=== PATIENT | female | born 1970 | race Caucasian/White ===

== ENCOUNTER → 2017-12-09 08:26 | Outpatient (CLI) | payer OTHER, SELFPAY ==
[2017-12-09 10:24] LABS: Absolute Lymphocyte Count 3.53 X10^3/ul (0.83-4.51); Absolute Neutrophil Count 3.2 X10^3/uL (2.0-7.7); Basophil# 0.04 X10^3/uL; Basophil% 0.5 % (0-1); Eosinophil# 0.11 X10^3/uL; Eosinophils% 1.4 % (0-5); Hematocrit 42.4 % (37-47); Hemoglobin 13.8 g/dl (12.0-15.0); Lymphocyte # 3.53 X10^3/ul (4.0); Lymphocyte % 46.5 % (19-41); Mean Corp Hgb Conc 32.5 g/gl (32-36); Mean Corpuscular Hgb 29.1 pg (27.0-32.0); Mean Corpuscular Volume 89.3 fL (81-99); Mean Platelet Vol. 10.5 fl (6.2-12.0); Monocyte# 0.69 X10^3/uL; Monocyte% 9.1 % (0-10); Neutrophil % 42.2 % (47-70); Platelet Count 330 K/mm3 (150-450); RBC Distribution Width CV 13.2 % (11.6-14.6); RBC Distribution Width SD 42.6 fl (35.1-43.9); Red Blood Count 4.75 M/mm3 (4.2-5.4); White Blood Count 7.6 K/mm3 (4.4-11.0)
[2017-12-09 10:33] LABS: POSITIVE COUNT NO; POSITIVE DIFFERENTIAL NO; POSITIVE MORPHOLOGY NO
[2017-12-09 10:56] LABS: ALB/GLOB Ratio 1.1 RATIO (0.9-2.4); AST(SGOT) 20 U/L (15-37); Alanine Aminotransfer ALT/SGPT 33 U/L (13-56); Alkaline Phosphatase 115 U/L (45-117); Anion Gap 8 (5-15); BUN 10 mg/dL (7-18); BUN/Creat Ratio 13.6 RATIO (10-20); Calcium,Total 8.9 mg/dL (8.5-10.1); Chloride 98 mmol/L (98-107); Creatinine, Serum 0.74 mg/dL (0.55-1.02); EST Glomerular Filtration Rate 91 mL/min (>60); Est Glom Filt Rate - Afr Amer 110 mL/min (>60); Globulin 3.6 g/dL (2.2-4.2); Glucose 96 mg/dL (74-106); Potassium 3.9 mmol/L (3.5-5.1); Protein, Total 7.6 g/dL (6.4-8.2); Sodium Level 137 mmol/L (136-145)
[2017-12-12 05:09] LABS: QNTFERON TB Ag Minus Nil Value 0.02 IU/mL (.); QNTFERON TB Ag Value 0.05 IU/mL (.); QNTFERON TB Mitogen Value > 10.00 IU/mL (.); QNTFERON TB Nil Value 0.03 IU/mL (.)
[2017-12-12 09:00] LABS: QNTIFERON TB Gold Negative (Negative)
== END ==
PROVIDERS: Family Provider Family Medicine; PCP Family Medicine; Visit Provider Internal Medicine Rheumatology
DX: M06.4 Inflammatory polyarthropathy (principal); Z79.899 Other long term (current) drug therapy; K51.80 Other ulcerative colitis without complications; L40.8 Other psoriasis; I10 Essential (primary) hypertension
CPT/HCPCS: 36415; 80053; 85025; 86480

== ENCOUNTER → 2017-12-29 14:39 | Outpatient (CLI) | payer OTHER, SELFPAY ==
--- NOTE | 2017-12-29 14:42 | RAD_ITS ---
STUDY: X-RAY - RIGHT KNEE REASON FOR EXAM: Female, 47 years old. Pain, swelling TECHNIQUE: 4 view(s) of the knee. COMPARISON: None. FINDINGS: Normal visualized distal femur. Normal visualized proximal tibia and fibula. Normal proximal tibiofibular articulation. Normal medial femorotibial compartment. Normal lateral femorotibial compartment. Normal patellofemoral articulation. There is a small joint effusion. RAD/Knee 4 or More Views IMPRESSION: Small joint effusion Electronically Signed: Payam Vo MD at 22:18 EDT Tel , Service support ,
== END ==
PROVIDERS: Family Provider Family Medicine; PCP Family Medicine; Visit Provider Orthopaedic Surgery
DX: M25.561 Pain in right knee (principal)
CPT/HCPCS: 73564

== ENCOUNTER → 2018-02-15 11:09 | Outpatient (CLI) | payer OTHER, SELFPAY ==
[2018-02-19 03:08] LABS: Alternaria tenuis <0.10 kU/L (Class 0); Cladosporium herbarum <0.10 kU/L (Class 0); Dog Epithelia <0.10 kU/L (Class 0); Penicillium Notatum <0.10 kU/L (Class 0)
[2018-02-19 11:52] LABS: Cat Hair / Dander,Stand <0.10 kU/L (Class 0); Mucor racemosus <0.10 kU/L (Class 0)
== END ==
PROVIDERS: Family Provider Family Medicine; PCP Family Medicine; Visit Provider Otolaryngology
DX: J30.81 Allergic rhinitis due to animal (cat) (dog) hair and dander (principal)
CPT/HCPCS: 36415; 86003

== ENCOUNTER → 2018-05-03 08:21 | Outpatient (CLI) | payer OTHER, SELFPAY ==
[2018-05-03 10:15] LABS: Absolute Lymphocyte Count 4.24 X10^3/ul (0.83-4.51); Absolute Neutrophil Count 3.1 X10^3/uL (2.0-7.7); Basophil# 0.06 X10^3/uL; Basophil% 0.7 % (0-1); Eosinophils% 1.2 % (0-5); Hematocrit 42.1 % (37-47); Hemoglobin 13.6 g/dl (12.0-15.0); Lymphocyte # 4.24 X10^3/ul (4.0); Lymphocyte % 50.8 % (19-41); Mean Corp Hgb Conc 32.3 g/gl (32-36); Mean Corpuscular Hgb 28.9 pg (27.0-32.0); Mean Corpuscular Volume 89.4 fL (81-99); Mean Platelet Vol. 10.6 fl (6.2-12.0); Monocyte# 0.83 X10^3/uL; Monocyte% 9.9 % (0-10); Neutrophil # 3.09 X10^3/uL (2.7-7.7); Platelet Count 315 K/mm3 (150-450); RBC Distribution Width CV 13.3 % (11.6-14.6); RBC Distribution Width SD 43.1 fl (35.1-43.9); Red Blood Count 4.71 M/mm3 (4.2-5.4); White Blood Count 8.4 K/mm3 (4.4-11.0)
[2018-05-03 10:16] LABS: POSITIVE COUNT NO; POSITIVE DIFFERENTIAL NO; POSITIVE MORPHOLOGY NO
[2018-05-03 10:44] LABS: ALB/GLOB Ratio 1.1 RATIO (0.9-2.4); AST(SGOT) 23 U/L (15-37); Alanine Aminotransfer ALT/SGPT 30 U/L (13-56); Albumin, Serum 3.9 g/dL (3.2-5.0); Alkaline Phosphatase 131 U/L (45-117); Anion Gap 9 (5-15); BUN 7 mg/dL (7-18); BUN/Creat Ratio 6.5 RATIO (10-20); Calcium,Total 9.4 mg/dL (8.5-10.1); Chloride 99 mmol/L (98-107); Creatinine, Serum 1.07 mg/dL (0.55-1.02); EST Glomerular Filtration Rate 59 mL/min (>60); Est Glom Filt Rate - Afr Amer 71 mL/min (>60); Globulin 3.7 g/dL (2.2-4.2); Glucose 88 mg/dL (74-106); Potassium 4.5 mmol/L (3.5-5.1); Protein, Total 7.6 g/dL (6.4-8.2); Sodium Level 138 mmol/L (136-145)
== END ==
PROVIDERS: Family Provider Family Medicine; PCP Family Medicine; Visit Provider Internal Medicine Rheumatology
DX: M06.4 Inflammatory polyarthropathy (principal); Z79.899 Other long term (current) drug therapy; K51.80 Other ulcerative colitis without complications; L40.8 Other psoriasis; I10 Essential (primary) hypertension
CPT/HCPCS: 36415; 80053; 85025

== ENCOUNTER → 2018-05-19 14:53 | Outpatient (CLI) | payer OTHER, SELFPAY | PROVIDERS: Family Provider Family Medicine; PCP Family Medicine; Visit Provider Internal Medicine Rheumatology | DX: M06.4 Inflammatory polyarthropathy (principal); Z79.899 Other long term (current) drug therapy; K51.80 Other ulcerative colitis without complications; L40.8 Other psoriasis; I10 Essential (primary) hypertension | CPT/HCPCS: 36415 ==

== ENCOUNTER 2018-08-04 13:59 | Emergency (ER) | payer OTHER, SELFPAY ==
[2018-08-04] VITALS (8 sets, daily range): BP systolic 118–137; BP diastolic 74–97; PULSE 62–106; RESP 13–18; TEMP 36.3; O2SAT 94–100; BMI 27.0
--- NOTE | 2018-08-04 14:11 | EKG12_ITS ---
Test Reason : REPEAT-CP Blood Pressure : / mmHG Vent. Rate : 080 BPM Atrial Rate : 080 BPM P-R Int : 108 ms QRS Dur : 086 ms QT Int : 380 ms P-R-T Axes : 034 061 045 degrees QTc Int : 438 ms Sinus rhythm with short WI Otherwise normal ECG Confirmed by HAMIDA MARTINEZ, NATALIE ([id number]), editor in chief LORENZO LAZO ([id number]) on 08/06/2018 1:28:12 PM Referred By: KENTRELL Confirmed By:NATALIE MEI MD
--- NOTE | 2018-08-04 14:11 | RAD_ITS ---
STUDY: X-RAY CHEST REASON FOR EXAM: Female, 47 years old. Chest pain TECHNIQUE: Frontal view of the chest COMPARISON: 11/18/2016 FINDINGS: The lungs are clear. There are no pleural effusions. There is no pneumothorax. The heart is normal in size. The visualized osseous structures are within normal limits. RAD/Chest 1 View (Portable) IMPRESSION: No acute thoracic pathology. Electronically Signed: Payam Fisher, at 14:27 EDT Tel , Service support ,
[2018-08-04 14:26] LABS: Absolute Neutrophil Count 4.2 X10^3/uL (2.0-7.7); Basophil# 0.06 X10^3/uL; Basophil% 0.7 % (0-1); Eosinophil# 0.09 X10^3/uL; Hematocrit 43.4 % (37-47); Hemoglobin 14.1 g/dl (12.0-15.0); Lymphocyte % 44.4 % (19-41); Mean Corp Hgb Conc 32.5 g/gl (32-36); Mean Corpuscular Hgb 29.4 pg (27.0-32.0); Mean Corpuscular Volume 90.4 fL (81-99); Mean Platelet Vol. 10.5 fl (6.2-12.0); Monocyte# 0.54 X10^3/uL; Monocyte% 6.2 % (0-10); Neutrophil # 4.17 X10^3/uL (2.7-7.7); Neutrophil % 47.5 % (47-70); Platelet Count 306 K/mm3 (150-450); RBC Distribution Width CV 13.8 % (11.6-14.6); RBC Distribution Width SD 45.5 fl (35.1-43.9); White Blood Count 8.8 K/mm3 (4.4-11.0)
[2018-08-04 14:28] LABS: POSITIVE COUNT NO; POSITIVE DIFFERENTIAL NO; POSITIVE MORPHOLOGY NO
--- NOTE | 2018-08-04 14:35 | CT_ITS ---
STUDY: CTA CHEST REASON FOR EXAM: Female, 47 years old. Shortness of breath. RADIATION DOSAGE (If Supplied By Facility): CTDIvol = ( 9.82 ) mGy, DLP = ( 295.99 ) mGycm TECHNIQUE: The examination was performed with the intravenous administration of 75 ml of Isovue 370 contrast material. Post-processing of the angiographic images was performed, with multiplanar reformation and 3D reconstruction. Individualized dose optimization techniques were used for this CT. COMPARISON: Comparison is made with prior CT scan of thorax dated November 18, 2016 and prior chest radiograph done earlier today. FINDINGS: Small bilateral axillary Normal enhancement of the main pulmonary artery and right and left pulmonary arteries. Normal enhancement of the bilateral peripheral pulmonary arteries. There is no demonstrated pulmonary embolism. Normal thoracic aorta and visualized great vessels. There is no demonstrated aortic dissection. Normal heart and pericardium. Normal mediastinum. Normal hilar regions. Normal visualized trachea and bronchi. The lungs are well expanded. Normal pulmonary parenchyma. Normal pleura. Normal chest wall structures. Normal osseous structures. The patient is status post cholecystectomy. Small hiatal hernia. CT/CTA Chest W/WO Contrast IMPRESSION: Normal CTA chest examination, without a demonstrated pulmonary embolism or arterial dissection. Electronically Signed: Hernandez Hamilton MD at 15:42 EDT Tel [phone], Service support ,
--- NOTE | 2018-08-04 14:38 | ED.VISSUMM ---
- ER Visit Summary Date of Service: 08/04/18 Chief Complaint: Chest pain History of Present Illness: The patient is a 47 F who presents for 2 days of chest pain. Patient was working, nonexertional, 2 days ago when she began having bilateral chest pain. It is relieved by nothing and has been worse with movement. Today the pain is now mainly left-sided. Patient denies any fever, cough, or associated symptoms other than mild shortness of breath. No cardiac history but patient does have hypertension, hypercholesterolemia, smokes, and is on estradiol hormone replacement after hysterectomy. She does have a history of coronary artery disease in her family, with father having a heart attack at age 50. Physical Examination: Vital signs: afebrile, hemodynamically stable, no hypoxia on room air General: well nourished, well developed, in no distress Skin: warm, dry, no rash, no pallor HEENT: normocephalic and atraumatic; PERRL, EOMI, moist mucous membranes Cardiovascular: Tachycardic rate and rhythm without murmurs, no peripheral edema, 2+ pulses all distal extremities Respiratory: No increased work of breathing, lungs are clear to auscultation bilaterally, no rales, rhonchi or wheezing Abdominal: Abdomen is soft, nontender with normoactive bowel sounds, no guarding or rebound, no masses MSK: Moves all extremities, no deformities, normal strength Neuro: Awake and alert, oriented ?4. No facial droop, sensation and motor function intact and symmetric Test Results: Clinical Impression(s) from Imaging Studies Chest X-Ray 08/04/18 14:11 IMPRESSION: No acute thoracic pathology. Electronically Signed: Payam Fisher at 14:27 EDT Tel , Service support , Chest CTA 08/04/18 14:35 IMPRESSION: Normal CTA chest examination, without a demonstrated pulmonary embolism or arterial dissection. Electronically Signed: Hernandez Hamilton MD at 15:42 EDT Tel [phone], Service support , Abnormal Lab Results 08/04/18 08/04/18 14:09 14:09 WBC 8.8 RBC 4.80 Hgb 14.1 Hct 43.4 MCV 90.4 MCH 29.4 MCHC 32.5 RDW 13.8 RDW Differential 45.5 H Plt Count 306 MPV 10.5 Immature Gran % (Auto) 0.200 Neut % (Auto) 47.5 Lymph % (Auto) 44.4 H Knox % (Auto) 6.2 Eos % (Auto) 1.0 Baso % (Auto) 0.7 Absolute Neuts (auto) 4.2 Absolute Lymphs (auto) 3.90 Total Counted Not Reportable Sodium 140 Potassium 3.6 Chloride 104 Carbon Dioxide 30.0 Anion Gap 6 BUN 6 L Creatinine 0.84 Estim Creat Clear Calc 66.89 Est GFR (MDRD) Af Amer 94 Est GFR (MDRD) Non-Af 78 BUN/Creatinine Ratio 7.2 L Glucose 110 H Calcium 8.8 Troponin I < 0.015 Medications Given Discontinued Medications Sodium Chloride () 1,000 mls @ 999 mls/hr IV .Q1H1M ONE Stop: 08/04/18 15:37 Last Admin: 08/04/18 15:14 Dose: 999 mls/hr Ketorolac Tromethamine (Toradol) 15 mg IV X1 ONE Stop: 08/04/18 16:57 Last Admin: 08/04/18 17:23 Dose: 15 mg Emergency Department Course and Treatment: Patient is tachycardic, with chest pain and is a smoker on estrogen replacement. Thus PE is on the differential. EKG showed sinus rhythm of 98 with no ischemic changes. She was mildly tachycardic when I evaluated her. Labs were unremarkable, including a negative initial troponin. CTA showed no pulmonary embolism, pneumonia or dissection. Patient's heart rate was variable while in the emergency department, and she stated that that is not abnormal for her to have her heart rate go up and down like that. She did mention having occasional sensation of palpitations, and she was noted to have unifocal PVCs occasionally on the manager sign. Patient has had the chest pain for 2 days, with worsening with movement, and thus it is unlikely to be cardiac in nature. Patient's heart score is 3 for risk factors and her age of 47. She was amenable to a 3-hour troponin and EKG. Repeat EKG showed no ischemic changes. Repeat troponin performed and was negative. Patient received IV Toradol for pain with some improvement. We discussed treatment of patient's nonspecific chest pain with anti-inflammatories with close follow-up with her primary care doctor. Patient has ibuprofen at home and she will take it scheduled for 3 days whether she is having significant discomfort or not. Return precautions given. Patient discharged home. Treatment Plan: [] Disposition: [] Impression: acute chest pain This note was generated with [employer] dictation software. It may contain incorrect words, spelling, and punctuation that were not noted in review of the chart prior to signing ED Disposition - Plan for ED Patient: Chief Complaint: Chest Pain Referrals: Ricci Poe MD [Primary Care Provider] -
[2018-08-04 14:40] LABS: Anion Gap 6 (5-15); BUN 6 mg/dL (7-18); BUN/Creat Ratio 7.2 RATIO (10-20); Calcium,Total 8.8 mg/dL (8.5-10.1); Chloride 104 mmol/L (98-107); Creatinine, Serum 0.84 mg/dL (0.55-1.02); EST Glomerular Filtration Rate 78 mL/min (>60); Est Glom Filt Rate - Afr Amer 94 mL/min (>60); Estimated Creatinine Clearance 66.89 ml/min; Glucose 110 mg/dL (74-106); Potassium 3.6 mmol/L (3.5-5.1); Sodium Level 140 mmol/L (136-145)
[2018-08-04] MEDS: 0.9% Normal Saline 1,000 ML 999 ML IV (15:14)
--- NOTE | 2018-08-04 16:56 | EKG12_ITS ---
Test Reason : CP Blood Pressure : / mmHG Vent. Rate : 098 BPM Atrial Rate : 098 BPM P-R Int : 120 ms QRS Dur : 086 ms QT Int : 340 ms P-R-T Axes : 041 051 036 degrees QTc Int : 434 ms Normal sinus rhythm Normal ECG Confirmed by HAMIDA MARTINEZ, NATALIE ([id number]), school photograph editor LORENZO LAZO ([id number]) on 08/06/2018 1:28:30 PM Referred By: KENTRELL/CAMILO Confirmed By:NATALIE MEI MD
[2018-08-04] MEDS: Ketorolac 15 MG/ML Vial IV (17:23)
--- NOTE | 2018-08-04 18:22 | ED.DEP ---
ED Disposition - Plan for ED Patient: Disposition: Home or Assisted Living Chief Complaint: Chest Pain Instructions: ED Chest Pain Atypical Unkn Cause Referrals: Ricci Poe MD [Primary Care Provider] - 3-5 Days Additional Instructions: Use ibuprofen every 6 hours for the next 3 days even if you are not having significant pain, as this will help with any chest wall inflammation that may be contributing to your symptoms. Follow up with your doctor within 3-5 days for another evaluation. If you have any worsening of your condition or any new concerning symptoms, please return immediately to the emergency department for another evaluation.
== END 2018-08-04 18:37 | disposition home or self-care (01) ==
PROVIDERS: Emergency Provider Emergency Medicine; Family Provider Family Medicine; PCP Family Medicine
DX: R07.9 Chest pain, unspecified (principal); I49.3 Ventricular premature depolarization; I10 Essential (primary) hypertension; Z79.899 Other long term (current) drug therapy; F17.200 Nicotine dependence, unspecified, uncomplicated
CPT/HCPCS: 71045; 71275; 80048; 84484; 85025; 93005; 96361; 96374; 99284; J7030; Q9967; A4216

== ENCOUNTER → 2018-09-18 07:34 | Outpatient (CLI) | payer OTHER, SELFPAY ==
--- NOTE | 2018-09-18 07:35 | MRI_ITS ---
STUDY: MRI RIGHT KNEE REASON FOR EXAM: Female, 48 years old. Pain and swelling. Prior surgery. TECHNIQUE: Standardized fat and water weighted pulse sequences were obtained in all 3 orthogonal planes. COMPARISON: None. FINDINGS: Normal medial meniscus. Normal hyaline cartilage of the medial femorotibial compartment. Normal medial femoral condyle and tibial plateau. Normal medial collateral ligamentous complex (MCL). Normal distal semimembranosus, gracilis and semitendinosus tendons. Normal lateral meniscus. Normal hyaline cartilage of the lateral femorotibial compartment. Normal lateral femoral condyle and tibial plateau. Normal proximal tibiofibular articulation. Normal lateral collateral (fibular) ligament. Normal popliteus tendon. Normal biceps femoris tendon. Normal anterior cruciate ligament (ACL). Normal posterior cruciate ligament (PCL). Normal congruent patellofemoral articulation. Normal hyaline cartilage of the patellofemoral compartment. Normal medial and lateral patellar retinaculum. Normal quadriceps tendon. Normal patellar tendon. Normal Hoffa's fat pad. There is a small volume joint effusion. There is artifact and signal dropout in the soft tissues consistent with previous surgery. The otherwise visualized osseous structures are unremarkable. MRI/Lower Ext Joint Only (Routine) IMPRESSION: Normal MRI of the knee. No ligamentous or meniscal tear. Small joint effusion. Electronically Signed: Nba Solis MD at 10:18 EST , Service support ,
== END ==
PROVIDERS: Family Provider Family Medicine; PCP Family Medicine; Referring Provider Physician Assistant; Visit Provider Physician Assistant
DX: S83.249A Other tear of medial meniscus, current injury, unspecified knee, initial encounter (principal); M25.561 Pain in right knee
CPT/HCPCS: 73721

== ENCOUNTER 2018-11-18 12:51 | Inpatient (IN) | payer OTHER, SELFPAY ==
[2018-11-18 12:08] VITALS: BMI 26.5
[2018-11-18 12:51] VITALS: BP 125/82; PULSE 87; RESP 16; TEMP 36.1; O2SAT 100; BMI 27.4
--- NOTE | 2018-11-18 15:00 | RAD_ITS ---
STUDY: X-RAY - LEFT HAND REASON FOR EXAM: Female, 48 years old. Catheter placed over the second metacarpal phalangeal joint. TECHNIQUE: view(s) of the hand. COMPARISON: None. FINDINGS: Normal radiocarpal articulation. Normal distal radioulnar joint. Normal visualized carpal bones. Normal carpal articulations Normal carpometacarpal articulation of the thumb. Normal second through fifth carpometacarpal joints. Normal metacarpi. Normal metacarpophalangeal joint of the thumb. Normal interphalangeal joint of the thumb. Normal proximal and distal phalanges of the thumb. Normal metacarpophalangeal joints of the second through fifth fingers. Normal proximal and distal interphalangeal joints of the second through fifth fingers. Normal phalanges of the second through fifth fingers. Soft tissue swelling. No radiopaque foreign body is seen. RAD/Hand Min 3 Views IMPRESSION: Soft tissue swelling. No radiopaque foreign body is seen. Electronically Signed: Hernandez Hamilton MD at 15:31 EST , Service support ,
[2018-11-18 15:02] LABS: Absolute Lymphocyte Count 4.24 X10^3/ul (0.83-4.51); Absolute Neutrophil Count 4.3 X10^3/uL (2.0-7.7); Basophil# 0.04 X10^3/uL; Basophil% 0.4 % (0-1); Eosinophil# 0.09 X10^3/uL; Hemoglobin 13.2 g/dl (12.0-15.0); Lymphocyte # 4.24 X10^3/ul (4.0); Mean Corp Hgb Conc 32.2 g/gl (32-36); Mean Corpuscular Hgb 29.9 pg (27.0-32.0); Mean Corpuscular Volume 92.8 fL (81-99); Mean Platelet Vol. 10.2 fl (6.2-12.0); Monocyte# 0.58 X10^3/uL; Monocyte% 6.3 % (0-10); Neutrophil # 4.25 X10^3/uL (2.7-7.7); Neutrophil % 46.1 % (47-70); POSITIVE COUNT NO; POSITIVE DIFFERENTIAL NO; POSITIVE MORPHOLOGY NO; Platelet Count 312 K/mm3 (150-450); RBC Distribution Width CV 13.4 % (11.6-14.6); RBC Distribution Width SD 44.9 fl (35.1-43.9); Red Blood Count 4.42 M/mm3 (4.2-5.4); White Blood Count 9.2 K/mm3 (4.4-11.0)
[2018-11-18 15:12] LABS: Anion Gap 9 (5-15); BUN 5 mg/dL (7-18); BUN/Creat Ratio 5.9 RATIO (10-20); Calcium,Total 8.7 mg/dL (8.5-10.1); Chloride 103 mmol/L (98-107); Creatinine, Serum 0.84 mg/dL (0.55-1.02); EST Glomerular Filtration Rate 77 mL/min (>60); Est Glom Filt Rate - Afr Amer 94 mL/min (>60); Estimated Creatinine Clearance 66.19 ml/min; Glucose 105 mg/dL (74-106); Potassium 3.3 mmol/L (3.5-5.1); Sodium Level 139 mmol/L (136-145)
[2018-11-18 15:20] LABS: Lactic Acid 1.2 mmol/L (0.4-2.0)
[2018-11-18] MEDS: Ciprofloxacin 400 MG/200 ML BAG 200 MG IV (15:40)
[2018-11-18 15:44] VITALS: PULSE 85; RESP 16; O2SAT 96
--- NOTE | 2018-11-18 16:11 | ED.VISSUMM ---
- ER Visit Summary Date of Service: 11/18/18 Chief Complaint: Cat bite left hand History of Present Illness: The patient is a 48 F [id number] woman who presents with cat bite left hand. She was bit 3 days ago. Is taking 5 doses of doxycycline. She reported numerous anabolic allergies. She denies fever, chills night sweats. Denies paresthesia, anesthesia motor weakness. She is on Humira for treatment of ulcerative colitis and rheumatoid arthritis. She has not noted any drainage. She states the swelling has gotten worse and the redness is a little more intensified. The practitioner from the urgent care center called prior to arrival since he initiated treatment 3 days ago. X-rays were not obtained to evaluate for foreign body. Please read written note for complete detail Physical Examination: Vital signs are normal. She is afebrile. HEENT exam is unremarkable. Heart is regular without murmur, gallop or rub. S1 and S2 are normal. Lungs are clear to auscultation with good movement of air bilaterally. Patient has multiple bite diana to the left hand and forearm. There is erythema soft tissue swelling over the dorsum of the left hand pacifically in the proximity of the first and second MCP joint. There is pain palpation of the extensor indices tendon. She has pain with passive flexion extension of the index finger. There is no epitrochlear excellent lymphadenopathy. There is redness noted that may extend to the wrist. There is no discrete lymphangitis. Read written note for complete detail Test Results: CBC and BMP unremarkable. Three-view x-ray of the hand was interpreted by me as negative for foreign body. There is evidence of soft tissue swelling. There is no subcutaneous air noted. Emergency Department Course and Treatment: IV was established. Pharmacy was consulted. When it was placed Bactrim she reports allergy. Looking at every specific allergy was determined that she does not have an allergic reaction ciprofloxacin. And after consultation with Mally and pharmacy she was treated with IV ciprofloxacin and vancomycin. Dr. [place] Fernandez was contacted. He will see patient determine whether she needs to go to the OR or not Treatment Plan: IV antibiotics, consultation with hand/plastics for possible operative intervention because of concern for a pyogenic tenosynovitis. Disposition: Admit Impression: Left hand cellulitis secondary to cat bite failed outpatient therapy This note was generated with [employer] software. It may contain incorrect words, spelling, and punctuation that were not noted in review of the chart prior to signing ED Disposition - Plan for ED Patient: Referrals: Ricci Poe MD [Primary Care Provider] -
[2018-11-18 16:20] VITALS: BMI 27.4
[2018-11-18 16:46] VITALS: PULSE 90; RESP 20; O2SAT 99
--- NOTE | 2018-11-18 16:53 | PCM.HP.STD ---
<Jack Neville - Last Filed: 11/18/18 16:53> Problem List (1) Cellulitis Status: Acute (2) Cat bite of hand Status: Acute (3) Ulcerative colitis Status: Chronic (4) Rheumatoid arthritis Status: Chronic (5) HTN (hypertension) Status: Chronic History of Present Illness Date of Admission: 11/18/18 Chief Complaint: left hand cat bite The patient is a 48 year old F with pmhx of RA, UC, htn, who presents to the ER with increased swelling and redness of a cat bite. This was sustained 3 days ago. She was attempting to catch a stray cat, which got away. She presented to the urgent care and was placed on doxy given her multiple allergies. She had worsening of the swelling and redness despite 5 doses of doxy, and presented to the ER. There has been no drainage. There is no lymphangitis. She denies fever and chills. She states she just feels unwell. [] Past Medical History Past Medical History (Chronic Problems): Chronic Problems (Last Updated 11/18/18 @ 12:13 by Jane Hackett) Immunocompromised state due to drug therapy (Chronic) Patient takes Humira for rheumatoid arthritis Ulcerative colitis (Chronic) Rheumatoid arthritis (Chronic) HTN (hypertension) (Chronic) Medical History: Medical History (Last Updated 11/18/18 @ 12:13 by Jane Hackett) Bloody stools K92.1 Chest pain R07.9 Diarrhea R19.7 History of hysterectomy Z90.710 Knee pain M25.569 Hypertension I10 Rheumatoid arthritis M06.9 Ulcerative colitis K51.90 H/O: hysterectomy Z98.890, Z90.710 Allergies Penicillins Allergy (Severe, Verified 11/18/18 12:53) Laryngospasms CUTS OFF AIRWAY clindamycin Allergy (Intermediate, Verified 11/18/18 12:53) Rash RASH AND HIGH HR mesalamine [From Asacol] Allergy (Intermediate, Verified 11/18/18 12:53) Rash RASH, HIGH HR, EXCESSIVE DIARRHEA meloxicam [From Mobic] Allergy (Mild, Verified 11/18/18 12:53) Rash nabumetone [From Relafen] Allergy (Mild, Verified 11/18/18 12:53) Rash sulfamethoxazole [From Bactrim] Allergy (Mild, Verified 11/18/18 12:53) Rash trimethoprim [From Bactrim] Allergy (Mild, Verified 11/18/18 12:53) Rash ciprofloxacin [From Cipro] Adverse Reaction (Verified 11/18/18 12:53) CHEST PAIN CHEST PAIN, RASH, HIGH HR ciprofloxacin HCl [From Cipro] Adverse Reaction (Verified 11/18/18 12:53) CHEST PAIN CHEST PAIN, RASH, HIGH HR Home Medications: Ambulatory Orders Medication Instructions Recorded Adalimumab [Humira] 40 mg SQ UD 11/18/16 Montelukast [Singulair] 10 mg PO DAILY 11/18/16 Duloxetine Hcl [Cymbalta] 60 mg PO DAILY 08/04/17 Lisinopril [Zestril] 20 mg PO DAILY 08/04/17 tramadol 50 mg tablet 50 mg PO Q6H PRN MDD ra 09/22/17 Atenolol [Tenormin (beta henrry)] 50 mg PO DAILY 11/18/18 Doxycycline Hyclate 100 mg PO BID 11/18/18 Estradiol 2 mg PO DAILY 11/18/18 azelastine 137 mcg-fluticasone 50 1 spray INTRANASAL BID 11/18/18 mcg spray,susp-NaCl 0.9% spray nasal loratadine 10 mg tablet 10 mg PO DAILY 11/18/18 Surgical History: Surgical History (Last Updated 11/18/18 @ 12:13 by Jane Hakcett) History of Z98.891 History of arthroscopy of left shoulder Z98.890 08/12/17 History of cholecystectomy Z90.49 Hx of tonsillectomy Z98.890, Z90.89 S/P cholecystectomy Z90.49 Surgical History: arthroscopy, knee, cholecystectomy, hysterectomy, tonsillectomy, - - c section, shoulder arthroscapy Psychiatric History: No pertinent psych hx 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 Denies: Chills, Fever, Weight Change HEENT: Denies: Head Aches, Sinus Congestion, Sinus Drainage Cardiovascular: Denies: Chest Pain, Palpitations Respiratory: Denies: Cough, Shortness of breath at rest, Sputum production Gastrointestinal: Denies: Abdominal Pain, Nausea, Vomiting Genitourinary: Denies: Dysuria Musculoskeletal: Denies: Joint Pain, Joint Tenderness Skin: Reports: Skin Changes, Wounds, - - erythema, no drainage. warmth. Denies: Rash Neurological: Denies: Numbness, Tingling, Focal weakness Psychiatric: Denies: Anxiety, Depression, Homicidal Ideations, Suicidal Ideations Hematologic/ Lymphatic: Denies: Easy Bruising, Easy Bleeding VTE Information - Inpt Only VTE Present on Admission: No VTE Mechan Device Prophylaxis: None VTE Pharm Prophylaxis ordered?: Yes Patient Problems: Active and Suspected Problems (Last Updated 11/18/18 @ 12:13 by Jane Hackett) Cellulitis of left hand (Acute) cat bite infection dorsum left hand at MP joint index finger and long finger Cat bite (Acute) cat bite infection dorsum left hand at MP joint index finger and long finger Cellulitis (Acute) Cat bite of hand (Acute) - Physical Exam General: Alert, Oriented x3, Cooperative HEENT: Atraumatic, PERRLA, EOMI, Normocephalic Neck: Supple, No JVD, Negative Carotid Bruits Lungs: Clear to auscultation, Normal air movement Cardiovascular: Regular rate, No murmurs Abdomen: Bowel Sounds Present, Soft, Non Tender Extremities: No edema, Capillary Refill Less than 3 Seconds Skin: Rash Present, - - warmth, erythema, hand and wrist, bite wound present, demarcations placed. Musculoskeletal: No Tenderness to Palpation of Joints or Extremities Lymphatic: No Cervical, Supraclavicular, or Inguinal Adenopathy Neurological: Cranial nerves II-XII grossly intact Psych/Mental Status: Normal Affect, Appropriate, Alert and oriented to time, place, person, mood and affect Vital Signs Temp Pulse Resp BP Pulse Ox 97 F L 90 20 H 125/82 H 99 11/18/18 12:51 11/18/18 16:46 11/18/18 16:46 11/18/18 12:51 11/18/18 16:46 Oxygen Delivery Method Room Air Weight: 150 lb Body Mass Index (BMI) 27.4 Laboratory Tests Past 24 Hrs 11/18/18 11/18/18 11/18/18 14:50 14:50 14:50 WBC 9.2 RBC 4.42 Hgb 13.2 Hct 41.0 MCV 92.8 MCH 29.9 MCHC 32.2 RDW 13.4 RDW Differential 44.9 H Plt Count 312 MPV 10.2 Immature Gran % (Auto) 0.200 Neut % (Auto) 46.1 L Lymph % (Auto) 46.0 H [place] % (Auto) 6.3 Eos % (Auto) 1.0 Baso % (Auto) 0.4 Absolute Neuts (auto) 4.3 Absolute Lymphs (auto) 4.24 Total Counted Not Reportable Sodium 139 Potassium 3.3 L Chloride 103 Carbon Dioxide 27.0 Anion Gap 9 BUN 5 L Creatinine 0.84 Estim Creat Clear Calc 66.19 Est GFR (MDRD) Af Amer 94 Est GFR (MDRD) Non-Af 77 BUN/Creatinine Ratio 5.9 L Glucose 105 Lactic Acid 1.2 Calcium 8.7 Assessment/Plan All Active Problems (Last Updated 11/18/18 @ 12:13 by Jane Hackett) Cellulitis of left hand (Acute) Cat bite (Acute) Cellulitis (Acute) Cat bite of hand (Acute) Segmental and somatic dysfunction of thoracic region (Acute) Segmental and somatic dysfunction of lumbar region (Acute) 1. Acute cellulitis of the hand 2/2 cat bite - failed outpatient therapy with doxy. Pt immunocompromised 2/2 humira, RA, UC. Received vanc/cipro in ER. Continue these + flagyl. Consult Dr. Ramirez. XR negative, soft tissue swelling only. Consult ID. Multiple antibiotic allergies. No increased WBC or temp. 2. RA, UC - hold humira. Chronic diarrhea. Continue prn tramadol 3. HTN - continue home meds. 4. Nicotine abuse - 3-4 cigarettes per day\ DVT ppx: lovenox This patient was seen by Jack Neville PA-C under the supervision of Dr. Bonilla. <Bhumika Bonilla - Last Filed: 11/18/18 21:51> History of Present Illness The patient is a 48 year old F [] Past Medical History Medical History: Medical History (Last Updated 11/18/18 @ 12:13 by Jane Hackett) Bloody stools K92.1 Chest pain R07.9 Diarrhea R19.7 History of hysterectomy Z90.710 Knee pain M25.569 Hypertension I10 Rheumatoid arthritis M06.9 Ulcerative colitis K51.90 H/O: hysterectomy Z98.890, Z90.710 Allergies Penicillins Allergy (Severe, Verified 11/18/18 12:53) Laryngospasms CUTS OFF AIRWAY clindamycin Allergy (Intermediate, Verified 11/18/18 12:53) Rash RASH AND HIGH HR mesalamine [From Asacol] Allergy (Intermediate, Verified 11/18/18 12:53) Rash RASH, HIGH HR, EXCESSIVE DIARRHEA meloxicam [From Mobic] Allergy (Mild, Verified 11/18/18 12:53) Rash nabumetone [From Relafen] Allergy (Mild, Verified 11/18/18 12:53) Rash sulfamethoxazole [From Bactrim] Allergy (Mild, Verified 11/18/18 12:53) Rash trimethoprim [From Bactrim] Allergy (Mild, Verified 11/18/18 12:53) Rash ciprofloxacin [From Cipro] Adverse Reaction (Verified 11/18/18 12:53) CHEST PAIN CHEST PAIN, RASH, HIGH HR ciprofloxacin HCl [From Cipro] Adverse Reaction (Verified 11/18/18 12:53) CHEST PAIN CHEST PAIN, RASH, HIGH HR Surgical History: Surgical History (Last Updated 11/18/18 @ 12:13 by Jane Hackett) History of Z98.891 History of arthroscopy of left shoulder Z98.890 08/12/17 History of cholecystectomy Z90.49 Hx of tonsillectomy Z98.890, Z90.89 S/P cholecystectomy Z90.49 - *Family History Maternal Family History: Family History (Last Reviewed 11/18/18 @ 12:11 by Jane Hackett) Mother Diabetes CVA (cerebral vascular accident) Father Diabetes Heart disease Hypertension - Physical Exam Vital Signs Temp Pulse Resp BP Pulse Ox 97.8 F 80 16 126/85 H 99 11/18/18 18:04 11/18/18 18:04 11/18/18 18:04 11/18/18 18:04 11/18/18 18:04 Oxygen Delivery Method Room Air Weight: 68.039 kg Body Mass Index (BMI) 27.4 Laboratory Tests Past 24 Hrs 11/18/18 11/18/18 11/18/18 14:50 14:50 14:50 WBC 9.2 RBC 4.42 Hgb 13.2 Hct 41.0 MCV 92.8 MCH 29.9 MCHC 32.2 RDW 13.4 RDW Differential 44.9 H Plt Count 312 MPV 10.2 Immature Gran % (Auto) 0.200 Neut % (Auto) 46.1 L Lymph % (Auto) 46.0 H [place] % (Auto) 6.3 Eos % (Auto) 1.0 Baso % (Auto) 0.4 Absolute Neuts (auto) 4.3 Absolute Lymphs (auto) 4.24 Total Counted Not Reportable Sodium 139 Potassium 3.3 L Chloride 103 Carbon Dioxide 27.0 Anion Gap 9 BUN 5 L Creatinine 0.84 Estim Creat Clear Calc 66.19 Est GFR (MDRD) Af Amer 94 Est GFR (MDRD) Non-Af 77 BUN/Creatinine Ratio 5.9 L Glucose 105 Lactic Acid 1.2 Calcium 8.7 Assessment/Plan This patient was seen in conjunction with DAYAMI Rashid. I have independently interviewed and examined the patient and reviewed pertinent historical, laboratory, and other data. Please refer to DAYAMI Rashid note for his patient's presentation, findings, and recommendations. I have reviewed and his note and concur with his documentation 48-year-old female with past medical history of rheumatoid arthritis and ulcerative colitis, on Humira comes in with complaints of left hand swelling and redness after a cat bit him, of 3 days duration. She admits that she was trying to get a straight cath which eventually got away. She was seen in urgent care and started on doxycycline clinic. She however has had worsening redness of a hand as well as swelling despite having completed 5 doses of doxycycline. She denied any fever or chills. She has not taking any of the Humira in a while. Patient was started on IV vancomycin, Cipro in the ED. On the floor, patient after almost completing vancomycin, patient started complaining of redness of her neck. No other areas of redness; admits to itchiness of her scalp. Patient has multiple allergies. PMHx: In addition to the above, patient has history of hypertension PSHX: , history of left shoulder arthroscopy, status post cholecystectomy, tonsillectomy FHX: Diabetes and CVA in mother, diabetes and heart disease in father SHX:, smokes cigarettes, denies any use of alcohol or illicit drugs ROS: Point review of system was negative except for above in HPI Physical Exam: Gen: Appears comfortable, not ill looking, not pale, not jaundiced CVS:HS I +II, regular, no murmurs RESP: Clinically clear to auscultation GI: Soft, nontender, bowel sounds present, palpable organs EXT: Some of left hand is swollen, cat scratches scabs seen, erythema extends to the proximal forearm and wrist No bipedal edema ASSESSMENT: 1. Acute cellulitis of the hand secondary to cat bite, failed outpatient therapy, in an immunocompromised patient, severe 2. Immunocompromised state, off Humira for now 3. Moderate arthritis 4. Ulcerative colitis 5. Hypertension 6. Nicotine dependence 7. Possible red man syndrome versus allergy 8. Multiple drug allergies Plan: Has multiple allergies Continue on IV Cipro and Flagyl for now; received 1 dose of vancomycin Hold vancomycin for now on account of questionable allergy versus red man syndrome Plastic surgery consulted Elevate hand Continue on home lisinopril ID consult Nicotine replacement Code Visit Inpatient E&M: 45928 Init Hosp L3
[2018-11-18 17:04] VITALS: PULSE 78; RESP 12; O2SAT 100
[2018-11-18 18:04] VITALS: BP 126/85; PULSE 80; RESP 16; TEMP 36.6; O2SAT 99
[2018-11-18 18:09] VITALS: BMI 27.4
--- NOTE | 2018-11-18 20:01 | CON.PCM_ITS ---
Reason for Consult Date of Consultation: 11/18/18 Reason for Consultation: Cat bite infection dorsum left hand at MP joints index and long fingers. REFERRING PHYSICIAN: Dr. Bonilla. NUCLEAR MEDICINE SPECIALIST: Dr. Ramirez. History of Present Illness: The patient is a 48 year old F with a history of rheumatoid arthritis and ulcerative colitis and is on Humira, presented to the ED today with increasing redness, pain, and swelling on the dorsum left hand at the MP joints index finger and long finger from a cat bite three days ago. It was a stray feral cat as she was attempting to pick it up when she was bitten. She went to urgent care who placed her on Doxycycline. After a couple of days of oral antibiotics, her symptomatology worsened which prompted her visit to the ED. She was started on Vancomycin, Cipro, and Flagyl. Xray showed no foreign body. WBC was 9.2. With her worsening symptomatology and failing outpatient treatment, she was admitted with continuation of the IV antibiotics. She denies fever. I was asked to evaluate this patient for surgical options for treatment. Past Medical History Past Medical History (Chronic Problems): Chronic Problems (Last Updated 11/18/18 @ 12:13 by Jane Hackett) Smoker (Chronic) Immunocompromised state due to drug therapy (Chronic) Patient takes Humira for rheumatoid arthritis Ulcerative colitis (Chronic) Rheumatoid arthritis (Chronic) HTN (hypertension) (Chronic) Medical History: Medical History (Last Updated 11/18/18 @ 12:13 by Jane Hackett) Bloody stools K92.1 Chest pain R07.9 Diarrhea R19.7 History of hysterectomy Z90.710 Knee pain M25.569 Hypertension I10 Rheumatoid arthritis M06.9 Ulcerative colitis K51.90 H/O: hysterectomy Z98.890, Z90.710 Allergies Penicillins Allergy (Severe, Verified 11/18/18 12:53) Laryngospasms CUTS OFF AIRWAY clindamycin Allergy (Intermediate, Verified 11/18/18 12:53) Rash RASH AND HIGH HR mesalamine [From Asacol] Allergy (Intermediate, Verified 11/18/18 12:53) Rash RASH, HIGH HR, EXCESSIVE DIARRHEA meloxicam [From Mobic] Allergy (Mild, Verified 11/18/18 12:53) Rash nabumetone [From Relafen] Allergy (Mild, Verified 11/18/18 12:53) Rash sulfamethoxazole [From Bactrim] Allergy (Mild, Verified 11/18/18 12:53) Rash trimethoprim [From Bactrim] Allergy (Mild, Verified 11/18/18 12:53) Rash ciprofloxacin [From Cipro] Adverse Reaction (Verified 11/18/18 12:53) CHEST PAIN CHEST PAIN, RASH, HIGH HR ciprofloxacin HCl [From Cipro] Adverse Reaction (Verified 11/18/18 12:53) CHEST PAIN CHEST PAIN, RASH, HIGH HR Current Medications Atenolol (Tenormin (Beta Lynne)) 50 mg PO DAILY FORREST Bisacodyl (Dulcolax) 5 mg PO DAILY PRN Duloxetine HCl (Cymbalta) 60 mg PO DAILY FORREST Heparin Sodium (Porcine) (Heparin Na) 5,000 unit SC Q8 FORREST Metronidazole (Flagyl) 500 mg in 100 mls @ 100 mls/hr IV Q8 FORREST Lisinopril (Zestril) 20 mg PO DAILY FORREST Loratadine (Claritin) 10 mg PO DAILY FORREST Magnesium Hydroxide (Milk Of Magnesia) 30 ml PO DAILY PRN Montelukast Sodium (Singulair) 10 mg PO DAILY FORREST Ondansetron HCl (Zofran) 4 mg IV Q8H PRN Psyllium Hydrophilic Mucilloid (Metamucil) 1 packet PO DAILY PRN Tramadol HCl (Ultram) 50 mg PO Q6H PRN Cipro Vancomycin Home Medications: Ambulatory Orders Medication Instructions Recorded Adalimumab [Humira] 40 mg SQ UD 11/18/16 Montelukast [Singulair] 10 mg PO DAILY 11/18/16 Duloxetine Hcl [Cymbalta] 60 mg PO DAILY 08/04/17 Lisinopril [Zestril] 20 mg PO DAILY 08/04/17 tramadol 50 mg tablet 50 mg PO Q6H PRN MDD ra 09/22/17 Atenolol [Tenormin (beta lynne)] 50 mg PO DAILY 11/18/18 Doxycycline Hyclate 100 mg PO BID 11/18/18 Estradiol 2 mg PO DAILY 11/18/18 azelastine 137 mcg-fluticasone 50 1 spray INTRANASAL BID 11/18/18 mcg spray,susp-NaCl 0.9% spray nasal loratadine 10 mg tablet 10 mg PO DAILY 11/18/18 Gauze Bandage [Gauze Pad] 4 ea TP .QDAILY 30 Days #120 11/20/18 bandage Gauze Bandage [Kerlix] 1 ea TP .QDAILY 30 Days #30 bandage 11/20/18 HYDROmorphone tablet [Dilaudid] 2 - 4 mg PO 4X/DAY PRN PRN 7 Days 11/20/18 #50 tab Surgical History: Surgical History (Last Updated 11/18/18 @ 12:13 by Jane Hackett) History of Z98.891 History of arthroscopy of left shoulder Z98.890 08/12/17 History of cholecystectomy Z90.49 Hx of tonsillectomy Z98.890, Z90.89 S/P cholecystectomy Z90.49 Surgical History: arthroscopy, knee, cholecystectomy, hysterectomy, tonsillectomy, - - c section, shoulder arthroscapy Psychiatric History: No pertinent psych hx 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 Denies: Chills, Fever, Weight Change. HEENT: Denies: Head Aches, Sinus Congestion, Sinus Drainage. Cardiovascular: Denies: Chest Pain, Palpitations. Respiratory: Denies: Cough, Shortness of breath at rest, Sputum production. Gastrointestinal: Denies: Abdominal Pain, Nausea, Vomiting. Has ulcerative colitis. Genitourinary: Denies: Dysuria. Musculoskeletal: Denies: Joint Pain, Joint Tenderness. Has rheumatoid arthritis. Skin: Has increased redness, pain, and swelling dorsum left hand at MP joint index finger and long finger from a recent cat bite. Neurological: Denies: Numbness, Tingling, Focal weakness. Psychiatric: Denies: Anxiety, Depression, Homicidal Ideations, Suicidal Ideations. Hematologic/ Lymphatic: Denies: Easy Bruising, Easy Bleeding Patient Problems: Active and Suspected Problems (Last Updated 11/18/18 @ 12:13 by Jane Hackett) Cellulitis of left hand (Acute) cat bite infection dorsum left hand at MP joint index finger and long finger Cat bite (Acute) cat bite infection dorsum left hand at MP joint index finger and long finger Cellulitis (Acute) Cat bite of hand (Acute) - Physical Exam General: Alert, Oriented x3, Cooperative HEENT: PERRLA, EOMI. Throat is clear. Neck: Supple, nontender. No cervical adenopathy. Lungs: Clear to auscultation. Cardiovascular: Regular rate, regular rhythm. Abdomen: Soft, Nondistended. Extremities: No clubbing. No cyanosis. Tenderness to palpation left hand mostly on dorsum at MP joint index finger and long finger. Couple bite diana present at MP joint. Redness on dorsum of left hand. Swelling present on dorsum left hand. Can make a fist. Staffing Associate strength is weak. Fingers are warm with good capillary refill. No axillary adenopathy. Radial pulses are palpable. Patient is right hand dominant. Lymphatic: No cervical adenopathy. No axillary adenopathy. Neurological: Cranial nerves II-XII grossly intact. Psych/Mental Status: Normal Affect, Appropriate, Alert and oriented to time, place, person, mood and affect. Vital Signs Temp Pulse Resp BP Pulse Ox 97.8 F 80 16 126/85 H 99 11/18/18 18:04 11/18/18 18:04 11/18/18 18:04 11/18/18 18:04 11/18/18 18:04 Oxygen Delivery Method Room Air Weight: 150 lb Body Mass Index (BMI) 27.4 Laboratory Tests Past 24 Hrs 11/18/18 11/18/18 11/18/18 14:50 14:50 14:50 WBC 9.2 RBC 4.42 Hgb 13.2 Hct 41.0 MCV 92.8 MCH 29.9 MCHC 32.2 RDW 13.4 RDW Differential 44.9 H Plt Count 312 MPV 10.2 Immature Gran % (Auto) 0.200 Neut % (Auto) 46.1 L Lymph % (Auto) 46.0 H [place] % (Auto) 6.3 Eos % (Auto) 1.0 Baso % (Auto) 0.4 Absolute Neuts (auto) 4.3 Absolute Lymphs (auto) 4.24 Total Counted Not Reportable Sodium 139 Potassium 3.3 L Chloride 103 Carbon Dioxide 27.0 Anion Gap 9 BUN 5 L Creatinine 0.84 Estim Creat Clear Calc 66.19 Est GFR (MDRD) Af Amer 94 Est GFR (MDRD) Non-Af 77 BUN/Creatinine Ratio 5.9 L Glucose 105 Lactic Acid 1.2 Calcium 8.7 Diagnostic Data Hand X-Ray 11/18/18 15:00 IMPRESSION: Soft tissue swelling. No radiopaque foreign body is seen. Electronically Signed: Hernandez Hamilton MD at 15:31 EST , Service support , Assessment/Plan All Active Problems (Last Updated 11/18/18 @ 12:13 by Jane Hackett) Cellulitis of left hand (Acute) Cat bite (Acute) Cellulitis (Acute) Cat bite of hand (Acute) Segmental and somatic dysfunction of thoracic region (Acute) Segmental and somatic dysfunction of lumbar region (Acute) 1. Cat bite infection dorsum left hand at MP joint index finger and long finger with cellulitis. 2. Immunocompromised state due to being on Humira for rheumatoid arthritis. 3. Smoker. Xray reviewed. Continue IV antibiotics with Vancomycin, Ciprofloxacin, and Flagyl. Will check a CT scan to look for deeper source of infection or bony involvement. With cat bites, there is increased risk for bone and or/joint involvement with osteomyelitis. Keep left hand elevated. Recommend to the patient close observation. With her immunocompromised state, I will have decreased threshold for operative intervention. Will check her hand first thing in the morning. Unless there is dramatic improvement, I will recommend going to the OR for incision and drainage and excisional debridement. If bone or joint is involved, then a partial ostectomy for osteomyelitis will also be done. Tissue will be sent to Microbiology for culture. A positive culture will necessitate antibiotic therapy. If there is not a good oral choice for antibiotics with her multiple allergies, she would then need IV antibiotics and a PICC line would be placed. Will leave the wound open initially and begin Silver dressing changes daily. After surgery, will encourage range of motion exercises to minimize stiffness. She may need OT assistance for range of motion exercises, strengthening, and edema management. If there is a plateau in the healing process, can proceed with delayed closure with skin grafting. Because of her being on Humira, anticipate delayed healing in which case we may proceed with skin grafting earlier than usual. Anticipate increased metabolic demands from the infection. Will check a Prealbumin. Encourage nutritional supplementation with protein to help the healing process. Encouraged patient to stop smoking as it may have deleterious effects on wound healing. Code Visit Inpatient E&M: 61971 Init Hosp L2 - ICD-10 - W55.01xA, S61.459A, L03.114, Z79.899, F17.200
--- NOTE | 2018-11-18 20:33 | CT_ITS ---
HISTORY: PT STATED CAT BITE X 2 DAYS AGO. SWELLING AND REDNESS EVIDENT. TECHNIQUE: Routine bone CT protocol was performed of the . 2-D reformats were performed by the technologist. A radiation dose optimization technique was used for this scan. IV Contrast dosage and agent: None. COMPARISON: Left hand radiographs earlier same date. FINDINGS: # of images incl. paperwork: 252 SOFT TISSUES: Again demonstrated is soft tissue swelling dorsally most prominent at the level of the metacarpals. No apparent abscess or soft tissue air or radiopaque foreign body. BONES: No acute fracture or subluxation. No sclerotic or destructive changes observed. JOINTS: Preservation of the joint space. Articular surfaces are unremarkable. CT/Extremity Upper without Contra IMPRESSION: Dorsal soft tissue swelling. No apparent abscess or soft tissue air. No acute osseous abnormality. Individualized dose optimization techniques were used for this CT. at 2147 Reported and signed by: Chemo Landin MD Electronically Signed: Chemo Landin, at 21:46 EST Tel , Service support ,
[2018-11-18 22:20] VITALS: BP 124/65; PULSE 60; RESP 18; TEMP 36.6; O2SAT 97
[2018-11-19] VITALS (11 sets, daily range): BP systolic 106–133; BP diastolic 57–81; PULSE 70–96; RESP 14–18; TEMP 36.4–36.8; O2SAT 16–98; BMI 27.4
[2018-11-19] MEDS: traMADol 50 MG Tablet PO ×3 (05:01→18:13)
[2018-11-19] MEDS: 0.9% NaCl Peripheral Flush Adult/Peds IV ×4 (06:12→20:28)
[2018-11-19 06:19] LABS: Absolute Lymphocyte Count 3.89 X10^3/ul (0.83-4.51); Absolute Neutrophil Count 3.4 X10^3/uL (2.0-7.7); Basophil# 0.05 X10^3/uL; Basophil% 0.6 % (0-1); Eosinophil# 0.11 X10^3/uL; Eosinophils% 1.4 % (0-5); Hematocrit 38.7 % (37-47); Hemoglobin 12.5 g/dl (12.0-15.0); Lymphocyte # 3.89 X10^3/ul (4.0); Lymphocyte % 48.2 % (19-41); Mean Corp Hgb Conc 32.3 g/gl (32-36); Mean Corpuscular Hgb 30.6 pg (27.0-32.0); Mean Corpuscular Volume 94.9 fL (81-99); Mean Platelet Vol. 10.4 fl (6.2-12.0); Monocyte# 0.61 X10^3/uL; Monocyte% 7.6 % (0-10); Neutrophil # 3.39 X10^3/uL (2.7-7.7); Platelet Count 286 K/mm3 (150-450); RBC Distribution Width CV 13.2 % (11.6-14.6); RBC Distribution Width SD 44.3 fl (35.1-43.9); Red Blood Count 4.08 M/mm3 (4.2-5.4); White Blood Count 8.1 K/mm3 (4.4-11.0)
[2018-11-19 06:22] LABS: POSITIVE COUNT NO; POSITIVE DIFFERENTIAL NO; POSITIVE MORPHOLOGY NO
[2018-11-19 06:27] LABS: Erythrocyte Sedimentation Rate 7 mm/hr (0-20)
[2018-11-19 06:28] LABS: Anion Gap 8 (5-15); BUN 9 mg/dL (7-18); CRP 8.16 mg/L (0.0-3.0); Calcium,Total 8.4 mg/dL (8.5-10.1); Chloride 107 mmol/L (98-107); Creatinine, Serum 0.75 mg/dL (0.55-1.02); EST Glomerular Filtration Rate 88 mL/min (>60); Est Glom Filt Rate - Afr Amer 106 mL/min (>60); Estimated Creatinine Clearance 74.13 ml/min; Glucose 96 mg/dL (74-106); Potassium 4.4 mmol/L (3.5-5.1); Prealbumin 20.3 mg/dL (20.0-40.0); Sodium Level 141 mmol/L (136-145)
--- NOTE | 2018-11-19 08:11 | EKG12_ITS ---
Test Reason : PRE OP Blood Pressure : / mmHG Vent. Rate : 080 BPM Atrial Rate : 080 BPM P-R Int : 122 ms QRS Dur : 082 ms QT Int : 374 ms P-R-T Axes : 053 057 046 degrees QTc Int : 431 ms Normal sinus rhythm with sinus arrhythmia Normal ECG When compared with ECG of 04-AUG-2018 17:25, No significant change was found Confirmed by EITAN MARTINEZ, JUAN ([id number]), market editor LORENZO LAZO ([id number]) on 11/25/2018 12:04:47 PM Referred By: RANDOLPH Confirmed By:JUAN LAIRD MD
[2018-11-19] MEDS: Atenolol 50 MG Tablet PO (08:29)
--- NOTE | 2018-11-19 08:35 | LES_PTH ---
PATIENT: HINA JENKINS LOC: [facility] U#:[id number] AGE/SX: 48/F ROOM: CA317 RE11/18/[address]: Dr. Matt Rios MD : 1970 BED: 1 DIS: 11/20/2018 SPEC #: [id number] RECD: 11/19/18 12:44 STATUS: DEMARCUS HELEN #: [id number] AKASH: 11/19/18 08:[address]: Mo Ramirez DEPT: SURGICAL PATHOLOGY RECD BY: Lm Yao ENTERED: 11/19/18 13:16 SP TYPE: Lesion OTHR DR: MD Dr. Ricci Olson MD Dr. Nicholas F Kotsonis, MD Dr. Robert Leininger, MD Tissues: Skin of hand and finger, NOS Procedures: Surgery Specimen Level III HEADER OPERATION: Surgical preparation left hand with incision and drainage PRE-OP DIAGNOSIS: Cellulitis of left hand, cat bite of left hand TISSUE SUBMITTED: Left hand cat bite MICROSCOPIC DIAGNOSIS Left hand cat bite: A piece of hyperkeratotic skin with underlying tissue with acute and chronic inflammation. RENNY:colt 11/22/18 MICROSCOPIC DESCRIPTION Slides are reviewed. GROSS DESCRIPTION Received in fixative is one container labeled with the patient's name and designated left hand cat bite. The specimen consists of an ovoid piece of reeves-white skin measuring 1 x 0.7 cm and up to 0.3 cm in thickness. The specimen is inked, serially sectioned and submitted entirely in one cassette. / RENNY:colt 11/19/17 TC:3 CPT: 48506
[2018-11-19 08:39] LABS: Hematocrit 43.6 % (37-47); Hemoglobin 13.7 g/dl (12.0-15.0); Mean Corp Hgb Conc 31.4 g/gl (32-36); Mean Corpuscular Hgb 29.6 pg (27.0-32.0); Mean Corpuscular Volume 94.2 fL (81-99); Mean Platelet Vol. 10.1 fl (6.2-12.0); Platelet Count 324 K/mm3 (150-450); RBC Distribution Width CV 13.5 % (11.6-14.6); RBC Distribution Width SD 46.4 fl (35.1-43.9); Red Blood Count 4.63 M/mm3 (4.2-5.4); Scan Indicated on CBC? Y/N NO; White Blood Count 8.6 K/mm3 (4.4-11.0)
[2018-11-19 08:47] LABS: International Normalized Ratio 0.9; Partial Thromboplast Time 29.6 Seconds (24.1-36.2)
[2018-11-19] MEDS: Ciprofloxacin 400 MG/200 ML BAG 200 MG IV (09:20)
--- NOTE | 2018-11-19 10:05 | PCM.IMDPSTOP ---
Immediate Post-Op Note Date of Procedure: 11/19/18 Primary Surgeon/Physician: Mo Ramirez MD speech and language tutor: None Pre-Operative Diagnosis: 1. Cat bite infection dorsum left hand at MP joint index finger and long finger with cellulitis. 2. Immunocompromised state due to being on Humira for rheumatoid arthritis. 3. Smoker. Post-Operative Diagnosis: 1. Cat bite infection dorsum left hand at MP joint index finger and long finger with cellulitis and involvement ulnar aspect extensor berrios proximal phalanx index finger. 2. Immunocompromised state due to being on Humira for rheumatoid arthritis. 3. Smoker. Surgery/Procedure Performed:: Surgical preparation dorsum left hand at MP joint index finger with involvement ulnar aspect extensor berrios proximal phalanx and MP joint long finger with incision and drainage and excisional debridement cat bite infection. Description of Surgical Findings:: The patient is a 48 year old F with a history of rheumatoid arthritis and ulcerative colitis and is on Humira, presented to the ED today with increasing redness, pain, and swelling on the dorsum left hand at the MP joints index finger and long finger from a cat bite three days ago. It was a stray feral cat as she was attempting to pick it up when she was bitten. She went to urgent care who placed her on Doxycycline. After a couple of days of oral antibiotics, her symptomatology worsened which prompted her visit to the ED. She was started on Vancomycin, Cipro, and Flagyl. Xray showed no foreign body. WBC was 9.2. With her worsening symptomatology and failing outpatient treatment, she was admitted with continuation of the IV antibiotics. She denies fever. I was asked to evaluate this patient for surgical options for treatment. CT scan showed dorsal soft tissue swelling. No apparent abscess or soft tissue air. No acute osseous abnormality. Today the patient underwent surgical preparation dorsum left hand at MP joint index finger with involvement ulnar aspect extensor berrios proximal phalanx and MP joint long finger with incision and drainage and excisional debridement cat bite infection. Total tourniquet time - 33 minutes. The size of the defect MP joint left index finger - 1 x 0.7 x 0.3 cm. The length of the wound left index finger - 3 cm. The length of the wound left long finger - 2.5 cm. Estimated Blood Loss: 2 ml. Specimen's removed: 1. Cat bite infection dorsum left hand at MP joint index finger and long finger to Pathology and Microbiology. 2. MRSA Wound DNA by PCR. Drains: None. Type of Anesthesia:: General - Admit VTE Documentation VTE Present on Admission: No VTE Mechan Device Prophylaxis: SCD's VTE Pharm Prophylaxis ordered?: Yes
[2018-11-19 11:43] LABS: M R Staph aureus DNA By PCR Negative (Negative); Probe Check PASS; Specimen Processing Control PASS; Staph aureus DNA By PCR NEGATIVE (Negative)
[2018-11-19] MEDS: Lisinopril 20 MG Tablet PO (12:00)
[2018-11-19] MEDS: Montelukast 10 MG Tablet PO (12:00)
[2018-11-19] MEDS: DULoxetine Hcl 60 MG Capsule PO (12:00)
[2018-11-19] MEDS: Loratadine 10 MG Tablet PO (12:00)
--- NOTE | 2018-11-19 13:00 | CASEMGMT ---
RN ARIAS DESPATCHING AND RECEIVING CLERK CM to room to meet with patient for initial transition planning/care coordination assessment. RN ARIAS introduced self and role at [facility]. Pt voices understanding and consents to assessment at this time. Pt resting in bed in no distress at this time. Pt is A/O at this time and answers all questions appropriately. Care providers, pharmacy, and demographics verified/updated at this time. PCP: Deepika Specialists: [facility] in [facility] Preferred [facility]acy: [facility] Insurance: MMO Prescription Benefit: Yes Living Will/HPOA: States does not have LW or HCPOA . Interested in more information but states does not want to talk with SW at this time to complete paperwork. Provided information on advanced directives and given Social Service rac card with number to call if chooses in the future to utilize [facility] social work for advanced directive completion. Educated patient that, if patient so chooses, can come back to [facility] and meet with a SW as an outpatient to complete health care advanced directives. Patient voices understanding. LNOK: and 2 daughters. Living Arrangements: Lives with her . 20-yr-old daughter lives with them. Independent prior to admission. Transportation: Pt states drives self and states no transportation concerns at this time. and daughter can both assist with transportation. Denies concerns DME: Denies using any DME and denies needs. HHC/SNF: Has never been to a SNF or used HHC. CM to follow for discharge planning/needs. Pt voices no further concerns/needs at this time. Advised pt to ask for CM if any further questions/concerns/needs arise. Voices understanding. PLAN: Pt wishes to return home. Undetermined at this time if pt will discharge with PO or IV antibiotics. States her and daughter who lives with them are both able to learn how to do dressing changes. Call placed to Dr Ramirez to inquire about when he will be in tomorrow/Thursday to do dressing change so can attempt to arrange to have pt's and/or daughter come in to observe and for dressing change teaching. No answer. Message left asking for him to return call. If pt would need IV antibiotics: Pt states depending on how often she would need IV antibiotics, she may be interested in going to [facility] Out-pt clinic for IV antibiotics or she may be interested in administering/having or daughter administer them to her @ home. She states both her and daughter would also be able to learn/administer IV antibiotics. [facility] may be able to complete IV administration teaching/training instead of HHC. If HHC would be needed and approved by insurance, pt states would prefer [facility] HHC. Chris HERNÁNDEZN RN CM
[2018-11-19] MEDS: HYDROmorphone 1 MG/ML Syringe IV ×3 (14:11→20:28)
[2018-11-19] MEDS: Heparin Injection (Vial) 5,000 UNIT/ML VIAL 5000 UNIT SC ×2 (14:12→22:35)
--- NOTE | 2018-11-19 15:32 | CON.PCM_ITS ---
Problem List (1) Cat bite of hand Status: Acute Reason for Consult: cat bite Consulted by: Dr. Rios History of Present Illness: The patient is a 48 year old F with UC on Humira who presented 11/18 after cat bite 11/15 to her L thumb. Cat is a stray that lives around her work. It has been acting normally. 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 She washed with soap and water, saw PCP due to progressive pain/swelling/redness. Given doxycycline, sx worsened, no drainage, no fever. Came to ED, given vanc/cipro/flagyl. Had redness/itching with vanc. Seen by Dr. Ramirez, taken to OR today for I&D. Reports tolerating PCN and amox many times in past, but did have some throat swelling while being treated for neck space infection. She does not know when last tetanus shot was. Full ROS performed and neg except as noted above. - Medical History Past Medical History (Chronic Problems): Chronic Problems (Last Updated 11/18/18 @ 12:13 by Jane Hackett) Immunocompromised state due to drug therapy (Chronic) Patient takes Humira for rheumatoid arthritis Ulcerative colitis (Chronic) Rheumatoid arthritis (Chronic) HTN (hypertension) (Chronic) Allergies/Adverse Reactions: Allergies Penicillins Allergy (Severe, Verified 11/18/18 12:53) Laryngospasms CUTS OFF AIRWAY clindamycin Allergy (Intermediate, Verified 11/18/18 12:53) Rash RASH AND HIGH HR mesalamine [From Asacol] Allergy (Intermediate, Verified 11/18/18 12:53) Rash RASH, HIGH HR, EXCESSIVE DIARRHEA meloxicam [From Mobic] Allergy (Mild, Verified 11/18/18 12:53) Rash nabumetone [From Relafen] Allergy (Mild, Verified 11/18/18 12:53) Rash sulfamethoxazole [From Bactrim] Allergy (Mild, Verified 11/18/18 12:53) Rash trimethoprim [From Bactrim] Allergy (Mild, Verified 11/18/18 12:53) Rash ciprofloxacin [From Cipro] Adverse Reaction (Verified 11/18/18 12:53) CHEST PAIN CHEST PAIN, RASH, HIGH HR ciprofloxacin HCl [From Cipro] Adverse Reaction (Verified 11/18/18 12:53) CHEST PAIN CHEST PAIN, RASH, HIGH HR Home Medications: Ambulatory Orders Medication Instructions Recorded Adalimumab [Humira] 40 mg SQ UD 11/18/16 Montelukast [Singulair] 10 mg PO DAILY 11/18/16 Duloxetine Hcl [Cymbalta] 60 mg PO DAILY 08/04/17 Lisinopril [Zestril] 20 mg PO DAILY 08/04/17 tramadol 50 mg tablet 50 mg PO Q6H PRN MDD ra 09/22/17 Atenolol [Tenormin (beta henrry)] 50 mg PO DAILY 11/18/18 Doxycycline Hyclate 100 mg PO BID 11/18/18 Estradiol 2 mg PO DAILY 11/18/18 azelastine 137 mcg-fluticasone 50 1 spray INTRANASAL BID 11/18/18 mcg spray,susp-NaCl 0.9% spray nasal loratadine 10 mg tablet 10 mg PO DAILY 11/18/18 - Social History Tobacco Use: cigarettes Vital Signs Temp Pulse Resp BP Pulse Ox 98.1 F 96 16 119/57 L 95 11/19/18 13:56 11/19/18 13:56 11/19/18 13:56 11/19/18 13:56 11/19/18 13:56 Oxygen Delivery Method Room Air Weight: 68.039 kg Body Mass Index (BMI) 27.4 Microbiology Past 72 Hours 11/19/18 10:14 Gram Stain - Final Tissue - Arm Left Laboratory Tests Past 24 Hrs 11/19/18 11/19/18 11/19/18 05:46 05:46 08:30 WBC 8.1 RBC 4.08 L Hgb 12.5 Hct 38.7 MCV 94.9 MCH 30.6 MCHC 32.3 RDW 13.2 RDW Differential 44.3 H Plt Count 286 MPV 10.4 Immature Gran % (Auto) 0.200 Neut % (Auto) 42.0 L Lymph % (Auto) 48.2 H [place] % (Auto) 7.6 Eos % (Auto) 1.4 Baso % (Auto) 0.6 Absolute Neuts (auto) 3.4 Absolute Lymphs (auto) 3.89 Total Counted Not Reportable ESR 7 PT 12.0 INR 0.9 APTT 29.6 Sodium 141 Potassium 4.4 Chloride 107 Carbon Dioxide 26.0 Anion Gap 8 BUN 9 Creatinine 0.75 Estim Creat Clear Calc 74.13 Est GFR (MDRD) Af Amer 106 Est GFR (MDRD) Non-Af 88 BUN/Creatinine Ratio 12.0 Glucose 96 Calcium 8.4 L C-React Prot Ext Range 8.16 H Prealbumin 20.3 S.aureus Protein A PCR MRSA (PCR) 11/19/18 11/19/18 08:30 10:14 WBC 8.6 RBC 4.63 Hgb 13.7 Hct 43.6 MCV 94.2 MCH 29.6 MCHC 31.4 L RDW 13.5 RDW Differential 46.4 H Plt Count 324 MPV 10.1 Immature Gran % (Auto) Neut % (Auto) Lymph % (Auto) [place] % (Auto) Eos % (Auto) Baso % (Auto) Absolute Neuts (auto) Absolute Lymphs (auto) Total Counted ESR PT INR APTT Sodium Potassium Chloride Carbon Dioxide Anion Gap BUN Creatinine Estim Creat Clear Calc Est GFR (MDRD) Af Amer Est GFR (MDRD) Non-Af BUN/Creatinine Ratio Glucose Calcium C-React Prot Ext Range Prealbumin S.aureus Protein A PCR NEGATIVE MRSA (PCR) Negative - Other Studies Radiology: [] reviewed Other Studies: [] Route of nutrition/ use of supplements: [] Nutritional Intake: [] IV Site: [] [place] Catheter: [] - Physical Exam General: Alert, Oriented x3, Cooperative, No apparent distress HEENT: Atraumatic, PERRLA, EOMI Neck: Supple, No Nodes Lungs: Clear to auscultation, Normal air movement Cardiovascular: Regular rate, Regular Rhythm, No murmurs Abdomen: Soft, Non Tender, Non-Distended Extremities: No edema Skin: Ulcer/ Wound - L thumb wrapped post-op IV Site: Peripheral, without redness Neurological: Cranial nerves II-XII grossly intact - Assessment/Plan Antibiotics: [] Assessment/Plan: [] Active and Suspected Problems (Last Updated 11/18/18 @ 12:13 by Jane Hackett) Cellulitis of left hand (Acute) cat bite infection dorsum left hand at MP joint index finger and long finger Cat bite (Acute) cat bite infection dorsum left hand at MP joint index finger and long finger Cellulitis (Acute) Cat bite of hand (Acute) L thumb infection s/p cat bite 2/4 - allergies to PCN and clinda. Will treat with ceftriaxone and flagyl. Monitor for reaction. Had red man with vanc. Surg cx pending. Will order tetanus shot. Stray cat, provoked bite, discussed rabies risk with her and health dept. Will fill out bite report. If cat is observed 10 days after bite still healthy, no need for rabies prophylaxis. If cat is found , needs to be tested by the health dept. If cat is not found/seen, will need to do prophylaxis. Pt expresses understanding. If she does well post-op, plan will be for home with cefuroxime 500mg po bid and flagyl 500mg po tid for 14 day course. Needs to avoid etoh while on flagyl. Will follow, thank you, d/w primary team.
[2018-11-19] MEDS: Ondansetron 4 MG/2 ML Vial IV (15:51)
--- NOTE | 2018-11-19 17:39 | PCM.OPRPT ---
Report of Operation Date of Procedure: 11/19/18 Pre-Operative Diagnosis: 1. Cat bite infection dorsum left hand at MP joint index finger and long finger with cellulitis. 2. Immunocompromised state due to being on Humira for rheumatoid arthritis. Post-Operative Diagnosis: 1. Cat bite infection dorsum left hand at MP joint index finger and long finger with cellulitis and involvement ulnar aspect extensor berrios proximal phalanx index finger. 2. Immunocompromised state due to being on Humira for rheumatoid arthritis. Surgery/Procedure Performed:: Surgical preparation dorsum left hand at MP joint index finger with involvement ulnar aspect extensor berrios proximal phalanx and MP joint long finger with incision and drainage and excisional debridement cat bite infection. Description of Surgical Findings:: The patient is a 48 year old F with a history of rheumatoid arthritis and ulcerative colitis and is on Humira, presented to the ED today with increasing redness, pain, and swelling on the dorsum left hand at the MP joints index finger and long finger from a cat bite three days ago. It was a stray feral cat as she was attempting to pick it up when she was bitten. She went to urgent care who placed her on Doxycycline. After a couple of days of oral antibiotics, her symptomatology worsened which prompted her visit to the ED. She was started on Vancomycin, Cipro, and Flagyl. Xray showed no foreign body. WBC was 9.2. With her worsening symptomatology and failing outpatient treatment, she was admitted with continuation of the IV antibiotics. She denies fever. I was asked to evaluate this patient for surgical options for treatment. CT scan showed dorsal soft tissue swelling. No apparent abscess or soft tissue air. No acute osseous abnormality. Patient was informed of the risks and complications of the procedure including alternatives to surgery. These were discussed with the patient personally. Patient voices understanding and wishes to proceed. Encouraged patient to stop smoking as it may have deleterious effects on wound healing. Total tourniquet time - 33 minutes. The size of the defect MP joint left index finger - 1 x 0.7 x 0.3 cm. The length of the wound left index finger - 3 cm. The length of the wound left long finger - 2.5 cm. credit risk associate: None Type of Anesthesia:: General Specimen's removed: 1. Cat bite infection dorsum left hand at MP joint index finger and long finger to Pathology and Microbiology. 2. MRSA Wound DNA by PCR. Drains: None. Estimated Blood Loss (mL): 2 ml. Description of Procedure: Patient was taken to OR in supine position and was placed under general anesthesia. The left hand was prepped and draped in the usual fashion. SCD's were placed for DVT prophylaxis. Perioperative antibiotics were given intravenously. Using xylocaine with epinephrine, the dorsum left hand at the MP joints were infiltrated for postop pain relief. I elevated the left hand and gently compressed the left hand with a gauze as the tourniquet was elevated to 250 mmHg. A circular incision was made around the cat bite site at the MP joint index finger down into the subcutaneous tissue. No gross pus was seen. There was fat necrosis present. The bite tracked down to the proximal portion of the proximal phalanx on the ulnar side. There was puncture in the extensor berrios on the ulnar side. No pus was seen beneath the extensor tendon. Some exudate was present which was sharply debrided. The underlying bone appeared intact and smooth without injury to the bony cortex. I irrigated this area out including beneath the tendon with saline through an IV catheter. Some of the surrounding fat necrosis was sharply debrided. I extended the incision in a zig zag fashion both proximally over the MP joint and distally onto the proximal phalanx. There was fat necrosis present which was sharply debrided. I then made a similar zig zag incision over the MP joint long finger down through the subcutaneous tissue until the tendon was seen. Fat necrosis was present. No gross pus was seen. Some exudate was present. There was a small hematoma on the extensor tendon. The hematoma was debrided. No injury was seen on the extensor tendon as the tendon appeared intact. Excisional debridement was done to the fat necrosis and some surrounding exudate. Both wounds were copiously irrigated out with saline. Some of the tissue was sent to Pathology for analysis and to Microbiology for culture. A positive culture will necessitate antibiotic therapy. MRSA Wound DNA by PCR was also done. The tourniquet was released after 33 minutes. Hemostasis was obtained with electrocautery. The points of the zigs and zags were approximated with 5-0- Prolene vertical mattress interrupted sutures. The lengths of the wound were left open and packed with Mepitel nonadherent dressing and gauze with Betadine followed by dry gauze and dry Kerlix gauze followed by a compression MAHESH wrap. The size of the wound MP joint index finger was 1 x 0.7 x 0.3 cm. The lengths of the wounds were 3 cm for the index finger and 2.5 cm for the long finger. Patient tolerated the procedure well and was sent to PACU in satisfactory condition. Patient will be sent upstairs for continued postop care. Will change the dressing tomorrow with Silver dressing. Continue IV antibiotics. Anticipate discharge on po antibiotics. Will instruct the family on the Silver dressing changes tomorrow. Will encourage range of motion exercises to minimize stiffness. Grafts/Implants Used: None. - Complications None. - Admit VTE Documentation VTE Present on Admission: No VTE Mechan Device Prophylaxis: SCD's VTE Pharm Prophylaxis ordered?: Yes Code Visit Surgery Charges CPT - 91858 ICD-10 - W55.01xA, S61.251A, L03.114, Z79.899, F17.200 31171 W55.01xA, S61.251A, L03.114, Z79.899, F17.200 39845 W55.01xA, S61.253A, L03.114, Z79.899, F17.200
[2018-11-19] MEDS: Diphth,Pertuss(Acell),Tet Vac 0.5 ML Vial IM (18:14)
--- NOTE | 2018-11-19 18:21 | PCM.PN.HOSP ---
Patient Problems: Active and Suspected Problems (Last Updated 11/18/18 @ 12:13 by Jane Hackett) Cellulitis of left hand (Acute) cat bite infection dorsum left hand at MP joint index finger and long finger Cat bite (Acute) cat bite infection dorsum left hand at MP joint index finger and long finger Cellulitis (Acute) Cat bite of hand (Acute) Subjective: Doing very well feels great denies any significant pain in her hand. Vitals/I&O's: Vital Signs Temp Pulse Resp BP Pulse Ox 98.1 F 84 16 120/71 95 11/19/18 15:56 11/19/18 15:56 11/19/18 15:56 11/19/18 15:56 11/19/18 15:56 Oxygen Delivery Method Room Air Weight: 150 lb Body Mass Index (BMI) 27.4 Intake and Output for Last 24 Hours 11/17/18 11/18/18 11/19/18 23:59 23:59 23:59 Intake Total 3420 / 3420 Balance 3420 / 3420 General: Alert, Oriented x3, Cooperative, No apparent distress HEENT: Atraumatic, EOMI, Normocephalic Oral: Moist Mucosa Neck: Supple, No JVD, Trachea Midline Lungs: Clear to auscultation, Normal air movement, No rhonchi, No wheeze, No rales Cardiovascular: Regular rate, Regular Rhythm, Normal S1, Normal S2, No murmurs Abdomen: Soft, Non Tender, Non-Distended, No Hepato-splenomegaly Extremities: No edema, Capillary Refill Less than 3 Seconds Skin: Incision - Incisional dressing is intact Neurological: Neuro grossly intact, Sensory exam intact to light touch and pain Psych/Mental Status: Normal Affect, Appropriate Microbiology Past 72 Hours 11/19/18 10:14 Tissue - Arm Left Gram Stain - Final Laboratory Results 11/19/18 05:46: WBC 8.1, RBC 4.08 L, Hgb 12.5, Hct 38.7, MCV 94.9, MCH 30.6, MCHC 32.3, RDW 13.2, RDW Differential 44.3 H, Plt Count 286, MPV 10.4, Immature Gran % (Auto) 0.200, Neut % (Auto) 42.0 L, Lymph % (Auto) 48.2 H, [place] % (Auto) 7.6, Eos % (Auto) 1.4, Baso % (Auto) 0.6, Absolute Neuts (auto) 3.4, Absolute Lymphs (auto) 3.89, Total Counted Not Reportable, ESR 7 11/19/18 05:46: Sodium 141, Potassium 4.4, Chloride 107, Carbon Dioxide 26.0, Anion Gap 8, BUN 9, Creatinine 0.75, Estim Creat Clear Calc 74.13, Est GFR (MDRD) Af Amer 106, Est GFR (MDRD) Non-Af 88, BUN/Creatinine Ratio 12.0, Glucose 96, Calcium 8.4 L, C-React Prot Ext Range 8.16 H, Prealbumin 20.3 11/19/18 08:30: PT 12.0, INR 0.9, APTT 29.6 11/19/18 08:30: WBC 8.6, RBC 4.63, Hgb 13.7, Hct 43.6, MCV 94.2, MCH 29.6, MCHC 31.4 L, RDW 13.5, RDW Differential 46.4 H, Plt Count 324, MPV 10.1 11/19/18 10:14: S.aureus Protein A PCR NEGATIVE, MRSA (PCR) Negative Current Medications Atenolol (Tenormin (Beta Lynne)) 50 mg PO DAILY [facility] Last Admin: 11/19/18 08:29 Dose: 50 mg Bisacodyl (Dulcolax) 5 mg PO DAILY PRN PRN PRN Reason: Constipation Duloxetine HCl (Cymbalta) 60 mg PO DAILY [facility] Last Admin: 11/19/18 12:00 Dose: 60 mg Heparin Sodium (Porcine) (Heparin Na) 5,000 unit SC Q8 [facility] Last Admin: 11/19/18 14:12 Dose: 5,000 unit Hydromorphone HCl (Dilaudid Inj) 1 mg IV Q3H PRN PRN PRN Reason: SEVERE PAIN (6-10/10) Last Admin: 11/19/18 17:01 Dose: 1 mg Ceftriaxone Sodium 2 gm/ (Sodium Chloride) 50 mls @ 100 mls/hr IV Q24 [facility] Last Admin: 11/19/18 15:52 Dose: 100 mls/hr Lisinopril (Zestril) 20 mg PO DAILY [facility] Last Admin: 11/19/18 12:00 Dose: 20 mg Loratadine (Claritin) 10 mg PO DAILY [facility] Last Admin: 11/19/18 12:00 Dose: 10 mg Magnesium Hydroxide (Milk Of Magnesia) 30 ml PO DAILY PRN PRN PRN Reason: Constipation Metronidazole (Flagyl) 500 mg PO TID [facility] Montelukast Sodium (Singulair) 10 mg PO DAILY [facility] Last Admin: 11/19/18 12:00 Dose: 10 mg Nicotine (Nicoderm Cq (Pbkc)) 14 mg TRANSDERM. DAILY [facility] Last Admin: 11/19/18 12:00 Dose: Not Given Nicotine Polacrilex (Rugby Nicotine (Bkc)) 2 mg PO Q2H PRN PRN PRN Reason: Nicotine Craving Ondansetron HCl (Zofran) 4 mg IV Q8H PRN PRN PRN Reason: NAUSEA Last Admin: 11/19/18 15:51 Dose: 4 mg Psyllium Hydrophilic Mucilloid (Metamucil) 1 packet PO DAILY PRN PRN PRN Reason: CONSTIPATION Sodium Chloride () 5 - 15 ml IV UD PRN PRN Reason: SALINE FLUSH Last Admin: 11/19/18 17:01 Dose: 10 ml Tramadol HCl (Ultram) 50 mg PO Q6H PRN PRN Reason: PAIN Last Admin: 11/19/18 18:13 Dose: 50 mg Medical Necessity - Tobacco Use Smoking Status: Current some day smoker Tobacco Use: Cigarettes Assessment/Plan All Active Problems (Last Updated 11/18/18 @ 12:13 by Jane Hackett) Cellulitis of left hand (Acute) Cat bite (Acute) Cellulitis (Acute) Cat bite of hand (Acute) Segmental and somatic dysfunction of thoracic region (Acute) Segmental and somatic dysfunction of lumbar region (Acute) 1. Acute cellulitis of the left hand secondary to a cat bite -Questionable allergies to penicillin, and was treated with doxycycline as an outpatient which she failed after multiple doses -Status post debridement in the OR by surgery -Consult to infectious disease -Continue with Rocephin and Flagyl 2. Rheumatoid arthritis/ulcerative colitis -Currently on Humira which will be held during her admission -Can continue with tramadol for pain 3. Hypertension -Blood pressure stable in the 120s -Tinea with home medications DVT: Lovenox Code Visit Inpatient E&M: 89565 Subs Hosp L2
--- NOTE | 2018-11-19 18:24 | PN_ITS ---
Patient Problems: Active and Suspected Problems (Last Updated 11/18/18 @ 12:13 by Jane Hackett) Cellulitis of left hand (Acute) cat bite infection dorsum left hand at MP joint index finger and long finger Cat bite (Acute) cat bite infection dorsum left hand at MP joint index finger and long finger Cellulitis (Acute) Cat bite of hand (Acute) Subjective: Doing very well feels great denies any significant pain in her hand. Vitals/I&O's: Vital Signs Temp Pulse Resp BP Pulse Ox 98.1 F 84 16 120/71 95 11/19/18 15:56 11/19/18 15:56 11/19/18 15:56 11/19/18 15:56 11/19/18 15:56 Oxygen Delivery Method Room Air Weight: 150 lb Body Mass Index (BMI) 27.4 Intake and Output for Last 24 Hours 11/17/18 11/18/18 11/19/18 23:59 23:59 23:59 Intake Total 3420 / 3420 Balance 3420 / 3420 General: Alert, Oriented x3, Cooperative, No apparent distress HEENT: Atraumatic, EOMI, Normocephalic Oral: Moist Mucosa Neck: Supple, No JVD, Trachea Midline Lungs: Clear to auscultation, Normal air movement, No rhonchi, No wheeze, No rales Cardiovascular: Regular rate, Regular Rhythm, Normal S1, Normal S2, No murmurs Abdomen: Soft, Non Tender, Non-Distended, No Hepato-splenomegaly Extremities: No edema, Capillary Refill Less than 3 Seconds Skin: Incision - Incisional dressing is intact Neurological: Neuro grossly intact, Sensory exam intact to light touch and pain Psych/Mental Status: Normal Affect, Appropriate Microbiology Past 72 Hours 11/19/18 10:14 Tissue - Arm Left Gram Stain - Final Laboratory Results 11/19/18 05:46: WBC 8.1, RBC 4.08 L, Hgb 12.5, Hct 38.7, MCV 94.9, MCH 30.6, MCHC 32.3, RDW 13.2, RDW Differential 44.3 H, Plt Count 286, MPV 10.4, Immature Gran % (Auto) 0.200, Neut % (Auto) 42.0 L, Lymph % (Auto) 48.2 H, [place] % (Auto) 7.6, Eos % (Auto) 1.4, Baso % (Auto) 0.6, Absolute Neuts (auto) 3.4, Absolute Lymphs (auto) 3.89, Total Counted Not Reportable, ESR 7 11/19/18 05:46: Sodium 141, Potassium 4.4, Chloride 107, Carbon Dioxide 26.0, Anion Gap 8, BUN 9, Creatinine 0.75, Estim Creat Clear Calc 74.13, Est GFR (M DRD) Af Amer 106, Est GFR (MDRD) Non-Af 88, BUN/Creatinine Ratio 12.0, Glucose 96, Calcium 8.4 L, C-React Prot Ext Range 8.16 H, Prealbumin 20.3 11/19/18 08:30: PT 12.0, INR 0.9, APTT 29.6 11/19/18 08:30: WBC 8.6, RBC 4.63, Hgb 13.7, Hct 43.6, MCV 94.2, MCH 29.6, MCHC 31.4 L, RDW 13.5, RDW Differential 46.4 H, Plt Count 324, MPV 10.1 11/19/18 10:14: S.aureus Protein A PCR NEGATIVE, MRSA (PCR) Negative Current Medications Atenolol (Tenormin (Beta Lynne)) 50 mg PO DAILY [facility] Last Admin: 11/19/18 08:29 Dose: 50 mg Bisacodyl (Dulcolax) 5 mg PO DAILY PRN PRN PRN Reason: Constipation Duloxetine HCl (Cymbalta) 60 mg PO DAILY [facility] Last Admin: 11/19/18 12:00 Dose: 60 mg Heparin Sodium (Porcine) (Heparin Na) 5,000 unit SC Q8 [facility] Last Admin: 11/19/18 14:12 Dose: 5,000 unit Hydromorphone HCl (Dilaudid Inj) 1 mg IV Q3H PRN PRN PRN Reason: SEVERE PAIN (6-10/10) Last Admin: 11/19/18 17:01 Dose: 1 mg Ceftriaxone Sodium 2 gm/ (Sodium Chloride) 50 mls @ 100 mls/hr IV Q24 [facility] Last Admin: 11/19/18 15:52 Dose: 100 mls/hr Lisinopril (Zestril) 20 mg PO DAILY [facility] Last Admin: 11/19/18 12:00 Dose: 20 mg Loratadine (Claritin) 10 mg PO DAILY [facility] Last Admin: 11/19/18 12:00 Dose: 10 mg Magnesium Hydroxide (Milk Of Magnesia) 30 ml PO DAILY PRN PRN PRN Reason: Constipation Metronidazole (Flagyl) 500 mg PO TID [facility] Montelukast Sodium (Singulair) 10 mg PO DAILY [facility] Last Admin: 11/19/18 12:00 Dose: 10 mg Nicotine (Nicoderm Cq (Pbkc)) 14 mg TRANSDERM. DAILY [facility] Last Admin: 11/19/18 12:00 Dose: Not Given Nicotine Polacrilex (Rugby Nicotine (Bkc)) 2 mg PO Q2H PRN PRN PRN Reason: Nicotine Craving Ondansetron HCl (Zofran) 4 mg IV Q8H PRN PRN PRN Reason: NAUSEA Last Admin: 11/19/18 15:51 Dose: 4 mg Psyllium Hydrophilic Mucilloid (Metamucil) 1 packet PO DAILY PRN PRN PRN Reason: CONSTIPATION Sodium Chloride () 5 - 15 ml IV UD PRN PRN Reason: SALINE FLUSH Last Admin: 11/19/18 17:01 Dose: 10 ml Tramadol HCl (Ultram) 50 mg PO Q6H PRN PRN Reason: PAIN Last Admin: 11/19/18 18:13 Dose: 50 mg Medical Necessity - Tobacco Use Smoking Status: Current some day smoker Tobacco Use: Cigarettes Assessment/Plan All Active Problems (Last Updated 11/18/18 @ 12:13 by Jane Hackett) Cellulitis of left hand (Acute) Cat bite (Acute) Cellulitis (Acute) Cat bite of hand (Acute) Segmental and somatic dysfunction of thoracic region (Acute) Segmental and somatic dysfunction of lumbar region (Acute) 1. Acute cellulitis of the left hand secondary to a cat bite -Questionable allergies to penicillin, and was treated with doxycycline as an outpatient which she failed after multiple doses -Status post debridement in the OR by surgery -Consult to infectious disease -Continue with Rocephin and Flagyl 2. Rheumatoid arthritis/ulcerative colitis -Currently on Humira which will be held during her admission -Can continue with tramadol for pain 3. Hypertension -Blood pressure stable in the 120s -Tinea with home medications DVT: Lovenox Code Visit Inpatient E&M: 64320 Subs Hosp L2
[2018-11-19] MEDS: metroNIDAZOLE 500 MG Tablet PO (22:35)
[2018-11-20 02:13] VITALS: BP 123/75; PULSE 77; RESP 16; TEMP 35.8; O2SAT 96
[2018-11-20] MEDS: traMADol 50 MG Tablet PO ×2 (02:56→08:08)
[2018-11-20] MEDS: Bisacodyl 5 MG Tablet PO (02:59)
[2018-11-20] MEDS: Heparin Injection (Vial) 5,000 UNIT/ML VIAL 5000 UNIT SC (06:29)
[2018-11-20] MEDS: metroNIDAZOLE 500 MG Tablet PO (06:29)
[2018-11-20 08:30] VITALS: BP 115/69; PULSE 89; RESP 18; TEMP 36.8; O2SAT 99
[2018-11-20] MEDS: Loratadine 10 MG Tablet PO (10:17)
[2018-11-20] MEDS: DULoxetine Hcl 60 MG Capsule PO (10:17)
[2018-11-20] MEDS: Atenolol 50 MG Tablet PO (10:18)
[2018-11-20] MEDS: Lisinopril 20 MG Tablet PO (10:18)
[2018-11-20] MEDS: Montelukast 10 MG Tablet PO (10:18)
[2018-11-20] MEDS: Acetaminophen 325 MG Tablet 650 MG PO (10:27)
[2018-11-20] MEDS: HYDROmorphone 1 MG/ML Syringe IV (10:52)
--- NOTE | 2018-11-20 11:38 | PCM.PN.SRG ---
Patient Problems: Active and Suspected Problems (Last Updated 11/18/18 @ 12:13 by Jane Hackett) Cellulitis of left hand (Acute) cat bite infection dorsum left hand at MP joint index finger and long finger Cat bite (Acute) cat bite infection dorsum left hand at MP joint index finger and long finger Cellulitis (Acute) Cat bite of hand (Acute) Subjective: Postop #1 Patient has some wound pain. Tolerated the Silver dressing change reasonably well. - Physical Exam General: Alert, Oriented x3 HEENT: PERRLA Oral: Moist Mucosa Neck: Supple Abdomen: Soft, Non-Distended Skin: Ulcer/ Wound - left hand wounds at MP joint index finger and long finger are stable. No active bleeding seen. Swelling improved. Redness improved. No further evidence of infection. Redressed the wounds with Silver dressing. Neurological: Cranial nerves II-XII grossly intact Psych/Mental Status: Normal Affect, Appropriate Vital Signs Temp Pulse Resp BP Pulse Ox 98.2 F 89 18 115/69 99 11/20/18 08:30 11/20/18 08:30 11/20/18 08:30 11/20/18 08:30 11/20/18 08:30 Oxygen Delivery Method Room Air Weight: 150 lb Body Mass Index (BMI) 27.4 Intake and Output for Last 24 Hours 11/18/18 11/19/18 11/20/18 23:59 23:59 23:59 Intake Total 3420 / 3420 850 / 850 Balance 3420 / 3420 850 / 850 Microbiology Past 72 Hours 11/19/18 10:14 Gram Stain - Final Tissue - Arm Left Laboratory Tests Past 24 Hrs 11/19/18 10:14 S.aureus Protein A PCR NEGATIVE MRSA (PCR) Negative Diagnostic Data Hand X-Ray 11/18/18 15:00 IMPRESSION: Soft tissue swelling. No radiopaque foreign body is seen. Electronically Signed: Hernandez Hamilton MD at 15:31 EST , Service support , Upper Extremity CT 11/18/18 20:33 IMPRESSION: Dorsal soft tissue swelling. No apparent abscess or soft tissue air. No acute osseous abnormality. Individualized dose optimization techniques were used for this CT. at 2147 Reported and signed by: Chemo Landin MD Electronically Signed: Chemo Landin, at 21:46 EST Tel , Service support , Medical Necessity - Tobacco Use Smoking Status: Current some day smoker Tobacco Use: Cigarettes Assessment/Plan All Active Problems (Last Updated 11/18/18 @ 12:13 by Jane Hackett) Cellulitis of left hand (Acute) Cat bite (Acute) Cellulitis (Acute) Cat bite of hand (Acute) Segmental and somatic dysfunction of thoracic region (Acute) Segmental and somatic dysfunction of lumbar region (Acute) 1. Cat bite infection dorsum left hand at MP joint index finger and long finger with cellulitis. 2. Immunocompromised state due to being on Humira for rheumatoid arthritis. 3. Open surgical wounds dorsum left hand at MP joint index finger and long finger. 4. Smoker. Wounds are clean. No active bleeding seen. Redressed with Silver dressing. Swelling improved. Redness improved. Tolerated the dressing change reasonably well. May go home today from my standpoint. Instructed the family of Silver dressing changes daily or every other day. Operative cultures are negative thus far. On Ceftriaxone and Flagyl. Will send home on Cefuroxime and Flagyl. Encourage range of motion exercises to minimize stiffness. If there are any issues with stiffness, will have her go to OT for range of motion exercises, strengthening, and edema management. Prealbumin was 20.3. Encourage nutritional supplementation with protein to help the healing process. Keep left hand elevated. If there is a plateau in the healing process, can proceed with delayed closure with skin grafting. Because of her being on Humira, anticipate delayed healing in which case we may proceed with skin grafting earlier than usual. Wrote script for Dilaudid for pain (50 tabs). Encouraged patient to stop smoking as it may have deleterious effects on wound healing. Followup office one week.
--- NOTE | 2018-11-20 11:45 | PN.SURG_ITS ---
Patient Problems: Active and Suspected Problems (Last Updated 11/18/18 @ 12:13 by Jane Hackett) Cellulitis of left hand (Acute) cat bite infection dorsum left hand at MP joint index finger and long finger Cat bite (Acute) cat bite infection dorsum left hand at MP joint index finger and long finger Cellulitis (Acute) Cat bite of hand (Acute) Subjective: Postop #1 Patient has some wound pain. Tolerated the Silver dressing change reasonably well. - Physical Exam General: Alert, Oriented x3 HEENT: PERRLA Oral: Moist Mucosa Neck: Supple Abdomen: Soft, Non-Distended Skin: Ulcer/ Wound - left hand wounds at MP joint index finger and long finger are stable. No active bleeding seen. Swelling improved. Redness improved. No further evidence of infection. Redressed the wounds with Silver dressing. Neurological: Cranial nerves II-XII grossly intact Psych/Mental Status: Normal Affect, Appropriate Vital Signs Temp Pulse Resp BP Pulse Ox 98.2 F 89 18 115/69 99 11/20/18 08:30 11/20/18 08:30 11/20/18 08:30 11/20/18 08:30 11/20/18 08:30 Oxygen Delivery Method Room Air Weight: 150 lb Body Mass Index (BMI) 27.4 Intake and Output for Last 24 Hours 11/18/18 11/19/18 11/20/18 23:59 23:59 23:59 Intake Total 3420 / 3420 850 / 850 Balance 3420 / 3420 850 / 850 Microbiology Past 72 Hours 11/19/18 10:14 Gram Stain - Final Tissue - Arm Left Laboratory Tests Past 24 Hrs 11/19/18 10:14 S.aureus Protein A PCR NEGATIVE MRSA (PCR) Negative Diagnostic Data Hand X-Ray 11/18/18 15:00 IMPRESSION: Soft tissue swelling. No radiopaque foreign body is seen. Electronically Signed: Hernandez Hamilton MD at 15:31 EST , Service support , Upper Extremity CT 11/18/18 20:33 IMPRESSION: Dorsal soft tissue swelling. No apparent abscess or soft tissue air. No acute osseous abnormality. Individualized dose optimization techniques were used for this CT. at 2147 Reported and signed by: Chemo Landin MD Electronically Signed: Chemo Landin, at 21:46 EST Tel , Service support , Medical Necessity - Tobacco Use Smoking Status: Current some day smoker Tobacco Use: Cigarettes Assessment/Plan All Active Problems (Last Updated 11/18/18 @ 12:13 by Jane Hackett) Cellulitis of left hand (Acute) Cat bite (Acute) Cellulitis (Acute) Cat bite of hand (Acute) Segmental and somatic dysfunction of thoracic region (Acute) Segmental and somatic dysfunction of lumbar region (Acute) 1. Cat bite infection dorsum left hand at MP joint index finger and long finger with cellulitis. 2. Immunocompromised state due to being on Humira for rheumatoid arthritis. 3. Open surgical wounds dorsum left hand at MP joint index finger and long finger. 4. Smoker. Wounds are clean. No active bleeding seen. Redressed with Silver dressing. Swelling improved. Redness improved. Tolerated the dressing change reasonably well. May go home today from my standpoint. Instructed the family of Silver dressing changes daily or every other day. Operative cultures are negative thus far. On Ceftriaxone and Flagyl. Will send home on Cefuroxime and Flagyl. Encourage range of motion exercises to minimize stiffness. If there are any issues with stiffness, will have her go to OT for range of motion exercises, strengthening, and edema management. Prealbumin was 20.3. Encourage nutritional supplementation with protein to help the healing process. Keep left hand elevated. If there is a plateau in the healing process, can proceed with delayed closure with skin grafting. Because of her being on Humira, anticipate delayed healing in which case we may proceed with skin grafting earlier than usual. Wrote script for Dilaudid for pain (50 tabs). Encouraged patient to stop smoking as it may have deleterious effects on wound healing. Followup office one week.
--- NOTE | 2018-11-20 12:22 | DCINST_ITS ---
- Discharge Diagnoses Current Active Problems: Current Active and Chronic Problems (Last Updated 11/18/18 @ 12:13 by Jane Hackett) Immunocompromised state due to drug therapy (Chronic) Patient takes Humira for rheumatoid arthritis Cellulitis of left hand (Acute) cat bite infection dorsum left hand at MP joint index finger and long finger Cat bite (Acute) cat bite infection dorsum left hand at MP joint index finger and long finger Cellulitis (Acute) Cat bite of hand (Acute) Ulcerative colitis (Chronic) Rheumatoid arthritis (Chronic) HTN (hypertension) (Chronic) You will use the following diet at home:: Regular Your food should be the consistency of: Regular Your liquids should be the consistency of: Regular/Thin Discharge Activity: Return to Normal Activity Call your doctor if your incision/area has: Sudden Increased Bleeding, Increased Pain/ Swelling, Increased Redness, Foul Smelling Discharge Call your doctor if you observe: Fever of 101 or Higher, Shortness of breath, Dizziness, Fainting spells, Chest pain, Increased palpitations (irregular heartbeat) Allergies/Adverse Reactions: Allergies Penicillins Allergy (Severe, Verified 11/18/18 12:53) Laryngospasms CUTS OFF AIRWAY clindamycin Allergy (Intermediate, Verified 11/18/18 12:53) Rash RASH AND HIGH HR mesalamine [From Asacol] Allergy (Intermediate, Verified 11/18/18 12:53) Rash RASH, HIGH HR, EXCESSIVE DIARRHEA meloxicam [From Mobic] Allergy (Mild, Verified 11/18/18 12:53) Rash nabumetone [From Relafen] Allergy (Mild, Verified 11/18/18 12:53) Rash sulfamethoxazole [From Bactrim] Allergy (Mild, Verified 11/18/18 12:53) Rash trimethoprim [From Bactrim] Allergy (Mild, Verified 11/18/18 12:53) Rash ciprofloxacin [From Cipro] Adverse Reaction (Verified 11/18/18 12:53) CHEST PAIN CHEST PAIN, RASH, HIGH HR ciprofloxacin HCl [From Cipro] Adverse Reaction (Verified 11/18/18 12:53) CHEST PAIN CHEST PAIN, RASH, HIGH HR Medications to take at Discharge Montelukast [Singulair] 10 mg PO DAILY 11/18/16 Duloxetine Hcl [Cymbalta] 60 mg PO DAILY 08/04/17 Lisinopril [Zestril] 20 mg PO DAILY 08/04/17 tramadol 50 mg tablet 50 mg PO Q6H PRN MDD ra 09/22/17 Atenolol [Tenormin (beta henrry)] 50 mg PO DAILY 11/18/18 Estradiol 2 mg PO DAILY 11/18/18 azelastine 137 mcg-fluticasone 50 mcg spray,susp-NaCl 0.9% spray nasal 1 spray INTRANASAL BID 11/18/18 loratadine 10 mg tablet 10 mg PO DAILY 11/18/18 Adalimumab [Humira] 40 mg SQ UD #0 11/20/18 Cefuroxime Axetil [Cefuroxime] 500 mg PO BID #28 tab 11/20/18 Gauze Bandage [Gauze Pad] 4 ea TP .QDAILY 30 Days #120 bandage 11/20/18 Gauze Bandage [Kerlix] 1 ea TP .QDAILY 30 Days #30 bandage 11/20/18 HYDROmorphone tablet [Dilaudid] 2 - 4 mg PO 4X/DAY PRN PRN 7 Days #50 tab 11/20/18 Metronidazole [Flagyl] 500 mg PO TID #42 tab 11/20/18 The following prescriptions were given: Gauze Bandage [Gauze Pad] 4 ea TP .QDAILY 30 Days #120 bandage Gauze Bandage [Kerlix] 1 ea TP .QDAILY 30 Days #30 bandage HYDROmorphone tablet [Dilaudid] 2 - 4 mg PO 4X/DAY PRN PRN 7 Days #50 tab PRN Reason: Pain Cefuroxime Axetil [Cefuroxime] 500 mg PO BID #28 tab Metronidazole [Flagyl] 500 mg PO TID #42 tab Primary Care Physician: Ricci Poe MD [Primary Care Provider] - Please follow up with your Primary Care Physician in: 3-5 days Test Results: Test results from this visit will be discussed in further detail at your follow- up appointment, if applicable.
--- NOTE | 2018-11-20 12:22 | PCM.DC.SUM ---
Discharge Date and Diagnosis - Problem List Patient Problems: Active and Suspected Problems (Last Updated 11/18/18 @ 12:13 by Jane Hackett) Cellulitis of left hand (Acute) cat bite infection dorsum left hand at MP joint index finger and long finger Cat bite (Acute) cat bite infection dorsum left hand at MP joint index finger and long finger Cellulitis (Acute) Cat bite of hand (Acute) Date of Admission: 11/18/18 Date of Discharge: 11/20/18 - Primary Discharge Diagnosis Active and Suspected Problems (Last Updated 11/18/18 @ 12:13 by Jane Hackett) Cellulitis of left hand (Acute) cat bite infection dorsum left hand at MP joint index finger and long finger Cat bite (Acute) cat bite infection dorsum left hand at MP joint index finger and long finger Cellulitis (Acute) Cat bite of hand (Acute) - Secondary Discharge Diagnosis Chronic Problems (Last Updated 11/18/18 @ 12:13 by Jane Hackett) Smoker (Chronic) Immunocompromised state due to drug therapy (Chronic) Patient takes Humira for rheumatoid arthritis Ulcerative colitis (Chronic) Rheumatoid arthritis (Chronic) HTN (hypertension) (Chronic) Hospital Course and Treatment Imaging Results: CT Upper Extremity: IMPRESSION: Dorsal soft tissue swelling. No apparent abscess or soft tissue air. No acute osseous abnormality. Individualized dose optimization techniques were used for this CT. Consults: Plastic Surgery Infectious Disease Operations: - - Date of Procedure: 11/19/18 Pre-Operative Diagnosis: 1. Cat bite infection dorsum left hand at MP joint index finger and long finger with cellulitis. 2. Immunocompromised state due to being on Humira for rheumatoid arthritis. Post-Operative Diagnosis: 1. Cat bite infection dorsum left hand at MP joint index finger and long finger with cellulitis and involvement ulnar aspect extensor berrios proximal phalanx index finger. 2. Immunocompromised state due to being on Humira for rheumatoid arthritis. Surgery/Procedure Performed:: Surgical preparation dorsum left hand at MP joint index finger with involvement ulnar aspect extensor berrios proximal phalanx and MP joint long finger with incision and drainage and excisional debridement cat bite infection. Procedures: None Summary of Care Provided: Per HPI: The patient is a 48 year old F with pmhx of RA, UC, htn, who presents to the ER with increased swelling and redness of a cat bite. This was sustained 3 days ago. She was attempting to catch a stray cat, which got away. She presented to the urgent care and was placed on doxy given her multiple allergies. She had worsening of the swelling and redness despite 5 doses of doxy, and presented to the ER. There has been no drainage. There is no lymphangitis. She denies fever and chills. She states she just feels unwell. Hospital Course: 1. acute cellulitis of the left hand secondary to a cat [id number]-old female with a history of ulcerative colitis and rheumatoid arthritis she takes Humira for, presented after she tried to picking tech a stray cat that bit her in the left hand. It has become worse and she failed 5 days of doxycycline as an outpatient because she has an allergy, remote, to penicillins. She presented to the ER and proceeded with debridement in the OR by plastic surgery. Currently the dressing was changed by surgery and felt that the wound looked great and she tolerated the procedure fairly well and could go home with antibiotics. Per ID because she cannot tolerate Augmentin, she is to go home on cefuroxime and Flagyl for 14 days, the prescriptions have already been written. She is to follow-up with her primary care doctor as an outpatient in 3-5 days as well as surgery in 1 week. She will also have to hold her Humira until her wound has healed. 2. Her other medical diagnoses were evaluated and her home medications were continued were appropriate Patient Problems: Active and Suspected Problems (Last Updated 11/18/18 @ 12:13 by Jane Hackett) Cellulitis of left hand (Acute) cat bite infection dorsum left hand at MP joint index finger and long finger Cat bite (Acute) cat bite infection dorsum left hand at MP joint index finger and long finger Cellulitis (Acute) Cat bite of hand (Acute) Objective: General: Alert, Oriented x3, Cooperative, No apparent distress HEENT: Atraumatic, EOMI, Normocephalic Oral: Moist Mucosa Neck: Supple, No JVD, Trachea Midline Lungs: Clear to auscultation, Normal air movement, No rhonchi, No wheeze, No rales Cardiovascular: Regular rate, Regular Rhythm, Normal S1, Normal S2, No murmurs Abdomen: Soft, Non Tender, Non-Distended, No Hepato-splenomegaly Extremities: No edema, Capillary Refill Less than 3 Seconds Skin: Incision - Incisional dressing is intact Neurological: Neuro grossly intact, Sensory exam intact to light touch and pain Psych/Mental Status: Normal Affect, Appropriate - Physical Exam Vital Signs Temp Pulse Resp BP Pulse Ox 98.2 F 89 18 115/69 99 11/20/18 08:30 11/20/18 08:30 11/20/18 08:30 11/20/18 08:30 11/20/18 08:30 Oxygen Delivery Method Room Air Weight: 150 lb Body Mass Index (BMI) 27.4 Intake and Output for Last 24 Hours 11/18/18 11/19/18 11/20/18 23:59 23:59 23:59 Intake Total 3420 / 3420 850 / 850 Balance 3420 / 3420 850 / 850 Microbiology Past 72 Hours 11/19/18 10:14 Gram Stain - Final Tissue - Arm Left Wound Culture - Preliminary No growth-Final to follow Discharge Activity: Return to Normal Activity Call your doctor if your incision/area has: Sudden Increased Bleeding, Increased Pain/ Swelling, Increased Redness, Foul Smelling Discharge Call your doctor if you observe: Fever of 101 or Higher, Shortness of breath, Dizziness, Fainting spells, Chest pain, Increased palpitations (irregular heartbeat) Home Medications: Medications to take at Discharge Montelukast [Singulair] 10 mg PO DAILY 11/18/16 Duloxetine Hcl [Cymbalta] 60 mg PO DAILY 08/04/17 Lisinopril [Zestril] 20 mg PO DAILY 08/04/17 tramadol 50 mg tablet 50 mg PO Q6H PRN MDD ra 09/22/17 Atenolol [Tenormin (beta henrry)] 50 mg PO DAILY 11/18/18 Estradiol 2 mg PO DAILY 11/18/18 azelastine 137 mcg-fluticasone 50 mcg spray,susp-NaCl 0.9% spray nasal 1 spray INTRANASAL BID 11/18/18 loratadine 10 mg tablet 10 mg PO DAILY 11/18/18 Adalimumab [Humira] 40 mg SQ UD #0 11/20/18 Cefuroxime Axetil [Cefuroxime] 500 mg PO BID #28 tab 11/20/18 Gauze Bandage [Gauze Pad] 4 ea TP .QDAILY 30 Days #120 bandage 11/20/18 Gauze Bandage [Kerlix] 1 ea TP .QDAILY 30 Days #30 bandage 11/20/18 HYDROmorphone tablet [Dilaudid] 2 - 4 mg PO 4X/DAY PRN PRN 7 Days #50 tab 11/20/18 Metronidazole [Flagyl] 500 mg PO TID #42 tab 11/20/18 Following Prescrptions Were Given to Patient: Gauze Bandage [Gauze Pad] 4 ea TP .QDAILY 30 Days #120 bandage Gauze Bandage [Kerlix] 1 ea TP .QDAILY 30 Days #30 bandage HYDROmorphone tablet [Dilaudid] 2 - 4 mg PO 4X/DAY PRN PRN 7 Days #50 tab PRN Reason: Pain Cefuroxime Axetil [Cefuroxime] 500 mg PO BID #28 tab Metronidazole [Flagyl] 500 mg PO TID #42 tab Primary Care Physician: Ricci Poe MD [Primary Care Provider] - Please follow up with your Primary Care Physician in: 3-5 days Please Follow Up With: Mo Ramirez MD When: 1 week Disposition: Home Minutes spent on discharge:: 35 Patient Condition:: Good Medical Necessity - Tobacco Use Smoking Status: Current some day smoker Tobacco Use: Cigarettes Meaningful Use Info Meaningful Use Diagnoses (Choose all that apply): None applicable Code Visit Inpatient E&M: 55781 Disch Hosp
--- NOTE | 2018-11-22 15:23 | CASEMGMT ---
TIMOTEO CM Discharge Follow-up Phone Call: SONAM: Ayaz Strata: 3 Call Date: 11/22/18 Discharge Date: 11/20/18 Time of Call: 1534 Duration: 1 min Admitting Diagnosis: Cellulitis, cat bite TIMOTEO BIANCHI attempted to complete follow-up phone call after recent hospitalization. No answer, voice message left with return contact information.
== END 2018-11-20 12:55 | disposition home or self-care (01) | DRG 580 ==
LOC: ED 14:38 → MS3 17:23
PROVIDERS: Anesthesiology; Surgery; Admitting Provider Internal Medicine; Emergency Provider Emergency Medicine; Family Provider Family Medicine; PCP Family Medicine; Visit Provider Family Medicine
PROC: 0JBK0ZZ Excision of Left Hand Subcutaneous Tissue and Fascia, Open Approach (ICD-10-PCS; principal; 2018-11-19 08:25)
DX: S61.452A Open bite of left hand, initial encounter (principal); L03.114 Cellulitis of left upper limb; K51.90 Ulcerative colitis, unspecified, without complications; L03.012 Cellulitis of left finger; M06.9 Rheumatoid arthritis, unspecified; I10 Essential (primary) hypertension; W55.01XA Bitten by cat, initial encounter; F17.210 Nicotine dependence, cigarettes, uncomplicated; Z79.899 Other long term (current) drug therapy; Z23 Encounter for immunization
CPT/HCPCS: 36415; 73130; 73200; 80048; 83605; 84134; 85025; 85027; 85610; 85652; 85730; 86140; 87015; 87040; 87070; 87075; 87102; 87116; 87205; 87206; 87640; 88304; 88305; 90715; 93005; 99284; 99406; J7040; J7050; A4216; J0696; J0744; J2405

== ENCOUNTER 2018-12-27 17:42 | Emergency (ER) | payer OTHER, SELFPAY ==
[2018-12-16 15:43] VITALS: BMI 27.4
[2018-12-27 17:43] VITALS: BP 130/86; PULSE 94; RESP 16; TEMP 36.1; O2SAT 97; BMI 27.4
--- NOTE | 2018-12-27 18:29 | ED.VISSUMM ---
- ER Visit Summary Date of Service: 12/27/18 Chief Complaint: [Dog bite] History of Present Illness: The patient is a 48 F [presents to the emergency department with a dog bite to her left index finger. Patient states that she got between her dogs last evening while they were playing tug of war and was accidentally bitten on the left index finger. Patient noticed increased swelling and discomfort today and presents for evaluation. The injury occurred at approximately 9:30 PM last evening. Patient is up-to-date on tetanus. Patient states incidentally she had a Bite several weeks ago that required antibiotics and incision and drainage because the tendon was involved in her finger.] Physical Examination: [Left index finger-patient has a puncture wound to the dorsal and volar aspect of the left index finger over the middle phalanx. Patient has normal strength in flexion extension at the DIP and PIP joint. There is some faint erythema noted. There is soft tissue swelling noted. Nervously intact.] Test Results: [None indicated] Emergency Department Course and Treatment: [Patient has multiple drug allergies therefore she will be treated with Cipro and Flagyl as she is pen allergic and also allergic to clindamycin.] Treatment Plan: [Patient will be treated with Cipro and Flagyl and advised to follow-up with Dr. Mo Ramirez whom she has an appointment within 3 days. Patient advised to return if increasing pain, redness, swelling, or condition should worsen anyway.] Disposition: [Discharged home in stable condition] Impression: [Dog bite left index finger] This note was generated with [employer] dictation software. It may contain incorrect words, spelling, and punctuation that were not noted in review of the chart prior to signing ED Disposition - Plan for ED Patient: Referrals: Ricci Poe MD [Primary Care Provider] -
--- NOTE | 2018-12-27 18:31 | ED.DEP ---
ED Disposition - Plan for ED Patient: Instructions: ED Bite Dog Prescriptions: Metronidazole [Flagyl] 500 mg PO Q8H #21 tab Ciprofloxacin [Cipro] 500 mg PO BID #14 tab Referrals: Ricci Poe MD [Primary Care Provider] - Mo Ramirez MD [STAFF PHYSICIAN] - 3-5 Days
[2018-12-27] MEDS: metroNIDAZOLE 500 MG Tablet PO (19:07)
[2018-12-27] MEDS: Ciprofloxacin 500 MG Tablet PO (19:07)
[2018-12-27 19:21] VITALS: RESP 14
== END 2018-12-27 19:23 | disposition home or self-care (01) ==
LOC: ED 18:41
PROVIDERS: Emergency Provider Emergency Medicine; Family Provider Family Medicine; PCP Family Medicine
DX: S61.231A Puncture wound without foreign body of left index finger without damage to nail, initial encounter (principal); W54.0XXA Bitten by dog, initial encounter; Y93.89 Activity, other specified; Y92.9 Unspecified place or not applicable; M06.9 Rheumatoid arthritis, unspecified; K51.90 Ulcerative colitis, unspecified, without complications; Z79.899 Other long term (current) drug therapy
CPT/HCPCS: 99284

== ENCOUNTER 2018-12-31 08:14 | Day surgery (SDC) | payer OTHER, SELFPAY ==
[2018-12-30 15:47] VITALS: BMI 27.4
[2018-12-31 08:54] VITALS: BP 123/77; PULSE 71; RESP 16; TEMP 36.7; O2SAT 97; BMI 27.8
--- NOTE | 2018-12-31 09:15 | ABS_PTH ---
PATIENT: HINA JENKINS LOC: [facility] U#:[id number] AGE/SX: 48/F ROOM: RE12/31/[address]: Dr. Mo Ramirez MD : 1970 BED: DIS: 12/31/2018 SPEC #: [id number] RECD: 12/31/18 11:19 STATUS: DEMARCUS HELEN #: [id number] AKASH: 12/31/18 09:[address]: Mo Ramirez DEPT: SURGICAL PATHOLOGY RECD BY: Lm Yao ENTERED: 12/31/18 12:41 SP TYPE: Abscess OTHR DR: Dr. Ricci Poe MD Tissues: Skin of finger, NOS Procedures: Surgery Specimen Level III HEADER OPERATION: Surgical preparation of left index finger PRE-OP DIAGNOSIS: Dog bite wound abscess dorsal aspect at middle phalanx left finger (zone 2) TISSUE SUBMITTED: Left index finger abscess tissue MICROSCOPIC DIAGNOSIS Skin and soft tissue of left index finger, biopsy: Ulceration with associated acute and chronic inflammation and granulation. Consistent with microabscess of fibrofatty tissue. AM:colt 01/03/19 MICROSCOPIC DESCRIPTION Slides are reviewed. GROSS DESCRIPTION Received in fixative is one container labeled with the patient's name and designated left index finger tissue. The specimen consists of an irregular fragment of excised skin measuring 0.9 x 0.7 x 0.2 cm. The specimen is bisected and totally submitted in one cassette. / AM:colt 12/31/18 TC:2 CPT: 77130
--- NOTE | 2018-12-31 09:21 | PCM.HP.BLA ---
History and Physical Date of Admission: 12/31/18 HISTORY OF PRESENT ILLNESS 48 year old woman presents with a dog bite wound abscess left index finger that she sustained 3 days ago at home. It was a family dog and was not provoked. She states she was playing with her two dogs playing tug of war when she was bitten. She developed increased pain and redness and swelling. She was concerned since she recently had surgery for a cat bite infection on 11/19/18 where she underwent surgical preparation dorsum left hand at MP joint index finger with involvement ulnar aspect extensor berrios proximal phalanx and MP joint long finger with incision and drainage and excisional debridement cat bite infection. She was treated with Cefuroxime and Flagyl. Her cat bite wound at MP joint left index finger continues to improve and is almost healed. She is applying antibiotic ointment at the present time. With the worsening symptomatology, she went to the ED on 12/27/18. She was placed on Cipro and Flagyl. Since then she states the redness and swelling have improved. She presents today for further evaluation and treatment. She denies any fever. Past Medical History Open bite of left middle finger without damage to nail (Acute) Open bite of left index finger without damage to nail (Acute) Cellulitis of left hand (Acute) Cat bite (Acute) Bloody stools (Acute) Chest pain (Acute) Diarrhea (Acute) History of hysterectomy (Acute) Knee pain (Acute) Hypertension (Chronic) Rheumatoid arthritis (Chronic) Ulcerative colitis (Chronic) H/O: hysterectomy (Inactive) Past Surgical History History of (Acute) History of arthroscopy of left shoulder (Acute) History of cholecystectomy (Acute) Hx of tonsillectomy (Inactive) S/P cholecystectomy (Inactive) Allergies Penicillins clindamycin mesalamine [From Asacol] meloxicam [From Mobic] nabumetone [From Relafen] sulfamethoxazole [From Bactrim] trimethoprim [From Bactrim] Medications Montelukast [Singulair] 10 mg PO DAILY 11/18/16 [History Confirmed 12/03/18] Duloxetine Hcl [Cymbalta] 60 mg PO DAILY 08/04/17 [History Confirmed 12/03/18] Lisinopril [Zestril] 20 mg PO DAILY 08/04/17 [History Confirmed 12/03/18] tramadol 50 mg tablet 50 mg PO Q6H PRN MDD ra 09/22/17 [History Confirmed 12/03/18] Atenolol [Tenormin (beta henrry)] 50 mg PO DAILY 11/18/18 [History Confirmed 12/03/18] Estradiol 2 mg PO DAILY 11/18/18 [History Confirmed 12/03/18] azelastine 137 mcg-fluticasone 50 mcg spray,susp-NaCl 0.9% spray nasal 1 spray INTRANASAL BID 11/18/18 [History Confirmed 12/03/18] loratadine 10 mg tablet 10 mg PO DAILY 11/18/18 [History Confirmed 12/03/18] Adalimumab [Humira] 40 mg SQ UD #0 11/20/18 [Rx Confirmed 12/03/18] Gauze Bandage [Gauze Pad] 4 ea TP .QDAILY 30 Days #120 bandage 11/20/18 [Rx Confirmed 12/03/18] Gauze Bandage [Kerlix] 1 ea TP .QDAILY 30 Days #30 bandage 11/20/18 [Rx Confirmed 12/03/18] Metronidazole [Flagyl] 500 mg PO TID #42 tab 11/20/18 [Rx Confirmed 12/03/18] Ciprofloxacin [Cipro] 500 mg PO BID #14 tab 12/27/18 [Rx] Metronidazole [Flagyl] 500 mg PO Q8H #21 tab 12/27/18 [Rx] Family History Mother Diabetes CVA (cerebral vascular accident) Father Diabetes Heart disease Hypertension Social History Smoking Status: Current every day smoker how long ago did patient quit smokin years ago alcohol intake: current REVIEW OF SYSTEMS General - Denies fever, fatigue, and weight loss. Eyes - Denies cataracts and glaucoma. ENT - Denies nasal congestion and sore throat. Endocrine - Denies excessive thirst and urination. Skin - Denies suspicious lesions and skin cancer. She has open wound on the dorsum left hand at MP joint index finger from a cat bite infection. Has dog bite wound abscess left index finger. Musculoskeletal - Denies joint pain, joint stiffness, weakness of muscles and joints, back pain. History of rheumatoid arthritis and is on Humira. Neuro - Denies headaches. Cardiovascular - Denies chest pain, fatigue, and shortness of breath with exertion. Psych - Denies anxiety and depression. Respiratory - Denies chronic cough and shortness of breath. Gastrointestinal - Has a history of ulcerative colitis. Hematologic - Denies abnormal bruising and bleeding. Genitourinary - Denies hematuria and urinary frequency. PHYSICAL EXAMINATION General - Alert and oriented. HEENT - PERRL. EOMI. Throat is clear. Neck - Supple and non-tender. No cervical adenopathy. Lungs- Clear to auscultation. Heart - Regular rate and rhythm. Abdomen - Soft and non distended. Extremities - FROM. No axillary adenopathy. Radial pulses are palpable. The wound on dorsum of left hand at MP joint index finger is clean. No further evidence of infection. The wound index finger measures 0.3 x 0.3 x 0.1 cm. The wound left long finger has healed. The wound left index finger distally has healed. On the dorsal radial aspect at middle phalanx left index finger (zone 2) is a V shaped dog bite wound abscess. Measures 1 x 0.5 cm. Some pus seen in the wound. Tenderness to palpation. There is mild swelling. There is some redness surrounding the dog bite wound dorsal radial aspect left index finger at middle phalanx (zone 2). Extension and flexion are intact. Some discomfort with extension of left index finger. 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 Neuro - CN II-XII grossly intact. Psych - Normal mood and affect. ASSESSMENT 1. Dog bite wound abscess dorsal radial aspect at middle phalanx left index finger (zone 2). 2. Open surgical cat bite wound dorsum left hand at MP joint index finger, healing. 3. Immunocompromised state due to being on Humira for rheumatoid arthritis. 4. Smoker. PLAN The ED placed her on Cipro and Flagyl and will continue them. The cat bite wound dorsum MP joint left index finger is healing satisfactory. Continue antibiotic ointment daily to the cat bite wound. She sustained a new dog bite wound to the same finger but distally. There is pus coming from the wound. Recommend operative intervention with incision and drainage and excisional debridement. Will send tissue to Microbiology for culture and to Pathology for analysis to rule out carcinoma. She is currently on Cipro and Flagyl. Perioperatively will add Vancomycin. Will also do a swab for MRSA Wound DNA by PCR. A positive culture may necessitate antibiotic modification. Will begin wound care with Silver dressing changes daily. Surgery can be done on an outpatient basis under general anesthesia. Will also look at the extensor tendon at the time of surgery. If there is an injury I won't be able to repair it because of the infection. So I would splint the finger. If present, the tendon injury would be partial. Postop if there is a plateau in the healing process, can proceed with delayed closure with skin grafting. With her immunocompromised state due to being on Humira for rheumatoid arthritis, she is at increased risk for worsening of the infection. So will proceed with the operative intervention tomorrow. Patient was informed of the risks and complications of the procedure including alternatives to surgery. These were discussed with the patient personally. Patient voices understanding and wishes to proceed. Some of the risks and complications were included in a form from the [employer]. Some of the risks and complications that were discussed included but were not inclusive of failure to diagnose including symptom relief, pain, infection, numbness, stiffness, loss of digit, RSD (CRPS), need for further surgery, contracture, and wound healing problems. Encouraged patient to stop smoking as it may have deleterious effects on wound healing.
[2018-12-31] MEDS: levoFLOXacin IV 500 MG/100 ML BAG 100 MG IV (09:44)
--- NOTE | 2018-12-31 10:36 | OP.PCM_ITS ---
Report of Operation Date of Procedure: 12/31/18 Pre-Operative Diagnosis: 1. Dog bite wound abscess dorsal radial aspect at middle phalanx left index finger (zone 2). 2. Open surgical cat bite wound dorsum left hand at MP joint index finger, healing. 3. Immunocompromised state due to being on Humira for rheumatoid arthritis. 4. Smoker. Post-Operative Diagnosis: Same. Surgery/Procedure Performed:: Surgical preparation dorsal radial aspect left index finger at middle phalanx (zone 2) with incision and drainage and excisional debridement dog bite wound abscess. Description of Surgical Findings:: 48 year old woman presents with a dog bite wound abscess left index finger that she sustained 3 days ago at home. It was a family dog and was not provoked. She states she was playing with her two dogs playing tug of war when she was bitten. She developed increased pain and redness and swelling. She was concerned since she recently had surgery for a cat bite infection on 11/19/18 where she underwent surgical preparation dorsum left hand at MP joint index finger with involvement ulnar aspect extensor berrios proximal phalanx and MP joint long finger with incision and drainage and excisional debridement cat bite infection. She was treated with Cefuroxime and Flagyl. Her cat bite wound at MP joint left index finger continues to improve and is almost healed. She is applying antibiotic ointment at the present time. With the worsening symptomatology, she went to the ED on 12/27/18. She was placed on Cipro and Flagyl. Since then she states the redness and swelling have improved. She presents today for further evaluation and treatment. She denies any fever. Patient was informed of the risks and complications of the procedure including alternatives to surgery. These were discussed with the patient personally. Patient voices understanding and wishes to proceed. Some of the risks and complications were included in a form from the [employer]. Some of the risks and complications that were discussed included but were not inclusive of failure to diagnose including symptom relief, pain, infection, numbness, stiffness, loss of digit, RSD (CRPS), need for further surgery, contracture, and wound healing problems. Encouraged patient to stop smoking as it may have deleterious effects on wound healing. Total tourniquet time - 14 minutes. Size of defect left index finger on dorsal radial aspect at middle phalanx (zone 2) - 1 x 1 x 0.4 cm. Length of superficial laceration volar aspect left index finger at proximal phalanx crease - 1 cm. 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 Drains: None. Estimated Blood Loss (mL): 20 ml. Description of Procedure: Patient was taken to OR in supine position and was placed under general anesthesia. The left hand was prepped and draped in the usual fashion. SCD's were placed for DVT prophylaxis. Perioperative antibiotics were given intravenously. Using xylocaine with epinephrine, a digital metacarpal block was administered for postop pain relief. A digital tourniquet was applied to the base of the left index finger. Under loupe magnification, I proceeded with an incision around the dog bite wound down into the subcutaneous tissue. A small amount of pus was seen. A lot of fat necrosis was seen extending to the extensor tendon. The extensor tendon was intact to the DIP joint as she is able to extend her finger. A curette was also used to sharply debride the dog bite wound abscess. The tendon looked clean without evidence of tenosynovitis. With the degree of swelling present and the degree of fat necrosis present that was excised and debrided, the bone was easily palpable. It was hard to ascertain the radial lateral band. There could be a partial injury there. Cannot repair today because of the infection. Since the patient can extend her finger preop, will plan on allowing the wound to heal with wound care and antibiotics. If she develops extension issues in the future, can reassess at that time. I anticipate reasonable healing will occur with time. There was also a superficial laceration on the volar surface at the level of the proximal phalanx crease. Subcutaneous tissue seen. No tendon noted. Patient was able to flex her finger preop. Both wounds were irrigated with saline. The tourniquet was released after 14 minutes. Some bleeding was seen and hemostasis was obtained with electrocautery. The size of the wound dorsal radial aspect at middle phalanx left index finger (zone 2) after the incision and drainage and excisional debridement was 1 x 1 x 0.4 cm. The length of the laceration on the volar side of the finger was 1 cm. The wounds were packed with Aquacel Silver dressing followed by 2x2 gauze followed by a 2 inch Alber wrap. Patient tolerated the procedure well and was sent to PACU in satisfactory condition. Patient will be sent home on antibiotics and pain medication. She will keep her left hand elevated. She will be instructed in no heavy lifting to allow the inflamed tendon to heal. With a potential partial injury to the lateral band combined with increased inflammation and swelling, the tendon is at some risk of rupture with extreme and sudden lifting. Patient will followup on Thursday for a dressing change and to instruct the patient and her family on the Silver dressing changes. Will also discuss the pathology report and the Microbiology report when available. Grafts/Implants Used: None. - Complications None. - Admit VTE Documentation VTE Present on Admission: No VTE Mechan Device Prophylaxis: SCD's VTE Pharm Prophylaxis ordered?: No Code Visit Surgery Charges CPT - 11814 ICD-10 - W54.0xxA, S61.251A, L02.512, Z79.899, F17.200 06138 W54.0xxA, L02.512, S61.251A, Z79.899, F17.200
[2018-12-31 10:40] VITALS: BP 104/69; BP 123/77; PULSE 95; RESP 16; TEMP 36.3; O2SAT 98
--- NOTE | 2018-12-31 10:44 | DCINST_ITS ---
You will use the following diet at home:: No restrictions Discharge Activity: May not drive while taking narcotic pain medications., May Shower - wear plastic bag over left hand when showering., - - keep left hand elevated. wear plastic bag over left hand when showering. no heavy lifting with left hand. May shower in (days): 1 - wear plastic bag over left hand when showering. May resume sexual activity in: No Restrictions Weight Bearing Status: Weight bearing as tolerated Lifting Restrictions: 10 lbs. Keep extremity elevated above heart level: Left Arm Call your doctor if your incision/area has: Continuous Slow Oozing, Sudden Increased Bleeding, Increased Pain/ Swelling, Increased Redness, Foul Smelling Discharge, Swelling at the incision site Call your doctor if you observe: Fever of 101 or Higher, Coldness, Increased Pain, Shortness of breath, Chest pain, Calf discomfort, Uncontrolled pain Suture Line Care: - - aquacel silver dressing changes beginning thursday in office. Change Dressing in (Days):: 3 - will change dressing in office thursday01/03/19. Cleanse incision/area with: - - wear plastic bag over left hand when showering. Additional Instructions: Patient has Cipro and Flagyl from the ED that she will continue. Allergies/Adverse Reactions: Allergies Penicillins Allergy (Severe, Verified 12/30/18 15:47) Laryngospasms CUTS OFF AIRWAY clindamycin Allergy (Intermediate, Verified 12/30/18 15:47) Rash RASH AND HIGH HR mesalamine [From Asacol] Allergy (Intermediate, Verified 12/30/18 15:47) Rash RASH, HIGH HR, EXCESSIVE DIARRHEA meloxicam [From Mobic] Allergy (Mild, Verified 12/30/18 15:47) Rash nabumetone [From Relafen] Allergy (Mild, Verified 12/30/18 15:47) Rash sulfamethoxazole [From Bactrim] Allergy (Mild, Verified 12/30/18 15:47) Rash trimethoprim [From Bactrim] Allergy (Mild, Verified 12/30/18 15:47) Rash Medications to take at Discharge Montelukast [Singulair] 10 mg PO DAILY 11/18/16 Duloxetine Hcl [Cymbalta] 60 mg PO DAILY 08/04/17 Lisinopril [Zestril] 20 mg PO DAILY 10/24/17 tramadol 50 mg tablet 50 mg PO Q6H PRN MDD ra 09/22/17 Atenolol [Tenormin (beta henrry)] 50 mg PO DAILY 11/18/18 Estradiol 2 mg PO DAILY 11/18/18 azelastine 137 mcg-fluticasone 50 mcg spray,susp-NaCl 0.9% spray nasal 1 spray INTRANASAL BID 11/18/18 loratadine 10 mg tablet 10 mg PO DAILY 11/18/18 Adalimumab [Humira] 40 mg SQ UD #0 11/20/18 Metronidazole [Flagyl] 500 mg PO TID #42 tab 11/20/18 Ciprofloxacin [Cipro] 500 mg PO BID #14 tab 12/27/18 Oxycodone HCl/Acetaminophen [Percocet 5/325] 1 - 2 tab PO 4X/DAY PRN PRN 5 Days #40 tab 12/31/18 The following prescriptions were given: Oxycodone HCl/Acetaminophen [Percocet 5/325] 1 - 2 tab PO 4X/DAY PRN PRN 5 Days #40 tab PRN Reason: Pain Primary Care Physician: Ricci Poe MD [Primary Care Provider] - Test Results: Test results from this visit will be discussed in further detail at your follow- up appointment, if applicable. Please Follow Up With: Mo Ramirez MD When: thursday01/03/19. call [phone] for appt. Proposed Discharge Date: 12/31/18
[2018-12-31 10:45] VITALS: BP 102/68; BP 123/77; PULSE 90; RESP 16; O2SAT 98
[2018-12-31 10:58] VITALS: BP 110/73; BP 123/77; PULSE 82; RESP 16; TEMP 36.3; O2SAT 98
[2018-12-31] MEDS: oxyCODONE 5 MG Tablet PO ×2 (11:25→12:13)
[2018-12-31 12:55] VITALS: BP 123/77; BP 124/78; PULSE 85; RESP 16; TEMP 36.7; O2SAT 96
== END 2018-12-31 12:57 | disposition home or self-care (01) ==
LOC: SDC 08:15 → AC 08:30
PROVIDERS: Family Provider Family Medicine; PCP Family Medicine; Referring Provider Surgery; Visit Provider Surgery
PROC: (CPT 15004; principal; 2018-12-31 09:05)
DX: S61.251A Open bite of left index finger without damage to nail, initial encounter (principal); W54.0XXA Bitten by dog, initial encounter; L02.512 Cutaneous abscess of left hand; I10 Essential (primary) hypertension; M06.9 Rheumatoid arthritis, unspecified; Z79.899 Other long term (current) drug therapy; Y93.9 Activity, unspecified; Y92.009 Unspecified place in unspecified non-institutional (private) residence as the place of occurrence of the external cause; Y99.9 Unspecified external cause status; Z87.891 Personal history of nicotine dependence
CPT/HCPCS: 15004; 26011; 87015; 87070; 87075; 87102; 87116; 87205; 87206; 88304; J7050; J7120; J2405

== ENCOUNTER → 2019-04-25 | Outpatient (CLI) | payer OTHER, SELFPAY ==
[2019-03-16 08:50] VITALS: BMI 27.8
[2019-04-25 15:21] LABS: Absolute Lymphocyte Count 4.04 X10^3/ul (0.83-4.51); Absolute Neutrophil Count 4.3 X10^3/uL (2.0-7.7); Basophil# 0.05 X10^3/uL; Basophil% 0.5 % (0-1); Eosinophil# 0.08 X10^3/uL; Eosinophils% 0.9 % (0-5); Hematocrit 40.2 % (37-47); Hemoglobin 13.1 g/dl (12.0-15.0); Lymphocyte # 4.04 X10^3/ul (4.0); Mean Corp Hgb Conc 32.6 g/gl (32-36); Mean Corpuscular Volume 92.2 fL (81-99); Mean Platelet Vol. 10.5 fl (6.2-12.0); Monocyte# 0.66 X10^3/uL; Monocyte% 7.2 % (0-10); Neutrophil # 4.33 X10^3/uL (2.7-7.7); Neutrophil % 47.2 % (47-70); Platelet Count 320 K/mm3 (150-450); RBC Distribution Width CV 13.5 % (11.6-14.6); Red Blood Count 4.36 M/mm3 (4.2-5.4); White Blood Count 9.2 K/mm3 (4.4-11.0)
[2019-04-25 15:42] LABS: AST(SGOT) 16 U/L (15-37); Alanine Aminotransfer ALT/SGPT 22 U/L (13-56); Albumin, Serum 3.8 g/dL (3.2-5.0); Alkaline Phosphatase 113 U/L (45-117); Anion Gap 3 (5-15); BUN 10 mg/dL (7-18); BUN/Creat Ratio 10.1 RATIO (10-20); Calcium,Total 8.7 mg/dL (8.5-10.1); Chloride 104 mmol/L (98-107); Creatinine, Serum 0.99 mg/dL (0.55-1.02); EST Glomerular Filtration Rate 64 mL/min (>60); Est Glom Filt Rate - Afr Amer 77 mL/min (>60); Globulin 3.7 g/dL (2.2-4.2); Glucose 131 mg/dL (74-106); Potassium 3.5 mmol/L (3.5-5.1); Protein, Total 7.5 g/dL (6.4-8.2); Sodium Level 137 mmol/L (136-145)
[2019-04-25 15:45] LABS: POSITIVE COUNT NO; POSITIVE DIFFERENTIAL NO; POSITIVE MORPHOLOGY NO
== END | disposition home or self-care (01) ==
LOC: MTLAB 13:38
PROVIDERS: Family Provider Family Medicine; PCP Family Medicine; Referring Provider Internal Medicine Rheumatology; Visit Provider Internal Medicine Rheumatology
DX: M06.4 Inflammatory polyarthropathy (principal); Z79.899 Other long term (current) drug therapy; K51.80 Other ulcerative colitis without complications; L40.8 Other psoriasis; I10 Essential (primary) hypertension
CPT/HCPCS: 36415; 80053; 85025

== ENCOUNTER → 2019-06-01 | Outpatient (CLI) | payer OTHER, SELFPAY ==
[2019-03-16 08:50] VITALS: BMI 27.8
--- NOTE | 2019-06-01 15:24 | RAD_ITS ---
STUDY: X-RAY - LUMBAR SPINE REASON FOR EXAM: Female, 48 years old. Back pain. Leg pain. Numbness in the feet TECHNIQUE: 3 view(s) of the lumbar spine were obtained. COMPARISON: April 03, 2017 FINDINGS: Normal lumbar lordosis. There is no substantial scoliosis. There is a normal alignment of the vertebrae. Normal vertebral bodies and endplates. Normal disc space heights. There is no demonstrated fracture. There are surgical clips in the right upper abdomen. There is artifact from clothing. RAD/Lumbar Spine 2 or 3 Views IMPRESSION: Normal x-ray examination of the lumbar spine. Electronically Signed: Nba Solis MD at 20:08 EDT , Service support ,
== END | disposition home or self-care (01) ==
LOC: MTRAD 15:22
PROVIDERS: Family Provider Family Medicine; PCP Family Medicine; Referring Provider Anesthesiology Pain Medicine; Visit Provider Anesthesiology Pain Medicine
DX: M54.9 Dorsalgia, unspecified (principal)
CPT/HCPCS: 72100

== ENCOUNTER → 2019-07-15 09:26 | Outpatient (CLI) | payer OTHER, SELFPAY ==
[2019-07-06 09:16] VITALS: BMI 27.8
[2019-07-15 10:26] LABS: Absolute Lymphocyte Count 3.31 X10^3/uL (0.83-4.51); Basophil# 0.05 X10^3/uL; Basophil% 0.6 % (0-1); Eosinophils% 1.2 % (0-5); Lymphocyte # 3.31 X10^3/ul (4.0); Lymphocyte % 40.1 % (19-41); Mean Corp Hgb Conc 31.7 g/dL (32-36); Mean Corpuscular Hgb 29.7 pg (27.0-32.0); Mean Corpuscular Volume 93.6 fL (81-99); Mean Platelet Vol. 9.9 fl (6.2-12.0); Monocyte# 0.74 X10^3/uL; NRBC Flagged by Analyzer 0 % (0-5); Neutrophil # 4.03 X10^3/uL (2.7-7.7); Neutrophil % 48.9 % (47-70); Platelet Count 329 K/mm3 (150-450); RBC Distribution Width CV 12.7 % (11.6-14.6); RBC Distribution Width SD 43.6 fl (35.1-43.9); Red Blood Count 4.38 M/mm3 (4.2-5.4); White Blood Count 8.3 K/mm3 (4.4-11.0)
[2019-07-15 10:46] LABS: ALB/GLOB Ratio 0.9 RATIO (0.9-2.4); AST(SGOT) 16 U/L (15-37); Alanine Aminotransfer ALT/SGPT 20 U/L (13-56); Albumin, Serum 3.5 g/dL (3.2-5.0); Alkaline Phosphatase 118 U/L (45-117); Anion Gap 6 (5-15); BUN 12 mg/dL (7-18); BUN/Creat Ratio 14.3 RATIO (10-20); Calcium,Total 8.6 mg/dL (8.5-10.1); Chloride 104 mmol/L (98-107); Creatinine, Serum 0.84 mg/dL (0.55-1.02); EST Glomerular Filtration Rate 77 mL/min (>60); Est Glom Filt Rate - Afr Amer 93 mL/min (>60); Globulin 3.7 g/dL (2.2-4.2); Glucose 85 mg/dL (74-106); Potassium 4.1 mmol/L (3.5-5.1); Protein, Total 7.2 g/dL (6.4-8.2); Sodium Level 139 mmol/L (136-145)
== END ==
PROVIDERS: Family Provider Family Medicine; PCP Family Medicine; Referring Provider Internal Medicine Rheumatology; Visit Provider Internal Medicine Rheumatology
DX: M06.4 Inflammatory polyarthropathy (principal); Z79.899 Other long term (current) drug therapy; K51.80 Other ulcerative colitis without complications; L40.8 Other psoriasis; I10 Essential (primary) hypertension
CPT/HCPCS: 36415; 80053; 85025

== ENCOUNTER 2019-07-28 10:00 | Outpatient (RCR) | payer OTHER, SELFPAY ==
[2019-03-16 08:50] VITALS: BMI 27.8
--- NOTE | 2019-06-01 17:47 | HP.PTEVAL ---
Patient's Visit Information HINA SANCHEZ is a 48 year old F referred to Physical Therapy by Alessandro Farr MD with a diagnosis of BACK PAIN AND LEG PAIN. Date of Evaluation: 06/01/19 Physical Therapist: Mo Arnold PT, Cert MDT, OCS - Visit Plan Frequency: 2x /Week Duration: 4 Weeks Plan: PT INTERVENTIONS AQUATIC PT FOR DLS ABD/BACK,POSTURAL EX'S,STRENGTHENING FOR 3 WEEKS THEN RECHECK - Subjective Findings: This 48 y/o male presnets to physical therapy with low back pain and leg pain. Patieint has had leg and back pain about 1 month power wash and stained deck . Patient pain located left buttuck- hamstrings -foot. Aggravating sitting ,supine,bending,lifting. Alleviating factors better with walking,standing. Coughing/sneezing-.Bowel/bladder -. C/O parathesia thighs and feet. Sleeping affects pain.Patient seen DR Villarreal and will do epidural injections next week. Pateiny has h/o RA and tahes jose elias injecion every 2weeks. Pateint has h/o back pain no trauma. Patient pain affects QOL and function. Patient causes deficits for ADL'S and housework tasks and job demnads. SOCIAL: . 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 GAIT: reciprocal pattern. NEURO: c/o parathesia/tingling .reflexes L3-4,L4-5,L5-S1 2/3. SYMMTRIES : align. PALPATION: tender L-S. MMT: grossly 4/5. LUMBAR ROM: flexion min loss,extension mod loss pain ,min loss side glides. FLEXABLITY: hams min tight - Special Tests L/S Slump test left side: Positive L/S Slump test right side: Positive L/S Left Straight Leg Raise: Positive L/S Right Straight Leg Raise: Positive Lumbar Standing: Flexion - Mechanical Response: No effect Lumbar Standing: Flexion - Symptoms During Testing: Increases Lumbar Standing: Flexion - Symptoms After Testing: Worse Lumbar Standing: Extension - Mechanical Response: No effect Lumbar Standing: Extension - Symptoms During Testing: Increases Lumbar Standing: Extension - Symptoms After Testing: Worse Lumbar Standing: Right Side Glides - Mechanical Response: No effect Lumbar Standing: Right Side [place] - Symptoms During Testing: No effect Lumbar Standing: Right Side [place] - Symptoms After Testing: No effect Lumbar Standing: Left Side [place] - Mechanical Response: No effect Lumbar Standing: Left Side [place] - Symptoms During Testing: No effect Lumbar Standing: Left Side [place] - Symptoms After Testing: No effect Lumbar Lying: Flexion - Mechanical Response: No effect Lumbar Lying: Flexion - Symptoms During Testing: Increases Lumbar Lying: Flexion - Symptoms After Testing: Worse Lumbar Lying: Extension - Mechanical Response: No effect Lumbar Lying: Extension - Symptoms During Testing: Peripheralizing Lumbar Lying: Extension - Symptoms After Testing: Worse Lumbar Static: Slouched Sit - Mechanical Response: No effect Lumbar Static: Slouched Sit - Symptoms During Testing: Increases Lumbar Static: Slouched Sit - Symptoms After Testing: Worse Lumbar Static: Sitting Erect - Mechanical Response: No effect Lumbar Static: Sitting Erect - Symptoms During Testing: Decreases Lumbar Static: Sitting Erect - Symptoms After Testing: No effect - Goals Goal 1:: Patient to be Independant with Aquatic PT and HEP. Goal Time Frame: 4-6 Weeks Goal 2:: Patinet to improve posture/body mechanics. Goal Time Frame: 4-6 Weeks Goal 3:: Decrease back pain by 50% or > to improve function and ADL'S Goal Time Frame: 4-6 Weeks Goal 4:: Patient to improve lumbar ROM for function of recovery. Goal Time Frame: 4-6 Weeks Goal 5:: Patient to improve back owestry score by 5 points to improve QOL Goal Time Frame: 4-6 Weeks - Rehabilitation Potential Physical Therapy Diagnosis: This patient has lumbar pain with radicular symptoms with pain during postion,movement but no better with repeated motion ,correction of posture decrease symptoms . Thus possible derrangement below knee thus pain impairs with ADL'S Rehabilitation Potential: Good - Anticipated Interventions Patient/Client Instruction: Educate patient on: Condition, Plan of Care For the Purpose of:: To decrease pain, To increase ROM, To improve muscle performance and motor function, To improve ability to perform ADL's, To increase tolerance to activity/condition/position, To improve ability of physical actions for home/community/work/leisure, To improve health of tissue, To decrease soft tissue restriction, To increase flexibility/ROM, To improve ability to perform tasks related to life management Therapeutic Exercise to Include: Strength training, Postural training, Flexibilty training, Dynamic Lumbar Stabilization For the Purpose of:: To decrease pain, To increase ROM, To improve muscle performance and motor function, To increase tolerance to activity/condition/position, To improve ability of physical actions for home/community/work/leisure, To improve health of tissue, To decrease soft tissue restriction, To increase flexibility/ROM, To improve ability to perform tasks related to life management TENS: Yes IF ES: Yes Cryotherapy (ice pack, ice massage): Yes Thermo therapy (hot pack): Yes Ultrasound (thermal/non thermal): Yes For the Purpose of:: To decrease pain, To increase ROM, To improve nutrient delivery to tissue, To increase oxygenation perfusion, To improve health of tissue, To decrease soft tissue restriction Thank you for the opportunity to evaluate your patient. For Medicare and Medicare HMO plans, please review the plan of care and approve it. It will need to be FAXED BACK to us at [phone] for Medicare purposes. For Medicare only, by signing this I certify the plan of care. Please let me know if there are questions or concerns regarding this plan of care. Physician Signature: Date:
--- NOTE | 2019-10-28 13:13 | HP.PTDCNRP_ITS ---
HP - Discharge Summary (1) - Patient Information HINA SANCHEZ was seen in my office for initial evaluation on 06/01/19. The following Plan of Care was established for this patient: Initial Frequency: 2x /Week Initial Duration: 4 Weeks - Anticipated Interventions Patient/Client Instruction: Educate patient on: Condition, Plan of Care For the Purpose of:: To decrease pain, To increase ROM, To improve muscle perfor rach and motor function, To improve ability to perform ADL's, To increase tolerance to activity/condition/position, To improve ability of physical actions for home/community/work/leisure, To improve health of tissue, To decrease soft tissue restriction, To increase flexibility/ROM, To improve ability to perform tasks related to life management Therapeutic Exercise to Include: Strength training, Postural training, Flexibilty training, Dynamic Lumbar Stabilization For the Purpose of:: To decrease pain, To increase ROM, To improve muscle performance and motor function, To increase tolerance to activity/condition/position, To improve ability of physical actions for home/community/work/leisure, To improve health of tissue, To decrease soft tiss ue restriction, To increase flexibility/ROM, To improve ability to perform tasks related to life management TENS: Yes IF ES: Yes Cryotherapy (ice pack, ice massage): Yes Thermo therapy (hot pack): Yes Ultrasound (thermal/non thermal): Yes For the Purpose of:: To decrease pain, To increase ROM, To improve nutrient delivery to tissue, To increase oxygenation perfusion, To improve health of tissue, To decrease soft tissue restriction This patient was last seen in our office . Pertinent comments regarding their Physical therapy will appear below: Patient was seen for PT for back pain focusing on Dilma ex's,DLS,postural e x's and modalities. Patient had epidural injections and d/c to HEP. At this point I will be discontinuing this patient from physical therapy. I would be happy to see this patient again in the future if found appropriate by the physician. Thank you! Mo Arnold, PT, Cert MDT, OCS
== END 2019-07-28 19:00 | disposition home or self-care (01) ==
LOC: PT 10:00
PROVIDERS: Family Provider Family Medicine; PCP Family Medicine; Referring Provider Anesthesiology Pain Medicine; Visit Provider Anesthesiology Pain Medicine
DX: M54.9 Dorsalgia, unspecified (principal); M79.606 Pain in leg, unspecified
CPT/HCPCS: 97014; 97110; 97113; 97162; G0283

== ENCOUNTER → 2019-12-28 15:00 | Outpatient (CLI) | payer OTHER, SELFPAY ==
[2019-12-08 15:05] VITALS: BMI 27.8
--- NOTE | 2019-12-28 15:12 | MRI_ITS ---
STUDY: MRI RIGHT KNEE REASON FOR EXAM: Female, 49 years old. Chronic knee pain which is spherical serotherapy. TECHNIQUE: Standardized fat and water weighted pulse sequences were obtained in all 3 orthogonal planes. COMPARISON: MRI RIGHT KNEE-June 19, 2018 FINDINGS: Normal medial meniscus. There is diffuse, less than 50% thickness articular cartilage loss of the medial femorotibial compartment. Normal medial femoral condyle and tibial plateau. Normal medial collateral ligamentous complex (MCL). Normal distal semimembranosus, gracilis and semitendinosus tendons. There is a flap tear of the anterior horn of the lateral meniscus (sagittal proton density series 3, is 13; sagittal T2 series 4, image 8). There is a horizontal tear of the anterior horn-anterior body junction (coronal T2 fat sat series 6, image 15). These meniscal tears cannot present on the prior examination of June 19, 2018. Normal posterior horn of the lateral meniscus. The anterior and posterior meniscal roots are intact. Normal lateral femoral condyle and tibial plateau. Normal proximal tibiofibular articulation. Normal lateral collateral (fibular) ligament. Normal popliteus tendon. Normal biceps femoris tendon. There is osseous roof impingement and ligamentous distortion of the ACL. There is a partial tear of the anteromedial ACL fascicles of the ACL with edema and partial tearing (sagittal T2 fat sat series 4, image 13; coronal T2 fat sat series 6, image 13). The posterior lateral fascicles remain intact. Normal posterior cruciate ligament (PCL). Normal congruent patellofemoral articulation. Normal hyaline cartilage of the patellofemoral compartment. Normal medial and lateral patellar retinaculum. Normal quadriceps tendon. Normal patellar tendon. Normal Hoffa''s fat pad. There is a minimal joint effusion within normal physiologic finding limits. The soft tissues are unremarkable. The otherwise visualized osseous structures are unremarkable. MRI/Lower Ext Joint Only (Routine) IMPRESSION: 1. Flap tear of the anterior horn of the lateral meniscus with a horizontal tear of the anterior horn-anterior body junction of the lateral meniscus, which were not present on the prior examination of June 19, 2018. 2. Osseous roof impingement upon the ACL with a partial tear of the anteromedial fascicles of the ACL with ligamentous edema, but without a complete rupture. 3. Less than 50% chondral loss of the medial and lateral femoral tibial compartments. Electronically Signed: Bob Caceres DO at 16:28 EDT Tel , Service support ,
== END ==
PROVIDERS: PCP Family Medicine; Referring Provider Orthopaedic Surgery; Visit Provider Orthopaedic Surgery
DX: M65.9 Synovitis and tenosynovitis, unspecified (principal); M25.561 Pain in right knee
CPT/HCPCS: 73721

== ENCOUNTER 2020-03-07 08:31 | Day surgery (SDC) | payer OTHER, SELFPAY ==
[2020-02-14 08:55] VITALS: BMI 27.8
[2020-03-07 08:47] VITALS: BP 111/70; PULSE 78; RESP 16; TEMP 36.2; O2SAT 98; BMI 27.1
[2020-03-07] MEDS: Lactated Ringers 1,000 ML 100 ML IV (08:59)
--- NOTE | 2020-03-07 09:23 | PCM.HP.BLA ---
History and Physical I have re-examined the patient. There are no clinical changes since date of exam. Intake Vital Signs 02/14/20 BMI 27.8 Intake Visit Reasons: RIGHT KNEE Allergies Penicillins Allergy (Severe, Verified 08/19/19 13:02) Laryngospasms clindamycin Allergy (Intermediate, Verified 08/19/19 13:02) Rash mesalamine [From Asacol] Allergy (Intermediate, Verified 08/19/19 13:02) Rash meloxicam [From Mobic] Allergy (Mild, Verified 08/19/19 13:02) Rash nabumetone [From Relafen] Allergy (Mild, Verified 08/19/19 13:02) Rash sulfamethoxazole [From Bactrim] Allergy (Mild, Verified 08/19/19 13:02) Rash trimethoprim [From Bactrim] Allergy (Mild, Verified 08/19/19 13:02) Rash PFSH Social History (Updated 02/14/20 @ 11:[address] Bri Oconnell, DO) Smoking Status: Former smoker how long ago did patient quit smoking: recently quit smoking counseling given: provider counseling alcohol intake: current HPI HPI Details: Patient was informed that this visit will be billed to patient. This visit was conducted during COVID- pandemic. HINA SANCHEZ, is a 49 F who presents to the office today for right knee pain. has stopped humira over last few months. knee pain worse with flexion and continues to swell. has done conservative treatment options which failed to provide [facility] relief. wants to discuss options. dr rosado for back/numbness right leg. filoligamentum hypertrophy- has appt this with dr rosado for injection. Exam Const General: cooperative, healthy appearing [facility] Head: normal to inspection Eyes General: appearance normal, both eyes and all related structures Neck Neck: normal visual inspection Musc Musculoskeletal: Yes joint tenderness Other: right knee pain, unable to bend/crouch Assessment & Plan Problems 1. Right knee pain M25.561 Plan right knee pain recalcitrant to nonop treatment. pain with bursa from bracing, Reviewed the pre-operative plans with the patient. Risks and benefits of the procedure were fully explained, including but not limited to infection, neurovascular injury, continued pain, arthritis, stiffness, need for further surgery, re-injury, DVT, PE, general risks of anesthesia, and loss of limb or life. The patient understands all the risks and does wish to proceed with written consent. right meniscectomy and synovectomy. aware of covid risks as well. All questions answered. Patient in agreement of plan. .We discussed the current risk associated COVID-19. While it is understood that there is a community spread of COVID 19 the risk of sylvia COVID-19 while at [facility] is very low, however, the risk cannot be completely mitigated because of the community spread of the disease. We discussed in detail the risk of exposure to and or potential harm posed by the COVID-19 virus with having a surgery/procedure at this time versus the risk of delaying the surgery/procedure. Is not possible to know either the risk of delaying the surgery procedure or chance of getting an infection with perfect accuracy, but a joint decision was made to proceed at this time with a schedule surgery/procedure as indicated on the consent form. Patient was notified that we will need to comply with any screening or testing [facility] wishes to perform or that surgery may be delayed for any positive results. Also discussed that I have not been tested patient is aware of risk associated with my potential to be positive however I am wearing PPE. Coding Level of Care Code Off vis,new,level 4 Diagnoses Right knee pain M25.561
--- NOTE | 2020-03-07 09:25 | PCM.DC.ORTHO ---
Discharge Diet: No Restrictions Discharge Activity: May Not Drive May shower in (days): 1 Ice area for (Minutes): 20 - Every hour while awake. Weight Bearing Status: Weight bearing as tolerated Keep extremity elevated above heart level: Operative Extremity Call your doctor if your incision/area has: Continuous Slow Oozing, Sudden Increased Bleeding, Increased Pain/ Swelling, Increased Redness, Foul Smelling Discharge Call your doctor if you observe: Fever of 101 or Higher, Coldness, Increased Pain, Numbness or Tingling, Change in Color, Calf discomfort Allergies/Adverse Reactions: Allergies Penicillins Allergy (Severe, Verified 03/07/20 08:45) Laryngospasms CUTS OFF AIRWAY clindamycin Allergy (Intermediate, Verified 03/07/20 08:45) Rash RASH AND HIGH HR mesalamine [From Asacol] Allergy (Intermediate, Verified 03/07/20 08:45) Rash RASH, HIGH HR, EXCESSIVE DIARRHEA meloxicam [From Mobic] Allergy (Mild, Verified 03/07/20 08:45) Rash nabumetone [From Relafen] Allergy (Mild, Verified 03/07/20 08:45) Rash sulfamethoxazole [From Bactrim] Allergy (Mild, Verified 03/07/20 08:45) Rash trimethoprim [From Bactrim] Allergy (Mild, Verified 03/07/20 08:45) Rash Medications to take at Discharge Duloxetine Hcl [Cymbalta] 60 mg PO DAILY 08/04/17 Lisinopril [Zestril] 20 mg PO DAILY 08/04/17 tramadol 50 mg tablet 50 mg PO Q6H PRN MDD ra 09/22/17 Atenolol [Tenormin (beta henrry)] 50 mg PO DAILY 11/18/18 Estradiol 2 mg PO DAILY 11/18/18 azelastine 137 mcg-fluticasone 50 mcg spray,susp-NaCl 0.9% spray nasal 1 spray INTRANASAL BID 11/18/18 loratadine 10 mg tablet 10 mg PO DAILY 11/18/18 adalimumab 10 mg/0.1 mL subcutaneous syringe kit 40 mg SC .[id number] 03/16/19 L.acidoph,Paracasei, B.lactis [Probiotic] 1 ea PO DAILY 02/28/20 Prednisone 10 mg PO PRN PRN 02/28/20 Oxycodone HCl/Acetaminophen [Percocet 5/325] 1 - 2 tab PO Q6H PRN PRN 5 Days #28 tab 03/07/20 The following prescriptions were given: Oxycodone HCl/Acetaminophen [Percocet 5/325] 1 - 2 tab PO Q6H PRN PRN 5 Days #28 tab PRN Reason: Pain Transmission Status: Sent to [facility] Primary Care Physician: Ricci Poe MD [Primary Care Provider] - Test Results: Test results from this visit will be discussed in further detail at your follow-up appointment, if applicable. Please Follow Up With: Bri Oconnell, DO - [phone]
--- NOTE | 2020-03-07 09:25 | PCM.OPRPT ---
Report of Operation Date of Procedure: 03/07/20 Pre-Operative Diagnosis: Right knee lateral meniscus tear, synovitis Post-Operative Diagnosis: Same Surgery/Procedure Performed:: Right knee arthroscopy, partial lateral meniscectomy, extensive synovectomy Type of Anesthesia:: General Anesthesiologist: Arie Moore Specimen's removed: tt-25 mins Estimated Blood Loss (mL): min Fluids Replaced: 600cc lr Description of Procedure: Preop note Patient is a 49-year-old female with continued knee pain recalcitrant to therapy. Patient has meniscus tear as well as synovitis noted on x-ray and MRI extending. Wrist benefits alternatives are discussed with patient. Risks include but not limited to blood loss, blood clot, infection, neurovascular, failure procedure, loss of life and loss of limb. Patient is aware like proceed with knee arthroscopy repair is indicated. We discussed the current risk associated COVID-19. While it is understood that there is a community spread of COVID 19 the risk of sylvia COVID-19 while at [facility] is very low, however, the risk cannot be completely mitigated because of the community spread of the disease. We discussed in detail the risk of exposure to and or potential harm posed by the COVID-19 virus with having a surgery/procedure at this time versus the risk of delaying the surgery/procedure. Is not possible to know either the risk of delaying the surgery procedure or chance of getting an infection with perfect accuracy, but a joint decision was made to proceed at this time with a schedule surgery/procedure as indicated on the consent form. Patient was notified that we will need to comply with any screening or testing [facility] wishes to perform or that surgery may be delayed for any positive results. Patient also informed that I have not been tested for COVID and the risks associate with this however I have no symptoms at this time. Patient is aware of the associated risks. Operative note Patient seen and examined in preop holding area. He was marked patient operative was marked. Patient brought to the operating placed supine the operating table. Signing, anesthesia, antibiotics are Mr. The leg was prepped and draped in usual sterile fashion with a tourniquet around her upper thigh. All bony prominences well-padded SCDs placed on her contralateral limb. We then marked out her anterior lateral anteromedial portal placement. The leg was then elevated segment in turn was raised her pressure of 250 torr. Timeout was performed. We then used 11 blade to create her anterior lateral portal. We began our diagnostic arthroscopy. Patellofemoral joint was unremarkable there was some synovitis in the superior patella pouch. We then moved to the medial joint line. We created anterior medial portal under direct visualization. We resected the thickened synovitis in the anterior medial anterior lateral aspect and able to better visualize the medial meniscus which was intact stable probing. The ACL and PCL were present within the notch. The moved to the lateral joint line. There was a radial tear of the lateral meniscus extending from the mid body to the posterior horn. With this was then resected combination of a basket and shaver we then reinserted the shaver and it was stable and the side we reinserted the probe and it was stable remnant meniscus remaining. We were able to debride back the synovitis again into the anterior lateral anteromedial gutters as well. After this was done we did irrigate the knee with copious amounts of sterile saline. The tract was deflated and this portals were closed with 4-0 nylon stitches. Sterile dressings were applied. Patient tolerated procedure well no complication transferred recovery room in stable condition Postoperative note Weight-bear as tolerated operative limb Pharmacy has prescriptions Discussed with patient in the postop recovery room what we did we found Call with increased pain numbness tingling further issues arise This note was generated with [employer] dictation software. It may contain incorrect words, spelling, and punctuation that were not noted in checking the note before signing.
--- NOTE | 2020-03-07 09:26 | HP.PCM_ITS ---
History and Physical Intake I have re-examined the patient. There are no clinical changes since date of exam. Vital Signs 02/14/20 BMI 27.8 Intake Visit Reasons: RIGHT KNEE Allergies Penicillins Allergy (Severe, Verified 08/19/19 13:02) Laryngospasms clindamycin Allergy (Intermediate, Verified 08/19/19 13:02) Rash mesalamine [From Asacol] Allergy (Intermediate, Verified 08/19/19 13:02) Rash meloxicam [From Mobic] Allergy (Mild, Verified 08/19/19 13:02) Rash nabumetone [From Relafen] Allergy (Mild, Verified 08/19/19 13:02) Rash sulfamethoxazole [From Bactrim] Allergy (Mild, Verified 08/19/19 13:02) Rash trimethoprim [From Bactrim] Allergy (Mild, Verified 08/19/19 13:02) Rash PFSH Social History (Updated 02/14/20 @ 11:[address] Bri Oconnell, DO) Smoking Status: Former smoker how long ago did patient quit smoking: recently quit smoking counseling given: provider counseling alcohol intake: current HPI HPI Details: Patient was informed that this visit will be billed to patient. This visit was conducted during COVID- pandemic. HINA SANCHEZ, is a 49 F who presents to the office today for right knee pain. has stopped humira over last few months. knee pain worse with flexion and continues to swell. has done conservative treatment options which failed to provide halfway relief. wants to discuss options. dr rosado for back/numbness right leg. filoligamentum hypertrophy- has appt this with dr rosado for injection. Exam Const General: cooperative, healthy appearing [facility] Head: normal to inspection Eyes General: appearance normal, both eyes and all related structures Neck Neck: normal visual inspection Musc Musculoskeletal: Yes joint tenderness Other: right knee pain, unable to bend/crouch Assessment & Plan Problems 1. Right knee pain M25.561 Plan right knee pain recalcitrant to nonop treatment. pain with bursa from bracing, Reviewed the pre-operative plans with the patient. Risks and benefits of the procedure were fully explained, including but not limited to infection, neurovascular injury, continued pain, arthritis, stiffness, need for further surgery, re-injury, DVT, PE, general risks of anesthesia, and loss of limb or life. The patient understands all the risks and does wish to proceed with written consent. right meniscectomy and synovectomy. aware of covid risks as well. All questions answered. Patient in agreement of plan. We discussed the current risk associated COVID-19. While it is understood that there is a community spread of COVID 19 the risk of sylvia COVID-19 while at [facility] is very low, however, the risk cannot be completely mitigated because of the community spread of the disease. We discussed in detail the risk of exposure to and or potential harm posed by the COVID-19 virus with having a surgery/procedure at this time versus the risk of delaying the surgery/procedure. Is not possible to know either the risk of delaying the surgery procedure or chance of getting an infection with perfect accuracy, but a joint decision was made to proceed at this time with a schedule surgery/procedure as indicated on the consent form. Patient was notified that we will need to comply with any screening or testing [facility] wishes to perform or that surgery may be delayed for any positive results. Coding Level of Care Code Off vis,new,level 4 Diagnoses Right knee pain M25.561 Procedure Criteria Procedure Type: Elective COVID Risk Discussion: The surgeon/proceduralist and patient have discussed in detail the risk of exposure to and/or potential harm posed by the COVID-19 virus with having a surgery/procedure at this time versus the risk of delaying the surgery/procedure. It is not possible to know either the risk of delaying the surgery or procedure or chance of getting an infection with perfect accuracy, but a joint decision was made between the patient and the surgeon/proceduralist to proceed at this time with the scheduled surgery/procedure as indicated on the consent form.
[2020-03-07] MEDS: Cefazolin 2 GM in 0.9% Normal Saline 100 ML IV (09:52)
[2020-03-07] MEDS: Mupirocin Ointment 22gm Tube 1 APPLIC (10:35)
[2020-03-07] MEDS: Bupiv/Epi 0.25% 30 ML Vial (10:35)
[2020-03-07 10:52] VITALS: BP 106/74; BP 111/70; PULSE 99; RESP 18; TEMP 36.2; O2SAT 99
[2020-03-07 11:00] VITALS: BP 103/63; BP 111/70; PULSE 90; RESP 16; O2SAT 94
[2020-03-07 11:15] VITALS: BP 111/70; BP 97/72; PULSE 92; RESP 16; O2SAT 93
[2020-03-07 11:27] VITALS: BP 111/70; BP 92/66; PULSE 92; RESP 16; TEMP 36; O2SAT 98
[2020-03-07 12:05] VITALS: BP 111/70
== END 2020-03-07 12:05 | disposition home or self-care (01) ==
LOC: SDC 08:33 → AC 08:34
PROVIDERS: PCP Family Medicine; Referring Provider Orthopaedic Surgery; Visit Provider Orthopaedic Surgery
PROC: (CPT 29882; principal; 2020-03-07 09:45)
DX: S83.281A Other tear of lateral meniscus, current injury, right knee, initial encounter (principal); M65.9 Synovitis and tenosynovitis, unspecified; Z11.59 Encounter for screening for other viral diseases; I10 Essential (primary) hypertension; K51.90 Ulcerative colitis, unspecified, without complications; F32.9 Major depressive disorder, single episode, unspecified; Z79.899 Other long term (current) drug therapy; Z87.891 Personal history of nicotine dependence
CPT/HCPCS: 29876; 29881; 87635; G2023; J7120; J2405; U0004

== ENCOUNTER → 2020-04-24 17:45 | Outpatient (CLI) | payer OTHER, SELFPAY ==
[2020-03-20 09:46] VITALS: BMI 27.1
[2020-04-24 09:57] VITALS: BMI 27.1
== END ==
PROVIDERS: PCP Family Medicine; Referring Provider Physician Assistant; Visit Provider Physician Assistant
DX: Z20.828 Contact with and (suspected) exposure to other viral communicable diseases (principal)
CPT/HCPCS: 87635; G2023; U0003

== ENCOUNTER 2020-05-09 17:24 | Emergency (ER) | payer OTHER, SELFPAY ==
[2020-05-03 14:18] VITALS: BMI 27.1
[2020-05-09 17:25] VITALS: BP 147/97; PULSE 86; RESP 16; TEMP 36.4; O2SAT 97; BMI 25.9
--- NOTE | 2020-05-09 17:45 | EKG12_ITS ---
Test Reason : SOB Blood Pressure : / mmHG Vent. Rate : 076 BPM Atrial Rate : 076 BPM P-R Int : 104 ms QRS Dur : 082 ms QT Int : 358 ms P-R-T Axes : 050 062 062 degrees QTc Int : 402 ms Sinus rhythm with short NC Otherwise normal ECG Confirmed by EITAN MARTINEZ, JUAN ([id number]), dictionary editor MARCEL HINSON ([id number]) on 05/15/2020 8:50:49 AM Referred By: SELAM Confirmed By:JUAN LAIRD MD
[2020-05-09] MEDS: Ondansetron 4 MG/2 ML Vial IV (18:18)
[2020-05-09 18:20] LABS: Absolute Neutrophil Count 11.8 X10^3/uL (2.0-7.7); Basophil# 0.05 X10^3/uL; Basophil% 0.3 % (0-1); Eosinophil# 0.01 X10^3/uL; Eosinophils% 0.1 % (0-5); Hematocrit 46.2 % (37-47); Hemoglobin 15.2 g/dL (12.0-15.0); Lymphocyte % 19.8 % (19-41); Mean Corp Hgb Conc 32.9 g/dL (32-36); Mean Corpuscular Volume 91.1 fL (81-99); Mean Platelet Vol. 9.9 fl (6.2-12.0); NRBC Flagged by Analyzer 0 % (0-5); Neutrophil # 11.81 X10^3/uL (2.7-7.7); Neutrophil % 73.1 % (47-70); Platelet Count 436 K/mm3 (150-450); RBC Distribution Width CV 12.7 % (11.6-14.6); RBC Distribution Width SD 42.2 fl (35.1-43.9); Red Blood Count 5.07 M/mm3 (4.2-5.4); White Blood Count 16.1 K/mm3 (4.4-11.0)
[2020-05-09 18:26] LABS: AST(SGOT) 19 U/L (15-37); Alanine Aminotransfer ALT/SGPT 40 U/L (13-56); Albumin, Serum 3.9 g/dL (3.2-5.0); Alkaline Phosphatase 82 U/L (45-117); Anion Gap 6 (5-15); BUN 18 mg/dL (7-18); BUN/Creat Ratio 16.8 RATIO (10-20); Calcium,Total 9.4 mg/dL (8.5-10.1); Chloride 103 mmol/L (98-107); Creatinine, Serum 1.07 mg/dL (0.55-1.02); D-Dimer Quantitative (DVT/PE) <= 0.27 FEU/ug/m (0.27-0.49); EST Glomerular Filtration Rate 58 mL/min (>60); Est Glom Filt Rate - Afr Amer 71 mL/min (>60); Estimated Creatinine Clearance 51.41 ml/min; Globulin 3.8 g/dL (2.2-4.2); Glucose 129 mg/dL (74-106); Potassium 3.9 mmol/L (3.5-5.1); Protein, Total 7.7 g/dL (6.4-8.2); Sodium Level 136 mmol/L (136-145)
--- NOTE | 2020-05-09 18:34 | ED.VIS.GEN ---
History of Present Illness Chief Complaint: Shortness of Breath Detail of Chief Complaint: Onset of illness April 19. She had a negative COVID test on April 24. Onset: Weeks Context: Sudden Onset Timing: Continuous Quality: Rhinorrhea, throat pain, URI symptoms Location: Upper respiratory Current Severity: Moderate Maximum Severity: Severe Worsened by: Activity Relieved by: Nothing Associated Symptoms: Viral upper respiratory symptoms Narrative: Patient is a 49-year-old female status post hysterectomy who presents with shortness of breath, rhinorrhea, postnasal drainage, sore throat, myalgias, arthralgias with a cough. Onset of illness April 19. She had a negative COVID test on April 24. She is presently taking prednisone, azithromycin and was placed on an albuterol metered-dose inhaler without any improvement. She denies history of PE or DVT. She denies leg pain, swelling or discoloration. She has no risk factors for VTE. She denies headache, photophobia, neck pain or neck stiffness. She denies loss of taste or smell. She states she does not feel well. She is a former smoker. Prior similar symptoms: Yes Recent Illness/Hospitalization: Yes - Past Medical History (1) Acute bronchitis Status: Acute (2) Former smoker Status: Chronic (3) HTN (hypertension) Status: Chronic (4) Immunocompromised state due to drug therapy Status: Chronic Comment: Patient takes Humira for rheumatoid arthritis (5) Rheumatoid arthritis Status: Chronic (6) Ulcerative colitis Status: Chronic Past Medical History - Allergies and Home Meds Allergies/Adverse Reactions: Allergies Penicillins Allergy (Severe, Verified 05/09/20 17:25) Laryngospasms CUTS OFF AIRWAY clindamycin Allergy (Intermediate, Verified 05/09/20 17:25) Rash RASH AND HIGH HR mesalamine [From Asacol] Allergy (Intermediate, Verified 05/09/20 17:25) Rash RASH, HIGH HR, EXCESSIVE DIARRHEA meloxicam [From Mobic] Allergy (Mild, Verified 05/09/20 17:25) Rash nabumetone [From Relafen] Allergy (Mild, Verified 05/09/20 17:25) Rash sulfamethoxazole [From Bactrim] Allergy (Mild, Verified 05/09/20 17:25) Rash trimethoprim [From Bactrim] Allergy (Mild, Verified 05/09/20 17:25) Rash Primary Care Physician: Ricci Poe MD [Primary Care Provider] - Prior records reviewed: Yes Surgical History: arthroscopy, knee, cholecystectomy, hysterectomy, tonsillectomy, - Lives: Alone Smoking Status: Former smoker Alcohol: Rare Drugs: None Review of Systems General: Reports: Chills, Fever, Malaise, Subjective. Denies: Sweats Eyes: Denies: Visual changes - bilaterally, Blurred Vision - bilaterally ENT: Reports: Rhinorrhea, Sore throat. Denies: Bilateral ear pain Cardiovascular: Reports: Chest pain, Palpitations Respiratory: Reports: Dyspnea, Cough, Sputum, Dyspnea on exertion. Denies: Orthopnea, Paroxysmal nocturnal dyspnea Gastrointestinal: Reports: Abdominal pain, Nausea. Denies: Vomiting, Diarrhea, Constipation, Melena, Hematochezia Genitourinary: Denies: Dysuria, Hematuria, Frequency Musculoskeletal: Reports: Myalgias, Arthralgias. Denies: Neck pain, Back pain, Swelling, Extremity Pain Skin: Denies: Rash, Wounds Neurological: Reports: Headache, Weakness. Denies: Parasthesia, Numbness Endocrine: Denies: Polyuria, Polydipsia Hematologic: Denies: Easy bruising, Easy bleeding Physical Exam Vital Signs/Narrative: Vital Signs Temp Pulse Resp BP Pulse Ox 05/09/20 17:25 97.6 F L 86 16 147/97 H 97 Inital Vital Signs reviewed: Yes General: Well nourished, Well developed, Acute Distress Head: Normocephalic, Atraumatic Eyes: Perrl, EOMI. Negative for: Pale conjunctiva, Scleral icterus ENT: Moist mucous membranes, TM's clear, Nasal congestion Neck: Supple, Nontender, No lymphadenopathy, No JVD Cardiovascular: Regular rate, Regular rhythm, No murmurs, Normal S1, Normal S2 Respiratory: No distress, CTA bilaterally, Chest nontender, - - Patient is tachypneic. She appears short of breath. She is breathing much more rapidly than 16 times a minute. Abdomen: Soft, Nontender, Nondistended, Normal bowel sounds Rectal: Deferred Back: Nontender, Normal Inspection Extremities: Nontender, No edema, - - Insert lower extremity DVT. Skin: Normal color, No rash, No Trauma. Negative for: Cyanosis, Diaphoresis, Jaundice Neurological: Alert, Oriented x3, Cranial nerves II-XII grossly intact, Normal Strength, Normal Sensation, Normal DTR Psychological: Normal affect, Normal Mood Diagnostic/Tx/Re-eval Impressions Chest X-Ray 05/09/20 18:55 IMPRESSION: Normal x-ray examination of the chest. Electronically Signed: Nba Solis MD at 19:28 EDT , Service support , 05/09/20 18:55 Chest 1 View (Portable) [RAD] Stat 05/09/20 17:51 Mucosa - Nasopharyngeal Respiratory Panel (PCR) - Preliminary Laboratory Results 05/09/20 05/09/20 05/09/20 17:51 17:55 17:55 WBC 16.1 H RBC 5.07 Hgb 15.2 H Hct 46.2 MCV 91.1 MCH 30.0 MCHC 32.9 RDW Std Deviation 42.2 RDW Coeff of Jennifer 12.7 Plt Count 436 MPV 9.9 Immature Gran % (Auto) 1.700 H Neut % (Auto) 73.1 H Lymph % (Auto) 19.8 Warrick % (Auto) 5.0 Eos % (Auto) 0.1 Baso % (Auto) 0.3 Absolute Neuts (auto) 11.8 H Absolute Lymphs (auto) 3.20 Nucleated RBC % 0 D-Dimer Quant (PE/DVT) <= 0.27 Sodium Potassium Chloride Carbon Dioxide Anion Gap BUN Creatinine Estim Creat Clear Calc Est GFR (MDRD) Af Amer Est GFR (MDRD) Non-Af BUN/Creatinine Ratio Glucose Lactic Acid Calcium Total Bilirubin AST ALT Alkaline Phosphatase Total Protein Albumin Globulin Albumin/Globulin Ratio COVID-19 (ROBERTO) Negative 05/09/20 05/09/20 17:55 17:55 WBC RBC Hgb Hct MCV MCH MCHC RDW Std Deviation RDW Coeff of Jennifer Plt Count MPV Immature Gran % (Auto) Neut % (Auto) Lymph % (Auto) Warrick % (Auto) Eos % (Auto) Baso % (Auto) Absolute Neuts (auto) Absolute Lymphs (auto) Nucleated RBC % D-Dimer Quant (PE/DVT) Sodium 136 Potassium 3.9 Chloride 103 Carbon Dioxide 27.0 Anion Gap 6 BUN 18 Creatinine 1.07 H Estim Creat Clear Calc 51.41 Est GFR (MDRD) Af Amer 71 Est GFR (MDRD) Non-Af 58 L BUN/Creatinine Ratio 16.8 Glucose 129 H Lactic Acid 2.0 Calcium 9.4 Total Bilirubin 0.30 AST 19 ALT 40 Alkaline Phosphatase 82 Total Protein 7.7 Albumin 3.9 Globulin 3.8 Albumin/Globulin Ratio 1.0 COVID-19 (ROBERTO) Patient's work-up is unremarkable including COVID-19 test. D-dimer is less than 0.27. Patient was informed of results. - EKG Initial EKG Interpretation: Sinus Rhythm - Sinus rhythm with a ventricular rate of 76. DE interval is short and 100 ms. QRS duration 82 ms. QT duration 3 and 58 ms. [place] is normal. - Medical Decision Making With complaint of shortness of breath respiratory symptoms need to evaluate for viral upper respiratory infection, COVID-19, pneumonia, pulmonary embolus. Appropriate blood work was obtained as well as EKG chest x-ray. ED Disposition - Plan for ED Patient: Disposition: Home or Assisted Living Diagnosis: Upper respiratory infection with cough and congestion, Bronchospasm, acute Instructions: ED URI Viral Referrals: Ricci Poe MD [Primary Care Provider] - 1 Week if not improving
--- NOTE | 2020-05-09 18:55 | RAD_ITS ---
STUDY: X-RAY CHEST REASON FOR EXAM: Female, 49 years old. SOB AND COUGH SINCE April TECHNIQUE: Single AP portable view of the chest. COMPARISON: August 04, 2018 FINDINGS: There are monitoring devices. The lungs are clear and expanded. There is no demonstrated pleural abnormality. Normal size heart. Normal mediastinum and pita. Normal visualized pulmonary arteries. Normal visualized aortic arch and descending thoracic aorta. Normal visualized thoracic spine. Normal visualized ribs, clavicles, and shoulders. There is no demonstrated abnormality of the visualized soft tissue structures of the upper abdomen. RAD/Chest 1 View (Portable) IMPRESSION: Normal x-ray examination of the chest. Electronically Signed: Nba Solis MD at 19:28 EDT , Service support ,
[2020-05-09 20:21] VITALS: BP 118/77; PULSE 71; RESP 17; O2SAT 96
[2020-05-09 21:31] VITALS: BP 114/76; PULSE 71; RESP 14; TEMP 37.1; O2SAT 97
[2020-05-09 22:07] LABS: Reflex Lactate? Y
== END 2020-05-09 22:06 | disposition home or self-care (01) ==
PROVIDERS: Emergency Provider Emergency Medicine; PCP Family Medicine
DX: J06.9 Acute upper respiratory infection, unspecified (principal); J98.01 Acute bronchospasm; I10 Essential (primary) hypertension; M06.9 Rheumatoid arthritis, unspecified; K51.90 Ulcerative colitis, unspecified, without complications; Z79.899 Other long term (current) drug therapy; Z87.891 Personal history of nicotine dependence
CPT/HCPCS: 71045; 80053; 83605; 85025; 85379; 87040; 87633; 87635; 93005; 94799; 96374; 99284; A4216; J2405; U0003

== ENCOUNTER → 2020-07-02 09:24 | Outpatient (CLI) | payer OTHER, SELFPAY ==
--- NOTE | 2020-07-02 09:35 | RAD_ITS ---
STUDY: X-RAY - PELVIS AND LEFT HIP REASON FOR EXAM: Female, 49 years old. Left hip pain, fell last month TECHNIQUE: 3 views of the pelvis and hip. COMPARISON: Comparison is made with prior examination dated 09/04/2014. FINDINGS: There is a non-specific bowel gas pattern. There are multiple calcified phleboliths. Normal bilateral iliac wings, sacroiliac joints and visualized sacrum. Healed fractures of the left superior and inferior pubic pubic rami. Normal pubic symphysis. Normal bilateral ischial tuberosities. Normal visualized femoral head. Normal acetabulum. Normal hip joint. RAD/HIP, UNI W/ Pelvis 2-3 Views IMPRESSION: Healed fractures of the left superior and inferior pubic rami. Electronically Signed: Hernandez [facility], at 15:00 EDT , Service support ,
[2020-07-02 11:02] LABS: Bacteria 0 SEEN /hpf (None Seen); Mucous, Urine 0 SEEN /hpf (<or=2+); Red Blood Cells-Urine 0 SEEN /hpf (0-5); White Blood Cells 0 SEEN /hpf (0-5)
[2020-07-02 12:53] LABS: Color, Urine Yellow (Yellow); Glucose, Dipstick Normal (Normal); Ketone-Dipstick Negative (Negative); Leukocyte Esterase-Dipstick Negative /ul (Negative); Nitrite-Dipstick Negative (Negative); Occult Blood-Urine Negative /ul (Negative); Protein-Dipstick Negative (Negative); Urine Bilirubin Dipstick Negative (Negative); Urine Clarity Sl. Cloudy (Clear); Urine Urobilinogen Normal (Normal)
[2020-07-02 12:59] LABS: Squamous Epithelial Cells - UA 0-5 SEEN /hpf (5-10)
[2020-07-02 13:02] LABS: Absolute Lymphocyte Count 2.63 X10^3/uL (0.83-4.51); Absolute Neutrophil Count 6.1 X10^3/uL (2.0-7.7); Basophil# 0.07 X10^3/uL; Basophil% 0.7 % (0-1); Eosinophil# 0.05 X10^3/uL; Eosinophils% 0.5 % (0-5); Hematocrit 43.3 % (37-47); Hemoglobin 13.8 g/dL (12.0-15.0); Lymphocyte # 2.63 X10^3/ul (4.0); Lymphocyte % 27.9 % (19-41); Mean Corp Hgb Conc 31.9 g/dL (32-36); Mean Corpuscular Hgb 29.4 pg (27.0-32.0); Mean Corpuscular Volume 92.3 fL (81-99); Monocyte# 0.58 X10^3/uL; Monocyte% 6.2 % (0-10); NRBC Flagged by Analyzer 0 % (0-5); Neutrophil # 6.05 X10^3/uL (2.7-7.7); Neutrophil % 64.2 % (47-70); Platelet Count 396 K/mm3 (150-450); RBC Distribution Width CV 13.2 % (11.6-14.6); RBC Distribution Width SD 44.4 fl (35.1-43.9); Red Blood Count 4.69 M/mm3 (4.2-5.4); White Blood Count 9.4 K/mm3 (4.4-11.0)
[2020-07-02 13:34] LABS: AST(SGOT) 18 U/L (15-37); Alanine Aminotransfer ALT/SGPT 25 U/L (13-56); Albumin, Serum 3.7 g/dL (3.2-5.0); Alkaline Phosphatase 92 U/L (45-117); Anion Gap 6 (5-15); BUN 10 mg/dL (7-18); BUN/Creat Ratio 11.2 RATIO (10-20); Calcium,Total 8.9 mg/dL (8.5-10.1); Chloride 99 mmol/L (98-107); Cholesterol 284 mg/dL (200); Creatinine, Serum 0.89 mg/dL (0.55-1.02); EST Glomerular Filtration Rate 72 mL/min (>60); Est Glom Filt Rate - Afr Amer 87 mL/min (>60); Globulin 3.8 g/dL (2.2-4.2); Glucose 109 mg/dL (74-106); High Density Lipoprotein 71 mg/dL; Protein, Total 7.5 g/dL (6.4-8.2); Sodium Level 135 mmol/L (136-145); Thyroid Stim Hormone (TSH) 0.95 uIU/mL (0.358-3.74); Triglycerides 253 mg/dL; Very Low Density Lipoprotein 51 mg/dL (5-40)
[2020-07-03 14:23] LABS: Hemoglobin A1c 5.9 % (3.8-5.6)
== END ==
PROVIDERS: Family Medicine; PCP Family Medicine; Referring Provider Anesthesiology Pain Medicine; Visit Provider Anesthesiology Pain Medicine
DX: M25.552 Pain in left hip (principal); W19.XXXA Unspecified fall, initial encounter; I10 Essential (primary) hypertension; E78.5 Hyperlipidemia, unspecified
CPT/HCPCS: 36415; 73502; 80053; 80061; 81001; 83036; 84443; 85025

== ENCOUNTER 2020-07-06 07:57 | Outpatient (RCR) | payer OTHER, SELFPAY ==
--- NOTE | 2020-07-06 08:55 | HP.PTEVAL ---
Patient's Visit Information HINA SANCHEZ is a 49 year old F referred to Physical Therapy by Dr. Alessandro Farr MD with a diagnosis of L hip pain and LBP. Date of Evaluation: 07/06/20 Physical Therapist: Gary Araujo, DPT, OCS, CSCS - Visit Plan Frequency: 3x /Week Duration: 4-6 Weeks Plan: 3x/week for 3-6 weeks. Please: 1. rollout and stretch L hip flexors and ITB,. 2. Strengthen core adn LE focussing L hip on machines and mat and progressing to HEP without increased pain. 3. May use ice EX if needed. - Subjective Had surgery on R knee meniscectomy. Slipped on water on L foot then and L hip bursitis issues have flared up. It has started giving out adn becoming painful. Pain is groin and anterior L hip and posterior upper HS and into sciatic spot. Gto injection form Basali in bursa L and ordered x ray. It showed healed pubicrami fractures from previously. Will have bone density tests. Has h/o LBP and sees Basali for that, MRI showed flavum ligamentum atrophy. Legs go numb if sit or lie down into feet. Gets shooting pain at times into legs. bending can make her worse. Knee surgery was 03/07 adn slip was 05/26. LBP hurt prior to slip but hip is a more recent thing. Back is defintiely worse lately. Lives alone and does all housework herself. Wants to put up trim but has been avoiding since knee surgery. Sleep is OK most of time. Improvements in hip pain have helped. Sleeps on sides. Somewhat better lately. 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 Sits all day and not good for hip or back. Has stand up desk and will get one for home. Hobbies include 4 wheeling and has not done that due to this. Enjoys walking dogs adn going to [place] and worse after walking all day at [place]. Needed 3 tramadol for [place]. - Pain LBP Pain Intensity (Out of 10): 1 Pain Intensity Range: 0, 5 Comment: walking is better. L hip Pain Intensity (Out of 10): 2 Pain Intensity Range: 1, 7 Comment: [place] was worse or twisting. - Objective [place] slightly in gait L but I. Rafaelnfers I but prefers to stadn vs sit, correcting sit posture with towel rol helps. Steps are reciprocal with rail. Tenderness moderatly to palpation in L GT bursa area. Tightness obvious in L HS, ITB and hip flexor moreso than R but B. AROM B hip WFL and painfree, knees and ankles are also OK. reflexes 2/3 in patella and achilles. SensationWNL to gross light touch in LE>. LB AROM full but slight pain end range extension. Strength L hip 3+ abd and flexion and ext, R 4-, knees 4/5 B knee ext, flexion is 3+ L and 4- R. Ankle sstrength 4+/5 B. - SLR, - slump test today. - MACIEJ and FADDIR - Goals Goal 1:: Patient feel pain 80% better adn 1/10 at worst Goal Time Frame: 4-6 Weeks Goal 2:: I approp HEP of hip stretches and core adn LE strength without increasing pain Goal Time Frame: 4-6 Weeks Goal 3:: Oswestry score less than 12 Goal Time Frame: 4-6 Weeks Goal 4:: Walk without gait deviations normal activity distance without increased pain. Goal Time Frame: 4-6 Weeks - Rehabilitation Potential Physical Therapy Diagnosis: LBP and L hip pain likely bursitis in nature. Rehabilitation Potential: Fair - Anticipated Interventions Patient/Client Instruction: Educate patient on: Condition, Plan of Care For the Purpose of:: To decrease pain, To improve muscle performance and motor function, To increase tolerance to activity/condition/position, To improve gait and locomotor functions Therapeutic Exercise to Include: Strength training, Flexibilty training, Gait and locomotor training, Passive ROM, Active ROM For the Purpose of:: To decrease pain, To improve muscle performance and motor function, To increase tolerance to activity/condition/position, To improve ability of physical actions for home/community/work/leisure Manual Therapy Techniques to Include: Mobilization, Soft tissue mobilization For the Purpose of:: To decrease pain, To increase ROM TENS: Yes Cryotherapy (ice pack, ice massage): Yes For the Purpose of:: To decrease pain Thank you for the opportunity to evaluate your patient. For Medicare and Medicare HMO plans, please review the plan of care and approve it. It will need to be FAXED BACK to us at [phone] for Medicare purposes. For Medicare only, by signing this I certify the plan of care. Please let me know if there are questions or concerns regarding this plan of care. Physician Signature: Date:
--- NOTE | 2020-08-28 15:44 | HP.PT.NRP ---
HINA SANCHEZ was seen in my office for initial evaluation on 07/06/20. The following Plan of Care was established for this patient: Initial Frequency: 3x /Week Initial Duration: 4-6 Weeks Patient/Client Instruction: Educate patient on: Condition, Plan of Care For the Purpose of:: To decrease pain, To improve muscle performance and motor function, To increase tolerance to activity/condition/position, To improve gait and locomotor functions Therapeutic Exercise to Include: Strength training, Flexibilty training, Gait and locomotor training, Passive ROM, Active ROM For the Purpose of:: To decrease pain, To improve muscle performance and motor function, To increase tolerance to activity/condition/position, To improve ability of physical actions for home/community/work/leisure Manual Therapy Techniques to Include: Mobilization, Soft tissue mobilization For the Purpose of:: To decrease pain, To increase ROM TENS: Yes Cryotherapy (ice pack, ice massage): Yes For the Purpose of:: To decrease pain This patient was last seen in our office 07/06/20. Pertinent comments regarding their Physical therapy will appear below: Pt seen for evaluation but no showed or cancelled for her intire POC. at this point, it has been over 6 weeks and I will discontinue due to nonattendance. At this point I will be discontinuing this patient from physical therapy. I would be happy to see this patient again in the future if found appropriate by the physician. Thank you! Gary Araujo, DPT, OCS, CSCS
== END 2020-07-06 19:00 | disposition home or self-care (01) ==
LOC: PT 07:57
PROVIDERS: PCP Family Medicine; Referring Provider Anesthesiology Pain Medicine; Visit Provider Anesthesiology Pain Medicine
DX: M54.9 Dorsalgia, unspecified (principal); M25.559 Pain in unspecified hip
CPT/HCPCS: 97110; 97162

== ENCOUNTER → 2020-08-31 | Outpatient (CLI) | payer OTHER, SELFPAY ==
--- NOTE | 2020-08-31 10:34 | COLBX_PTH ---
PATIENT: HINA JENKINS LOC: [facility] U#:[id number] AGE/SX: 49/F ROOM: RE08/31/[address]: Dr. Ozzie Sandoval MD : 1970 BED: DIS: 08/31/2020 SPEC #: [id number] RECD: 08/31/20 15:23 STATUS: DEMARCUS HELEN #: [id number] AKASH: 08/31/20 10:[address]: Ozzie Sandoval DEPT: SURGICAL PATHOLOGY RECD BY: Kiana Eugene ENTERED: 09/03/20 07:23 SP TYPE: COLON BX SONAM DR: Dr. Tomás Carmen MD [facility] Tissues: A - COLON BIOPSY B - COLON BIOPSY Procedures: Surgery Specimen Level IV HEADER OPERATION: Colonoscopy with biopsies PRE-OP DIAGNOSIS: Ulcerative colitis, abdominal pain, diarrhea TISSUE SUBMITTED: A - Right colon, rule out UC/dysplasia, B - Left colon, rule out UC/dysplasia MICROSCOPIC DIAGNOSIS A. Right colon, biopsy: Melanosis coli. See comment. B. Left colon, biopsy: Melanosis coli. See comment. AM:colt 09/04/20 COMMENT A & B. There is no evidence of ulcerative colitis and/or dysplasia. Clinical correlation is suggested. MICROSCOPIC DESCRIPTION Slides are reviewed. GROSS DESCRIPTION A - Received in fixative is one container labeled with the patient's name and designated right colon biopsy. The specimen consists of multiple irregular fragments of light reeves soft tissue that in aggregate measure 2 x 1 x 0.1 cm. The specimen is totally submitted in one cassette. B - Received in fixative is one container labeled with the patient's name and designated left colon biopsy. The specimen consists of multiple irregular fragments of light reeves soft tissue that in aggregate measure 1.5 x 1 x 0.1 cm. The specimen is totally submitted in one cassette. / AM:colt 09/03/20 TC:5 CPT: 75088 x2
== END | disposition home or self-care (01) ==
LOC: LABSPEC 15:48
PROVIDERS: PCP Family Medicine; Visit Provider Internal Medicine Gastroenterology
DX: K51.90 Ulcerative colitis, unspecified, without complications (principal)
CPT/HCPCS: 88305

== ENCOUNTER → 2020-09-26 | Outpatient (CLI) | payer OTHER, SELFPAY | END | disposition home or self-care (01) | LOC: LABSPEC 16:08 | PROVIDERS: PCP Family Medicine; Referring Provider Family Medicine; Visit Provider Family Medicine | DX: J06.9 Acute upper respiratory infection, unspecified (principal) | CPT/HCPCS: 87635; U0003 ==

== ENCOUNTER → 2020-10-26 08:03 | Outpatient (CLI) | payer OTHER, SELFPAY ==
--- NOTE | 2020-10-26 08:05 | MRI_ITS ---
STUDY: MRI RIGHT KNEE REASON FOR EXAM: Right knee pain, popping and swelling for 3-4 weeks, surgery 03/07/2020. TECHNIQUE: Standardized fat and water weighted pulse sequences were obtained in all 3 orthogonal planes. COMPARISON: MRI images 12/28/2019, radiographs 10/15/2020. FINDINGS: Normal medial meniscus. Normal hyaline cartilage of the medial femorotibial compartment. There is interval development of a small focus of avascular necrosis of the posterior medial femoral condyle (T2 sagittal image 7). Normal medial collateral ligamentous complex (MCL). Normal distal semimembranosus, gracilis and semitendinosus tendons. There is a partial lateral meniscectomy. There is interval development of a very small vertical tear of the inferior articular surface of the posterior horn of the lateral meniscus separate from the partial meniscectomy site (T2 coronal image 12; proton-density coronal image 12). Normal hyaline cartilage of the lateral femorotibial compartment. There is interval development of avascular necrosis of the lateral femoral condyle (T2 sagittal images 15-18) without subchondral collapse. Normal proximal tibiofibular articulation. Normal lateral collateral (fibular) ligament. Normal popliteus tendon. Normal biceps femoris tendon. There is mild intrasubstance mucoid degeneration of the anterior cruciate ligament (T2 sagittal image 13). Normal posterior cruciate ligament (PCL). Normal congruent patellofemoral articulation. Normal hyaline cartilage of the patellofemoral compartment. Normal medial and lateral patellar retinaculum. Normal quadriceps tendon. Normal patellar tendon. There is postoperative scarring in Hoffa''s fat pad. There is a moderate-sized joint effusion. There is mild edema in the anterior subcutis adipose space. There is interval development of avascular necrosis of the lateral patellar facet (T2 axial images 11-14). MRI/Lower Ext Joint Only (Routine) IMPRESSION: Partial lateral meniscectomy with interval development of a very small recurrent lateral meniscal tear. Interval development of avascular necrosis of the lateral femoral condyle, patella and a small focus of avascular necrosis of the medial femoral condyle. Joint effusion. Electronically Signed: Marc Alegria MD at 9:55 EST Tel , Service support ,
== END ==
PROVIDERS: PCP Family Medicine; Referring Provider Physician Assistant; Visit Provider Physician Assistant
DX: M25.461 Effusion, right knee (principal); M25.561 Pain in right knee; S89.91XA Unspecified injury of right lower leg, initial encounter
CPT/HCPCS: 73721

== ENCOUNTER 2021-01-02 08:44 | Day surgery (SDC) | payer OTHER, SELFPAY ==
[2021-01-02] VITALS (9 sets, daily range): BP systolic 84–116; BP diastolic 51–69; PULSE 66–82; RESP 14–16; TEMP 36.1–37.1; O2SAT 88–100; BMI 26.9
[2021-01-02] MEDS: Lactated Ringers 1,000 ML 100 ML IV ×3 (10:02→16:07)
[2021-01-02] MEDS: Cefazolin 2 GM in 0.9% Normal Saline 100 ML IV (12:07)
[2021-01-02] MEDS: Epinephrine (1 mg/ml) 1 MG/ML VIAL (12:31)
--- NOTE | 2021-01-02 13:28 | RAD_ITS ---
STUDY: X-RAY - RIGHT KNEE REASON FOR EXAM: Female, 50 years old. ARTHROSCOPY TECHNIQUE: 2 view(s) of the knee. COMPARISON: 10/15/2020 FINDINGS: 3:26 minutes of fluoroscopy of the right knee was utilized and operating room during arthroscopy and 10 images made of for interpretation.. RAD/Knee 1 or 2 Views IMPRESSION: Fluoroscopy during knee arthroplasty. Electronically Signed: Wayne Keen MD at 15:04 EDT Tel , Service support ,
--- NOTE | 2021-01-02 14:45 | HP.PCM_ITS ---
History and Physical This note was generated with Wordster dictation software. It may contain incorrect words, spelling, and punctuation that were not noted in checking the note before signing. We did add a bone marrow aspiration to the consent preoperatively discussed risk benefits for this as well. With a core decompression with bone marrow aspiration and injection into both the patella and the LFC along with a subchondroplasty increases her likelihood of having a successful outcome. Addendum entered and electronically signed by Bri Oconnell DO 12/14/20 10:27: surgical treatment for: arthroscopically aided treatment of femoral condyle and patella avascular necrosis including internal fixation with acrline substitute material Assessment & Plan Problems 1. 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 Bri Oconnell, Patient educated that since she is still having pain after 6 weeks of NWB her next treatment option is to have a micro internal fixation and she will be TTWB for 2 weeks post op then WBAT. Reviewed the pre-operative plans with the patient. Risks and benefits of the procedure were fully explained, including but not limited to infection, neurovascular injury, continued pain, arthritis, stiffness, need for further surgery, re-injury, DVT, PE, general risks of anesthesia, and loss of limb or life. There is a possibility of embolism from the cement which was discussed with patient as well. The patient understands all the risks and does wish to proceed with written consent for right knee arthroscopy lateral femoral condyle micro internal fixation, lateral patella micro internal fixation, repair as indicated. Follow up 2 weeks post op or sooner if pain, swelling, numbness or associated symptoms, or concerns develop. All questions answered. Patient in agreement of plan. Intake Intake Visit Reasons: RIGHT KNEE Accompanied by: Daughter Is patient in pain?: Yes Allergies Penicillins Allergy (Severe, Verified 10/30/20 15:12) Laryngospasms clindamycin Allergy (Intermediate, Verified 10/30/20 15:12) Rash mesalamine [From Asacol] Allergy (Intermediate, Verified 10/30/20 15:12) Rash meloxicam [From Mobic] Allergy (Mild, Verified 10/30/20 15:12) Rash nabumetone [From Relafen] Allergy (Mild, Verified 10/30/20 15:12) Rash sulfamethoxazole [From Bactrim] Allergy (Mild, Verified 10/30/20 15:12) Rash trimethoprim [From Bactrim] Allergy (Mild, Verified 10/30/20 15:12) Rash Medications Duloxetine Hcl [Cymbalta] 60 mg PO DAILY 08/04/17 [History Confirmed 12/13/20] Lisinopril [Zestril] 20 mg PO DAILY 08/04/17 [History Confirmed 12/13/20] Atenolol [Tenormin (beta henrry)] 50 mg PO DAILY 11/18/18 [History Confirmed 12/13/20] Estradiol 2 mg PO DAILY 11/18/18 [History Confirmed 12/13/20] azelastine 137 mcg-fluticasone 50 mcg spray,susp-NaCl 0.9% spray nasal 1 spray INTRANASAL BID 11/18/18 [History Confirmed 12/13/20] loratadine 10 mg tablet 10 mg PO DAILY 11/18/18 [History Confirmed 12/13/20] adalimumab 10 mg/0.1 mL subcutaneous syringe kit 40 mg SC .[id number] 03/16/19 [History Confirmed 12/13/20] [facility] Medical History (Updated 05/10/20 @ 00:00 by Cuate Mora) Open bite of left middle finger without damage to nail (Resolved) Open bite of left index finger without damage to nail (Acute) Cellulitis of left hand (Acute) Cat bite (Resolved) Bloody stools (Acute) Chest pain (Acute) Diarrhea (Acute) Knee pain (Acute) Hypertension (Chronic) Rheumatoid arthritis (Chronic) Ulcerative colitis (Chronic) Surgical History (Updated 03/07/20 @ 09:[address] Bri Oconnell, ) History of (Acute) History of arthroscopy of left shoulder (Acute) History of cholecystectomy (Acute) History of hysterectomy (Acute) History of hysterectomy (Acute) H/O: hysterectomy (Inactive) Hx of tonsillectomy (Inactive) S/P cholecystectomy (Inactive) Family History Mother Diabetes CVA (cerebral vascular accident) Father Diabetes Heart disease Hypertension Social History (Updated 12/13/20 @ 10:[address] Bri Oconnell, ) Smoking Status: Never smoker how long ago did patient quit smoking: recently quit smoking counseling given: provider counseling alcohol intake: current HPI RIGHT KNEE: Surgical H&P: Yes Details: Parts of this documentation were recorded by a scribe, this documentation accurately reflects the service provided and the decisions made by me, Dr. Bri Oconnell DO 12/13/20 0911. HINA SANCHEZ is a 50 year old F here today for F/U on right knee for AVN. SHe states that she has had some relief in her swelling. She states that her pain is still the same. She has been NWB with crutches. She still has generalized soreness ans increased pain over the lateral knee and anterior knee. Denies nu mbness, tingling or other associated symptoms. on humira for rheum arthritis. no calf pain or other concerns today. ROS [facility] [place] Reports joint pain Ortho Exam General General: Yes no acute distress Neurologic: Yes alert, Yes oriented x3 Psychologic: Yes reasonable and appropriate Right Knee Skin/Wound: Yes CDI, No erythema, No ecchymosis Homans Sign: No Knee ROM: No ROM-Extension -20 to 0 (lacking 6), No ROM-Flexion 0-140 (90) Examination: Yes Med jt line tenderness, Yes Lat jt line tenderness, Yes Pain with flexion Stability: NML: Anterior Drawer, NML: Posterior Drawer, NML: Valgus 30, NML: V arus 30 Apprehension with Lateral Translation: Yes KNEE: no joint effusion Assessment & Plan Problems 1. Avascular necrosis of bone M87.00 Plan Patient educated that since she is still having pain after 6 weeks of NWB her next treatment option is to have a micro internal fixation and she will be TTWB for 2 weeks post op then WBAT. Reviewed the pre-operative plans with the patient. Risks and benefits of the procedure were fully explained, including but not limited to infection, neurovascular injury, continued pain, arthritis, s tiffness, need for further surgery, re-injury, DVT, PE, general risks of anesthesia, and loss of limb or life. There is a possibility of embolism from the cement which was discussed with patient as well. The patient understands all the risks and does wish to proceed with written consent for right knee arthroscopy lateral femoral condyle micro internal fixation, lateral patella micro internal fixation, repair as indicated. Follow up 2 weeks post op or sooner if pain, swelling, numbness or associated symptoms, or concerns develop. All questions answered. Patient in agreement of plan. Coding Level of Care Code Off vis,est,level 4 Diagnoses Avascular necrosis of bone M87.00 COVID (Procedure Consent) Procedure Criteria Procedure Criteria: Yes Elective The surgeon/proceduralist and patient have discussed in detail the risk of exposure to and/or potential harm posed by the COVID-19 virus with having a surgery/procedure at this time versus the risk of? delaying the surgery/procedure. It is not possible to know either the risk of delaying the surgery or procedure or chance of getting an infection with perfect accuracy, but a joint decision was made between the patient and the surgeon/proceduralist ?to proceed at this time with the scheduled surgery/procedure as indicated on the consent form.
--- NOTE | 2021-01-02 14:46 | PCM.DC.ORTHO ---
Discharge Diet: No Restrictions - Remove dressings postop day 4 and apply Band-Aids to incision sites, may shower and get incision wet postop day 4, non weight bearing left leg, call with increased pain numbness tingling or further issues arise, call if calf pain or calf swelling, start aspirin 325 bid POD 1 Discharge Activity: May Not Drive May shower in (days): 1 Ice area for (Minutes): 20 - Every hour while awake. Weight Bearing Status: Weight bearing as tolerated Keep extremity elevated above heart level: Operative Extremity Call your doctor if your incision/area has: Continuous Slow Oozing, Sudden Increased Bleeding, Increased Pain/ Swelling, Increased Redness, Foul Smelling Discharge Call your doctor if you observe: Fever of 101 or Higher, Coldness, Increased Pain, Numbness or Tingling, Change in Color, Calf discomfort Allergies/Adverse Reactions: Allergies Penicillins Allergy (Severe, Verified 01/02/21 09:49) Laryngospasms CUTS OFF AIRWAY clindamycin Allergy (Intermediate, Verified 01/02/21 09:49) Rash RASH AND HIGH HR mesalamine [From Asacol] Allergy (Intermediate, Verified 01/02/21 09:49) Rash RASH, HIGH HR, EXCESSIVE DIARRHEA meloxicam [From Mobic] Allergy (Mild, Verified 01/02/21 09:49) Rash nabumetone [From Relafen] Allergy (Mild, Verified 01/02/21 09:49) Rash sulfamethoxazole [From Bactrim] Allergy (Mild, Verified 01/02/21 09:49) Rash trimethoprim [From Bactrim] Allergy (Mild, Verified 01/02/21 09:49) Rash Medications to take at Discharge Duloxetine Hcl [Cymbalta] 60 mg PO DAILY 08/04/17 Lisinopril [Zestril] 20 mg PO DAILY 08/04/17 Atenolol [Tenormin (beta henrry)] 50 mg PO DAILY 11/18/18 Estradiol 2 mg PO DAILY 11/18/18 azelastine 137 mcg-fluticasone 50 mcg spray,susp-NaCl 0.9% spray nasal 1 spray INTRANASAL BID 11/18/18 loratadine 10 mg tablet 10 mg PO DAILY 11/18/18 adalimumab 10 mg/0.1 mL subcutaneous syringe kit 40 mg SC .[id number] 03/16/19 Oxycodone HCl/Acetaminophen [Percocet 5/325] 1 - 2 tablet PO Q6H PRN PRN 5 Days #28 tablet 01/02/21 The following prescriptions were given: Oxycodone HCl/Acetaminophen [Percocet 5/325] 1 - 2 tablet PO Q6H PRN PRN 5 Days #28 tablet PRN Reason: Pain Transmission Status: Received by [facility] Primary Care Physician: Tomás Carmen MD [Primary Care Provider] - Test Results: Test results from this visit will be discussed in further detail at your follow-up appointment, if applicable. Please Follow Up With: Bri Oconnell, - [phone]
--- NOTE | 2021-01-02 14:48 | PCM.OPRPT ---
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 She on MRI, MR M patella and lateral femoral condyle avascular necrosis. We attempted conservative treatment nonweightbearing to limited weightbearing on the right lower extremity patient was still having pain and is interfering her with her life. We discussed risk benefits alternatives surgery. Risk include but not limited to blood loss, blood clot, infection, neurovascular, failure procedure, loss of life and loss of limb. Patient is aware like proceed with right bone marrow aspiration, patella decompression cord compression bone marrow aspiration injection and microinternal fixation, lateral femoral condyle decompression bone marrow aspiration injection and marker internal fixation, right knee arthroscopy repair as indicated. Operative note Patient seen and examined per preoperative holding area. Right knee was marked. Patient brought to the operating room placed supine on the operating table sign, anesthesia, antibiotics were administered. The right leg was prepped and draped in usual sterile technique with a sterile tourniquet around her upper thigh. All bony promises well-padded SCD placed on her contralateral limb. We then are palpated our ASIS and in standard technique made incision right over the area just distal to the ASIS and started proximal to the AIIS SIS we used the JenaeBRIKA bio Q concentration symptom through [employer]. Please note that it had the the center in the kit we use it in standard technique. We got 60 cc of bone marrow marrow aspirate and splinted down and on sterile technique we did get about just less than 6 cc of concentrate. We then started our knee arthroscopy. The right leg was elevated exsanguinated tourniquet is raised her pressure of 250 torr. We used a low blade create her anterior lateral portal. Began our diagnostic arthroscopy. The patellofemoral joint had fibrillated changes on the medial side of the facet we then moved to the medial joint line created anterior medial portal under direct visualization. In the notch there was some fibrillated changes of the cartilage on the medial femoral condyle which was gently debrided with a shaver. The ACL and PCL was present within the notch medial femoral condyle medial tibial plateau were intact stable as well as the medial meniscus. We then moved to the lateral joint line she had grade 3 thinning of the tibial plateau she had a lateral meniscus that was stable but it was degenerative and its insertion was loose but it was not a candidate for repair. We did debride back some of the loose unstable lateral meniscus was more anterior horn. The cartilage was intact of the lateral femoral condyle as well as the lateral tibial plateau as well as the undersurface of the patella although it was soft. Then using fluoroscopy in multiple planes we started proximal medial and aimed our trajectory for our Jenae construct for the towards the lateral femoral condyle aiming distally and posteriorly. Please note that we did protect all neurovascular x-rays at all time. Based on preoperative review of the patient's left knee MRI location of the bone marrow lesion consistent with avascular necrosis of the lateral femoral condyle and lateral facet of the patella was identified. Preoperative surgical planning allow for determination of the optimal method for assessing the lesion. Intraoperatively image fluoroscopy combined with bone target instruments from Jenae knee creations were used to guide surgical instruments into the proximity of the subchondral lateral femoral condyle necrosis. Jenae knee creations acupoint injection cannula was drilled into the subchondral bone. Standard repair methodology was used to treat the subchondral bone defect in the lateral femoral condyle laterally. We used image fluoroscopy was utilized to confirm accurate insertion of the acupoint injection cannula into the subchondral fracture. After insertion fracture stabilization was performed by injecting first about 3 cc of bone marrow aspirate and then approximately 1 cc of Jenae knee creations bone substitute material into the lateral femoral condyle. Image fluoroscopy was used to monitor the injection process and ensure injection of the bone substitute into the subchondral bone so that the bio material flowed into the fracture site to facilitate repair. We then moved back into the arthroscopy and visualized to make sure that we had no extravasation of the material which we did not. We then did the same technique for the patella starting superiorly on the lateral facet. We injected 2 cc of bone marrow aspirate and a about 1/2 cc of Jenae knee creations bone substitute material we further irrigated the knee with copious amounts of sterile saline. Sure that there was no extravasation both using fluoroscopy and directly look into the joint which there was not. They incision for the bone marrow aspiration was closed with 4-0 nylon and then incisions for the cannula placement for our Jenae creations and it was closed with Vicryl and nylon and the portals were closed with intrafour nylon stitches. Tourniquet was deflated for total working time 75 minutes. Patient taught procedure well no complication transferred recovery room in stable condition Postoperative Patient received a postop regional block Discussed with daughter on the phone Nonweightbearing to toe-touch weightbearing for the next 2 weeks Aspirin 325 twice daily Thigh-high [employer] stockings Call with increased pain numbness tingling further issues arise Dragon disclaimer this note was generated with [employer] dictation software. It may contain incorrect words, spelling, and punctuation that were not noted in checking the note before signing. . Grafts/Implants Used: tt- 75 min
[2021-01-02] MEDS: Mupirocin Ointment 22gm Tube 1 APPLIC (14:49)
[2021-01-02] MEDS: HYDROcodone Bitartrate/Apap 5/325 Tablet PO (16:18)
== END 2021-01-02 17:30 | disposition home or self-care (01) ==
LOC: SDC 08:44 → AC 09:03
PROVIDERS: PCP Family Medicine; Referring Provider Orthopaedic Surgery; Visit Provider Orthopaedic Surgery
PROC: 3E0U3GB Introduction of Recombinant Bone Morphogenetic Protein into Joints, Percutaneous Approach (ICD-10-PCS; CPT 0707T; principal; 2021-01-02 10:10)
DX: Z20.828 Contact with and (suspected) exposure to other viral communicable diseases (principal); M87.88 Other osteonecrosis, other site; M17.12 Unilateral primary osteoarthritis, left knee; S83.282A Other tear of lateral meniscus, current injury, left knee, initial encounter; M87.852 Other osteonecrosis, left femur; E78.00 Pure hypercholesterolemia, unspecified; M06.9 Rheumatoid arthritis, unspecified; I10 Essential (primary) hypertension; Z79.899 Other long term (current) drug therapy
CPT/HCPCS: 29855; 29881; 38221; 73560; 76000; 87426; C1713; C9803; J7120; J2405

== ENCOUNTER 2021-02-14 18:00 | Outpatient (RCR) | payer OTHER, SELFPAY ==
--- NOTE | 2021-01-16 16:10 | HP.PTEVAL ---
Patient's Visit Information HINA SANCHEZ is a 50 year old F referred to Physical Therapy by Dr. 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 Date of Evaluation: 01/16/21 Physical Therapist: Len Ocampo, PT, ATC - Visit Plan Frequency: 2-3x /Week Duration: 4 Weeks Plan: Desensitize with fluidotherapy, increase ROM, stretching, strengthening of R LE - Subjective Pt. had a graft for AVN on R LE which developed RSD. Had the graft done 2 weeks ago on January 02, 2021. Medial side of R knee is sensative and painful to the touch. SHe noticed the hightened sensation almost right after surgery. She is on crutches and is non WB. 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 Her sensatized areas are the medial and peripatellar region of R knee. She has some constant pain which has decreased. It increases with activity and with leg hanging down. She has been 10 weeks without WB on R LE. She states that pain/sensation is odd. Pt is taking tramidol. Sleep is not a problem. Her biggest complaint is having the R knee hang down a lot especially with ambulation. She has been doing table exercises like leg lifts to maintain ROM. Goal: Desensitization of the nerves and gaining ROM. Ultimatley walking on both LEs down the line. - Pain R knee Pain Intensity (Out of 10): 3 Pain Intensity Range: 3, 9 - Objective Neuro: R LE: medial and peripaterllar knee sensation feels like sandpaper, decreased sensation L4, L5, S1 dermatones ; L WNL ; Achilles tendon reflex 1/3 bilaterally. Girth: R: 34.5 cm around patella , 6in above patella 44cm L: 34cm around patella, 6in above patella: 44cm. MMT: L- 5/5 WNL; R- 3+ knee flex/ext, 4-/5 hip flexion. Obervation: mottled skin appearance on R leg; cold temperature to touch. ROM: L knee 0-147 degrees; R knee 8-0-97 degrees - Goals Goal 1:: Desensitize R LE by 50% to aid with painfree ROM and ADLs. Goal Time Frame: 4-6 Weeks Goal 2:: Decrease R knee extension to 0 degrees to aid with proper gait sequence. Goal Time Frame: 4-6 Weeks Goal 3:: Increase R knee flexion 20-25 degrees to aid with proper gait sequence and function. Goal Time Frame: 4-6 Weeks Goal 4:: Increase R LE strength by 1 muscle grade to aid with ADLs and gait. Goal Time Frame: 4-6 Weeks Goal 5:: I with HEP Goal Time Frame: 2-4 Weeks - Rehabilitation Potential Physical Therapy Diagnosis: Weakness, hypersensitivity, decreased ROM secondary to RSD and bone graft of R knee Rehabilitation Potential: Fair - Anticipated Interventions Patient/Client Instruction: Educate patient on: Condition, Plan of Care For the Purpose of:: To decrease pain, To increase ROM, To improve gait and locomotor functions Therapeutic Exercise to Include: Strength training, Flexibilty training, Neuromotor development, Passive ROM, Active ROM For the Purpose of:: To decrease pain, To increase ROM, To improve muscle performance and motor function Functional Training to Include: Gait training For the Purpose of:: To increase ROM, To improve muscle performance and motor function Manual Therapy Techniques to Include: Passive ROM For the Purpose of:: To increase ROM Fluidotherapy: Yes For the Purpose of:: To decrease pain, Other Other: desensitization of the R LE Thank you for the opportunity to evaluate your patient. For Medicare and Medicare HMO plans, please review the plan of care and approve it. It will need to be FAXED BACK to us at [phone] for Medicare purposes. For Medicare only, by signing this I certify the plan of care. Please let me know if there are questions or concerns regarding this plan of care. Physician Signature: Date:
--- NOTE | 2021-05-17 07:45 | HP.PT.NRP ---
HINA SANCHEZ was seen in my office for initial evaluation on 01/16/21. The following Plan of Care was established for this patient: Initial Frequency: 2-3x /Week Initial Duration: 4 Weeks Patient/Client Instruction: Educate patient on: Condition, Plan of Care For the Purpose of:: To decrease pain, To increase ROM, To improve gait and locomotor functions Therapeutic Exercise to Include: Strength training, Flexibilty training, Neuromotor development, Passive ROM, Active ROM For the Purpose of:: To decrease pain, To increase ROM, To improve muscle performance and motor function Functional Training to Include: Gait training For the Purpose of:: To increase ROM, To improve muscle performance and motor function Manual Therapy Techniques to Include: Passive ROM For the Purpose of:: To increase ROM Fluidotherapy: Yes For the Purpose of:: To decrease pain, Other Other: desensitization of the R LE This patient was last seen in our office . Pertinent comments regarding their Physical therapy will appear below: Pt was treated for 9 visits for R knee pain through the date of 02/14/2021. Pt has not returned through todays date, and is discontinued at this time. At this point I will be discontinuing this patient from physical therapy. I would be happy to see this patient again in the future if found appropriate by the physician. Thank you! Len Ocampo, PT, ATC Balance/Gait/Functional tests - Balance/Special Test Scores Lower Extremity Functional Score: 18
== END 2021-02-14 19:00 | disposition home or self-care (01) ==
LOC: PT 18:00
PROVIDERS: PCP Family Medicine; Referring Provider Orthopaedic Surgery; Visit Provider Orthopaedic Surgery
DX: Z98.890 Other specified postprocedural states (principal)
CPT/HCPCS: 97110; 97140; 97161

== ENCOUNTER → 2021-03-06 09:17 | Outpatient (CLI) | payer OTHER, SELFPAY ==
[2021-02-19 12:43] VITALS: BMI 26.9
[2021-03-06 10:20] LABS: Hemoglobin A1c 5.3 % (3.8-5.6)
[2021-03-06 10:26] LABS: ALB/GLOB Ratio 1.1 RATIO (0.9-2.4); AST(SGOT) 22 U/L (15-37); Alanine Aminotransfer ALT/SGPT 20 U/L (13-56); Albumin, Serum 3.7 g/dL (3.2-5.0); Alkaline Phosphatase 102 U/L (45-117); Anion Gap 5 (5-15); BUN 7 mg/dL (7-18); BUN/Creat Ratio 8.9 RATIO (10-20); Chloride 101 mmol/L (98-107); Cholesterol 232 mg/dL (200); Creatinine, Serum 0.79 mg/dL (0.55-1.02); EST Glomerular Filtration Rate 83 mL/min (>60); Est Glom Filt Rate - Afr Amer 100 mL/min (>60); Globulin 3.5 g/dL (2.2-4.2); Glucose 99 mg/dL (74-106); High Density Lipoprotein 80 mg/dL; Protein, Total 7.2 g/dL (6.4-8.2); Sodium Level 136 mmol/L (136-145); Triglycerides 195 mg/dL; Very Low Density Lipoprotein 39 mg/dL (5-40)
[2021-03-07 12:03] LABS: Vitamin B12 306 pg/mL (211-911); Vitamin D,25 Hydroxy 18.9 ng/mL
== END ==
PROVIDERS: PCP Family Medicine; Referring Provider Family Medicine; Visit Provider Family Medicine
DX: E78.5 Hyperlipidemia, unspecified (principal); I10 Essential (primary) hypertension; R73.02 Impaired glucose tolerance (oral); K51.90 Ulcerative colitis, unspecified, without complications
CPT/HCPCS: 36415; 80053; 80061; 82306; 82607; 83036

== ENCOUNTER → 2021-04-22 06:51 | Outpatient (CLI) | payer OTHER, SELFPAY ==
[2021-04-04 08:10] VITALS: BMI 26.9
--- NOTE | 2021-04-22 06:56 | MRI_ITS ---
STUDY: MRI RIGHT KNEE REASON FOR EXAM: Lateral right knee pain, follow-up after surgery for AVN on 01/02/2021. TECHNIQUE: Standardized fat and water weighted pulse sequences were obtained in all 3 orthogonal planes. COMPARISON: MRI images 10/26/2020. FINDINGS: Normal medial meniscus. Normal hyaline cartilage of the medial femorotibial compartment. There is a very small focus of avascular necrosis of the medial femoral condyle (T2 sagittal image 18) without interval change. Normal medial collateral ligamentous complex (MCL). Normal distal semimembranosus, gracilis and semitendinosus tendons. There is a partial lateral meniscectomy without demonstrated recurrent lateral meniscal tear on the current study. Normal hyaline cartilage of the lateral femorotibial compartment. There is avascular necrosis of the lateral femoral condyle (T2 coronal images 7-9) without interval change in size or interval development of subchondral bone collapse status post surgery. Normal proximal tibiofibular articulation. Normal lateral collateral (fibular) ligament. Normal popliteus tendon. Normal biceps femoris tendon. Normal anterior cruciate ligament (ACL). Normal posterior cruciate ligament (PCL). Normal congruent patellofemoral articulation. Normal hyaline cartilage of the patellofemoral compartment. Normal medial and lateral patellar retinaculum. Normal quadriceps tendon. Normal patellar tendon. There is postoperative scarring in Hoffa''s fat pad. There is a moderate-sized joint effusion. There is edema in the anterior subcutis adipose space. There is a focus of avascular necrosis with postsurgical changes of the lateral patellar facet with less bone edema since the prior study (T2 axial images 11-13). MRI/Lower Ext Joint Only (Routine) IMPRESSION: No significant change of avascular necrosis of the lateral femoral condyle. Decreased bone edema associated with avascular necrosis of the lateral patellar facet. Very small focus of avascular necrosis of the medial femoral condyle without interval change. Partial lateral meniscectomy without demonstrated recurrent lateral meniscal tear. Joint effusion. Electronically Signed: Marc Alegria MD at 11:57 EDT Tel , Service support ,
== END ==
PROVIDERS: PCP Family Medicine; Referring Provider Physician Assistant; Visit Provider Physician Assistant
DX: M87.051 Idiopathic aseptic necrosis of right femur (principal); Z47.89 Encounter for other orthopedic aftercare
CPT/HCPCS: 73721

== ENCOUNTER → 2021-06-14 07:51 | Outpatient (CLI) | payer BC, SELFPAY ==
[2021-06-14 10:20] LABS: Absolute Lymphocyte Count 4.03 X10^3/uL (0.83-4.51); Absolute Neutrophil Count 3.1 X10^3/uL (2.0-7.7); Basophil# 0.06 X10^3/uL; Basophil% 0.8 % (0-1); Eosinophil# 0.09 X10^3/uL; Eosinophils% 1.1 % (0-5); Hematocrit 42.7 % (37-47); Hemoglobin 13.9 g/dL (12.0-15.0); Lymphocyte # 4.03 X10^3/ul (0.83-4.51); Lymphocyte % 50.6 % (19-41); Mean Corp Hgb Conc 32.6 g/dL (32-36); Mean Corpuscular Hgb 29.3 pg (27.0-32.0); Mean Corpuscular Volume 90.1 fL (81-99); Mean Platelet Vol. 10.3 fl (6.2-12.0); Monocyte# 0.63 X10^3/uL; Monocyte% 7.9 % (0-10); NRBC Flagged by Analyzer 0 % (0-5); Neutrophil # 3.14 X10^3/uL (2.7-7.7); Neutrophil % 39.3 % (47-70); Platelet Count 362 K/mm3 (150-450); Red Blood Count 4.74 M/mm3 (4.2-5.4)
[2021-06-14 10:48] LABS: AST(SGOT) 15 U/L (15-37); Alanine Aminotransfer ALT/SGPT 20 U/L (13-56); Albumin, Serum 3.9 g/dL (3.2-5.0); Alkaline Phosphatase 109 U/L (45-117); Anion Gap 5 (5-15); BUN 11 mg/dL (7-18); Calcium,Total 9.3 mg/dL (8.5-10.1); Chloride 100 mmol/L (98-107); Creatinine, Serum 0.79 mg/dL (0.55-1.02); EST Glomerular Filtration Rate 83 mL/min (>60); Est Glom Filt Rate - Afr Amer 100 mL/min (>60); Globulin 4.1 g/dL (2.2-4.2); Glucose 97 mg/dL (74-106); Potassium 4.1 mmol/L (3.5-5.1); Sodium Level 135 mmol/L (136-145)
[2021-06-21 03:07] LABS: QNTFERON TB Mitogen Value > 10.00 IU/mL (.); QNTFERON TB Nil Value 0.41 IU/mL (.); QNTFERON TB1+ Ag Value 0.08 IU/mL (.); QNTFERON TB2+ Ag Value 0.27 IU/mL (.)
[2021-06-21 07:46] LABS: QNTIFERON TB Positive Criteria Negative (Negative)
== END ==
PROVIDERS: PCP Family Medicine; Referring Provider Internal Medicine Rheumatology; Visit Provider Internal Medicine Rheumatology
DX: M06.4 Inflammatory polyarthropathy (principal); Z79.899 Other long term (current) drug therapy; K51.80 Other ulcerative colitis without complications; L40.8 Other psoriasis; I10 Essential (primary) hypertension
CPT/HCPCS: 36415; 80053; 85025; 86480

== ENCOUNTER → 2021-06-26 11:53 | Outpatient (CLI) | payer BC, SELFPAY ==
[2021-06-26 15:29] LABS: Hemoglobin A1c 5.5 % (3.8-5.6)
[2021-06-26 15:46] LABS: Cholesterol 272 mg/dL (200); High Density Lipoprotein 80 mg/dL; Triglycerides 244 mg/dL; Very Low Density Lipoprotein 49 mg/dL (5-40)
[2021-06-26 16:04] LABS: Vitamin D,25 Hydroxy 48.1 ng/mL
== END ==
PROVIDERS: PCP Family Medicine; Referring Provider Family Medicine; Visit Provider Family Medicine
DX: R73.02 Impaired glucose tolerance (oral) (principal); E78.5 Hyperlipidemia, unspecified; E55.9 Vitamin D deficiency, unspecified
CPT/HCPCS: 36415; 80061; 82306; 83036

== ENCOUNTER → 2021-09-10 08:59 | Outpatient (CLI) | payer BC, SELFPAY ==
[2021-09-10 09:02] LABS: Mucous, Urine 0 SEEN /hpf (<or=2+); White Blood Cells 0 SEEN /hpf (0-5)
[2021-09-10 09:51] LABS: Absolute Lymphocyte Count 3.51 X10^3/uL (0.83-4.51); Absolute Neutrophil Count 5.3 X10^3/uL (2.0-7.7); Eosinophil# 0.17 X10^3/uL; Eosinophils% 1.7 % (0-5); Hematocrit 41.5 % (37-47); Hemoglobin 13.6 g/dL (12.0-15.0); Lymphocyte # 3.51 X10^3/ul (0.83-4.51); Lymphocyte % 35.5 % (19-41); Mean Corp Hgb Conc 32.8 g/dL (32-36); Mean Corpuscular Hgb 29.6 pg (27.0-32.0); Mean Corpuscular Volume 90.2 fL (81-99); Monocyte# 0.76 X10^3/uL; Monocyte% 7.7 % (0-10); NRBC Flagged by Analyzer 0 % (0-5); Neutrophil # 5.33 X10^3/uL (2.7-7.7); Neutrophil % 53.8 % (47-70); Platelet Count 352 K/mm3 (150-450); RBC Distribution Width CV 12.7 % (11.6-14.6); RBC Distribution Width SD 41.9 fl (35.1-43.9); White Blood Count 9.9 K/mm3 (4.4-11.0)
[2021-09-10 09:54] LABS: Color, Urine Yellow (Yellow); Glucose, Dipstick Normal (Normal); Ketone-Dipstick Negative (Negative); Leukocyte Esterase-Dipstick Negative /ul (Negative); Nitrite-Dipstick Negative (Negative); Occult Blood-Urine 50 /ul (Negative); Protein-Dipstick Negative (Negative); Urine Bilirubin Dipstick Negative (Negative); Urine Clarity Clear (Clear); Urine Urobilinogen Normal (Normal)
[2021-09-10 10:06] LABS: Red Blood Cells-Urine 0-5 SEEN /hpf (0-5); Squamous Epithelial Cells - UA 0-5 SEEN /hpf (5-10)
[2021-09-10 10:07] LABS: Bacteria RARE /hpf (None Seen)
[2021-09-10 10:09] LABS: Hemoglobin A1c 5.2 % (3.8-5.6)
[2021-09-10 10:25] LABS: ALB/GLOB Ratio 0.9 RATIO (0.9-2.4); AST(SGOT) 20 U/L (15-37); Alanine Aminotransfer ALT/SGPT 19 U/L (13-56); Albumin, Serum 3.5 g/dL (3.2-5.0); Alkaline Phosphatase 128 U/L (45-117); Anion Gap 8 (5-15); BUN 8 mg/dL (7-18); BUN/Creat Ratio 9.4 RATIO (10-20); Calcium,Total 8.8 mg/dL (8.5-10.1); Chloride 101 mmol/L (98-107); Cholesterol 242 mg/dL (200); Creatinine, Serum 0.85 mg/dL (0.55-1.02); EST Glomerular Filtration Rate 76 mL/min (>60); Est Glom Filt Rate - Afr Amer 91 mL/min (>60); Globulin 4.1 g/dL (2.2-4.2); Glucose 105 mg/dL (74-106); High Density Lipoprotein 69 mg/dL; Protein, Total 7.6 g/dL (6.4-8.2); Sodium Level 135 mmol/L (136-145); Triglycerides 234 mg/dL; Very Low Density Lipoprotein 47 mg/dL (5-40)
== END ==
PROVIDERS: PCP Family Medicine; Referring Provider Family Medicine; Visit Provider Family Medicine
DX: E78.5 Hyperlipidemia, unspecified (principal); R73.02 Impaired glucose tolerance (oral); I10 Essential (primary) hypertension
CPT/HCPCS: 36415; 80053; 80061; 81001; 83036; 85025

== ENCOUNTER → 2022-02-03 | Outpatient (CLI) | payer BC, SELFPAY ==
[2022-02-03 11:30] LABS: Bacteria 0 SEEN /hpf (None Seen); Mucous, Urine 0 SEEN /hpf (<or=2+); White Blood Cells 0 SEEN /hpf (0-5)
[2022-02-03 15:03] LABS: Absolute Lymphocyte Count 3.81 X10^3/uL (0.83-4.51); Absolute Neutrophil Count 3.1 X10^3/uL (2.0-7.7); Basophil# 0.08 X10^3/uL; Eosinophil# 0.12 X10^3/uL; Eosinophils% 1.5 % (0-5); Hematocrit 39.4 % (37-47); Hemoglobin 12.8 g/dL (12.0-15.0); Lymphocyte # 3.81 X10^3/ul (0.83-4.51); Lymphocyte % 48.8 % (19-41); Mean Corp Hgb Conc 32.5 g/dL (32-36); Mean Corpuscular Hgb 29.6 pg (27.0-32.0); Mean Platelet Vol. 10.2 fl (6.2-12.0); Monocyte# 0.64 X10^3/uL; Monocyte% 8.2 % (0-10); NRBC Flagged by Analyzer 0 % (0-5); Neutrophil # 3.12 X10^3/uL (2.7-7.7); Neutrophil % 40.1 % (47-70); Platelet Count 351 K/mm3 (150-450); RBC Distribution Width CV 13.1 % (11.6-14.6); RBC Distribution Width SD 44.1 fl (35.1-43.9); Red Blood Count 4.33 M/mm3 (4.2-5.4); White Blood Count 7.8 K/mm3 (4.4-11.0)
[2022-02-03 15:08] LABS: Color, Urine Yellow (Yellow); Glucose, Dipstick Normal (Normal); Ketone-Dipstick Negative (Negative); Leukocyte Esterase-Dipstick Negative /ul (Negative); Nitrite-Dipstick Negative (Negative); Occult Blood-Urine 25 /ul (Negative); Protein-Dipstick Negative (Negative); Urine Bilirubin Dipstick Negative (Negative); Urine Clarity Sl. Cloudy (Clear); Urine Urobilinogen Normal (Normal)
[2022-02-03 15:20] LABS: Red Blood Cells-Urine 0-5 SEEN /hpf (0-5); Squamous Epithelial Cells - UA 0-5 SEEN /hpf (5-10)
[2022-02-03 15:34] LABS: Vitamin D,25 Hydroxy 16.3 ng/mL
[2022-02-03 15:36] LABS: AST(SGOT) 16 U/L (15-37); Alanine Aminotransfer ALT/SGPT 20 U/L (13-56); Albumin, Serum 3.7 g/dL (3.2-5.0); Alkaline Phosphatase 96 U/L (45-117); Anion Gap 6 (5-15); BUN 14 mg/dL (7-18); Calcium,Total 8.4 mg/dL (8.5-10.1); Chloride 99 mmol/L (98-107); Cholesterol 258 mg/dL (200); Creatinine, Serum 0.82 mg/dL (0.55-1.02); EST Glomerular Filtration Rate 78 mL/min (>60); Est Glom Filt Rate - Afr Amer 95 mL/min (>60); Globulin 3.6 g/dL (2.2-4.2); Glucose 85 mg/dL (74-106); High Density Lipoprotein 71 mg/dL; Potassium 3.5 mmol/L (3.5-5.1); Protein, Total 7.3 g/dL (6.4-8.2); Sodium Level 135 mmol/L (136-145); Triglycerides 148 mg/dL; Very Low Density Lipoprotein 30 mg/dL (5-40)
[2022-02-03 16:14] LABS: Hemoglobin A1c 5.5 % (3.8-5.6)
== END | disposition home or self-care (01) ==
LOC: MFPLAB 11:27
PROVIDERS: PCP Family Medicine; Visit Provider Family Medicine
DX: I10 Essential (primary) hypertension (principal); E55.9 Vitamin D deficiency, unspecified; E78.5 Hyperlipidemia, unspecified; R73.02 Impaired glucose tolerance (oral)
CPT/HCPCS: 36415; 80053; 80061; 81001; 82306; 83036; 85025

== ENCOUNTER → 2022-10-01 | Outpatient (CLI) | payer BC, SELFPAY ==
[2022-10-01 14:15] LABS: Mucous, Urine 0 SEEN /hpf (<or=2+); White Blood Cells 0 SEEN /hpf (0-5)
[2022-10-01 18:04] LABS: Absolute Lymphocyte Count 4.26 X10^3/uL (0.83-4.51); Absolute Neutrophil Count 4.4 X10^3/uL (2.0-7.7); Basophil# 0.09 X10^3/uL; Eosinophils% 1.1 % (0-5); Hematocrit 42.2 % (37-47); Hemoglobin 13.4 g/dL (12.0-15.0); Lymphocyte # 4.26 X10^3/ul (0.83-4.51); Lymphocyte % 45.1 % (19-41); Mean Corp Hgb Conc 31.8 g/dL (32-36); Mean Corpuscular Hgb 28.5 pg (27.0-32.0); Mean Corpuscular Volume 89.8 fL (81-99); Monocyte# 0.57 X10^3/uL; NRBC Flagged by Analyzer 0 % (0-5); Neutrophil # 4.42 X10^3/uL (2.7-7.7); Neutrophil % 46.7 % (47-70); Platelet Count 399 K/mm3 (150-450); RBC Distribution Width CV 13.4 % (11.6-14.6); RBC Distribution Width SD 44.3 fl (35.1-43.9); White Blood Count 9.5 K/mm3 (4.4-11.0)
[2022-10-01 18:33] LABS: Hemoglobin A1c 5.9 % (3.8-5.6)
[2022-10-01 18:38] LABS: Vitamin B12 313 pg/mL (211-911)
[2022-10-01 18:53] LABS: Color, Urine Yellow (Yellow); Glucose, Dipstick Normal (Normal); Ketone-Dipstick Negative (Negative); Leukocyte Esterase-Dipstick 25 /ul (Negative); Nitrite-Dipstick Negative (Negative); Occult Blood-Urine 25 /ul (Negative); Protein-Dipstick Negative (Negative); Urine Bilirubin Dipstick Negative (Negative); Urine Clarity Clear (Clear); Urine Urobilinogen Normal (Normal); Urine pH 6.5 (5.0 - 8.0)
[2022-10-01 19:17] LABS: ALB/GLOB Ratio 1.1 RATIO (0.9-2.4); AST(SGOT) 14 U/L (15-37); Alanine Aminotransfer ALT/SGPT 19 U/L (13-56); Albumin, Serum 3.8 g/dL (3.2-5.0); Alkaline Phosphatase 102 U/L (45-117); Anion Gap 8 (5-15); BUN 9 mg/dL (7-18); BUN/Creat Ratio 10.7 RATIO (10-20); Calcium,Total 9.2 mg/dL (8.5-10.1); Chloride 101 mmol/L (98-107); Cholesterol 243 mg/dL (200); Creatinine, Serum 0.84 mg/dL (0.55-1.02); EST Glomerular Filtration Rate 76 mL/min (>60); Est Glom Filt Rate - Afr Amer 92 mL/min (>60); Globulin 3.6 g/dL (2.2-4.2); Glucose 85 mg/dL (74-106); High Density Lipoprotein 87 mg/dL; Iron 73 ug/dL (50-170); Potassium 4.9 mmol/L (3.5-5.1); Protein, Total 7.4 g/dL (6.4-8.2); Sodium Level 135 mmol/L (136-145); Thyroid Stim Hormone (TSH) 1.67 uIU/mL (0.358-3.74); Triglycerides 167 mg/dL; Very Low Density Lipoprotein 33 mg/dL (5-40)
[2022-10-01 19:46] LABS: Bacteria RARE /hpf (None Seen); Red Blood Cells-Urine 0-5 SEEN /hpf (0-5); Squamous Epithelial Cells - UA 0-5 SEEN /hpf (5-10)
== END | disposition home or self-care (01) ==
PROVIDERS: PCP Family Medicine; Referring Provider Family Medicine; Visit Provider Family Medicine
DX: I10 Essential (primary) hypertension (principal); K51.90 Ulcerative colitis, unspecified, without complications; R73.02 Impaired glucose tolerance (oral); E55.9 Vitamin D deficiency, unspecified
CPT/HCPCS: 36415; 80053; 80061; 81001; 82306; 82607; 83036; 83540; 84443; 85025

== ENCOUNTER → 2022-11-10 | Outpatient (CLI) | payer BC, SELFPAY ==
[2022-11-10 12:13] LABS: Absolute Neutrophil Count 5.5 X10^3/uL (2.0-7.7); Basophil# 0.04 X10^3/uL; Basophil% 0.5 % (0-1); Eosinophil# 0.02 X10^3/uL; Eosinophils% 0.2 % (0-5); Hematocrit 43.5 % (37-47); Hemoglobin 14.1 g/dL (12.0-15.0); Lymphocyte % 30.8 % (19-41); Mean Corp Hgb Conc 32.4 g/dL (32-36); Mean Corpuscular Hgb 28.7 pg (27.0-32.0); Mean Corpuscular Volume 88.6 fL (81-99); Mean Platelet Vol. 9.9 fl (6.2-12.0); Monocyte# 0.49 X10^3/uL; Monocyte% 5.6 % (0-10); NRBC Flagged by Analyzer 0 % (0-5); Neutrophil # 5.51 X10^3/uL (2.7-7.7); Neutrophil % 62.7 % (47-70); Platelet Count 376 K/mm3 (150-450); RBC Distribution Width CV 13.4 % (11.6-14.6); RBC Distribution Width SD 43.8 fl (35.1-43.9); Red Blood Count 4.91 M/mm3 (4.2-5.4); White Blood Count 8.8 K/mm3 (4.4-11.0)
[2022-11-10 12:49] LABS: AST(SGOT) 15 U/L (15-37); Alanine Aminotransfer ALT/SGPT 18 U/L (13-56); Albumin, Serum 4.2 g/dL (3.2-5.0); Alkaline Phosphatase 105 U/L (45-117); Anion Gap 10 (5-15); BUN 13 mg/dL (7-18); BUN/Creat Ratio 13.8 RATIO (10-20); Calcium,Total 9.6 mg/dL (8.5-10.1); Chloride 98 mmol/L (98-107); Creatinine, Serum 0.94 mg/dL (0.55-1.02); EST Glomerular Filtration Rate 67 mL/min (>60); Est Glom Filt Rate - Afr Amer 81 mL/min (>60); Glucose 119 mg/dL (74-106); Potassium 4.3 mmol/L (3.5-5.1); Protein, Total 8.2 g/dL (6.4-8.2); Sodium Level 135 mmol/L (136-145)
== END | disposition home or self-care (01) ==
PROVIDERS: PCP Family Medicine; Referring Provider Internal Medicine Rheumatology; Visit Provider Internal Medicine Rheumatology
DX: L40.59 Other psoriatic arthropathy (principal); K51.80 Other ulcerative colitis without complications; Z79.899 Other long term (current) drug therapy; L40.8 Other psoriasis; I10 Essential (primary) hypertension
CPT/HCPCS: 36415; 80053; 85025

== ENCOUNTER → 2023-01-15 | Outpatient (CLI) | payer BC, SELFPAY ==
--- NOTE | 2023-01-15 13:15 | RAD_ITS ---
INDICATION: NECK PAIN EXAMINATION/TECHNIQUE: X-RAY - XR Spine Cervical 4 or 5 Views COMPARISON: Cervical spine radiographs 06/23/2017. FINDINGS: 5 views of the cervical spine. BONES: Normal anatomic alignment without evidence of fracture or subluxation. No concerning bony lesion or abnormal sclerosis to suggest lesion. DISCS/JOINTS: Mild to moderate bilateral C4-C5 neuroforaminal narrowing. SOFT TISSUES: Unremarkable. RAD/Cerv Spine 4 or 5 Views IMPRESSION: Neuroforaminal narrowing, unchanged from 2017. Otherwise, unremarkable cervical spine. If there is persistent clinical concern for spine fracture and this is a trauma patient, recommend dedicated cervical spine CT. Electronically Signed: Joey Kamara MD at 6:37 EDT ,
--- NOTE | 2023-01-15 13:15 | RAD_ITS ---
INDICATION: BACK PAIN EXAMINATION/TECHNIQUE: X-RAY - XR Spine Thoracic 2 Views COMPARISON: No comparison. FINDINGS: 3 views of the thoracic spine. BONES: Mild thoracolumbar dextrocurvature. Normal anatomic alignment without evidence of fracture or subluxation. No concerning bony lesion or abnormal sclerosis to suggest lesion. DISCS/JOINTS: No significant degenerative change. SOFT TISSUES: Unremarkable. RAD/Thoracic Spine 2 Views IMPRESSION: Mild thoracolumbar dextrocurvature. Otherwise, unremarkable thoracic spine. If there is persistent clinical concern for spine fracture and this is a trauma patient, recommend dedicated thoracic spine CT. Electronically Signed: Joey Kamara MD at 6:30 EDT ,
[2023-01-15 15:08] LABS: Absolute Lymphocyte Count 4.56 X10^3/uL (0.83-4.51); Absolute Neutrophil Count 4.2 X10^3/uL (2.0-7.7); Basophil# 0.07 X10^3/uL; Basophil% 0.7 % (0-1); Eosinophil# 0.07 X10^3/uL; Eosinophils% 0.7 % (0-5); Hematocrit 43.2 % (37-47); Hemoglobin 13.8 g/dL (12.0-15.0); Lymphocyte # 4.56 X10^3/ul (0.83-4.51); Lymphocyte % 47.2 % (19-41); Mean Corp Hgb Conc 31.9 g/dL (32-36); Mean Corpuscular Hgb 29.2 pg (27.0-32.0); Mean Corpuscular Volume 91.5 fL (81-99); Mean Platelet Vol. 9.8 fl (6.2-12.0); Monocyte% 7.2 % (0-10); NRBC Flagged by Analyzer 0 % (0-5); Neutrophil # 4.24 X10^3/uL (2.7-7.7); Platelet Count 399 K/mm3 (150-450); RBC Distribution Width CV 14.1 % (11.6-14.6); RBC Distribution Width SD 47.6 fl (35.1-43.9); Red Blood Count 4.72 M/mm3 (4.2-5.4); White Blood Count 9.7 K/mm3 (4.4-11.0)
[2023-01-15 15:59] LABS: Vitamin B12 278 pg/mL (211-911); Vitamin D,25 Hydroxy 15.8 ng/mL
[2023-01-15 16:04] LABS: Hemoglobin A1c 5.7 % (3.8-5.6)
[2023-01-15 16:09] LABS: ALB/GLOB Ratio 1.1 RATIO (0.9-2.4); AST(SGOT) 17 U/L (15-37); Alanine Aminotransfer ALT/SGPT 26 U/L (13-56); Albumin, Serum 3.9 g/dL (3.2-5.0); Alkaline Phosphatase 97 U/L (45-117); Anion Gap 6 (5-15); BUN 8 mg/dL (7-18); BUN/Creat Ratio 8.9 RATIO (10-20); Calcium,Total 8.7 mg/dL (8.5-10.1); Chloride 102 mmol/L (98-107); Cholesterol 284 mg/dL (200); Creatinine, Serum 0.89 mg/dL (0.55-1.02); EST Glomerular Filtration Rate 71 mL/min (>60); Est Glom Filt Rate - Afr Amer 86 mL/min (>60); Ferritin 11 ng/mL (8-252); Globulin 3.7 g/dL (2.2-4.2); Glucose 95 mg/dL (74-106); High Density Lipoprotein 85 mg/dL; Potassium 3.9 mmol/L (3.5-5.1); Protein, Total 7.6 g/dL (6.4-8.2); Sodium Level 136 mmol/L (136-145); Thyroid Stim Hormone (TSH) 1.21 uIU/mL (0.358-3.74); Triglycerides 210 mg/dL; Very Low Density Lipoprotein 42 mg/dL (5-40)
== END | disposition home or self-care (01) ==
LOC: MTLAB 13:14
PROVIDERS: PCP Family Medicine; Referring Provider Family Medicine; Visit Provider Family Medicine
DX: M54.2 Cervicalgia (principal); K51.90 Ulcerative colitis, unspecified, without complications; I10 Essential (primary) hypertension; R73.02 Impaired glucose tolerance (oral); E78.5 Hyperlipidemia, unspecified; E55.9 Vitamin D deficiency, unspecified
CPT/HCPCS: 36415; 72050; 72070; 80053; 80061; 82306; 82607; 82728; 83036; 84443; 85025

== ENCOUNTER → 2023-04-20 | Outpatient (CLI) | payer BC, SELFPAY ==
[2023-04-20 15:39] LABS: Absolute Lymphocyte Count 3.77 X10^3/uL (0.83-4.51); Absolute Neutrophil Count 3.7 X10^3/uL (2.0-7.7); Basophil# 0.07 X10^3/uL; Basophil% 0.8 % (0-1); Eosinophil# 0.09 X10^3/uL; Eosinophils% 1.1 % (0-5); Hematocrit 41.6 % (37-47); Hemoglobin 13.3 g/dL (12.0-15.0); Lymphocyte # 3.77 X10^3/ul (0.83-4.51); Lymphocyte % 45.3 % (19-41); Mean Corpuscular Hgb 29.7 pg (27.0-32.0); Mean Corpuscular Volume 92.9 fL (81-99); Mean Platelet Vol. 10.4 fl (6.2-12.0); Monocyte# 0.67 X10^3/uL; NRBC Flagged by Analyzer 0 % (0-5); Neutrophil # 3.71 X10^3/uL (2.7-7.7); Neutrophil % 44.6 % (47-70); Platelet Count 390 K/mm3 (150-450); RBC Distribution Width CV 13.2 % (11.6-14.6); Red Blood Count 4.48 M/mm3 (4.2-5.4); White Blood Count 8.3 K/mm3 (4.4-11.0)
[2023-04-20 16:23] LABS: ALB/GLOB Ratio 0.9 RATIO (0.9-2.4); AST(SGOT) 18 U/L (15-37); Alanine Aminotransfer ALT/SGPT 25 U/L (13-56); Albumin, Serum 3.6 g/dL (3.2-5.0); Alkaline Phosphatase 111 U/L (45-117); Anion Gap 4 (5-15); BUN 8 mg/dL (7-18); BUN/Creat Ratio 8.7 RATIO (10-20); Calcium,Total 8.8 mg/dL (8.5-10.1); Chloride 103 mmol/L (98-107); Creatinine, Serum 0.92 mg/dL (0.55-1.02); EST Glomerular Filtration Rate 69 mL/min (>60); Est Glom Filt Rate - Afr Amer 83 mL/min (>60); Globulin 4.1 g/dL (2.2-4.2); Glucose 100 mg/dL (74-106); Potassium 4.2 mmol/L (3.5-5.1); Protein, Total 7.7 g/dL (6.4-8.2); Sodium Level 136 mmol/L (136-145)
== END | disposition home or self-care (01) ==
LOC: MTLAB 11:43
PROVIDERS: PCP Family Medicine; Referring Provider Internal Medicine Rheumatology; Visit Provider Internal Medicine Rheumatology
DX: L40.59 Other psoriatic arthropathy (principal); Z79.899 Other long term (current) drug therapy
CPT/HCPCS: 36415; 80053; 85025

== ENCOUNTER → 2023-09-09 | Outpatient (CLI) | payer BC, SELFPAY ==
[2023-09-09 15:19] LABS: Bacteria 0 SEEN /hpf (None Seen); Mucous, Urine 0 SEEN /hpf (<or=2+); Red Blood Cells-Urine 0 SEEN /hpf (0-5); White Blood Cells 0 SEEN /hpf (0-5)
[2023-09-09 17:34] LABS: Absolute Lymphocyte Count 4.95 X10^3/uL (0.83-4.51); Absolute Neutrophil Count 5.1 X10^3/uL (2.0-7.7); Basophil# 0.08 X10^3/uL; Basophil% 0.7 % (0-1); Eosinophil# 0.09 X10^3/uL; Eosinophils% 0.8 % (0-5); Hematocrit 41.8 % (37-47); Hemoglobin 12.9 g/dL (12.0-15.0); Lymphocyte # 4.95 X10^3/ul (0.83-4.51); Lymphocyte % 45.1 % (19-41); Mean Corp Hgb Conc 30.9 g/dL (32-36); Mean Corpuscular Hgb 28.5 pg (27.0-32.0); Mean Corpuscular Volume 92.5 fL (81-99); Mean Platelet Vol. 10.1 fl (6.2-12.0); Monocyte# 0.72 X10^3/uL; Monocyte% 6.6 % (0-10); NRBC Flagged by Analyzer 0 % (0-5); Neutrophil # 5.09 X10^3/uL (2.7-7.7); Neutrophil % 46.3 % (47-70); Platelet Count 391 K/mm3 (150-450); RBC Distribution Width CV 13.3 % (11.6-14.6); RBC Distribution Width SD 45.1 fl (35.1-43.9); Red Blood Count 4.52 M/mm3 (4.2-5.4)
[2023-09-09 17:36] LABS: Color, Urine Straw (Yellow); Glucose, Dipstick Normal (Normal); Ketone-Dipstick Negative (Negative); Leukocyte Esterase-Dipstick Negative /ul (Negative); Nitrite-Dipstick Negative (Negative); Occult Blood-Urine 10 /ul (Negative); Protein-Dipstick Negative (Negative); Urine Bilirubin Dipstick Negative (Negative); Urine Clarity Clear (Clear); Urine Urobilinogen Normal (Normal); Urine pH 6.5 (5.0 - 8.0)
[2023-09-09 17:45] LABS: Squamous Epithelial Cells - UA 0-5 SEEN /hpf (5-10)
[2023-09-09 17:59] LABS: Vitamin D,25 Hydroxy 43.6 ng/mL
[2023-09-09 18:02] LABS: Hemoglobin A1c 5.6 % (3.8-5.6)
[2023-09-09 18:04] LABS: ALB/GLOB Ratio 0.9 RATIO (0.9-2.4); AST(SGOT) 18 U/L (15-37); Alanine Aminotransfer ALT/SGPT 20 U/L (13-56); Albumin, Serum 3.7 g/dL (3.2-5.0); Alkaline Phosphatase 111 U/L (45-117); Anion Gap 7 (5-15); BUN 7 mg/dL (7-18); BUN/Creat Ratio 7.7 RATIO (10-20); Calcium,Total 8.7 mg/dL (8.5-10.1); Chloride 100 mmol/L (98-107); Cholesterol 278 mg/dL (200); Creatinine, Serum 0.91 mg/dL (0.55-1.02); EST Glomerular Filtration Rate 69 mL/min (>60); Est Glom Filt Rate - Afr Amer 84 mL/min (>60); Globulin 4.2 g/dL (2.2-4.2); Glucose 127 mg/dL (74-106); High Density Lipoprotein 75 mg/dL; Potassium 3.7 mmol/L (3.5-5.1); Protein, Total 7.9 g/dL (6.4-8.2); Sodium Level 135 mmol/L (136-145); Triglycerides 382 mg/dL; Very Low Density Lipoprotein 76 mg/dL (5-40)
== END | disposition home or self-care (01) ==
LOC: MFPLAB 15:14
PROVIDERS: PCP Family Medicine; Visit Provider Family Medicine
DX: I10 Essential (primary) hypertension (principal); E55.9 Vitamin D deficiency, unspecified; R73.02 Impaired glucose tolerance (oral)
CPT/HCPCS: 36415; 80053; 80061; 81001; 82306; 83036; 85025

== ENCOUNTER → 2023-10-19 | Outpatient (CLI) | payer BC, SELFPAY ==
--- OUTSIDE RECORDS SUMMARY | 2023-10-19 10:54 | XMS RPT_ITS | CCD ---
Author Name Unknown Address [address] [place] [address] Organization [facility] Care Team Providers Care Clinical Social Work Aide Name Role Phone Bri Oconnell Unavailable Ricci Poe MD Primary Care Provider [phone] Ricci Poe MD Unavailable Juliette Pollack Primary Care Provider Jose LLOYD Ha Unavailable Unavailable Juliette Pollack Primary Care Provider Jose LLOYD Ha Unavailable Unavailable Estephania Watts MD Unavailable Grater NONDESTRUCTIVE TESTER.Raheel MONDRAGON Unavailable Debra Johnson PT Unavailable Estephania Watts MD Unavailable Juliette Pollack Primary Care Provider Debra Johnson PT Unavailable Juliette Pollack Primary Care Provider Juliette Pollack MD Primary Care Provider Estephania Watts MD Unavailable Grater NONDESTRUCTIVE TESTER.Raheel MONDRAGON Unavailable Debra Johnson PT Unavailable ESTEPHANIA WATTS Attending Unavailable JULIETTE POLLACK Primary Care Unavailable JULIETTE POLLACK Primary Care Unavailable RAHEEL HENRY Referring Unavailable Allergies Allergy Classification Reported Allergen(s) Allergy Type Date of Onset Reaction(s) Facility (1 source) ciprofloxacin Drug Allergy [facility] Work Phone: (1 source) clindamycin Drug Allergy [facility] Work Phone: (1 source) mesalamine Drug Allergy [facility] Work Phone: (1 source) mesalamine Drug Allergy [facility] Work Phone: (1 source) penicillin v Drug Allergy [facility] Work Phone: (1 source) sulfacetamide Drug Allergy [facility] Work Phone: (20 sources) Ciprofloxacin; Translations: [CIPROFLOXACIN] Drug Allergy 11-05-19 12 Rash, Other: See Comments [facility] Work Phone: (20 sources) Clindamycin; Translations: [CLINDAMYCIN] Drug Allergy 11-05-19 12 Rash, Shortness of Breath [facility] Work Phone: (20 sources) meloxicam; Translations: [MELOXICAM] Drug Allergy 01-28-20 13 Rash [facility] (20 sources) mesalamine; Translations: [MESALAMINE] Drug Allergy 11-05-19 12 Rash, Diarrhea [facility] Work Phone: (20 sources) nabumetone; Translations: [NABUMETONE] Drug Allergy 01-28-20 13 Rash [facility] (20 sources) NITROFURANTOIN, MACROCRYSTALS / Nitrofurantoin, Monohydrate; Translations: [NITROFURANTOIN MONOHYD/M-CRYST] Drug Allergy 11-05-19 12 Rash [facility] Work Phone: (9 sources) Penicillins; Translations: [PENICILLINS] Drug Intolerance 11-05-19 12 Shortness of Breath [facility] Work Phone: (20 sources) Sulfamethoxazole ; Translations: [SULFAMETHOXAZOL E] Drug Allergy 11-05-19 12 Rash [facility] Work Phone: (20 sources) Penicillins Drug Intolerance 11-05-19 12 Shortness of Breath [facility] Work Phone: Medications Current Medications Medication Drug Class(es) Dates Sig (Normalized) Sig (Original) cefdinir 300 mg oral capsule (1 source) Cephalosporin Antibacterial Start: 06-18-2023 End: 06-18-2023 take 2 capsules by mouth once, then take 2 capsules by mouth every hour cefdinir (OMNICEF) 300 mg capsule Take 2 capsules by mouth one time only for 1 dose. Take 2 capsules 1 hour prior to dental appointment 2 capsule 2 06/18/2023 06/18/2023 Active Completed/Discontinued Medications Medication Drug Class(es) Dates Sig (Normalized) Sig (Original) acetaminophen 500 mg oral tablet (20 sources) Start: 06-04-2022 take 2 tablets by mouth every eight hours as needed acetaminophen (TYLENOL) 500 mg tablet Take 1,000 mg by mouth every 8 hours as needed for pain. 0 06/04/2022 Active Problems Active Problems Problem Classification Problem Date Documented Date Episodic/Chronic Allergic reactions (6 sources) Irritant contact dermatitis; Translations: [Irritant contact dermatitis, unspecified cause] Episodic Esophageal disorders (20 sources) Gastroesophageal reflux disease; Translations: [Gastro-esophageal reflux disease without esophagitis] Onset: 05-19-2022 Chronic Essential hypertension (20 sources) Hypertensive disorder; Translations: [Essential (primary) hypertension] Onset: 05-19-2022 05-19-2022 Chronic Osteoarthritis (5 sources) Osteoarthritis of right knee joint; Translations: [Other unilateral secondary osteoarthritis of knee] Chronic Other bone disease and musculoskeletal deformities (1 source) Other osteonecrosis, other site; Translations: [Aseptic necrosis of bone, other] Chronic Other bone disease and musculoskeletal deformities (20 sources) Avascular necrosis of bone; 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] Onset: 05-19-2022 Chronic Other connective tissue disease (20 sources) History of total knee arthroplasty; Translations: [Presence of right artificial knee joint] Onset: 06-24-2022 Chronic Other inflammatory condition of skin (20 sources) Psoriasis; Translations: [Psoriasis, unspecified] Onset: 05-19-2022 Chronic Other nervous system disorders (1 source) Complex regional pain syndrome type I of right lower limb; Translations: [Complex regional pain syndrome I of right lower limb] Chronic Other non-traumatic joint disorders (7 sources) Pain in right knee; Translations: [Pain in joint, lower leg] Onset: 09-01-2023 Episodic Regional enteritis and ulcerative colitis (20 sources) Ulcerative colitis; Translations: [Ulcerative colitis, unspecified with unspecified complications] Onset: 05-19-2022 Chronic Rheumatoid arthritis and related disease (20 sources) Rheumatoid arthritis; Translations: [Rheumatoid arthritis, unspecified] Onset: 05-19-2022 Chronic Past or Other Problems Problem Classification Problem Date Documented Date Episodic/Chronic Cardiac dysrhythmias (20 sources) Tachycardia; Translations: [Tachycardia, unspecified] Onset: 05-19-2022 Episodic Other connective tissue disease (4 sources) Bicipital tendinitis, left shoulder; Translations: [Rotator cuff syndrome] Onset: 06-23-2017 07-28-2017 Episodic Other infections; including parasitic (20 sources) Personal history of other infectious and parasitic diseases; Translations: [History of 2019 novel coronavirus disease (COVID-19)] Onset: 05-19-2022 Episodic Other non-traumatic joint disorders (3 sources) Acromioclavicular joint pain; Translations: [Pain in left shoulder] Onset: 04-23-2015 06-23-2017 Episodic Other non-traumatic joint disorders (20 sources) Stiffness of right knee; Translations: [Stiffness of right knee, not elsewhere classified] Onset: 06-24-2022 Episodic Screening and history of mental health and substance abuse codes (20 sources) Ex-smoker; Translations: [Personal history of nicotine dependence] Onset: 05-19-2022 Episodic Spondylosis; intervertebral disc disorders; other back problems (2 sources) Neck pain; Translations: [Brachial neuritis or radiculitis NOS] Onset: 04-23-2015 06-23-2017 Episodic Superficial injury; contusion (1 source) Contusion of elbow; Translations: [Contusion of unspecified elbow] Onset: 04-23-2015 05-02-2015 Episodic Results Test Name Value Interpretation Reference Range Facil ity Vital Signs Date Time Vital Sign Value Performing Clinician Facility 06-20-2022 09:56-0400 Diastolic blood pressure 88 mm[Hg] Debra Johnson PT Work Phone: [facility] 06-20-2022 09:56-0400 Heart rate 118 /min Debra Halderman-Toure PT Work Phone: [facility] 06-20-2022 09:56-0400 SaO2% (BldA) [Mass fraction] 97 % Debra Halderman-Toure PT Work Phone: [facility] 06-20-2022 09:56-0400 Systolic blood pressure 128 mm[Hg] Debra Halderman-Toure PT Work Phone: [facility] 06-20-2022 09:20-0400 Body temperature 98.29 [degF] Debra Halderman-Toure PT Work Phone: [facility] 06-20-2022 09:20-0400 Respiratory rate 18 /min Debra Halderman-Toure PT Work Phone: [facility] 06-17-2022 09:10-0400 Body temperature 97.11 [degF] Debra Halderman-Toure PT Work Phone: [facility] 06-17-2022 09:10-0400 Diastolic blood pressure 90 mm[Hg] Debra Halderman-Toure PT Work Phone: [facility] 06-17-2022 09:10-0400 Heart rate 105 /min Debra Halderman-Toure PT Work Phone: [facility] 06-17-2022 09:10-0400 Respiratory rate 16 /min Debra Halderman-Toure PT Work Phone: [facility] 06-17-2022 09:10-0400 SaO2% (BldA) [Mass fraction] 97 % Debra Halderman-Toure PT Work Phone: [facility] 06-17-2022 09:10-0400 Systolic blood pressure 148 mm[Hg] Debra Halderman-Toure PT Work Phone: [facility] 06-11-2022 09:45-0400 Body temperature 98.6 [degF] Debra Halderman-Toure PT Work Phone: [facility] 06-11-2022 09:45-0400 Diastolic blood pressure 90 mm[Hg] Debra Halderman-Toure PT Work Phone: [facility] 06-11-2022 09:45-0400 Heart rate 110 /min Debra Halderman-Toure PT Work Phone: [facility] 06-11-2022 09:45-0400 Respiratory rate 18 /min Debra Halderman-Toure PT Work Phone: [facility] 06-11-2022 09:45-0400 SaO2% (BldA) [Mass fraction] 99 % Debra Halderman-Toure PT Work Phone: [facility] 06-11-2022 09:45-0400 Systolic blood pressure 144 mm[Hg] Debra Halderman-Toure PT Work Phone: [facility] 06-09-2022 09:57-0400 Body temperature 98.4 [degF] Debra Halderman-Toure PT Work Phone: [facility] 06-09-2022 09:57-0400 Diastolic blood pressure 86 mm[Hg] Debra Halderman-Toure PT Work Phone: [facility] 06-09-2022 09:57-0400 Heart rate 109 /min Debra Halderman-Toure PT Work Phone: [facility] 06-09-2022 09:57-0400 Respiratory rate 18 /min Debra Halderman-Toure PT Work Phone: [facility] 06-09-2022 09:57-0400 SaO2% (BldA) [Mass fraction] 98 % Debra Halderman-Toure PT Work Phone: [facility] 06-09-2022 09:57-0400 Systolic blood pressure 148 mm[Hg] Debra Halderman-Toure PT Work Phone: [facility] 06-04-2022 14:13-0400 Diastolic blood pressure 70 mm[Hg] Nikolas [place] PT Work Phone: [facility] 06-04-2022 14:13-0400 Systolic blood pressure 136 mm[Hg] Nikolas Knupp PT Work Phone: [facility] 06-04-2022 14:05-0400 Body temperature 97.2 [degF] Nikolas Knupp PT Work Phone: [facility] 06-04-2022 14:05-0400 Heart rate 83 /min Nikolas Knupp PT Work Phone: [facility] 06-04-2022 14:05-0400 Respiratory rate 18 /min Nikolas Knupp PT Work Phone: [facility] 06-04-2022 14:05-0400 SaO2% (BldA) [Mass fraction] 97 % Nikolas Knupp PT Work Phone: [facility] 05-19-2022 08:27-0400 Body height 157.5 cm Pacc 1 Work Phone: [facility] 05-19-2022 08:27-0400 Body temperature 98.4 [degF] Pacc 1 Work Phone: [facility] 05-19-2022 08:27-0400 Body weight 63.5 kg Pacc 1 Work Phone: [facility] 05-19-2022 08:27-0400 Diastolic blood pressure 82 mm[Hg] Pacc 1 Work Phone: [facility] 05-19-2022 08:27-0400 Heart rate 97 /min Pacc 1 Work Phone: [facility] 05-19-2022 08:27-0400 Respiratory rate 16 /min Pacc 1 Work Phone: [facility] 05-19-2022 08:27-0400 SaO2% (BldA) [Mass fraction] 99 % Pacc 1 Work Phone: [facility] 05-19-2022 08:27-0400 Systolic blood pressure 116 mm[Hg] [facility] 1 Work Phone: [facility] 04-23-2015 10:28040 BP Diastolic 99 mm[Hg] Bri CRUZ [facility] Work Phone: 04-23-2015 10:28-040 BP Systolic 138 mm[Hg] [facility] Work Phone: 04-23-2015 10:28-040 Height 157.48 cm Bri CRUZ [facility] Work Phone: 04-23-2015 10:040 Weight 67.59 kg Bri CRUZ [facility] Work Phone: Encounters Encounter Date Encounter Type Care Provider Facility Start: 09-01-2023 End: 09-01-2023 ambulatory ESTEPHANIA WATTS Facility:[facility] Start: 09-01-2023 End: 09-01-2023 Patient encounter procedure Estephania Watts MD Work Phone: Orthopaedics Procedures Date Procedure Procedure Detail Performing Clinician Start: 06-17-2022 Radiologic examinati on knee 3 views Raheel Henry APRN.CNP Work Phone: Start: 05-19-2022 Ecg routine ecg w/le ast 12 lds w/i&r [facility] Provider Start: 04-21-2022 Ct lower extremity w /o contrast material Estephania Watts MD Work Phone: Start: 02-27-2022 Radiologic exam knee complete 4/more views Bri Oconnell DO Work Phone: Start: 02-11-2022 Mri any jt lower ext rem w/o contrast matrl [facility] Provider Start: 12-19-2019 Mammography Mri (I-Sta t/1.5t) Work Phone: Start: 04-23-2015 End: 04-24-2015 Documentation of current medications Ramon Grullon Work Phone: Start: 05-31-2014 Lipid 1996 panel - S beau or Plasma Estephania Watts MD Work Phone: Start: 02-01-2013 Colonoscopy Mri (I-Sta t/1.5t) Work Phone: Plan of Treatment Date Care Activity Detail Author Start: 2032 HEPATITIS B (1 of 3 - Risk 3-dose series) HEPATITIS B (1 of 3 - Risk 3-dose series) [facility] Start: 2032 Hepatitis B Vaccine (1 of 3 - Risk 3-dose series) Hepatitis B Vaccine (1 of 3 - Risk 3-dose series) [facility] Start: 11-15-2028 Urine microalbumin profile DTaP,Tdap,Td Vaccine (3 - Td or Tdap) [facility] Start: 05-31-2025 DIABETES SCREEN DIABETES SCREEN [facility] Start: 05-31-2025 Diabetes Screening Diabetes Screenin g [facility] Start: 05-19-2025 DIABETES SCREEN DIABETES SCREEN [facility] Start: 06-12-2023 Covid-19 Vaccine ( season) Covid-19 Vaccine ( season) [facility] Start: 06-12-2023 Influenza vaccination [facility] Start: 10-12-2022 DEPRESSION ASSESSMENT DEPRESSION ASS ESSMENT [facility] Start: 06-12-2022 Influenza vaccination [facility] Start: 05-19-2022 End: 07-19-2022 CONFIRM BLOOD TYPE Work Phone: Immunizations Immunization Date Immunization Notes Care Provider Fa cili 07-02-2020 influenza virus vacc ine, unspecified formulation Estephania Watts MD Work Phone: [facility] Payers Date Payer Category Payer Unknown [employer] PPO [id number] 2021-Present [phone] [address] [place] [address] PPO [id number] 2021 Unknown [id number] 2021 Unknown [id number] Social History Date Type Detail Facility Start: 05-19-2013 End: 05-19-2022 Tobacco smoking status NHIS Ex-smoker [facility] Work Phone: End: 02-16-2013 History of tobacco use Current smoker [facility] Work Phone: Start: 05-19-2013 End: 11-08-2022 Cigarettes smoked current (pack per day) - Reported 1 [facility] Start: 05-19-2013 End: 05-19-2022 Tobacco use and exposure Smokeless tobacco non-user [facility] Work Phone: Start: 12-19-2019 End: 09-01-2023 Alcohol intake Current drinker of alcohol (finding) [facility] Start: 12-19-2019 History SDOH Alcohol Comment Seldom [facility] Start: 1970 Sex Assigned At Female [facility] Start: 02-17-2022 End: 06-17-2022 Exposure to SARS-CoV-2 (event) Not sure [facility] Start: 03-23-2022 End: 04-29-2022 Exposure to SARS-CoV-2 (event) Unable to assess [facility] End: 02-16-2013 History of tobacco use Cigarette Smoker [facility] Start: 07-25-2022 End: 11-08-2022 Tobacco use panel [facility] National Score (1-10 0), lower number is lower risk 57 [facility] Start: 01-09-2020 Sexual orientation Heterosexual (marcin wall) [facility] Medical Equipment Procedure Code Equipment Code Equipment Origin al Text Equipment Identifier Dates Cement Simplex P Bone Radiopaque Full Dose Sterile - [id number] Start: 05-30-2022 Insert Triathlon 1 X3 9mm Tibial Condylar Stabilized Knee - [id number] Start: 05-30-2022 Component Triath donald 29mm X3 9mm Patellar Asymmetric Knee - [id number] Start: 05-30-2022 Clinical Notes 02-11-2022 to 09-01-2023 Estephania Watts MD - 09/01/2023 9:01 AM ESTTelephone Encounter - Raheel Henry APRN.STRIP DEBURRER - 06/18/2023 1:27 PM EDJaswindergricelda Raphael, PT - 08/18/2022 8:48 AM ESTPatient InstructionsPatient Instructions Note Date & Type Note Facility 09-01-2023 Note HNO ID: [id number] Author: Estephania Watts MD Service: ? Author Type: Physician Type: Progress Notes Filed: 09/01/2023 9:03 AM Note Text: Orthopaedic Office Note: History/Subjective: Cyn is a very nice 52-year-old woman now 1 year status post right total knee replacement for rheumatoid arthritis. Overall she is doing very well. She reports being extremely happy with her knee replacement. She was hiking this weekend. She denies pain or limitations. Imaging: Well-appearing knee replacement appropriate position alignment no evidence of loosening Physical Examination: Well-healed surgical incision No effusion No tenderness Outstanding range of motion 0 to 125 degrees Patella tracks appropriately. Full strength and sensation Assessment and Plan: Cyn is doing very well 1 year out from a knee replacement. She is very happy with the results. We have discussed expectations moving forward. I have no formal limitations. Red flag symptoms are discussed. She can move to follow-up every 2 years with imaging and a clinical check. All questions answered today. I spent a total of approximately 15 minutes on the date of the service which included preparing to see the patient, [id number] patient care, completing clinical documentation, obtaining and/or reviewing separately obtained history, performing a medically appropriate examination, counseling and educating the patient/family/caregiver, and care coordination (not separately reported). Estephania Watts MD Orthopaedic Surgery [facility] 09-01-2023 Note HNO ID: [id number] Author: Nevin Morales CT Service: Radiology Author Type: Technologist Type: Progress Notes Filed: 09/01/2023 8:45 AM Note Text: Radiology Service Progress Note PATIENT NAME: Cyn Vázquez DATE OF SERVICE: September 01, 2023 TIME: 8:44 AM PATIENT IDENTITY VERIFICATION COMPLETED USING TWO (2) IDENTIFIERS: Name and Date of confirmed by patient verbally. FALL SCREENING: Has the patient had 2 falls in the last year or 1 fall with injury or currently using an Ambulatory Assistive Device (Walker, Cane, Wheelchair, Crutches, etc.)? No PATIENT GENDER DATA: Female. status: : No status: NO. PATIENT RELEVANT IMPLANT DATA REVIEWED: Not Applicable RADIOLOGY DEPARTMENT: General X-ray: Exam(s) Completed: Lower Extremity X-Ray(s): Knee, AP / Lat / Merchant Right and Wt. Bearing PERIPHERAL IV DATA: Not applicable SIGNED BY: WELLINGTON Shell September 01, 2023 8:44 AM [facility] 09-01-2023 History of Presen t illness Narrative Orthopaedic Office Note: History/Subjective: Cyn is a very nice 52-year-old woman now 1 year status post right total knee replacement for rheumatoid arthritis. Overall she is doing very well. She reports being extremely happy with her knee replacement. She was hiking this weekend. She denies pain or limitations. Imaging: Well-appearing knee replacement appropriate position alignment no evidence of loosening Physical Examination: Well-healed surgical incision No effusion No tenderness Outstanding range of motion 0 to 125 degrees Patella tracks appropriately. Full strength and sensation Assessment and Plan: Cyn is doing very well 1 year out from a knee replacement. She is very happy with the results. We have discussed expectations moving forward. I have no formal limitations. Red flag symptoms are discussed. She can move to follow-up every 2 years with imaging and a clinical check. All questions answered today. I spent a total of approximately 15 minutes on the date of the service which included preparing to see the patient, [id number] patient care, completing clinical documentation, obtaining and/or reviewing separately obtained history, performing a medically appropriate examination, counseling and educating the patient/family/caregiver, and care coordination (not separately reported). Estephania Watts MD Orthopaedic Surgery documented in this encounter [facility] 06-18-2023 Miscellaneous Notes Rx e-scripted. Raheel Henry APRN.CNP June 18, 2023 1:33 PM documented in this encounter [facility] 08-18-2022 History of Presen t illness Narrative Episode Visit Count: 10 Therapist That Will Accept/Oversee The Plan Of Care: Susie Lim Start of Care Date: 06/25/20 Onset Date: 06/25/20 Plan of Care Certification Date: 07/23/22 Next Certification Due Date: 09/03/22 Patient Identified by Name and Date of : Yes [facility] PHYSICAL THERAPY DISCONTINUANCE OF CARE PLAN OF CARE UPDATE: Assessment: Cyn Brandt is discontinued from Physical Therapy services due to goal achievement. and Patient/Client declining further intervention.. Patient was seen for 10 visits from Start of Care Date: 06/25/20 to 08/18/2022 and treatment included: Therapeutic exercise, Neuromuscular re-education, Therapeutic activities, Self-penitentiary management, and Gait training. Goals for Episode of Care: created on 06/25/20 through 08/20/22 Goals updated on 07/23/2022 through 09/03/22 Goals updated on 08/18/2022. Return to work, reporting no increased symptoms >2/10 from baseline during or after typical work day activities -- MET [place] in home exercise program. -- MET Patient will decrease pain to 1-2/10 with functional activities to allow patient to improve ambulation, transfers, and standing tolerance for ADLs.-- MET Patient will increase active ROM of R knee extension LAQ to 0 and supine R knee flexion AROM to 115 to allow pt to to improve performance of ADLs, to improve gait mechanics / gait pattern , and to decrease falls risks . -- MET LAQ, knee flexion AROM MET Perform transfers, driving, standing, and walking community distances with decreased report of symptoms/pain in 8 weeks. -- MET Patient will Improve Timed Up and Go to 6 seconds without use of AD to demonstrate decreased risk of falling. -- MET 30 sec sit <> stand to 18 or more reps to demonstrate improved functional strength. -- MET, 25 reps without UE Improve postural awareness.-- MET Normal gait. -- MET Patient will ascend and descend 12 8 steps with rail. with no device independently and safe technique demonstrating step over step pattern. -- MET Patient will demonstrate improved neuromuscular coordination as evidenced by improve function for prior functional tasks and work tasks. -- MET Patient Goals: restore functional mobility and strength of RLE -- MET SUBJECTIVE: Patient Reason for Visit: Pt. reports she feels almost back to normal. She did not take anything for pain this morning. She is riding 10 min on her bicycle. Pt. only mentions difficulty with balance and descending steps. She states that she feels 80% improvement since onset of PT, and requests discharge today due her confidence that she knows how to proceed with the HEP independently.. Pain: Pain Pain Level: 2 Pain Location: Knee - Right Description: Sore Post Treatment Pain Post Treatment Pain Level: 0 Post Treatment Pain Location: Knee - Right PROMIS Scales Higher is Better 07/02/2022 07/18/2022 08/17/2022 Phys Func - Score - 38 (moderate dysfunction) 43 (mild dysfunction) Phys Func - Percentile - 12 % 24 % GH Physical - Score 34.9 (Poor) - - GH Physical - Percentile 7 % - - GH Mental - Score 38.8 (Fair) - - GH Mental - Percentile 13 % - - Self-Eff Symptom - Score - 43 (Average) 52 (Average) Self-Eff Symptom - Percentile - 24 % 58 % T-scores: mean of general population = 50. 5 points is clinically meaningfully difference Percentiles provide an indication of how the patient's score ranks in relation to the general population. Higher percentile rankings indicate better function/quality of life. 50th percentile is the average of the general population and indicates half of respondents had a worse score. T-scores: mean of general population = 50. 5 points is clinically meaningfully difference Percentiles provide an indication of how the patient's score ranks in relation to the general population. Higher percentile rankings indicate better function/quality of life. 50th percentile is the average of the general population and indicates half of respondents had a worse score. OBJECTIVE MEASURES WITH LEVEL OF FUNCTION: LE PROM R Knee Extension: 0 Degrees R Knee Flexion: 120 Degrees Gait Gait: Independent Gait Distance (feet): 100 Gait Device: None Gait Deviations: General Deviations Gait Deviations Right Lower Extremity: Push off during terminal stance decreased Gait Observation: corrects R toe push off with cues Stairs: ascending and descending with reciprocal pattern Functional Performance Test Results 30 Second Chair Stand Test: 25 reps (without UE support) TREATMENT: Therapeutic Exercise: 1: Seated HS stretch 3x30 R 2: LAQ 2x12, slow (measurement taken) 3: heel slide AROM R 1x10 (measurement taken) 4: *eccentric heel lower 3x8 each side 6 5: sit <> stand test 30 sec 25 reps without UE support Skilled Intervention: Patient was educated in proper exercise technique and purpose for exercises. Skilled judgment was provided in selection of appropriate interventions. Provided written instruction for home exercise program to facilitate proper performance and compliance. Correct performance of therapeutic exercises was facilitated with verbal, visual, and tactile cuing. Additional time necessary for assessing progress toward goals due to discharge. Educated patient on rationale for performing exercises in regards to decreasing fatigue , including balance, increase ease of ADL, and ROM and function . Patient education as noted. Neuromuscular Re-Education: Skilled Intervention: Skilled judgment used to assess appropriate program for balance and coordination activity. Ensured patient safety with use of // bars. Reviewed and educated patient on additions/changes for home program as noted above with an (*). Provided written instruction for home program to facilitate proper performance and compliance. Patient education as noted. Gait Training: Stair Training: ascending and descnding x4 6 therapy steps with reciprocal pattern and no HR Skilled Intervention: Patient was provided supervision during pre-gait/gait training to prevent falls and insure safety. Education provided to patient regarding the proper sequence for stair negotiation. Provided written instruction for home program to facilitate proper performance and compliance. Correct performance of home program was facilitated with verbal cues. Billing Therapeutic Exercise Treatment Minutes: 28 Gait Training Treatment Minutes: 2 Total Treatment Time Minutes (timed/untimed): 30 Susie Lim PT documented in this encounter [facility] 08-15-2022 Instructions Jane Grijalva MD - 08/15/2022 4:35 PM EDT Images from the original note were not included. Thank you for allowing us to perform patch testing for you! It has been a pleasure to meet you. Our entire staff hopes that the information we discovered during your patch testing will help your referring physician or other health care provider to better plan any needed future treatment. We recommend that you make sure you arrange follow-up with your referring provider in the next several months to discuss your results. While you can certainly shower after today's visit, we recommend that you avoid scrubbing the ink off the back for the next several days. In the rare chance that a new reaction occurs (a late reaction), residual ink can help us identify the allergen. If you notice a new small area of rash within the patch testing sites, please take several photos of the area and contact our office for additional instructions. Our telephone number is [phone]. We identified reactions that both appear to be allergies and may be significant. What next? You are provided today with a folder that was personalized for you by our nurses and clinical staff. It will contain: A list of all of the allergens to which we tested you. On the list you will find the chemical name of the allergen, as well as test results for 48 hours (we reviewed your photographs when provided) and 96 hours (today). The following may help you understand the test results: NT = Not tested. This is generally because the allergens are unavailable from our current supplier, or we elected not to test with these specific allergens. ? = equivocal reaction. This is a borderline-positive reaction, showing just the slightest response at the area. Your separator operator will decide whether this is relevant for your particular situation. In some instances it may be decided that the reaction is relevant, but it may also be considered irrelevant, based on the experience and judgement of your separator operator. 1+, 2+, 3+ = These are increasingly strong, positive reactions. These are often relevant for a patient, but we will discuss each positive finding with you to help establish whether it is relevant. IR = Irritant reaction. With a few exceptions, these reactions are generally not relevant. Your separator operator will carefull consider these irritant reactions and discuss with you their relevance. Information regarding each of the positive, relevant reactions. These avoidance sheets briefly explain important information about each allergen, including the kinds of products where it is likely to be found. Information about accessing a list of safe products, personalized for you. We use a system produced by the [place] [employer]. You will be given a set of codes that can be used to access the database on an ongoing basis. A very helpful tool that you can access from the [employer] Store for your mobile device is the ACD[employer] CAMP Richie. Your list can be carried with you while shopping for products that should be safe for you to use. The icon should look like this: The use of the safe product list is extremely important for anyone dealing with an allergic contact dermatitis. While not every safe product will be on the list, those that are on the list should be safe to use. It is important that you choose only the exact product on the list. While one product from a particular company may appear on the safe product list, a similar product from that company that does not appear on the list is likely to be unsafe for you. We recommend that you aggressively use only the safe product list for the next 2-3 months. Avoid contact with any products that are not on your personal safe list. If you are significantly improved by avoiding these products, then it implies that the allergens identified on the testing were relevant and important. documented in this encounter [facility] 08-15-2022 History of Presen t illness Narrative Images from the original note were not included. [facility] Derm[facility]. 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 - No rash present today. Resolved. Positive reactions included: Metals: Nickel sulfate hexahydrate (tested at 2.5% in petrolatum). A metal allergen, it is one of the most common causes of metal associated allergic contact dermatitis. It is often found as an alloy in steel and other base metals. It can frequently be encountered in costume or fashion jewelry. Other sources include belt alonzo, rivets/buttons on clothing, metal eyeglass frames and some watches (including some high-end stainless steel alloys). A spot test is available to detect the presence of leachable nickel in metals, but most often avoidance of suspect metals is sufficient. We believe this represents an allergic contact dermatitis allergen, of past clinical relevance, and patient is instructed to avoid in the future. Rationale: hx to reactions to jewelery Topical medicaments: Benzoyl peroxide (tested at 1% petrolatum). Widely-used initiator, curing agent and cross-linking agent in polymerization processes. It is an oxidizer used to bleach edible oils, flour, bread and other food. It is used as a catalyst for radical reactions. It is also used as an initiator in dental applications. In medicine, it is used in non-prescription drugs for the treatment of acne; as an antiseptic. We believe this represents an allergic contact dermatitis allergen, of uncertain clinical relevance. Rationale: unclear if this could have been used during her procedure. Neomycin (tested at 20% in petrolatum). A topical antibiotic, available [id number]-[id number]. It is also sometimes found in surgical irrigation solutions. It commonly causes dermatitis complicating superficial wounds. It is closely related to tobramycin and gentamicin, which probably should be avoided in topical and systemic forms. Also, there are significant rates of concomitant sensitization to bacitracin, which we also recommend avoiding. We believe this represents an allergic contact dermatitis allergen, of past clinical relevance, and patient is instructed to avoid in the future. Rationale: hx of reaction to topical antibiotics in the past . Bacitracin (tested at 20% in petrolatum). This is a topical antibiotic commonly found in iskw-hty-pixessq antibiotic ointments. There is often co-reactivity with polymyxin B and neomycin (these chemically unrelated antibiotics are often present in the same ointments or creams). We believe this represents an an allergic contact dermatitis allergen, of past clinical relevance, and patient is instructed to avoid in the future. Rationale: hx of reaction to topical antibiotics in the past . . Vechicles and Emulsifiers: Ethyl cyanoacrylate (tested at 10% petrolatum). Found in super glue. We believe this represents an allergic contact dermatitis allergen, of uncertain clinical relevance. Rationale: unclear if this could have been used during or after her surgery. 2-Hydroxyethyl methacrylate (RIO, tested at 2.0% in petrolatum). Found in diverse uses, such as artificial nails, gel and shellac manicures, acrylic paints, adhesives and water based paints. Its use is widespread in multiple industries. It can complicate the use of medical adhesive plasters. Avoidance information and safe-product lists can provide helpful references for the patient. We believe this represents an allergic contact dermatitis allergen, of uncertain clinical relevance. Rationale: unclear if this could have been used during or after her surgery. Zinc chloride - irritant reaction. Does not appear to be clinically relevant. We discussed the above allergens and ways to avoid them. Information regarding a safe product list (CAMP), as well as avoidance sheets were provided to the patient and discussed with her. Additional instructions: Patient Instructions Thank you for allowing us to perform patch testing for you! It has been a pleasure to meet you. Our entire staff hopes that the information we discovered during your patch testing will help your referring physician or other health care provider to better plan any needed future treatment. We recommend that you make sure you arrange follow-up with your referring provider in the next several months to discuss your results. While you can certainly shower after today's visit, we recommend that you avoid scrubbing the ink off the back for the next several days. In the rare chance that a new reaction occurs (a late reaction), residual ink can help us identify the allergen. If you notice a new small area of rash within the patch testing sites, please take several photos of the area and contact our office for additional instructions. Our telephone number is [phone]. We identified reactions that both appear to be allergies and may be significant. What next? You are provided today with a folder that was personalized for you by our nurses and clinical staff. It will contain: A list of all of the allergens to which we tested you. On the list you will find the chemical name of the allergen, as well as test results for 48 hours (we reviewed your photographs when provided) and 96 hours (today). The following may help you understand the test results: NT = Not tested. This is generally because the allergens are unavailable from our current supplier, or we elected not to test with these specific allergens. ? = equivocal reaction. This is a borderline-positive reaction, showing just the slightest response at the area. Your separator operator will decide whether this is relevant for your particular situation. In some instances it may be decided that the reaction is relevant, but it may also be considered irrelevant, based on the experience and judgement of your separator operator. 1+, 2+, 3+ = These are increasingly strong, positive reactions. These are often relevant for a patient, but we will discuss each positive finding with you to help establish whether it is relevant. IR = Irritant reaction. With a few exceptions, these reactions are generally not relevant. Your separator operator will carefull consider these irritant reactions and discuss with you their relevance. Information regarding each of the positive, relevant reactions. These avoidance sheets briefly explain important information about each allergen, including the kinds of products where it is likely to be found. Information about accessing a list of safe products, personalized for you. We use a system produced by the [place] [employer]. You will be given a set of codes that can be used to access the database on an ongoing basis. A very helpful tool that you can access from the [employer] Store for your mobile device is the [employer] Richie. Your list can be carried with you while shopping for products that should be safe for you to use. The icon should look like this: The use of the safe product list is extremely important for anyone dealing with an allergic contact dermatitis. While not every safe product will be on the list, those that are on the list should be safe to use. It is important that you choose only the exact product on the list. While one product from a particular company may appear on the safe product list, a similar product from that company that does not appear on the list is likely to be unsafe for you. We recommend that you aggressively use only the safe product list for the next 2-3 months. Avoid contact with any products that are not on your personal safe list. If you are significantly improved by avoiding these products, then it implies that the allergens identified on the testing were relevant and important. No follow-ups on file. CC: Final patch test reading and interpretation. HPI: Ms. Brandt presents for final patch test reading. Patches removed 2 days ago. Tolerated the patch test process well. No flare of dermatitis. PMH: Unchanged from previous visit ROS: Patient feels generally well. No additional skin complaints. PE: Patient appears generally well. Results from Patch Tests are documented in the photos and in the Results Smartform links below. 48 hour photograph hyperlinks (if submitted by patient or obtained in the office: [id number] Photographs from today's visit (96 hours) Results Smartform: Initial Test 1st Read 2nd Read Test Date 08/11/2022 08/13/2022 08/15/2022 Test Interval N/A 48HRS 96HRS Test Results # Desai Allergens 1st Read 2nd Read 1 . Vancomycin Hydrochloride 10% aq NEG NEG 2 . Tobramycin 20% pet. NEG NEG 3 . Benzoyl peroxide 1% pet NEG 1+ 4 . Hydroquinone 1% pet NEG NEG 5 . N,N [id number] NEG NEG 6 . Ethyl cyanoacrylate 10% pet NEG 1+ 7 . Aluminium (III) Chloride Hexahydrate 2.0% pet NEG NEG 8 . Aluminum hydroxide 10% pet NEG NEG 9 . Potassium Dichromate 0.5% pet NEG NEG 10 . Copper (II) sulfate pentahydrate 2% pet NEG NEG 11 . Gallium oxide 1% pet NEG NEG 12 . Ferric (III) chloride 2% aq NEG NEG 13 . Manganese (II) chloride 0.5% pet NEG NEG 14 . Molybdenum 0.5% pet NEG NEG 15 . Ammonium heptamolybdate () 1% aq NEG NEG 16 . Nickel sulfate hexahydrate 5% pet NEG NEG 17 . Niobium(V) chloride 0.2% pet NEG NEG 18 . Ruthenium 0.1% pet NEG NEG 20 . Tantal 1% pet. NEG NEG 21 . Tin (II) chloride 0.5% pet NEG NEG 22 . Titanium 1% pet NEG NEG NT . Titanium (III) Nitride 5.0% pet NT NT 23 . Titanium (III) Oxalate Decahydrate 5.0% pet NEG NEG 24 . Titanium (IV)) oxide 0.1% pet NEG NEG 25 . Wolfram (tungsten) 5% pet NEG NEG 26 . Tungstic acid sodium salt dihydrate 2% aq NEG NEG 27 . Vanadium pentoxide 10% pet NEG NEG 28 . Vanadium (III) Chloride 1% pet NEG NEG 29 . Zinc chloride 1% pet NEG IR 30 . Zirconium (iv) oxide 0.1% pet NEG NEG NT . Zirconium (IV) Chloride 1.0% pet NT NT 31 . Manganese Chloride 2.0% pet ? NEG 32 . Gentamicin sulfate 20% pet NEG NEG 33 SST 18 Potassium dichromate 0.25% pet NEG NEG 34 SST 9 Neomycin sulfate 20% pet NEG 1+ 35 SST 20 Nickel sulfate hexahydrate 2.5% pet NEG 1+ 36 SST 24 Bacitracin 20% pet NEG 1+ 37 SST 33 2-Hydroxyethyl methacrylate 2% pet NEG 1+ 38 SST 48 [place] (II) chloride hexahydrate 1% pet NEG NEG 39 SST 47 Methyl methacrylate 2% pet NEG NEG 40 . Chlorhexidine digluconate 0.5% aq NEG NEG 41 SST 44 Ethyl acrylate 0.1% pet NEG NEG Legend Code Meaning NEG Negative 1+, 2+, 3+ Positive ? Doubtful IR Irritant Reaction NT Not Tested Resident: Jane Grijalva MD Attending: Juliette Cook MD This note is completed at 11:01 PM on 08/28/2022 and reflects the services provided at the time of the appointment. I agree with the Chief Complaint, ROS, and Past Histories independently gathered by the clinical client application support engineer. I have seen and examined Ms. Brandt. I have discussed the case and the management of this patient's care with the Resident. I also have reviewed and agree with the assessment and plan as stated above and agree with all of its relevant components. There were no procedures performed during this patient's visit. Juliette Cook MD I spent a total of 27 minutes on the date of the service which included preparing to see the patient, [id number] patient care, performing a medically appropriate examination, counseling and educating the patient/family/caregiver, independently interpreting results (not separately reported), and communicating results to the patient/family/caregiver. documented in this encounter [facility] 08-11-2022 History of Presen t illness Narrative Patient presents today for patch test application. A total of 41 patches were applied to patient's upper back. Patient tolerated procedure well. All questions/concerns addressed. Patient instructed on the following (written instructions provided as well): Keep back dry for the week of testing Remove patches in 48 hours Remark the back with skin marker provided Take photos 20 minutes after patch removal Upload to photos to Benjamin Dimas RN documented in this encounter [facility] 07-29-2022 History of Presen t illness Narrative Episode Visit Count: 9 Therapist That Will Accept/Oversee The Plan Of Care: Susie Lim Start of Care Date: 06/25/20 Onset Date: 06/25/20 Plan of Care Certification Date: 07/23/22 Next Certification Due Date: 09/03/22 Patient Identified by Name and Date of : Yes REHABILITATION AND SPORTS THERAPY PHYSICAL THERAPY TREATMENT NOTE ASSESSMENT: Cyn Brandt tolerated the session with expected muscle soreness. She demonstrated improvements in SLS balance on firm and compliant surfaces, but loses her balance on the right with attempts closing the eyes on firm surface.. The patient will continue to benefit from ongoing skilled physical therapy to progress toward set goals. PLAN FOR NEXT VISIT: Possibly add eccentric heel lowering 8 Continue balance traning. Functional squatting. Dynamic balance training. SUBJECTIVE: Patient Reason for Visit: Pt. reports having much soreness but continues to be compliant with HEP. She feels more sore in the evenings after work. Pain: Pain Pain Level: 3 Pain Location: Knee - Right Description: Sore Post Treatment Pain Post Treatment Pain Level: No Change Post Treatment Pain Location: Knee - Right Post Treatment Symptoms: soreness reported, lateral R knee soreness reduced with supine ITB stretch OBJECTIVE MEASURES WITH LEVEL OF FUNCTION: TREATMENT: Therapeutic Exercise: 1: Eccentric heel lower 6 3x5 RLE x1 UE support 2: step ups forward 10 2x12 lead R 3: Eccentric heel lower 4 3x5 RLE x1 UE support 4: bike seat 5 min level 3 (discussed using bike at home for HEP warm up) 5: supine ITB stretch with strap 3x30 sec R Skilled Intervention: Patient was educated in proper exercise technique and purpose for exercises. Skilled judgment was provided in selection of appropriate interventions. Additional time necessary for intermittent rest and stretching due to soreness. Educated patient on rationale for performing exercises in regards to decreasing fatigue , including balance, increase ease of ADL, and ROM and function . Patient education as noted. Neuromuscular Re-Education: 1: SLS on firm surface, arms crossed 3x 30 sec each side 2: SLS on foam surface with arms crossed 3x max attempts 3: attempted SLS on firm surface with eyes closed and arms cross, LOB 4: SLS on foam holding #6 ball LLE 10 sec, 2 sets 5: SLS on foam, pushing ball in and out with BUE #6 2x10 LLE Skilled Intervention: Skilled judgment used to assess appropriate program for balance and coordination activity. Education in proprioceptive/kinesthetic awareness during standing and dynamic activities. Ensured patient safety with use of // bars within reach Patient education as noted. Billing Therapeutic Exercise Treatment Minutes: 25 Neuromuscular Re-Education Treatment Minutes: 15 Total Treatment Time Minutes (timed/untimed): 40 Susie Lim PT documented in this encounter [facility] 07-25-2022 Instructions Juliette Cook MD - 07/25/2022 2:19 PM EDT We are looking forward to assisting you with patch testing. During your visit, we discussed many important aspects of the patch testing. The potential benefits of patch testing, including the identification of possible contributing factors to the your dermatologic complaints. This may help us to provide you with information about how to avoid certain causes of your skin condition and recommend safe products for you. The potential moderate, but rare, risks of testing, which include: severe inflammation at the patch test sites pigmentary changes at the patch test sites (most often temporary) the possibility that a strong test reaction could flare your underlying skin condition a very rare, strong reaction will make it difficult or impossible to accurately interpret your response (occasionally, further testing may be required in these situations at a later date) the extremely rare possibility (estimated at 1 in 5,000) that testing may actually sensitize you (induce an allergy) to a substance to which you are tested. the extremely rare risk of anaphylaxis (a severe immediate allergic reaction -- we minimize your risk of this complication by limiting the patch testing only to certain types of rashes and by a careful history prior to testing) We spoke about the possibility that testing may be negative (no positive reactions) or non-relevant (the reactions that occur are not related to your underlying skin problem). We discussed that this may still be very valuable information to the provider who referred you to us for testing. You should avoid oral (by mouth) or injectable steroids and other immune suppressants until the final reading is completed, unless previously discussed with the patch test team. Topical steroids can continue to be used on other parts of the body, but the back or other areas discussed at the time of the visit should be avoided. Antihistamines by mouth may be continued, as they are acceptable for use during patch testing. You must avoid all sources of ultraviolet exposure to the back (or other test sites) starting today and lasting until at least 14 days after the patch testing is complete. (Shirt/blouse must cover the back when outdoors and testing must be scheduled to avoid conflicts with any vacations where sun exposure is expected.) Additionally, it is our belief that long-term ultraviolet exposure that causes a deep/persistent reeves, whether artificial or natural, significantly increases the risks of falsely negative results. Depending upon your insurance, [facility] may submit a prior authorization request on your behalf to your insurance company. You may also choose to contact your insurance company to understand any deductibles or [id number]-rq-[id number] expenses that may apply to your particular situation. In general, once the patch testing process is complete, you will follow-up with your referring provider for ongoing care. Information about your patch testing results will be forwarded to the individual who referred you to us. As a teaching hospital, you will be cared for by a team which includes nurses, dermatology residents, other [id number], and other healthcare trainees. Please refer to the separate handout provided by our patch testing staff for additional information about the process. For questions or concerns regarding your patch testing, call [phone] (the direct line to our patch testing office) OR You may also send a Hitsbook message (please type ATTN: Patch testing team near the top of the message). documented in this encounter [facility] 07-25-2022 History of Presen t illness Narrative Department of Dermatology Contact Dermatitis and Patch Testing 07/25/2022 Consultation requested by Estephania Young MD for an opinion regarding metal patch testing. My final recommendations will be communicated back to the requesting physician by way of shared medical record or letter via [place] mail This visit was completed virtually, using synchronous telemedicine technology. Assessment/Plan Problem List Items Addressed This Visit None Visit Diagnoses Contact dermatitis, unspecified contact dermatitis type, unspecified trigger - Primary Discussion: patient has been having some problems with dermatitis after knee arthroplasty. Plan: Patch testing with Metal Implant Tray and allergEAZE non-woven (hypoallergenic non-woven tape, square shaped plastic chambers....) Patient Instructions Patient Instructions We are looking forward to assisting you with patch testing. During your visit, we discussed many important aspects of the patch testing. The potential benefits of patch testing, including the identification of possible contributing factors to the your dermatologic complaints. This may help us to provide you with information about how to avoid certain causes of your skin condition and recommend safe products for you. The potential moderate, but rare, risks of testing, which include: severe inflammation at the patch test sites pigmentary changes at the patch test sites (most often temporary) the possibility that a strong test reaction could flare your underlying skin condition a very rare, strong reaction will make it difficult or impossible to accurately interpret your response (occasionally, further testing may be required in these situations at a later date) the extremely rare possibility (estimated at 1 in 5,000) that testing may actually sensitize you (induce an allergy) to a substance to which you are tested. the extremely rare risk of anaphylaxis (a severe immediate allergic reaction -- we minimize your risk of this complication by limiting the patch testing only to certain types of rashes and by a careful history prior to testing) We spoke about the possibility that testing may be negative (no positive reactions) or non-relevant (the reactions that occur are not related to your underlying skin problem). We discussed that this may still be very valuable information to the provider who referred you to us for testing. You should avoid oral (by mouth) or injectable steroids and other immune suppressants until the final reading is completed, unless previously discussed with the patch test team. Topical steroids can continue to be used on other parts of the body, but the back or other areas discussed at the time of the visit should be avoided. Antihistamines by mouth may be continued, as they are acceptable for use during patch testing. You must avoid all sources of ultraviolet exposure to the back (or other test sites) starting today and lasting until at least 14 days after the patch testing is complete. (Shirt/blouse must cover the back when outdoors and testing must be scheduled to avoid conflicts with any vacations where sun exposure is expected.) Additionally, it is our belief that long-term ultraviolet exposure that causes a deep/persistent reeves, whether artificial or natural, significantly increases the risks of falsely negative results. Depending upon your insurance, [facility] may submit a prior authorization request on your behalf to your insurance company. You may also choose to contact your insurance company to understand any deductibles or tfw-eh-[id number] expenses that may apply to your particular situation. In general, once the patch testing process is complete, you will follow-up with your referring provider for ongoing care. Information about your patch testing results will be forwarded to the individual who referred you to us. As a teaching hospital, you will be cared for by a team which includes nurses, dermatology residents, other [id number], and other healthcare trainees. Please refer to the separate handout provided by our patch testing staff for additional information about the process. For questions or concerns regarding your patch testing, call [phone] (the direct line to our patch testing office) OR You may also send a Hitsbook message (please type ATTN: Patch testing team near the top of the message). Follow-up as noted below or as needed. Chief Complaint: Patch testing consult for metals Subjective and Objective HPI: Cyn Brandt is a 51 year old female who presents for: Consideration of patch testing -s/p R TKA -Post-operative course has been with complication. She was seen in the ER on 06/12/22 for severe allergic reaction (hand/feet swelling, hives all over body) after a bug bite. She was started on IV steroids and discharged on prednisone. About 2 weeks after the procedure, developed hives -- taking antihistamines every few hours. Received prednisone course. Took about 2 weeks to resolve. Also had rash on the sides of the incision. Lasted about 2 weeks here. Patient is concerned about the possibility of a metal allergy being associated. Some nickel noted in the [employer]ath[employer] 1 alloy. -- titanium Topical allergies: Fragrance/ cosmetics: : YES has sensitivity to inhaled fragrances, needs to be careful with makeup. Dyes: No Rubber/plastic: No Glues/adhesives: No (certain bandaids will cause problems). Topical Medications: No Metals: YES sometimes will have problems with certain earrings -- sometimes a fairly severe reaction Other: No H/o atopy: Asthma: No (sometimes with bronchitis). Seasonal allergies: YES mild, but less than fragrances Childhood eczema: No / history of psoriasis. 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 Hobbies: none Improvement on weekends/vacations: No Sunburn or ultraviolet exposure to the back in the last 30 days? No PAST MEDICAL HISTORY Diagnosis Date DVT (deep venous thrombosis) ([facility]) at age 8; was on blood thinner Multiple benign bone tumors Plantar fasciitis Polyarthritis Rheumatoid arthritis ([facility]) Shingles 2011 Tachycardia Ulcerative colitis ([facility]) Current Outpatient Medications on File Prior to Visit Medication Sig gabapentin (NEURONTIN) 300 mg capsule Take 1 capsule by mouth three times daily for 30 days. predniSONE (DELTASONE) 10 mg tablet Take 1 tablet by mouth once daily. Take 20 mg by mouth once for two days followed by 10 mg by mouth once for two days CALCIUM-VITAMIN D2 ORAL Take 1 capsule by mouth once daily. 1.25 mg aspirin, enteric coated (ASPIRIN, ENTERIC COATED) 81 mg EC tablet Take 1 tablet by mouth twice daily for 28 days. ascorbic acid, vitamin C, (VITAMIN C) 500 mg tablet Take 1 tablet by mouth twice daily with meals for 27 doses. ondansetron orally disintegrating (ZOFRAN ODT) 4 mg disintegrating tablet Take 1 tablet by mouth every 6 hours as needed. (Patient taking differently: Take 4 mg by mouth every 6 hours as needed for nausea/vomiting.) acetaminophen (TYLENOL) 500 mg tablet Take 1,000 mg by mouth every 8 hours as needed for pain. metoprolol succinate ER (TOPROL XL) 50 mg 24 hr tablet Take 25 mg by mouth once daily. omeprazole (PRILOSEC) 20 mg capsule 1 tablet by mouth one time a day Azelastine 0.15 % (205.5 mcg) spry azelastine 0.15 % (205.5 mcg) nasal spray Adalimumab (HUMIRA PEN) 40 mg/0.8 mL pnkt Inject 0.8 mL subcutaneously as directed. 1 pen (40mg/0.8ml) every other week. DULoxetine (CYMBALTA) 60 mg capsule Take 1 capsule by mouth once daily. lisinopril 10 mg tablet Take 20 mg by mouth once daily. estradiol 2 mg tablet Take 2 mg by mouth once daily. No current facility-administered medications on file prior to visit. ROS: Patient feels generally well Denies other rashes or pruritus Denies other worrisome skin lesions Physical exam (pertinent): Limited by the virtual visit technology. No active dermatitis. Attending attestation: Juliette Cook MD This note is completed at 10:43 PM on 07/25/2022 and reflects the services provided at the time of the appointment. I agree with the Chief Complaint, ROS, and Past Histories independently gathered by the clinical client application support engineer. Medical Decision Making: Problems: Moderate: New problem with uncertain prognosis Risk: Moderate: Moderate risk from testing/treatment Medical Decision Making Level: 4 - Moderate documented in this encounter [facility] 07-23-2022 History of Presen t illness Narrative Episode Visit Count: 8 Therapist That Will Accept/Oversee The Plan Of Care: Susie Lim Start of Care Date: 06/25/20 Onset Date: 06/25/20 Plan of Care Certification Date: 07/23/22 Next Certification Due Date: 09/03/22 Patient Identified by Name and Date of : Yes REHABILITATION AND SPORTS THERAPY PHYSICAL THERAPY PROGRESS REPORT PLAN OF CARE UPDATE: Assessment: Cyn Brandt demonstrates improvements in rising from a chair, standing, walking, walking in the house, stair negotiation, bending, lifting, and working. She hasprogressed toward goals. Patient continues to present with impairments in ADL's, flexibility, joint mobility, overall function, patient reported outcome measures, range of motion, strength , symptom management, tissue tenderness, and functional performance testing indicates pt. Could further progress functional strength/stability of R quadriceps as well as endurance that interfere with walking in the community;sleeping;working;squat ting;physical activities;bending . Current prognosis is Good due to: positive past response to therapy;within-session changes;good support system/ coping skills;good overall health status;acuteness of condition;current objective clinical presentation . She will benefit from continued skilled therapy services to meet the updated goals for this plan of care as noted below. Goals for Episode of Care: created on 06/25/20 through 08/20/22 Goals updated on 07/23/2022 through 09/03/22 Return to work, reporting no increased symptoms >2/10 from baseline during or after typical work day activities -- PROGRESSING [place] in home exercise program. -- MET Patient will decrease pain to 1-2/10 with functional activities to allow patient to improve ambulation, transfers, and standing tolerance for ADLs.-- PROGRESSING Patient will increase active ROM of R knee extension LAQ to 0 and supine R knee flexion AROM to 115 to allow pt to to improve performance of ADLs, to improve gait mechanics / gait pattern , and to decrease falls risks . --PROGRESSING LAQ, knee flexion AROM MET Perform transfers, driving, standing, and walking community distances with decreased report of symptoms/pain in 8 weeks. -- PROGRESSING Patient will Improve Timed Up and Go to 6 seconds without use of AD to demonstrate decreased risk of falling. -- MET 30 sec sit <> stand to 18 or more reps to demonstrate improved functional strength. -- PROGRESSING 12 Reps without use of arm rests Improve postural awareness.-- MET Normal gait. -- MET Patient will ascend and descend 12 8 steps with rail. with no device independently and safe technique demonstrating step over step pattern. -- PROGRESSING Patient will demonstrate improved neuromuscular coordination as evidenced by improve function for prior functional tasks and work tasks. -- PROGRESSING Patient Goals: restore functional mobility and strength of RLE --PROGRESSING Patient Goals: restore functional mobility and strength of RLE Planned Interventions, Frequency, and Duration: 1x/week, 6 weeks Total Number of Visits Planned: 6 Patient to be seen for Therapeutic exercise (45429);Neuromuscular re-education (73888);Manual therapy (90748);Therapeutic activities (74886);Self-penitentiary management (61054);Gait Training (79032);Patient/Family/Caregiver Education PLAN FOR NEXT VISIT: SLS balance, compliant surface NMRE, eccentric quadriceps control strengthening, and functional movements/transitions while maintaining ROM and gait pattern. SUBJECTIVE: Patient Reason for Visit: Pt. returned to work FT yesterday without her cane. She reports having much increased soreness last night and today. Pain increased to 5/10 last night.. Patient Goals: restore functional mobility and strength of RLE Functional Limitations: walking in the community;sleeping;working;squat ting;physical activities;bending Pain: Pain Pain Level: 3 Pain Location: Knee - Right Description: Sore Post Treatment Pain Post Treatment Pain Level: No Change Post Treatment Pain Location: Knee - Right PROMIS Scales Higher is Better 06/21/2022 07/02/2022 07/18/2022 Phys Func - Score 28 (severe dysfunction) - 38 (moderate dysfunction) Phys Func - Percentile 1 % - 12 % GH Physical - Score - 34.9 (Poor) - GH Physical - Percentile - 7 % - GH Mental - Score - 38.8 (Fair) - GH Mental - Percentile - 13 % - Self-Eff Symptom - Score 46 (Average) - 43 (Average) Self-Eff Symptom - Percentile 34 % - 24 % T-scores: mean of general population = 50. 5 points is clinically meaningfully difference Percentiles provide an indication of how the patient's score ranks in relation to the general population. Higher percentile rankings indicate better function/quality of life. 50th percentile is the average of the general population and indicates half of respondents had a worse score. T-scores: mean of general population = 50. 5 points is clinically meaningfully difference Percentiles provide an indication of how the patient's score ranks in relation to the general population. Higher percentile rankings indicate better function/quality of life. 50th percentile is the average of the general population and indicates half of respondents had a worse score. OBJECTIVE MEASURES WITH LEVEL OF FUNCTION: LE AROM R Knee Extension: -6 Degrees (fatigues quickly) R Knee Flexion: 116 Degrees (supine heel slide) L Knee Flexion: 147 Degrees LE PROM R Knee Extension: 0 Degrees R Knee Flexion: 120 Degrees Functional Performance Test Results Assistive Device: None 30 Second Chair Stand Test: 12 reps Timed Up and Go (sec): 7 sec Timed Up and Go - Condition 2 (sec) : 5.4 TREATMENT: Therapeutic Exercise: 2: quad sets 2x15, 5 sec hold 3: supine heel slides 2x10 with strap crossed over ankle and behind knee 4: 30 sec sit <> stand 12 reps without arm rests 5: step stretch knee flexion 3x30 seconds 6: supine heel slide R 2x10 AROM 8: LAQ 2x10 R slow, controlled reps Skilled Intervention: Patient was educated in proper exercise technique and purpose for exercises. Skilled judgment was provided in selection of appropriate interventions. Additional time necessary for assessing progress toward goals due to PN today. Educated patient on rationale for performing exercises in regards to decreasing fatigue , including balance, increase ease of ADL, and ROM and function . Patient education as noted. Neuromuscular Re-Education: 1: TUG test 2x trials without AD Skilled Intervention: Skilled judgment used to assess appropriate program for balance and coordination activity. Patient education as noted. Self-Fci Management: 1: *discussed continued stretching throughout the day to maintain ROM 2: *discussed POC to include SLS balance, compliant surface NMRE, eccentric quadriceps control strengthening, and functional movements/transitions while maintaining ROM and gait pattern. Skilled Intervention: Skilled judgment in the selection of proper modification for activity of daily living/home management based on clinical presentation, deficits, and needs. Physical assistance was provided during education for modifications and patient safety. Reviewed patient specific diagnosis in relation to activities of daily living/home management. Activity progression based on professional judgement. Correct performance of home program was facilitated with verbal, visual, and tactile cueing. Billing Therapeutic Exercise Treatment Minutes: 30 Neuromuscular Re-Education Treatment Minutes: 5 Self-Care/Home Management Treatment Minutes: 10 Total Treatment Time Minutes (timed/untimed): 45 Susie Lim PT documented in this encounter [facility] 07-21-2022 History of Presen t illness Narrative Episode Visit Count: 7 Therapist That Will Accept/Oversee The Plan Of Care: Susie Lim Start of Care Date: 06/25/20 Onset Date: 06/25/20 Plan of Care Certification Date: 06/24/22 Next Certification Due Date: 07/29/22 Patient Identified by Name and Date of : Yes REHABILITATION AND SPORTS THERAPY PHYSICAL THERAPY TREATMENT NOTE ASSESSMENT: Cyn Brandt tolerated the session with fatigue and expected muscle soreness. She demonstrated improvements in R knee flexion. The patient will continue to benefit from ongoing skilled physical therapy to progress toward set goals. PLAN FOR NEXT VISIT: Continue progressing RLE strengthening. Work on SLS SUBJECTIVE: Patient Reason for Visit: Pt reports being very sore for 2 days after last session. Pt now back to taking Tramadol and it seems to be helping. Pain: Pain Pain Level: 3 Pain Location: Knee - Right Post Treatment Pain Post Treatment Pain Level: No Change Post Treatment Pain Location: Knee - Right OBJECTIVE MEASURES WITH LEVEL OF FUNCTION: LE AROM R Knee Flexion: 117 Degrees TREATMENT: Therapeutic Exercise: 1: Scifit stepper x 5 minutes (Subjective taken and HEP discussed.) 2: quad sets 2x15, 5 sec hold 3: supine heel slides 2x10 with strap crossed over ankle and behind knee 4: SAQ 2x15 (sore) 5: step stretch knee flexion 3x30 seconds 6: *Step ups blue step 2x10 Foward and lateral 7: Step downs green step 2x10 8: LAQ 2x10 R with 1.5# ankle weight 9: Seated self mobilitazion knee flexion with scooting forward in chair with RLE planted x5 rounds 10: Standing TKE with OTB 2x10 Skilled Intervention: Patient was educated in proper exercise technique and purpose for exercises. Reviewed and educated patient on additions/changes for home exercise program as above (*). Skilled judgment was provided in selection of appropriate interventions. Correct performance of therapeutic exercises was facilitated with verbal and visual cuing. Billing Therapeutic Exercise Treatment Minutes: 45 Total Treatment Time Minutes (timed/untimed): 45 MARIEL Galindo PT documented in this encounter [facility] 07-16-2022 History of Presen t illness Narrative Episode Visit Count: 6 Therapist That Will Accept/Oversee The Plan Of Care: Susie Lim Start of Care Date: 06/25/20 Onset Date: 06/25/20 Plan of Care Certification Date: 06/24/22 Next Certification Due Date: 07/29/22 Patient Identified by Name and Date of : Yes REHABILITATION AND SPORTS THERAPY PHYSICAL THERAPY TREATMENT NOTE ASSESSMENT: Cyn Brandt tolerated the session with increased symptoms. She demonstrated improvements in R knee flexion AROM. The patient will continue to benefit from ongoing skilled physical therapy to progress toward set goals. PLAN FOR NEXT VISIT: Try step downs SUBJECTIVE: Patient Reason for Visit: Pt reports seeing her surgeon yesterday and he is pleased with her progress and doesn't think her skin issue is related to the metal of the implant. Pt still going to undergo allergy testing. Pt reports her R knee feels stronger. Pt reports using riding mower to mow 2 acres over the weekend. Pt has been going to work this week and its going well. Pain: Pain Pain Level: 3 Pain Location: Knee - Right Post Treatment Pain Post Treatment Pain Level: 5 Post Treatment Pain Location: Knee - Right OBJECTIVE MEASURES WITH LEVEL OF FUNCTION: LE AROM R Knee Flexion: 115 Degrees TREATMENT: Therapeutic Exercise: 1: Scifit stepper x 5 minutes (Subjective taken and HEP discussed.) 2: quad sets 2x15, 5 sec hold 3: supine heel slides 3x10 with strap crossed over ankle and behind knee 4: SAQ 2x12 (sore) 5: STS 3x10 6: Step ups blue step 2x10 Foward and lateral 8: LAQ 3x10 R 9: Standing calf riases 2x10 10: Standing TKE with OTB 2x10 11: Standing hip flexion, abduction, and extension 2x10 RLE only Skilled Intervention: Patient was educated in proper exercise technique and purpose for exercises. Skilled judgment was provided in selection of appropriate interventions. Correct performance of therapeutic exercises was facilitated with verbal cuing. Billing Therapeutic Exercise Treatment Minutes: 38 Total Treatment Time Minutes (timed/untimed): 38 MARIEL Galindo PT documented in this encounter [facility] 07-15-2022 History of Presen t illness Narrative Post-op Office Visit Cyn Brandt 51 year old July 15, 2022 2:38 PM Surgery Date: 05/30/22 History: Cyn Brandt Is now 6 weeks out from right TKA. Postoperatively she developed an extreme dermal reaction to the adhesive of the Band-Aid. This is now nearly completely resolved. She also developed hives all over her body, unclear whether this is medication or surgery related. She does have a significant history of contact dermatitis and allergic responses to multiple items. The majority of this is now resolved. Subjective: Patient reports minimal pain. Overall is doing well. Weaning off of a cane for outdoor ambulatory aid Off opioid pain medication He is happy with knee replacement which is functioning well Objective: Ambulates with slight limp Incision well-approximated, no drainage, normal steph-incisional erythema ROM 5-115 Distally DP/PT palpable Distally S/S/SP/DP/T intact at baseline Distally DF/EHL/PF intact at baseline Negative gene/calf tenderness Xrays: No new today Assessment and Plan: Cyn Brandt Is here for a second post-op appointment, overall doing well -continued ice, rest, and use of non-narcotic analgesia as needed -discussed home exercises -Discussed nickel allergies today. I do not think this would present as a dermal reaction around her incision noted I think would present as hives all over. I think these are much more likely to be related to the adhesives and the medications around the time of surgery. Nevertheless these appear to have resolved. She is doing much better in that regard. Overall quite happy with her knee replacement. -WBAT on operative extremity -continue ankle pumps and dvt ppx through 4 weeks -will see back at 1 year post-op for repeat exam and xrays--can see sooner if needed -discussed red flag symptoms of acutely increasing pain, new erythema, new swelling, drainage, shortness of breath Estephania Watts MD Orthopaedic Surgery documented in this encounter [facility] 07-09-2022 History of Presen t illness Narrative Episode Visit Count: 5 Therapist That Will Accept/Oversee The Plan Of Care: Susie Lim Start of Care Date: 06/25/20 Onset Date: 06/25/20 Plan of Care Certification Date: 06/24/22 Next Certification Due Date: 07/29/22 Patient Identified by Name and Date of : Yes REHABILITATION AND SPORTS THERAPY PHYSICAL THERAPY TREATMENT NOTE ASSESSMENT: Cyn Brandt tolerated the session with increased symptoms. She demonstrated difficulty with SAQ. The patient will continue to benefit from ongoing skilled physical therapy to progress toward set goals. PLAN FOR NEXT VISIT: Continue progressing ROM and Strength of R knee per pt's tolerance. SUBJECTIVE: Patient Reason for Visit: Pt states seeing Dr. Watts's DYE MACHINE OPERATOR yesterday and they beleive that she is allergic to the nickel in the implant and her rash isn't from the stitches. Pt to see surgeon 07/15 and then import specialist 07/25 for consult then allergy testing 08/11. Pt trying to get in sooner for allergy testing. Pt has had increased numbness in RLE and foot since last session, not sure if its due to CRPS or the exrcises we are doing. Pain: Pain Pain Level: 5 Pain Location: Knee - Right Description: Aching;Sore Post Treatment Pain Post Treatment Pain Level: Worse Post Treatment Pain Location: Knee - Right OBJECTIVE MEASURES WITH LEVEL OF FUNCTION: Pt demonstrated increased ease with STS without hands and good form. TREATMENT: Therapeutic Exercise: 1: Scifit stepper x 5 minutes (Subjective taken and HEP discussed.) 2: quad sets 2x12, 5 sec hold 3: supine heel slides 3x10 with strap crossed over ankle and behind knee 4: SAQ x10,x8 (Painful increaed to 7/10) 5: STS 2x10 (with wide SHELTON, pt states its getting easier) 8: LAQ 2x10 R 9: Standing calf riases 2x10 11: Standing hip flexion, abduction, and extension x10, x 8 RLE only Skilled Intervention: Patient was educated in proper exercise technique and purpose for exercises. Skilled judgment was provided in selection of appropriate interventions. Correct performance of therapeutic exercises was facilitated with verbal cuing. Billing Therapeutic Exercise Treatment Minutes: 40 Total Treatment Time Minutes (timed/untimed): 40 MARIEL Galindo PT documented in this encounter [facility] 07-08-2022 History of Presen t illness Narrative Post-op Office Visit Cyn Brandt 51 year old July 08, 2022 9:45 AM Surgery Date: 05/27/22 History: Cyn Brandt Is now 5 weeks out from R TKA. Post-operative course has been with complication. She developed a contact dermatitis and broke out in hives acutely after surgery. She was treated in the ER for this. She contacted me again last week after she an isolated break out in her right knee as well. Her PCP treated her with atarax and prednisone. She presents today for follow up. Subjective: Patient reports minimal pain. Overall is doing well. Objective: Ambulates with cane Incision well-healed. She has raised red rash surrounding the incision. No pustules, weeping, or drainage. ROM 2 - 110 Distally DP/PT palpable Distally S/S/SP/DP/T intact at baseline Distally DF/EHL/PF intact at baseline Negative gene/calf tenderness Xrays: None today Assessment and Plan: Cyn Brandt Is here for a first post-op appointment, overall doing well -continued ice, rest, and use of non-narcotic analgesia as needed -continue PT and WBAT - continue to monitor incision and contact office if condition changes -follow up with Dr. Watts as scheduled Raheel Henry APRN.CNP Orthopaedic Surgery documented in this encounter [facility] 07-03-2022 History of Presen t illness Narrative Episode Visit Count: 3 Therapist That Will Accept/Oversee The Plan Of Care: Susie Lim Start of Care Date: 06/25/20 Onset Date: 06/25/20 Plan of Care Certification Date: 06/24/22 Next Certification Due Date: 07/29/22 Patient Identified by Name and Date of : Yes REHABILITATION AND SPORTS THERAPY PHYSICAL THERAPY TREATMENT NOTE ASSESSMENT: Cyn Brandt tolerated the session with increased symptoms. She demonstrated difficulty with LAQ. The patient will continue to benefit from ongoing skilled physical therapy to progress toward set goals. PLAN FOR NEXT VISIT: Increase reps wtih heel slides SUBJECTIVE: Patient Reason for Visit: Pt reports walking alot the othe rday without her cane whihc increased her soreness in R knee. Pt's rash on R knee is getting worse, pt saw her PCP and he gave her mdication. PCP thinks she is having an allergic reaction to the stitches being absorbed. Pt is also in contact with her surgeon about this. Pain: Pain Pain Level: 3 Pain Location: Knee - Right Description: Aching Post Treatment Pain Post Treatment Pain Level: 5 Post Treatment Pain Location: Knee - Right Post Treatment Pain Description: Sore OBJECTIVE MEASURES WITH LEVEL OF FUNCTION: LE PROM R Knee Extension: -4 Degrees (with LAQ) R Knee Flexion: 111 Degrees TREATMENT: Therapeutic Exercise: 1: Scifit stepper x 5 minutes (Subjective taken and HEP discussed.) 2: quad sets 2x12, 5 sec hold 3: supine heel slides 2x10 with strap crossed over ankle and behind knee (painful) 4: SAQ 2x10 with 5 second hold (Painful/pulling) 5: *STS 2x10 (with wide SHELTON) 6: SLR 2x10 7: *Seated hamstring stretch 3x30 seconds R 8: *LAQ 2x10 R Skilled Intervention: Patient was educated in proper exercise technique and purpose for exercises. Skilled judgment was provided in selection of appropriate interventions. Correct performance of therapeutic exercises was facilitated with verbal cuing. Billing Therapeutic Exercise Treatment Minutes: 45 Total Treatment Time Minutes (timed/untimed): 45 MARIEL Galindo PT documented in this encounter [facility] 07-01-2022 Miscellaneous Notes Spoke with pt Hives on right knee Has been taking benadryl and it helps a little bit Had atrax from a few weeks ago fro her allergic reaction ad it helped She did sit in the sun for 5 minutes, which she is allergic to the sun due to CRPS She had also used Biofreeze Advised to NOT use the biofreeze PCP's office is closed per message on machine She will try again to call documented in this encounter [facility] 06-30-2022 History of Presen t illness Narrative Episode Visit Count: 2 Therapist That Will Accept/Oversee The Plan Of Care: Susie Lim Start of Care Date: 06/25/20 Onset Date: 06/25/20 Plan of Care Certification Date: 06/24/22 Next Certification Due Date: 07/29/22 Patient Identified by Name and Date of : Yes REHABILITATION AND SPORTS THERAPY PHYSICAL THERAPY TREATMENT NOTE ASSESSMENT: Cyn Brandt tolerated the session with increased symptoms. She demonstrated difficulty with supine heel slides with strap due to increase in pain. The patient will continue to benefit from ongoing skilled physical therapy to progress toward set goals. PLAN FOR NEXT VISIT: Give seated HS stretch next visit SUBJECTIVE: Patient Reason for Visit: Pt was 5 minutes late this vist. Pt states her R knee is hurting more today, did some cleaning over the weekend. Pain was initally 5/10 upon waking up this morning but has decreased with pain meds. Pt's R knee broke out from applying Biofreeze over the weekend. Pt trying to get appointment with primary to address the breakout. Pt cleared to drive but doesn't feel comfortable doing so yet. Pain: Pain Pain Level: 3 Pain Location: Knee - Right Description: Aching;Sharp Frequency: With movement Post Treatment Pain Post Treatment Pain Level: 5 Post Treatment Pain Location: Knee - Right Post Treatment Pain Description: Aching OBJECTIVE MEASURES WITH LEVEL OF FUNCTION: LE PROM R Knee Flexion: 111 Degrees (AAROM with strap, supine) Functional Performance Test Results 30 Second Chair Stand Test: 6 reps Timed Up and Go (sec): 12 sec 4 Stage Balance Test Narrow base of support (sec): 30 sec Semi-tandem base of support (sec): 30 sec Tandem base of support (sec): 30 sec Single leg stance - right (sec): 10 sec TREATMENT: Therapeutic Exercise: 1: Scifit stepper x 5 minutes (Subjective taken and HEP discussed.) 2: quad sets [id number], 5 sec hold 3: supine heel slides 2x10 with strap crossed over ankle and behind knee (painful) 4: SAQ x10 5: STS x6 (without BUE, 30 second sit to stand test) 6: Objective measures taken includin Stage blance test, TUG, and 30 second STS Skilled Intervention: Patient was educated in proper exercise technique and purpose for exercises. Skilled judgment was provided in selection of appropriate interventions. Correct performance of therapeutic exercises was facilitated with verbal and visual cuing. Billing Therapeutic Exercise Treatment Minutes: 40 Total Treatment Time Minutes (timed/untimed): 40 MARIEL Galindo PT documented in this encounter [facility] 06-24-2022 History of Presen t illness Narrative Episode Visit Count: 1 Therapist That Will Accept/Oversee The Plan Of Care: Susie Lim Start of Care Date: 06/25/20 Onset Date: 06/25/20 Plan of Care Certification Date: 06/24/22 Next Certification Due Date: 07/29/22 Patient Identified by Name and Date of : Yes REHABILITATION AND SPORTS THERAPY PHYSICAL THERAPY EVALUATION PLAN OF CARE: Assessment: Cyn Brandt presents with diagnosis of s/p R TKA that interferes with standing;rising from a chair;walking;walking in the house;walking in the community . She presents with impairments in ADL's, balance, flexibility, gait, independence in exercise, joint mobility, overall function, patient reported outcome measures, posture, range of motion, soft tissue healing, strength , stress management, symptom management, tissue tenderness, and functional performance testing indicates pt. Demonstrates decreased functional strength as PLOF. Prognosis for therapy is Fair due to: clinical presentation;multiple co- morbidities;chronic nature of impairments;Prognosis may be improved by good support system/ coping skills;good overall health status;acuteness of injury;positive past response to therapy;within-session changes;current objective clinical presentation. She will benefit from skilled therapy services to meet the goals established for this plan of care as noted below. Goals for Episode of Care: created on 06/25/20 through 08/20/22 Return to work, reporting no increased symptoms >2/10 from baseline during or after typical work day activities [place] in home exercise program. Patient will decrease pain to 1-2/10 with functional activities to allow patient to improve ambulation, transfers, and standing tolerance for ADLs. Patient will increase active ROM of R knee extension LAQ to 0 and supine R knee flexion AROM to 115 to allow pt to to improve performance of ADLs, to improve gait mechanics / gait pattern , and to decrease falls risks . Perform transfers, driving, standing, and walking community distances with decreased report of symptoms/pain in 8 weeks. Patient will Improve Timed Up and Go to 6 seconds without use of AD to demonstrate decreased risk of falling. 30 sec sit <> stand to 18 or more reps to demonstrate improved functional strength. Improve postural awareness. Normal gait. Patient will ascend and descend 12 8 steps with rail. with no device independently and safe technique demonstrating step over step pattern. Patient will demonstrate improved neuromuscular coordination as evidenced by improve function for prior functional tasks and work tasks. Patient Goals: restore functional mobility and strength of RLE Planned Interventions, Frequency, and Duration: Current Frequency: 2x/week Duration: 8 weeks Total Number of Visits Planned: 16 Planned Treatment Interventions: Therapeutic exercise (46585);Neuromuscular re-education (36545);Manual therapy (20745);Therapeutic activities (46087);Self-penitentiary management (43946);Gait Training (39608);Patient/Family/Caregiver Education PLAN FOR NEXT VISIT: Functional performance testing including 30 sec sit <> stand, TUG, and 4 stage balance on firm surface, gait training treatment. Provide closed chain functional strengthening HEP. Measure AAROM knee flexion progress, measure LAQ AROM R knee extension. Patient demonstrates good understanding of plan of care and treatment. The above goals and plan of care were discussed and agreed upon by patient/family. 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 In december 2020, she was found to have advanced AVN and had core decompression R knee. May 2022 she was diagnosed with CRPS. Pt. has a history of RA. Pt. reports losing much strength due R knee medical complications and NWB status duration preceding most recent surgery. 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 Home Environment Patient Lives With: Self/Alone Assistance Available: None Home Type: Multi-Level with First Floor Set-Up Entry To Home: Stairs;With Rail Number Of Stairs Into Home: 12 Tub/Shower Type: tub Equipment Owned: Crutch(es);Cane Intake Information: Prescription present Previous Treatment: Physical Therapy ;NSAIDs ;Pain Management Falls Interview: No positive findings with falls interview Falls History # of falls in past year: 0 Pain: Pain Pain Level: 4 Pain Location: Knee - Right Description: Aching Frequency: With movement Post Treatment Pain Post Treatment Pain Level: No Change Post Treatment Pain Location: Knee - Right Post Treatment Pain Description: Aching PROMIS Scales Higher is Better 04/28/2022 06/21/2022 Phys Func - Score - 28 (severe dysfunction) Phys Func - Percentile - 1 % GH Physical - Score 37.4 (Fair) - GH Physical - Percentile 10 % - GH Mental - Score 41.1 (Good) - GH Mental - Percentile 19 % - Self-Eff Symptom - Score - 46 (Average) Self-Eff Symptom - Percentile - 34 % T-scores: mean of general population = 50. 5 points is clinically meaningfully difference Percentiles provide an indication of how the patient's score ranks in relation to the general population. Higher percentile rankings indicate better function/quality of life. 50th percentile is the average of the general population and indicates half of respondents had a worse score. T-scores: mean of general population = 50. 5 points is clinically meaningfully difference Percentiles provide an indication of how the patient's score ranks in relation to the general population. Higher percentile rankings indicate better function/quality of life. 50th percentile is the average of the general population and indicates half of respondents had a worse score. OBJECTIVE MEASURES WITH LEVEL OF FUNCTION: Cognition Cognition: Follows Commands Vision Vision Deficits: Wears corrective lenses Knee Observations R Knee Presents with: Swelling;Incision;Comments R Swelling: minimal R Incision: healing, scabbed, no signs or symptoms of infection observed R Knee Palpation Tenderness: Comments (incision) Sensation - Lower Extremity LE Light Touch Sensation: Grossly Intact LE AROM R Knee Flexion: 98 Degrees LE PROM R Knee Extension: 0 Degrees (supine, towel roll posterior heel AAROM) R Knee Flexion: 105 Degrees (AAROM with strap, supine) Functional Strength Functional Strength: Sit<>stand;Rolling;Step up;Step down Sit/Stand: with B arm rests Step up: leads L Step down: leads R Mobility Rolling: Independent Supine To Sit: Independent Sit to Supine: Independent Sit To Stand: Modified Independent Stand To Sit: Modified Independent Bed To Chair: Modified Independent Gait Weight Bearing Status: WBAT Gait: Modified Independent Gait Distance (feet): 100 Gait Device: Cane Gait Deviations: Right Lower Extremity Gait Deviations Right Lower Extremity: Heel strike during initial stance decreased;Knee flexion during stance increased;Knee stability during stance phase decreased;Lacks hip extension beyond mid-stance;Lacks full knee extension during terminal swing;Push off during terminal stance decreased;Stance time decreased;Weight bearing decreased Functional Performance Test Results Assistive Device: Cane Education: Education Learning Preferences: Printed Materials;Performance;Explanatio n;Demonstration Barriers: Acuity of Illness Learning/educational needs: Plan of Care;Home exercise program;Safety;Gait Training;Posture Education Provided: Yes, see treatment interventions for education provided Education Provided To: Patient Education Mode/Type: Demonstration;Explanation/Discus vika;Literature/Printed Materials;Performance Response to Education/Teach Back: States/Identifies;Return Demonstration TREATMENT: PT Treatment Interventions: Therapeutic Exercise;Self-Fci Management Evaluation Evaluation Therapeutic Exercise: 1: *SAQ [id number] 2: *quad sets [id number], 5 sec hold 3: *supine heel slides [id number] 4: *dc closed chain stand to sit knee flexion exercise that causes increased symptoms Skilled Intervention: Patient was educated in proper exercise technique and purpose for exercises. Skilled judgment was provided in selection of appropriate interventions. Provided written instruction for home exercise program to facilitate proper performance and compliance. Correct performance of therapeutic exercises was facilitated with verbal, visual, and tactile cuing. Additional time necessary for providing pt. Education, reviewing current HEP, and discussing goals due to initial evaluation. Educated patient on rationale for performing exercises in regards to decreasing fatigue , including balance, increase ease of ADL, and ROM and function . Patient education as noted. Self-Fci Management: 1: *reviewed correct technique of home PT HEP she is currently completing, discussed functional relevance and ROM goals for each exercise 2: *discussed fewer reps, (pt. currently doing 20 reps of each) pt. to complete 10-12 reps, 2-3 sets, 3-5 times a day. No more than 10 min for HEP each session. It is more beneficial complete reps through greater ROM each set and hold for a longer count to allow tissues to adapt to greater ranges than tcomplete quickly through range that has already been achieved. 3: *discussed walking frequently throughout the day, but taking more frequent rest than PLOF. 4: *discussed rehabilitation goals expected to possibly take longer than what is typical s/p TKA due to medical history and complications of RLE for 2 years. Skilled Intervention: Skilled judgment in the selection of proper modification for activity of daily living/home management based on clinical presentation, deficits, and needs. Physical assistance was provided during education for modifications and patient safety. Educated the patient regarding recommendations and provided written instruction to facilitate compliance. Provided written instruction for activities of daily living techniques to facilitate proper performance and compliance. Reviewed patient specific diagnosis in relation to activities of daily living/home management. Activity progression based on professional judgement. Correct performance of home program was facilitated with verbal, visual, and tactile cueing. Billing * Evaluation Low Complexity: 1 Unit Therapeutic Exercise Treatment Minutes: 15 Self-Care/Home Management Treatment Minutes: 10 Total Treatment Time Minutes (timed/untimed): 45 Susie Lim, PT documented in this encounter [facility] 06-20-2022 Miscellaneous Notes SITUATION: no one present during today's visit. patient reports the following since the last homecare visit: medications/allergies--no changes, no fall. patient reports that she had a good appointment with ortho. He is kai valencia taper her steroids instead of an abrupt stop Diagnoses (reason for Home Care): R TKA Past Medical History: AVN, former smoker, UC, RA Weight Bearing or Surgical Precautions: WBAT Weight Bearing/Precaution Changes: no changes ASSESSMENT: Focus of visit: reassessment/discharge Physical therapy discharged: goals achieved. Functional performance at discharge - bed mobility independent, transfers independent, ambulation independent and stairs independent. Plan of care, goals, and discharge reviewed and agreed upon with patient and/or caregiver. RECOMMENDATION: Patient discharged from home health services. Instructions to include:begin outpatient therapy on 06/24 See intervention summary for intervention/education details. documented in this encounter [facility] 06-17-2022 History of Presen t illness Narrative Post-op Office Visit Cyn Brandt 51 year old June 17, 2022 2:37 PM Surgery Date: 05/30/22 History: Cyn Brandt Is now 2.5 weeks out from S/P Right TKA. Post-operative course has been with complication. She was seen in the ER on 06/12/22 for severe allergic reaction (hand/feet swelling, hives all over body) after a bug bite. She was started on IV steroids and discharged on prednisone. She reports her symptoms have significantly improved and then hives/welts have nearly resolved. Subjective: Patient reports continued but significantly improving pain. Overall is doing well. Still taking oxycodone intermittently. Objective: Ambulates with cane Incision well-approximated, no drainage, normal steph-incisional erythema ROM 0 - 90 Distally DP/PT palpable Distally S/S/SP/DP/T intact at baseline Distally DF/EHL/PF intact at baseline Negative gene/calf tenderness Xrays: Well-positioned total knee replacement in appropriate alignment with no evidence of loosening Assessment and Plan: Cyn Brandt Is here for a first post-op appointment, overall doing well -continued ice, rest, and use of non-narcotic analgesia as needed -wean off ambulatory aids -discussed home exercises and therapy (outpatient Rx entered) -WBAT on operative extremity -continue ankle pumps and dvt ppx through 4 weeks -discussed driving requirement: 4 weeks post-op, off narcotic pain medication, adequate brake time - RTW letter sent -will see back at 6 week appointment for clinical exam -discussed red flag symptoms of acutely increasing pain, new erythema, new swelling, drainage, shortness of breath Raheel Henry APRN.CNP Orthopaedic Surgery documented in this encounter [facility] 06-17-2022 History of Presen t illness Narrative Radiology Service Progress Note PATIENT NAME: Cyn Brandt DATE OF SERVICE: June 17, 2022 TIME: 1:44 PM PATIENT IDENTITY VERIFICATION COMPLETED USING TWO (2) IDENTIFIERS: Name and Date of confirmed by patient verbally. FALL SCREENING: Has the patient had 2 falls in the last year or 1 fall with injury or currently using an Ambulatory Assistive Device (Walker, Cane, Wheelchair, Crutches, etc.)? Yes, Patient High Risk for Falls What interventions were put in place to prevent falls during this visit? Offered Assistance with Transfers/Clothing and Increased Observations by Caregivers PATIENT GENDER DATA: Female. status: : No status: NO. PATIENT RELEVANT IMPLANT DATA REVIEWED: Not Applicable RADIOLOGY DEPARTMENT: General X-ray: Exam(s) Completed: Lower Extremity X-Ray(s): Knee, AP / Lat / Merchant Right and Wt. Bearing PERIPHERAL IV DATA: Not applicable SIGNED BY: [place] Jay June 17, 2022 1:44 PM documented in this encounter [facility] 06-17-2022 Miscellaneous Notes SITUATION: no one present during today's visit. patient reports the following since the last homecare visit: medications/allergies--no changes, no fall. patient reports that she is feeling better but still on prednisone from her allergic reaction last week . Eager for ortho follow up later today BACKGROUND: Diagnoses (reason for Home Care): R TKA Past Medical History: AVN, former smoker, UC, RA Weight Bearing or Surgical Precautions: WBAT Weight Bearing/Precaution Changes: no changes ASSESSMENT: Focus of visit review HEP , advance gait and rom Plan of care, goals, and visit frequency reviewed and agreed upon with patient and/or caregiver. Current Discharge Plan: outpatient rehab Anticipate discharge by 06/21/22 RECOMMENDATION: Next visit to focus on HEP , advance gait and rom See intervention summary for intervention/education details. documented in this encounter [facility] 06-13-2022 Miscellaneous Notes pt called to cancel PT for today. She was in the ER yesterday for an allergic reaction. Pt reports she got very little sleep last night . Requests to resume next week. Pt understanding that Thursday is a holiday documented in this encounter [facility] 06-12-2022 Miscellaneous Notes I called Brenda. Chavezay for prednisone. Raheel Henry APRN.CNP June 12, 2022 2:06 PM Pt calling She went to the ED today for an allergic reaction to something They want to put her on prednisone but she wants to know if Dr Watts is ok with that or not If not, then what can be given Please advise documented in this encounter [facility] 06-11-2022 Miscellaneous Notes SITUATION: no one present during today's visit. patient reports the following since the last homecare visit: medications/allergies--no changes, no fall. patient reports that her leg is really feeling good the more i move it the better it feels BACKGROUND: Diagnoses (reason for Home Care): R TKA Past Medical History: AVN, former smoker, UC, RA Weight Bearing or Surgical Precautions: WBAT Weight Bearing/Precaution Changes: no changes ASSESSMENT: Focus of visit review HEP , advance gait and rom Plan of care, goals, and visit frequency reviewed and agreed upon with patient and/or caregiver. Current Discharge Plan: outpatient rehab Anticipate discharge by 06/21/22 RECOMMENDATION: Next visit to focus on HEP , advance gait and rom See intervention summary for intervention/education details. documented in this encounter [facility] 06-09-2022 Miscellaneous Notes SITUATION: no one present during today's visit. patient reports the following since the last homecare visit: medications/allergies--no changes, no fall. patient reports that she is feeling very positice and doing things on her own today BACKGROUND: Diagnoses (reason for Home Care): R TKA Past Medical History: AVN, former smoker, UC, RA Weight Bearing or Surgical Precautions: WBAT Weight Bearing/Precaution Changes: no changes ASSESSMENT: Focus of visit review HEP , advance gait and rom Plan of care, goals, and visit frequency reviewed and agreed upon with patient and/or caregiver. Current Discharge Plan: outpatient rehab Anticipate discharge by 06/21/22 RECOMMENDATION: Next visit to focus on HEP , advance gait and rom See intervention summary for intervention/education details. documented in this encounter [facility] 06-06-2022 Miscellaneous Notes SITUATION: daughter present during today's visit. patient reports the following since the last homecare visit: medications/allergies--no changes, no fall. patient reports the pain is not so bad today BACKGROUND: Diagnoses (reason for Home Care): R TKA Past Medical History: AVN, former smoker, UC, RA Weight Bearing or Surgical Precautions: WBAT Weight Bearing/Precaution Changes: no changes ASSESSMENT: Focus of visit review HEP , advance gait and rom dressing removed . Incision clean,dry, well approxiamted. With pts permision photo uploaded to [email or web address] for MD to review Plan of care, goals, and visit frequency reviewed and agreed upon with patient and/or caregiver. Current Discharge Plan: outpatient rehab Anticipate discharge by 06/21/22 RECOMMENDATION: Next visit to focus on HEP , advance gait and rom See intervention summary for intervention/education details. documented in this encounter [facility] 06-05-2022 Miscellaneous Notes 06/05/22 OXYGEN EQUIPMENT PREPARER called the pt. regardng message from PT regarding mailing her the Living Will and Medical POA forms. OXYGEN EQUIPMENT PREPARER asked the pt. how she was managing at home and regarding if more help needed. The pt. just wanted the Living Will and Medical POA forms. OXYGEN EQUIPMENT PREPARER confirmed address with the pt. to mail the forms. The pt. had no other needs for OXYGEN EQUIPMENT PREPARER at this time She stated she was fine. OXYGEN EQUIPMENT PREPARER provided the pt. with her name and phone number and will attach my card with information mailed. OXYGEN EQUIPMENT PREPARER mailed the pt. the Living Will and Medical POA Forms and About Advanced Directives pamphlet OXYGEN EQUIPMENT PREPARER attached hrer card with information mailed. Thank You, documented in this encounter [facility] 06-05-2022 Miscellaneous Notes 06/05/22 9:27 AM - 9:30 AM OXYGEN EQUIPMENT PREPARER called the pt. regarding message from PT regarding mailing her the Living Will and Medical POA forms. OXYGEN EQUIPMENT PREPARER asked the pt. how she was managing at home and regarding if more help needed. The pt. just wanted the Living Will and Medical POA forms. OXYGEN EQUIPMENT PREPARER confirmed address with the pt. to mail the forms. The pt. had no other needs for OXYGEN EQUIPMENT PREPARER at this time She stated she was fine. OXYGEN EQUIPMENT PREPARER provided the pt. with her name and phone number and will attach my card with information mailed. 06/05/22 OXYGEN EQUIPMENT PREPARER mailed the pt. the Living Will and Medical POA Forms and About Advanced Directives pamphlet OXYGEN EQUIPMENT PREPARER attached hrer card with information mailed. 06/05/[address]IPMENT PREPARER [address] Dr. Estephania Watts - 06/05/22 OXYGEN EQUIPMENT PREPARER called the pt. regarding message from PT regarding mailing her the Living Will and Medical POA forms. OXYGEN EQUIPMENT PREPARER asked the pt. how she was managing at home and regarding if more help needed. The pt. just wanted the Living Will and Medical POA forms. OXYGEN EQUIPMENT PREPARER confirmed address with the pt. to mail the forms. The pt. had no other needs for OXYGEN EQUIPMENT PREPARER at this time She stated she was fine. OXYGEN EQUIPMENT PREPARER provided the pt. with her name and phone number and will attach my card with information mailed. OXYGEN EQUIPMENT PREPARER mailed the pt. the Living Will and Medical POA Forms and About Advanced Directives pamphlet OXYGEN EQUIPMENT PREPARER attached hrer card with information mailed. Thank You, documented in this encounter [facility] 06-04-2022 Miscellaneous Notes SITUATION: daughter present during today's visit. patient reports she is feeling tired and notes pain following R TKA. BACKGROUND: Diagnoses (reason for Home Care): R TKA Past Medical History: AVN, former smoker, UC, RA Weight Bearing or Surgical Precautions: WBAT ASSESSMENT: Patient evaluated by [facility] Homecare physical therapy. Reviewed and explained homecare services. Plan of care, goals, and visit frequency developed, reviewed, and agreed upon with patient and/or caregiver. Patient Goal: is to be independent Patient will benefit from continued physical therapy to address the following deficits: strength, balance, gait, endurance, R knee joint ROM, transfers, stair negotiation, aerobic capacity and bed mobility. Current Discharge Plan: outpatient rehab. Anticipate discharge by 06/21/22. RECOMMENDATION: Next visit to focus on standing tolerance, ambulation distance and knee ROM Agreeable to PT. See intervention summary for intervention/education details. documented in this encounter [facility] 05-19-2022 History and physical note HISTORY AND PHYSICAL EXAMINATION SERVICE DATE: 05/19/2022 SERVICE TIME: 8:53 AM PRIMARY CARE PHYSICIAN: Juliette Pollack MD REASON FOR VISIT: Cyn Brandt is a 51 year old female who is scheduled for Procedure(s): ROBOTIC ASSISTED TOTAL KNEE ARTHROPLASTY (Right) at the request of Dr. Estephania Watts for consultation. My final recommendation will be communicated back to the requesting physician by way of shared medical record or letter. Subjective The patient has the following: ACTIVE PROBLEM LIST Former Smoker Hypertension Ulcerative Colitis (Hcc) Rheumatoid Arthritis (Hcc) History of 2018 Novel Coronavirus Disease (Covid-19) Tachycardia Gerd (Gastroesophageal Reflux Disease) Psoriasis Avn (Avascular Necrosis of Bone) ([facility]) COVID-19 Immunization Status Overdue - COVID-19 VACCINE (4 - Booster for Moderna series) Overdue since 12/20/2021 09/27/2021 Imm Admin: COVID-19 vaccine, full dose (MODERNA) 01/31/2021 Imm Admin: COVID-19 vaccine, full dose (MODERNA) 01/03/2021 Imm Admin: COVID-19 vaccine, full dose (MODERNA) CHIEF COMPLAINT: Pre-op exam HPI: BS is a 51 yo seen for PAC due to scheduled above surgery because of AVN. 03/27/2022 Dr. Mac Addison is a 51-year-old woman here to see me for her right knee. She is known to my senior qualitative researcher Dr. Oconnell. In 2009 she had a surgery in the right knee to repair cartilage by Dr. Denson at an outside hospital. In 2019 she underwent arthroscopic surgery for medial and lateral meniscal tears in the right knee. She was then found to have advancing avascular necrosis. In December 2020 she was brought back to the operating room by my partner above for a core decompression. Unfortunately her avascular necrosis has progressed. She has daily severe pain. She also has a diagnosis of complex regional pain syndrome. She also carries a diagnosis of rheumatoid arthritis. Her inflammatory markers are normal REVIEW OF SYSTEMS: General: No weight loss, malaise or fevers. Neurological: No history of TIA's, stroke, CHILD WELFARE SPECIALIST tumor, impaired sensorium, hemiplegia, paraplegia or quadraplegia. No neurological symptoms or problems. Respiratory: +former smoker 0.5ppd/10 years +COVID 04/28/2022, mild symptoms, resolved. No history of current cough or dyspnea, or pneumonia in the past 6 weeks. No history of respiratory/pulmonary symptoms or problems. Cardiovascular: Positive for: arrhythmia (hx tachycardia, on rx) and hypertension (on rx) Negative for: anticoagulation therapy, atrial fibrillation, CAD, chest pain, CHF, congenital heart defect, DVT/PE, hyperlipidemia, recent AK, murmur/valvular heart disease, open heart surgery and valve surgery. GI: Positive for: GERD (on rx) and inflammatory bowel disease (hx ulcerative colitis, on rx) Negative for: abdominal pain, dysphagia, hepatitis, irritable bowel syndrome, liver disease, nausea, pancreatitis, vomiting and ETOH >2 drinks/day. : No history of dysuria, frequency or incontinence, stones or chronic kidney disease. No difficulty urinating, nocturia > 1 time per night or hematuria. SUBSCRIPTION AGENT: Negative for abnormal vaginal bleeding, abnormal vaginal discharge. Endocrine: No history of diabetes. Has not taken steroids within the past 30 days. No history of endocrinological symptoms or problems. Hematology: No history of bleeding or clotting disorder. Patient is not taking anti-coagulation or platelet medications. No history of hematological symptoms or problems. Oncology: No history of CA metastasis, chemo within 30 days, or radiotherapy within 90 days. No history of oncological symptoms or problems. Psych: Positive for: depression (on rx). Musculoskeletal: See HPI. Positive for: rheumatoid arthritis (?psoratic). Patient's stage electrician helper is Oj. Patient is using DMARDS for RA. Skin: +psorasis, on rx. Negative for lesions, rash and itching. PAST MEDICAL HISTORY Diagnosis Date DVT (deep venous thrombosis) (HCC) at age 8; was on blood thinner Multiple benign bone tumors Plantar fasciitis Polyarthritis Rheumatoid arthritis (HCC) Shingles 2010 Tachycardia Ulcerative colitis (HCC) PAST SURGICAL HISTORY Procedure Laterality Date DELIVERY ONLY , low transverse, 2 C-Sections ([place]) CHOLECYSTECTOMY HX 2010 HAND SURGERY HX Left Surgery from Cat Bite HYSTERECTOMY HX 2003 KNEE DECOMPRESSION, CORE Right PAST SURGICAL HISTORY OF removal of benign bone tumors PAST SURGICAL HISTORY OF 2017 rotator cuff shoulder surgery LEFT side TONSILLECTOMY PRIMARY/SECONDARY <AGE 12 Tonsillectomy FAMILY HISTORY Problem Relation Age of Onset Breast Cancer Mother at 61 Diabetes Mother Heart Attack Father at 59 Diabetes Father No Known Problems Sister No Known Problems Brother No Known Problems Brother Diabetes Maternal Grandmother other (Rheumatoid Arthritis) Daughter Social History Tobacco Use Smoking status: Former Packs/day: 1.00 Years: 3.00 Pack years: 3.00 Types: Cigarettes Quit date: 02/16/2013 Years since quittin.2 Smokeless tobacco: Never Vaping Use Vaping Use: Never used Substance Use Topics Alcohol use: Yes Comment: Seldom Drug use: No Prior to Admission medications as of 05/19/22 0827 Medication Sig Last Dose Taking omeprazole (PRILOSEC) 20 mg capsule omeprazole Taking Yes Azelastine 0.15 % (205.5 mcg) spry azelastine 0.15 % (205.5 mcg) nasal spray Taking Yes Adalimumab (HUMIRA PEN) 40 mg/0.8 mL pnkt Inject 0.8 mL subcutaneously as directed. 1 pen (40mg/0.8ml) every other week. Taking Yes DULoxetine (CYMBALTA) 60 mg capsule Take 1 capsule by mouth once daily. Taking Yes lisinopril 10 mg tablet Take 10 mg by mouth once daily. Taking Yes estradiol 2 mg tablet Take 2 mg by mouth once daily. Taking Yes mupirocin (BACTROBAN) 2 % ointment Apply 0.5 inch with cotton swab (Q-tip) to each nostril in the morning and evening for 5 days prior to and including day of surgery. No medication comments found. ALLERGIES Allergen Reactions Asacol [Mesalamine] Rash, Diarrhea Bactrim [Sulfametho* Rash Ciprofloxacin Rash, Other: See Comments chest pain Clindamycin Rash, Shortness of Breath Macrobid [Nitrofura* Rash Mobic [Meloxicam] Rash Penicillins Shortness of Breath Relafen [Nabumetone] Rash Objective PHYSICAL EXAM: General: alert and oriented (x3) and healthy appearance. Pertinent negatives noted - not distressed. Skin: normal color, no rash or lesions. HEENT: EOM intact and pupils equal round. Pertinent negatives noted - no carotid bruit. Cardiovascular: regular rate and rhythm, normal S1 and S2, no rub, murmurs, or gallop. Respiratory: normal breath sounds, no wheezes or crackles. No chest wall deformity or tenderness. Abdomen: soft. Pertinent negatives noted - not tender. Extremities: no deformity, no edema or tenderness, no joint swelling or clubbing. Neurological: normal cognition and motor skills. Gait normal. No weakness or sensory deficit. PAIN ASSESSMENT: Pain Pain Level: 4 Pain Location: Knee-Right Description: Aching Duration Amount of Time: 6 Duration Units: Months Frequency: Continuous Intervention/Comfort measure: Medication VITALS: BP 116/82 Pulse 97 Temp (Src) 98.4 (Temporal) Resp 16 Ht 5' 2 (1.58m) Wt 140 lb (63.5kg) SpO2 99% BMI 25.60 kg/(m^2). Diagnostic tests reviewed for today's visit: Lab Value Units Date High Low HB No results within date range. HCT No results within date range. WBC No results within date range. PLT No results within date range. NA No results within date range. K No results within date range. GLUC No results within date range. BUN No results within date range. CREAT No results within date range. PTSEC No results within date range. INR No results within date range. APTT No results within date range. ALT No results within date range. AST No results within date range. TBILI No results within date range. TSH No results within date range. Lab Value Units Date High Low HCGQT No results within date range. UHCG No results within date range. HCG, BODY* No results within date range. Lab Value Units Date High Low ABORHD No results within date range. ABSCREEN No results within date range. No results found for: HBA1C Recent Results (from the past 8760 hour(s)) ECG COMPLETE Collection Time: 05/19/22 8:33 AM Result Value Ventricular Rate 83 Atrial Rate 83 P-R Interval 116 QRS Duration 78 QT Interval 338 QTC Calculation ([place]) 397 Calculated P [place] 57 Calculated R [place] 61 Calculated T [place] 50 Impression NORMAL SINUS RHYTHM NORMAL ECG No results found for this or any previous visit (from the past 99322 hour(s)). Assessment History of 2019 novel coronavirus disease (COVID-19) Assessment: +04/28/2022, mild symptoms, resolved Former smoker Assessment: 0.5ppd/10 years, denies asthma or COPD Tachycardia Assessment: rate controlled on rx Last 14 BP Last 14 Encounter BP Readings: Date: BP: 05/19/2022 116/82 12/19/2019 118/70 11/30/2019 132/72 09/03/2015 126/78 05/12/2014 118/90 03/23/2014 126/85 10/27/2013 145/99 08/02/2013 134/100 05/19/2013 133/96 01/27/2013 137/96 11/05/2011 122/70 Ulcerative colitis (HCC) Assessment: well controlled on rx, no issues in years per pt, no surgical intervention Rheumatoid arthritis (HCC) Assessment: controlled on rx but has been holding for 6 weeks, surgery originally scheduled 04/2022 but canceled 11/13 COVID, following Dr. Mcwilliams GERD (gastroesophageal reflux disease) Assessment: controlled on rx Psoriasis Assessment: on rx, following rheumatology [place] Activity Status Index: METS: Climb a flight of stairs or walk up a hill (5.50 METs) DASI Score: 5.5 Patient denies any chest pain or undue shortness of breath with the above physical activity. Clinical Frailty Scale: 3. Well, with treated comorbid disease STOP-Bang Score: Snores loudly Denies feeling tired, fatigued, or sleepy during the daytime Has not been observed to stop breathing or choking/gasping during sleep Denies having high blood pressure BMI less than or equal to 35 kg/m^2 Patient 50 years old or younger Does not have a large neck Non-male patient STOP-Bang Score: 1 [id number] Score: Age: <65 Sex: female CHF history: No Hypertension history: Yes Stroke/TIA/thromboembolism history: No Vascular disease history: No Diabetes history: No [id number] Score: 2 ARISCAT Score: Age: <=50 Preoperative SpO2: >=96% Respiratory infection in the last month: Yes Preoperative anemia: No Surgical incision: peripheral Duration of surgery: <2 hrs Emergency procedure: No ARISCAT Score: 17 ASA Class: 2 ANESTHESIA FINDINGS: Intubation History: No history of difficult intubation Significant Anesthesia Considerations: potential postop nausea/vomiting Airway History: No history of difficult airway I - PHYSICAL EVALUATION AIRWAYTracheostomy tube not present Mallampati: I. TM distance: >3 FB. Neck ROM: full ROM without neurological symptoms. Mouth opening: adequate. Short neck: no. Thick neck: no DENTAL Dental findings: teeth intact. Additional comments: Crowns/back. II - ANESTHESIA PLAN ASA Score: 2 Anesthetic Plan: other Anesthetic plan additional comments: *PACC/TCI - anesthesia choice. Informed Consent Anesthetic risks, benefits, alternatives, personnel and consent discussed: yes. Patient / Responsible Libertarian agrees to proceed: yes Patient / Surrogate agrees to blood products: Yes Prepared for Surgery: optimally prepared for surgery, pending [see comment]. labs CONSULTS: Patient does not require consults for optimization at this time Planned Anesthetic: other anesthesia choice The Following Tests/Procedures Have Been Initiated: Orders Placed This Encounter >CBC + AUTO DIFF Standing Status: Future Standing Expiration Date: 07/19/2022 >CMP Standing Status: Future Standing Expiration Date: 07/19/2022 IRON + TIBC Standing Status: Future Standing Expiration Date: 07/19/2022 FERRITIN BLD Standing Status: Future Standing Expiration Date: 07/19/2022 Type and Screen, 30 day Standing Status: Future Standing Expiration Date: 07/19/2022 Order Specific Question: Hospital of Planned Surgery or Procedure: Answer: [place] Confirm Blood Type Standing Status: Future Standing Expiration Date: 07/19/2022 Order Specific Question: Did Blood Bank direct you to place this order: Answer: No - Presurgical Workflow mupirocin (BACTROBAN) 2 % ointment Sig: Apply 0.5 inch with cotton swab (Q-tip) to each nostril in the morning and evening for 5 days prior to and including day of surgery. Dispense: 22 g Refill: 0 ECG COMPLETE Order Comments: Ordered by an unspecified provider ECG COMPLETE Standing Status: Future Standing Expiration Date: 05/19/2023 Instructions Given to Patient: Instructions located in the after visit summary. Patient given verbal and written preop instructions and voices comprehension and compliance. SIGNATURE: Laura Juarez APRN.CNP PATIENT NAME: Cyn Brandt DATE: May 19, 2022 TIME: 8:53 AM PAGER/CONTACT #: documented in this encounter [facility] 05-19-2022 Instructions Laura Juarez APRN.CNP - 05/19/2022 8:46 AM EDT PATIENT PREOPERATIVE INSTRUCTIONS Estephania Watts MD has scheduled you for your procedure at this surgery center: [facility]: [phone] -- [address] [place] [id number]. Please read below carefully for your personalized instructions. Dietary Restrictions: - No solid food after midnight. - You may have 12 ounces of clear liquids (water, clear juices such as apple juice or gatorade, carbonated beverages, clear tea, black coffee, jello) until 2 hours before scheduled arrival at facility. No red/purple coloring and no creamer/sugar Medications: Unless instructed differently below, stay on all of your medications until your surgery. Approved medications to take the morning of surgery with a sip of water: Omeprazole, Duloxetine DO NOT TAKE YOUR Lisinopril THE NIGHT BEFORE OR MORNING OF SURGERY If you start any new medications after today's visit, please contact the surgeon's office. Blood Thinning Medications: - Stop NSAIDS (Ibuprofen, Advil, Aleve, Motrin, Celebrex, Mobic, etc.) 7 days before surgery, as directed by your surgeon. - Stop Aspirin 7 days before surgery, as directed by your surgeon. - Stop Vitamin E, ALL multi-vitamins, herbals and dietary supplements 7 days before surgery. - You may take Tylenol (Acetaminophen) or any of your pain medications that do not contain aspirin or NSAIDS as needed. Important Reminders: - If you use CPAP/BIPAP, bring the machine with you to the surgery center. - If you are prescribed inhalers for breathing, continue using them. - Candy, mints, and tobacco products are NOT permitted the morning of surgery. - Hearing aids, dentures and glasses may be worn the morning of surgery. - NO jewelry, body piercings, makeup, hairpins or contacts are to be worn the day of surgery. If you develop symptoms such as a fever, cold, or flu, or have other changes to your health within TWO DAYS of scheduled surgery or the morning of surgery, please contact the surgery center above. Personal Belongings: -Please have photo ID and insurance cards. -If you do not have a copy of advance directives on file with us, please bring a copy with you on the day of surgery. - Leave ALL valuables and money at home or with family members. For Outpatient Procedures: - YOU MUST HAVE A RESPONSIBLE LIFESTYLE CONSULTANT TAKE YOU HOME. A BOAT FUELER OR AIR VALVE REPAIRER CANNOT BE MADE A RESPONSIBLE LIFESTYLE CONSULTANT. - We recommend that a responsible person stays with you overnight to take care of you. - You cannot stay in a hotel alone after outpatient surgery. You will not be permitted to have your surgery, if you do not have someone to take care of you. Arrival Time for Surgery: - The Surgery Center or hospital where you are having surgery will call the afternoon before surgery (or Thursday for Thursday surgery) with a scheduled arrival time. - If you have not heard by 4 pm, please contact the surgery center above. Please be aware that emergency situations arise, which may delay or change your surgical time. If this happens, we will notify you as soon as possible and regret any inconvenience. If you already have an Advance Directive, please fax a copy to [phone] or email to for it to be added to your chart. If you do not have an Advance Directive, you can find the appropriate form and more information at [email or web address]. We recommend that you complete the Advance Directive form found on the website and bring it with you the day of your surgery. It can be witnessed and scanned into your chart that day. Laura Juarez APRN.ALANNA documented in this encounter [facility] 05-01-2022 Miscellaneous Notes TOTAL JOINT COMPLETE CARE PROGRAM PRE-OPERATIVE TEACHING Service Date: 05/01/2022 Service Time: 12:05 PM Date of : 1970 Gender: female Date of Surgery: 05/30/22 Procedure: Right Total Knee Replacement Complete Care Program was discussed with the patient: Nail Technician Identification: Patient identified a nurse care manager to help when discharged to home: daughter (24), staying for awhile Home Environment: Home Layout: raised Ranch, Entry Steps: 15 with rail, Bedroom Location: 1st floor, Bathroom Location: 1st floor and walk in shower. Pt owns walker, crutches, cane, raised toilet seat. Discussed with patient importance of attending joint education class and provided date and times of class: YES paper copy. Patient received Joint Education Binder: Yes Patient plans discharge home with [facility]. SIGNATURE: PREMA Kim PATIENT NAME: Cyn Brandt DATE: May 01, 2022 TIME: 11:58 AM documented in this encounter [facility] 04-28-2022 Miscellaneous Notes Called patient at 10:15am regarding appointment at 10am that was missed. Patient states she tested positive for COVID-19 and has already notified her surgeons office as well. Susie Rocha LPN documented in this encounter [facility] 04-02-2022 Miscellaneous Notes Scheduled for EREN CT. Patient scheduled for surgery on 05-14-2022. She will be scheduled for a robotic R TKA. Please call Cyn and assist with scheduling a pre-op CT scan for the EREN robot. Inez Spaulding Sedjuan Cyn calling for Inez to discuss surgery date. Would like call back. Thanks. documented in this encounter [facility] 04-01-2022 History of Presen t illness Narrative Orthopaedic Office Note: April 01, 2022 12:41 PM Cyn A Rikki 51 year old History: Cyn is a 51-year-old woman here to see me for her right knee. She is known to my senior qualitative researcher Dr. Oconnell. In 2009 she had a surgery in the right knee to repair cartilage by Dr. Denson at an outside hospital. In 2019 she underwent arthroscopic surgery for medial and lateral meniscal tears in the right knee. She was then found to have advancing avascular necrosis. In December 2020 she was brought back to the operating room by my partner above for a core decompression. Unfortunately her avascular necrosis has progressed. She has daily severe pain. She also has a diagnosis of complex regional pain syndrome. She also carries a diagnosis of rheumatoid arthritis. Her inflammatory markers are normal Subjective: See above, severe right knee pain Updated ROS: No changes Updated Exam: Right lower Extremity: Neutral alignment Painful range of motion Crepitance throughout range of motion Moderate effusion Allodynic to light touch around previous incisions Otherwise tender palpation over lateral joint line and lateral femoral condyle, and painful patellar grind Lower extremity significantly colder than contralateral side secondary to changes from the complex regional pain syndrome Updated Imaging: X-ray and MRI confirms significant avascular necrosis of the patella and of the lateral femoral condyle with recurrent meniscal pathology Assessment and Plan: Cyn is a 51-year-old with 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 She has failed cartilage surgery, meniscal surgery, and core decompressions. She was referred to me by my senior qualitative researcher for a right total knee replacement. I have also presented her to my other partner, Dr. Marcin Solorio, who does arthroplasty as well as on arthroplasty surgery for avascular necrosis. He agrees that arthroplasty is the appropriate surgical intervention at this point. Her inflammatory markers are normal. She does have rheumatoid arthritis and multiple surgeries which elevates her risk of prosthetic joint infection, and I reviewed that at length. I also had a very summer discussion with her that based on her complex regional pain syndrome/RSD, that this total knee may never be painless. But I do think it would help with the pain she is having directly from the bone. I think her recovery will be harder than most, and I outlined that again at length with her. She understands this. She would like to proceed. We signed an informed consent today. Total Knee Replacement Scheduling Considerations: Implant: triathlon Robotic: yes Extended Oral Antibiotics: yes Previous Knee Surgery: yes, multiple Special Considerations: none ABOS Part II discussed with patient, who is agreeable for email correspondence and patient reported outcomes. Email address provided: [email or web address] I spent a total of 25 minutes on the date of the service which included preparing to see the patient, [id number] patient care, completing clinical documentation, obtaining and/or reviewing separately obtained history, performing a medically appropriate examination, counseling and educating the patient/family/caregiver, ordering medications, tests, or procedures and communicating results to the patient/family/caregiver. Estephania Watts MD Orthopaedic Surgery documented in this encounter [facility] 03-18-2022 Miscellaneous Notes I called patient, she did not want to wait until mid April which was next available. Pt stated she will keep the appt she has, and try and have someone cover her during the meeting. documented in this encounter [facility] 03-12-2022 Miscellaneous Notes Scheduled patient for 03/27/22, with Dr. Watts. Responded through My Chart and asked patient to confirm appointment. No openings with Dr. Watts in the next two weeks. I do see a slot on hold for 04/[address] Watts, is that ok, or does she need to be seen sooner? Thanks! Sarah I called and spoke with Cyn directly. Please contact Cyn for an appointment (within the next 2 weeks) with Dr. Watts to discuss R TKA and to sign consent. Raheel Henry APRN.CNP March 11, 2022 12:24 PM documented in this encounter [facility] 02-27-2022 Miscellaneous Notes Patient has been scheduled Thank you! Patient has been in to see Dr. Oconnell, she has AVN of her right knee and Dr. Oconnell is wanting to have her to see Dr. Watts. Could we possible get her scheduled to see him or Lemuel to assess her right knee? Thank you! Lisa Stallworth documented in this encounter [facility] 02-27-2022 History of Presen t illness Narrative Radiology Service Progress Note PATIENT NAME: Cyn Brandt DATE OF SERVICE: February 27, 2022 TIME: 9:25 AM PATIENT IDENTITY VERIFICATION COMPLETED USING TWO (2) IDENTIFIERS: Name and Date of confirmed by patient verbally. FALL SCREENING: Has the patient had 2 falls in the last year or 1 fall with injury or currently using an Ambulatory Assistive Device (Walker, Cane, Wheelchair, Crutches, etc.)? No PATIENT GENDER DATA: Female. status: : No status: NO. PATIENT RELEVANT IMPLANT DATA REVIEWED: Not Applicable RADIOLOGY DEPARTMENT: General X-ray: Exam(s) Completed: Lower Extremity X-Ray(s): Knee, AP / Lat / Tunne / Merchant Bilateral and Wt. Bearing PERIPHERAL IV DATA: Not applicable SIGNED BY: RT John(R) February 27, 2022 9:25 AM documented in this encounter [facility] 02-27-2022 History of Presen t illness Narrative Images from the original note were not included. Reason for Visit/Chief Complaint Cyn Brandt is a 51 year old female who presents today for a new evaluation of following complaint: Patient presents with: Right Knee - New, Knee Pain History of Present Illness: PAIN EVALUATION 02/27/2022 0818 Pain Level: 4 Pain Location: Knee-Right Description: Aching;Dull;Shooting;Throbbing;S harp;Sore Duration Amount of Time: ongoing Frequency: Continuous Intervention/Comfort measure: Reposition;Relaxation;Medication ;Other: See comment;Cold crutches HPI: Cyn Brandt is a 51 year old female presenting today with right knee pain. Patient has had previous surgeries done (core decompression with grafting) for AVN of knee. She is having continued/worsening pain recently and is here to go over a recent MRI she had completed. Pain history is noted as above. Denies calf pain, numbness, tingling, fever, chills or other constitutional symptoms. Has pain medially and laterally and under the kneecap, worsening over 2-3 months, is on crutches. Previous Treatments: Ice: Yes Heat: Yes Brace: Yes, knee sleeve NSAIDs: Yes, tylenol/ibuprofen PRN Injections: No Surgeries: Yes, see chart Physical Therapy: No Review of Systems: Patient did not have, and does not currently have, any weight loss, malaise, fever, chills, headache, chest pain, chest pressure, palpitations, cough, shortness of breath, orthopnea, paroxsymal nocturnal dyspnea, nausea, vomiting, diarrhea, constipation, melena, hematochezia, urinary difficulties, prolonged bleeding, easily bruising, heat or cold intolerance, new onset joint pain or swelling, new onset extremity weakness or numbness, new onset auditory or visual disturbances, lightheadedness, dizziness, partial loss of consciousness or full loss of consciousness. Current Outpatient Medications on File Prior to Visit Medication Sig metoprolol succinate ER (TOPROL XL) 25 mg 24 hr tablet Take 25 mg by mouth once daily. Adalimumab (HUMIRA PEN) 40 mg/0.8 mL Humira Pen 40 mg/0.8 mL subcutaneous kit omeprazole (PRILOSEC) 20 mg capsule omeprazole Azelastine 0.15 % (205.5 mcg) spry azelastine 0.15 % (205.5 mcg) nasal spray DULoxetine (CYMBALTA) 60 mg capsule Take 1 capsule by mouth once daily. lisinopril 10 mg tablet Take 10 mg by mouth once daily. estradiol 2 mg tablet Take 2 mg by mouth once daily. loratadine (CLARITIN ORAL) Take by mouth. PREDNISONE ORAL Take 10 mg by mouth as needed. ATENOLOL ORAL Take 50 mg by mouth once daily. Adalimumab (HUMIRA PEN) 40 mg/0.8 mL pnkt Inject 0.8 mL subcutaneously as directed. 1 pen (40mg/0.8ml) every other week. (Patient taking differently: Inject 40 mg subcutaneously as directed. 1 pen (40mg/0.8ml) weekLY.) predniSONE 1 mg tablet Take 4 tablets by mouth once daily. (Patient not taking: Reported on 11/30/2019 ) No current facility-administered medications on file prior to visit. ALLERGIES Allergen Reactions Asacol [Mesalamine] Rash, Diarrhea Bactrim [Sulfametho* Rash Ciprofloxacin Rash, Other: See Comments chest pain Clindamycin Rash, Shortness of Breath Macrobid [Nitrofura* Rash Mobic [Meloxicam] Rash Penicillins Shortness of Breath Relafen [Nabumetone] Rash Physical Exam: Vitals: There were no vitals taken for this visit. Psych: Pleasant, good affect and mood General Appearance: Well appearing, alert, in no acute distress, well-hydrated, well nourished.. Skin: Skin color, texture, turgor normal, no suspicious rashes or lesions. Peripheral Pulses: Normal. Neurologic: Gait normal. Reflexes normal and symmetric. Sensation grossly intact.. Lymph Nodes: No cervical lymphadenopathy, No supraclavicular lymphadenopathy, No axillary lymphadenopathy. and No inguinal lymphadenopathy.. Respiratory: No recent pulmonary infection, hemoptysis, chronic cough, or shortness of breath at rest Rheumatologic: Joint deformities: Right knee pain Right Knee Exam Tenderness The patient is experiencing tenderness in the medial joint line, patella and lateral joint line. Range of Motion Extension: abnormal Flexion: abnormal Tests Judy: Medial - positive Jaspal: Anterior - negative Posterior - negative Drawer: Anterior - negative Posterior - negative Patellar apprehension: positive Other Erythema: absent Sensation: normal Pulse: present Swelling: mild Left Knee Exam Left knee exam is normal. Muscle Strength The patient has normal left knee strength. Tenderness The patient is experiencing no tenderness. Range of Motion Extension: normal Flexion: normal Tests Jaspal: Anterior - negative Posterior - negative Drawer: Anterior - negative Posterior - negative Other Erythema: absent Sensation: normal Pulse: present Swelling: none Comments: Neg homans bilaterally Imaging: Last MRI Knee - Impression Only MRI KNEE WO IVCON RT Collected: 02/11/2022 8:46 AM (Final result) Impression: IMPRESSION: INTERVAL SUBCHONDRAL FRACTURE IN THE REGION OF AVN IN THE LATERAL FEMORAL CONDYLE WITH MILD FLATTENING OF THE ARTICULAR SURFACE AND BONE MARROW EDEMA. PROBABLE TEAR IN THE POSTERIOR HORN OF THE MEDIAL MENISCUS. COMPLEX TEAR IN THE ANTERIOR HORN OF THE LATERAL MENISCUS. ... Complete Results Assessment and Plan: Impression: Encounter Diagnosis ICD-10-CM 1. Other secondary osteoarthritis of right knee M17.5 XR KNEE GENERAL 4V AP BOTH/PA BOTH/LAT/MERC BILATERAL 2. Chronic pain of right knee M25.561 G89.29 3. Arthritis of knee M17.10 Plan: Cont nwb right leg Discussed mri in detail and patient is not interested in further arthroscopic intervention and leaning more towards tka as with her continued RA flairs and avn she is frustrated- mri shows collapsing of cartilage so not arthroscopic candidate at this point Ordered wb fillms Patient not great candidate for dfo as patella avn and h/o RA so will refer to joint's colleage for tka discussion. Did discuss young chronological age but comorbid conditions definitely complicate the picture. [facility] interested in tka No recent steroid injections Today, in detail, through a thorough evaluation, we discussed possible etiologies of pain and our plans for further diagnostic and therapeutic interventions. We discussed strategies for decreasing pain and improving strength, stability and motion. Patient's questions were answered in detailed. Patient verbalizes understanding and agrees with the treatment plan as discussed. documented in this encounter [facility] 02-11-2022 History of Presen t illness Narrative Radiology Service Progress Note PATIENT NAME: Cyn Brandt DATE OF SERVICE: February 11, 2022 TIME: 8:18 AM PATIENT IDENTITY VERIFICATION COMPLETED USING TWO (2) IDENTIFIERS: Name and Date of confirmed by patient verbally. FALL SCREENING: Has the patient had 2 falls in the last year or 1 fall with injury or currently using an Ambulatory Assistive Device (Walker, Cane, Wheelchair, Crutches, etc.)? No PATIENT GENDER DATA: Female. status: : No status: NO. PATIENT RELEVANT IMPLANT DATA REVIEWED: Yes RADIOLOGY DEPARTMENT: MR; Exam(s) Completed: Lower MSK: Knee, right PERIPHERAL IV DATA: Not applicable SIGNED BY: RT Parker(R) February 11, 2022 8:18 AM documented in this encounter [facility] Diagnosis Knee pain with avascular necrosis determined by x-ray ([facility])- Primary Chronic pain of right knee [facility] Diagnosis AVN (avascular necrosis of bone) (HCC)- Primary Aseptic necrosis of bone, site unspecified Other secondary osteoarthritis of right knee Encounter for screening for COVID-19 AVN (avascular necrosis of bone) (HCC) Aseptic necrosis of bone, site unspecified Other secondary osteoarthritis of right knee [facility] Chronic pain of right knee Encounter for screening for COVID-19 AVN (avascular necrosis of bone) (HCC) Aseptic necrosis of bone, site unspecified Other secondary osteoarthritis of right knee [facility] Diagnosis Pre-operative examination- Primary Preoperative examination, unspecified AVN (avascular necrosis of bone) (HCC) Aseptic necrosis of bone, site unspecified History of 2019 novel coronavirus disease (COVID-19) Tachycardia Tachycardia, unspecified Ulcerative colitis with complication, unspecified location (HCC) Rheumatoid arthritis, involving unspecified site, unspecified whether rheumatoid factor present (HCC) Psoriasis Other psoriasis Gastroesophageal reflux disease, unspecified whether esophagitis present Former smoker Personal history of tobacco use, presenting hazards to health AVN (avascular necrosis of bone) (HCC) Aseptic necrosis of bone, site unspecified Other secondary osteoarthritis of right knee [facility] Diagnosis Right knee pain, unspecified chronicity- Primary [facility] Diagnosis Status post total right knee replacement- Primary Stiffness of right knee Arthritis of knee Unspecified arthropathy, lower leg [facility] Diagnosis Right knee pain, unspecified chronicity [facility] Diagnosis S/P total knee arthroplasty, right- Primary Stiffness of knee joint, right [facility]* Diagnosis Status post total right knee replacement [facility] Diagnosis Complex regional pain syndrome type 1 of right lower extremity- Primary [facility]* Diagnosis S/P total knee arthroplasty, right- Primary Stiffness of knee joint, right [facility] Diagnosis S/P total knee arthroplasty, right- Primary Stiffness of knee joint, right [facility] Diagnosis Irritant contact dermatitis, unspecified trigger- Primary Status post right knee replacement [facility]* Diagnosis S/P total knee arthroplasty, right- Primary Stiffness of knee joint, right documented in this encounter [facility]* Diagnosis Status post right knee replacement- Primary documented in this encounter [facility]* Diagnosis S/P total knee arthroplasty, right- Primary Stiffness of knee joint, right documented in this encounter [facility]* Diagnosis S/P total knee arthroplasty, right- Primary Stiffness of knee joint, right documented in this encounter [facility]* Diagnosis S/P total knee arthroplasty, right- Primary Stiffness of knee joint, right documented in this encounter [facility]* Diagnosis Contact dermatitis, unspecified contact dermatitis type, unspecified trigger- Primary documented in this encounter [facility]* Diagnosis S/P total knee arthroplasty, right- Primary Stiffness of knee joint, right documented in this encounter [facility]* Diagnosis Contact dermatitis and other eczema, due to unspecified cause- Primary documented in this encounter [facility]* Diagnosis S/P total knee arthroplasty, right- Primary Stiffness of knee joint, right documented in this encounter [facility]* Diagnosis 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 Dermatitis due to metals Allergic contact dermatitis due to drugs in contact with skin Contact dermatitis and other eczema due to drugs and medicines in contact with skin Allergic contact dermatitis due to adhesives Contact dermatitis and other eczema due to other chemical products documented in this encounter [facility]* Diagnosis Right knee pain, unspecified chronicity- Primary documented in this encounter [facility]* Diagnosis Other secondary osteoarthritis of right knee documented in this encounter [facility] Plan of care note* Visit Details Visit Type -PT SOC Discipline -Physical Therapy Problems Problem Description Start Date Status Goals Interve ntions Sepsis Disciplines: Skilled Services 06/04/2022 Active 1 goal linked to scheduled/document ed intervention 1 goal intervention scheduled/document ed in this visit Physician Specific Parameters Disciplines: Skilled Services 06/04/2022 Active 1 goal linked to scheduled/document ed intervention 1 goal intervention scheduled/document ed in this visit Risk for Falls Disciplines: Skilled Services 06/04/2022 Active 1 goal linked to scheduled/document ed intervention 1 goal intervention scheduled/document ed in this visit Pain Disciplines: Skilled Services 06/04/2022 Active 1 goal linked to scheduled/document ed intervention 1 goal intervention scheduled/document ed in this visit High Risk Medications Disciplines: Skilled Services 06/04/2022 Active 1 goal linked to scheduled/document ed intervention 1 goal intervention scheduled/document ed in this visit Discharge Disciplines: Skilled Services 06/04/2022 Active 1 goal linked to scheduled/document ed intervention 1 goal intervention scheduled/document ed in this visit Advance Directives Disciplines: Skilled Services 06/04/2022 Active 1 goal linked to scheduled/document ed intervention 1 goal intervention scheduled/document ed in this visit PT Impaired Aerobic Capacity Disciplines: PT 06/04/2022 Active 1 goal linked to scheduled/document ed intervention 1 goal intervention scheduled/document ed in this visit PT Impaired muscle performance and/or ROM Disciplines: PT 06/04/2022 Active 1 goal linked to scheduled/document ed intervention 1 goal intervention scheduled/document ed in this visit PT Impaired mobility Disciplines: PT 06/04/2022 Active 2 goals linked to scheduled/document ed interventions 2 goal interventions scheduled/document ed in this visit PT Impaired gait Disciplines: PT 06/04/2022 Active 1 goal linked to scheduled/document ed intervention 1 goal intervention scheduled/document ed in this visit PT Impaired balance Disciplines: PT 06/04/2022 Active 1 goal linked to scheduled/document ed intervention 1 goal intervention scheduled/document ed in this visit PT Orthopedic Condition Disciplines: PT 06/04/2022 Active 1 goal linked to scheduled/document ed intervention 4 goal interventions scheduled/document ed in this visit PT Learning Assessment Disciplines: PT 06/04/2022 Active 1 goal linked to scheduled/document ed intervention 1 goal intervention scheduled/document ed in this visit Goals Goal Associated Problem Outcome Goal Met? Visit Notes Patient/caregiver will be able to identify and report symptoms of sepsis Description: Patient/caregiver will be able to identify signs/symptoms of sepsis infection and will verbalize actions to take if suspected by 06/21/22. Sepsis No Patient to maintain parameters within physician-specified ranges throughout certification period Physician Specific Parameters No Manage Risk for falls Description: Patient/caregiver will verbalize knowledge of individualized fall prevention strategies by 06/21/22. Risk for Falls No Manage Pain Description: Patient/caregiver will verbalize knowledge and understanding of appropriate techniques to control pain, including non-pharmacological techniques. Patient will verbalize or demonstrate an acceptable level of pain as evidenced by a pain score of 0-2/10 and improvement in ability to perform activities of daily living to be achieved by 06/21/22. Pain No Patient/caregiver will teach back high risk medication side effect and precaution education High Risk Medications No Manage discharge planning Description: Patient/caregiver will verbalize understanding of ongoing discharge plan provided related to disease management, arrangements for outpatient and/or community services, obtaining medications, supplies, and DME, as needed throughout certification period. Discharge No Patient/caregiver will make healthcare providers aware of and any changes to Advance Directives throughout certification period Advance Directives No Improved Aerobic Capacity Description: LTG: Patient will demonstrate improved aerobic capacity to meet functional goals as evidenced by Rate of Percieved Exertion (RPE) of 0-2/10 during standing activity, to be achieved by 06/21/22. PT Impaired Aerobic Capacity No Improved Muscle Performance and/or ROM Description: LTG: Patient will demonstrate improved muscle performance to meet functional goals as evidenced by ability to tolerate 8 mins of standing activity, to be achieved by 06/21/22. LTG: Patient and/or caregiver will verbalize/demonstrate independence with home exercise program, to improve functional mobility, to be achieved by 06/21/22. LTG: Patient will demonstrate improved right knee passive range of motion to 0-100 degrees, to meet functional goals, to be achieved by 06/21/22. PT Impaired muscle performance and/or ROM No Improved Transfers Description: LTG: Patient will demonstrate safe transfers to/from bed, chair and toilet independently with AD, to be achieved by 06/21/22. PT Impaired mobility No Improved Bed Mobility Description: STG: Patient will demonstrate improved ability to position self independently to be achieved by 06/14/22. PT Impaired mobility No Improved Gait Description: LTG: Patient will demonstrate improved gait ability as evidenced by ambulation 200 feet with front wheeled walker independently with AD, to return to safe household ambulation, in order to reach car in the driveway, to be achieved by 06/21/22. PT Impaired gait No Improved Balance Description: LTG: Patient will demonstrate improved standing balance to meet functional goals as evidenced by TUG score of 20 to be achieved by 06/21/22. PT Impaired balance No Manage Orthopedic Condition Description: Improve patient and/or caregiver understanding of post surgical and/or non-surgical orthopedic intervention management as evidenced by patient and/or caregiver able to verbalize, demonstrate, and teach back instruction, to be achieved by 06/21/22. PT Orthopedic Condition No Demonstrate understanding of education Description: Patient and/or caregiver will understand educational instruction to be achieved by 06/21/22. PT Learning Assessment No Interventions Intervention Associated Problem/Goal Status Variance Visit Notes Risk of Sepsis Description: Patient is at risk for sepsis. Monitor closely for s/s of sepsis. Problem:Sepsis Goal:Patient/caregiver will be able to identify and report symptoms of sepsis Completed SPO2 Description: Notify Dr. Watts if pulse ox is <92% at rest. Problem:Physician Specific Parameters Goal:Patient to maintain parameters within physician-specified ranges throughout certification period Completed Instruct on individual fall risk factors and strategies to prevent falls and injuries caused by falls. Problem:Risk for Falls Goal:Manage Risk for falls Completed PT: Patient instructed on Managing Pain Instruct on pain and instruct on strategies to control pain Problem:Pain Goal:Manage Pain Completed patient instructed on techniques to control pain including Non-Pharmacological measures; rest, positioning/elevation and mobility/therapeutic exercise. Opioids- Instruct on high risk medication Problem:High Risk Medications Goal:Patient/caregiver will teach back high risk medication side effect and precaution education Completed patient instructed on the following: Possible side effects of opioid medication including sedation, decreased rate of breathing, and constipation. Instructed on reporting over sedation to prescribing physician, practice deep breathing techniques every hour while awake, and prevention of constipation by increasing water and fiber intake, increase activity as tolerated, and use stool softener as prescribed. Only take opioids as prescribed, do not share your medications, and take proper precautions in storing and properly disposing of opioids once no longer needed. Follow providers guidelines for driving and weaning from prescribed opioid. Instruct on ongoing discharge plan Problem:Discharge Goal:Manage discharge planning Completed Ongoing Discharge plan: Discharge plan discussed with patient including frequency and duration for home PT and plan for transition to: outpatient therapy. Determine patient's Advance Directive Status Description: Patient does not have advance directives. Patient/Caregiver requested Advance Directive information. Problem:Advance Directives Goal:Patient/caregiver will make healthcare providers aware of and any changes to Advance Directives throughout certification period Completed Discussed Advance Directives with Patient and/or Caregiver. Referred patient to Home Care handbook for further information on Healthcare DPOA & Living Will. Physical Therapy Aerobic Capacity Training Problem:PT Impaired Aerobic Capacity Goal:Improved Aerobic Capacity Completed patient instructed on utilization of the Rate of Percieved Exertion (RPE) scale, to not exceed 3-6/10 indicating moderate to heavy intensity of activity. Developed, implemented, and instructed patient on physical therapy interventions completing 5 minutes of continuous activity. Physical Therapy Therapeutic Exercises Problem:PT Impaired muscle performance and/or ROM Goal:Improved Muscle Performance and/or ROM Completed patient instructed on strengthening and range of motion exercises including ankle pumps, quad sets, glut sets, heel slides with verbal cues for sequence. patient instructed to perform home exercise program twice a day Physical Therapy Transfer Training Problem:PT Impaired mobility Goal:Improved Transfers Completed Transfer training and instruction to patient on safe transfers to and from bed, chair and toilet with supervision and verbal cues for sequence. Physical Therapy Bed Mobility Training Problem:PT Impaired mobility Goal:Improved Bed Mobility Completed Bed mobility training and instruction to patient, including rolling, supine<>sit and repositioning self with supervision and verbal cues for sequence. Physical Therapy Gait Training Problem:PT Impaired gait Goal:Improved Gait Completed Gait training and instruction to patient on safe ambulation with front wheeled walker for 50 feet with supervision, with verbal cues for corrections of gait deviations including sequence. Physical Therapy Balance Training Problem:PT Impaired balance Goal:Improved Balance Completed Developed, implemented, and instructed patient on standing balance exercises including ambulation with fww. Instruct on orthopedic precautions and weight bearing restrictions Description: Orthopedic precautions including right total knee: no crossing legs, no knee flexed over pillow at rest, no kneeling, no squatting and no twisting. Weight bearing restrictions include: WBAT of involved extremity. Problem:PT Orthopedic Condition Goal:Manage Orthopedic Condition Completed patient instructed on orthopedic precautions and weight bearing restrictions. Instruct on management of edema Problem:PT Orthopedic Condition Goal:Manage Orthopedic Condition Completed Instruct patient on management of edema including elevation of bilat LE above the level of the heart. Physical therapy to perform surgical incision/wound management Description: Removal of post-op dressing on 06/06/22. If no drainage is present, leave open to air; if drainage is present, cover with clean dressing and contact provider and PT counseling case manager. Problem:PT Orthopedic Condition Goal:Manage Orthopedic Condition Completed Intervention completed this date. Instruct on self-management of post surgical and/or non-surgical orthopedic intervention Problem:PT Orthopedic Condition Goal:Manage Orthopedic Condition Completed patient instructed on managagement of orthopedic condition, measures to avoid skin breakdown, signs and symptoms of infection, signs and symptoms of DVT/PE, follow provider guidance for showering , instructed on when to call provider and instructed on when to call 911. Instruct and educate on knowledge deficits Problem:PT Learning Assessment Goal:Demonstrate understanding of education Completed patient verbalize and/or demonstrate understanding of physical therapy education including orthopedic condition management, surgical precautions, pain management, integumentary and incision/wound care management, infection control precautions, functional activity and home exercise program. Education methods include: verbal cues. Further education required to improve knowledge and compliance with orthopedic condition management, surgical precautions, pain management, fall prevention strategies, home safety and home exercise program. [facility] Visit Details Visit Type -PT ROUTINE Discipline -Physical Therapy Problems Problem Description Start Date Status Goals Interve ntions Sepsis Disciplines: Skilled Services 06/04/2022 Active 1 goal linked to scheduled/document ed intervention 1 goal intervention scheduled/document ed in this visit Physician Specific Parameters Disciplines: Skilled Services 06/04/2022 Active 1 goal linked to scheduled/document ed intervention 1 goal intervention scheduled/document ed in this visit Risk for Falls Disciplines: Skilled Services 06/04/2022 Active 1 goal linked to scheduled/document ed intervention 1 goal intervention scheduled/document ed in this visit High Risk Medications Disciplines: Skilled Services 06/04/2022 Active 1 goal linked to scheduled/document ed intervention 1 goal intervention scheduled/document ed in this visit PT Impaired muscle performance and/or ROM Disciplines: PT 06/04/2022 Active 1 goal linked to scheduled/document ed intervention 1 goal intervention scheduled/document ed in this visit PT Impaired mobility Disciplines: PT 06/04/2022 Active 2 goals linked to scheduled/document ed interventions 2 goal interventions scheduled/document ed in this visit PT Impaired gait Disciplines: PT 06/04/2022 Active 1 goal linked to scheduled/document ed intervention 1 goal intervention scheduled/document ed in this visit PT Orthopedic Condition Disciplines: PT 06/04/2022 Active 1 goal linked to scheduled/document ed intervention 4 goal interventions scheduled/document ed in this visit PT Learning Assessment Disciplines: PT 06/04/2022 Active 1 goal linked to scheduled/document ed intervention 1 goal intervention scheduled/document ed in this visit Goals Goal Associated Problem Outcome Goal Met? Visit Notes Patient/caregiver will be able to identify and report symptoms of sepsis Description: Patient/caregiver will be able to identify signs/symptoms of sepsis infection and will verbalize actions to take if suspected by 06/21/22. Sepsis No Patient to maintain parameters within physician-specified ranges throughout certification period Physician Specific Parameters No Manage Risk for falls Description: Patient/caregiver will verbalize knowledge of individualized fall prevention strategies by 06/21/22. Risk for Falls No Patient/caregiver will teach back high risk medication side effect and precaution education High Risk Medications No Improved Muscle Performance and/or ROM Description: LTG: Patient will demonstrate improved muscle performance to meet functional goals as evidenced by ability to tolerate 8 mins of standing activity, to be achieved by 06/21/22. LTG: Patient and/or caregiver will verbalize/demonstrate independence with home exercise program, to improve functional mobility, to be achieved by 06/21/22. LTG: Patient will demonstrate improved right knee passive range of motion to 0-100 degrees, to meet functional goals, to be achieved by 06/21/22. PT Impaired muscle performance and/or ROM No Improved Transfers Description: LTG: Patient will demonstrate safe transfers to/from bed, chair and toilet independently with AD, to be achieved by 06/21/22. PT Impaired mobility No Improved Bed Mobility Description: STG: Patient will demonstrate improved ability to position self independently to be achieved by 06/14/22. PT Impaired mobility No Improved Gait Description: LTG: Patient will demonstrate improved gait ability as evidenced by ambulation 200 feet with front wheeled walker independently with AD, to return to safe household ambulation, in order to reach car in the driveway, to be achieved by 06/21/22. PT Impaired gait No Manage Orthopedic Condition Description: Improve patient and/or caregiver understanding of post surgical and/or non-surgical orthopedic intervention management as evidenced by patient and/or caregiver able to verbalize, demonstrate, and teach back instruction, to be achieved by 06/21/22. PT Orthopedic Condition No Demonstrate understanding of education Description: Patient and/or caregiver will understand educational instruction to be achieved by 06/21/22. PT Learning Assessment No Interventions Intervention Associated Problem/Goal Status Variance Visit Notes Risk of Sepsis Description: Patient is at risk for sepsis. Monitor closely for s/s of sepsis. Problem:Sepsis Goal:Patient/caregiver will be able to identify and report symptoms of sepsis Completed SPO2 Description: Notify Dr. Watts if pulse ox is <92% at rest. Problem:Physician Specific Parameters Goal:Patient to maintain parameters within physician-specified ranges throughout certification period Completed Instruct on individual fall risk factors and strategies to prevent falls and injuries caused by falls. Problem:Risk for Falls Goal:Manage Risk for falls Completed PT: Patient instructed on Eliminating Environmental Hazards: Keep pathways clear, Keep pets out of pathways and Remove unsafe rugs Managing Impaired Functional Mobility: Use assistive device(s): front wheeled walker Managing Pain Opioids- Instruct on high risk medication Problem:High Risk Medications Goal:Patient/caregiver will teach back high risk medication side effect and precaution education Completed patient instructed on the following: Possible side effects of opioid medication including sedation, decreased rate of breathing, and constipation. Instructed on reporting over sedation to prescribing physician, practice deep breathing techniques every hour while awake, and prevention of constipation by increasing water and fiber intake, increase activity as tolerated, and use stool softener as prescribed. Only take opioids as prescribed, do not share your medications, and take proper precautions in storing and properly disposing of opioids once no longer needed. Follow providers guidelines for driving and weaning from prescribed opioid. Physical Therapy Therapeutic Exercises Problem:PT Impaired muscle performance and/or ROM Goal:Improved Muscle Performance and/or ROM Completed patient instructed on strengthening and range of motion exercises including Supine : GS,QS,HS, HIPADD, HIP BD, HEEL SLIDES, SAQ, X 10 supine passive knee ext x 1 min 20 sec seated knee flex to 74 with verbal cues fortechnique . patient instructed to perform home exercise program twice a day which included hourly ambulation . Physical Therapy Transfer Training Problem:PT Impaired mobility Goal:Improved Transfers Completed Transfer training and instruction to patient on safe transfers to and from chair with supervision and armrests Physical Therapy Bed Mobility Training Problem:PT Impaired mobility Goal:Improved Bed Mobility Completed Bed mobility training and instruction to patient, including supine<>sit with stand by assist and tactile cues for lifting leg in to the bed . Physical Therapy Gait Training Problem:PT Impaired gait Goal:Improved Gait Completed Gait training and instruction to patient on safe ambulation with front wheeled walker for 40' x 4 feet with stand by assist, with verbal cues for corrections of gait deviations including developing heel toe pattern . Instruct on orthopedic precautions and weight bearing restrictions Description: Orthopedic precautions including right total knee: no crossing legs, no knee flexed over pillow at rest, no kneeling, no squatting and no twisting. Weight bearing restrictions include: WBAT of involved extremity. Problem:PT Orthopedic Condition Goal:Manage Orthopedic Condition Completed patient instructed on orthopedic precautions. Instruct on management of edema Problem:PT Orthopedic Condition Goal:Manage Orthopedic Condition Completed Instruct patient on management of edema including elevation of RLE above the level of the heart and ice. Physical therapy to perform surgical incision/wound management Description: Removal of post-op dressing on 06/06/22. If no drainage is present, leave open to air; if drainage is present, cover with clean dressing and contact provider and PT counseling case manager. Problem:PT Orthopedic Condition Goal:Manage Orthopedic Condition Completed Intervention completed this date. Incision clean,dry, well approxiamted. With pts permision photo uploaded to [email or web address] for MD to review Instruct on self-management of post surgical and/or non-surgical orthopedic intervention Problem:PT Orthopedic Condition Goal:Manage Orthopedic Condition Completed patient instructed on managagement of orthopedic condition, signs and symptoms of infection, signs and symptoms of DVT/PE, follow provider guidance for showering and instructed on when to call provider. Instruct and educate on knowledge deficits Problem:PT Learning Assessment Goal:Demonstrate understanding of education Completed patient verbalize and/or demonstrate understanding of physical therapy education including orthopedic condition management, surgical precautions and pain management. Education methods include: verbal cues. Further education required to improve knowledge and compliance with orthopedic condition management, surgical precautions, pain management, home safety, functional activity and home exercise program. documented in this encounter [facility] home Plan of care note* Visit Details Visit Type -PT ROUTINE Discipline -Physical Therapy Problems Problem Description Start Date Status Goals Interve ntions Medication Education Disciplines: Skilled Services 06/04/2022 Active 1 goal linked to scheduled/document ed intervention 1 goal intervention scheduled/document ed in this visit Sepsis Disciplines: Skilled Services 06/04/2022 Active 1 goal linked to scheduled/document ed intervention 1 goal intervention scheduled/document ed in this visit Physician Specific Parameters Disciplines: Skilled Services 06/04/2022 Active 1 goal linked to scheduled/document ed intervention 1 goal intervention scheduled/document ed in this visit Risk for Falls Disciplines: Skilled Services 06/04/2022 Active 1 goal linked to scheduled/document ed intervention 1 goal intervention scheduled/document ed in this visit Pain Disciplines: Skilled Services 06/04/2022 Active 1 goal linked to scheduled/document ed intervention 1 goal intervention scheduled/document ed in this visit High Risk Medications Disciplines: Skilled Services 06/04/2022 Active 1 goal linked to scheduled/document ed intervention 1 goal intervention scheduled/document ed in this visit PT Impaired muscle performance and/or ROM Disciplines: PT 06/04/2022 Active 1 goal linked to scheduled/document ed intervention 1 goal intervention scheduled/document ed in this visit PT Impaired mobility Disciplines: PT 06/04/2022 Active 2 goals linked to scheduled/document ed interventions 2 goal interventions scheduled/document ed in this visit PT Impaired gait Disciplines: PT 06/04/2022 Active 1 goal linked to scheduled/document ed intervention 1 goal intervention scheduled/document ed in this visit PT Orthopedic Condition Disciplines: PT 06/04/2022 Active 1 goal linked to scheduled/document ed intervention 3 goal interventions scheduled/document ed in this visit PT Learning Assessment Disciplines: PT 06/04/2022 Active 1 goal linked to scheduled/document ed intervention 1 goal intervention scheduled/document ed in this visit Goals Goal Associated Problem Outcome Goal Met? Visit Notes Patient/caregiver will demonstrate ability to obtain, store, identify and administer ordered medications, keep accurate medication list in home, and adhere to medication schedule Description: Patient/caregiver will demonstrate ability to obtain, store, identify and administer ordered medications, keep accurate medication list in home, and adhere to medication schedule by 06/21/22. Medication Education No Patient/caregiver will be able to identify and report symptoms of sepsis Description: Patient/caregiver will be able to identify signs/symptoms of sepsis infection and will verbalize actions to take if suspected by 06/21/22. Sepsis No Patient to maintain parameters within physician-specified ranges throughout certification period Physician Specific Parameters No Manage Risk for falls Description: Patient/caregiver will verbalize knowledge of individualized fall prevention strategies by 06/21/22. Risk for Falls No Manage Pain Description: Patient/caregiver will verbalize knowledge and understanding of appropriate techniques to control pain, including non-pharmacological techniques. Patient will verbalize or demonstrate an acceptable level of pain as evidenced by a pain score of 0-2/10 and improvement in ability to perform activities of daily living to be achieved by 06/21/22. Pain No Patient/caregiver will teach back high risk medication side effect and precaution education High Risk Medications No Improved Muscle Performance and/or ROM Description: LTG: Patient will demonstrate improved muscle performance to meet functional goals as evidenced by ability to tolerate 8 mins of standing activity, to be achieved by 06/21/22. LTG: Patient and/or caregiver will verbalize/demonstrate independence with home exercise program, to improve functional mobility, to be achieved by 06/21/22. LTG: Patient will demonstrate improved right knee passive range of motion to 0-100 degrees, to meet functional goals, to be achieved by 06/21/22. PT Impaired muscle performance and/or ROM No Improved Transfers Description: LTG: Patient will demonstrate safe transfers to/from bed, chair and toilet independently with AD, to be achieved by 06/21/22. PT Impaired mobility No Improved Bed Mobility Description: STG: Patient will demonstrate improved ability to position self independently to be achieved by 06/14/22. PT Impaired mobility No Improved Gait Description: LTG: Patient will demonstrate improved gait ability as evidenced by ambulation 200 feet with front wheeled walker independently with AD, to return to safe household ambulation, in order to reach car in the driveway, to be achieved by 06/21/22. PT Impaired gait No Manage Orthopedic Condition Description: Improve patient and/or caregiver understanding of post surgical and/or non-surgical orthopedic intervention management as evidenced by patient and/or caregiver able to verbalize, demonstrate, and teach back instruction, to be achieved by 06/21/22. PT Orthopedic Condition No Demonstrate understanding of education Description: Patient and/or caregiver will understand educational instruction to be achieved by 06/21/22. PT Learning Assessment No Interventions Intervention Associated Problem/Goal Status Variance Visit Notes Medication Education Description: Evaluate/instruct patient/caregiver on obtaining, storing, identifying and administering ordered medications as well as keeping accurate medication list in the home and adhereing to medication schedule Problem:Medication Education Goal:Patient/caregive r will demonstrate ability to obtain, store, identify and administer ordered medications, keep accurate medication list in home, and adhere to medication schedule Completed Patient instructed on importance of keeping accurate medication list in home and adhering to medication schedule. Risk of Sepsis Description: Patient is at risk for sepsis. Monitor closely for s/s of sepsis. Problem:Sepsis Goal:Patient/caregive r will be able to identify and report symptoms of sepsis Completed SPO2 Description: Notify Dr. Watts if pulse ox is <92% at rest. Problem:Physician Specific Parameters Goal:Patient to maintain parameters within physician-specified ranges throughout certification period Completed Instruct on individual fall risk factors and strategies to prevent falls and injuries caused by falls. Problem:Risk for Falls Goal:Manage Risk for falls Completed PT: Patient instructed on Eliminating Environmental Hazards: Keep pathways clear, Keep pets out of pathways and Remove unsafe rugs Managing Impaired Functional Mobility: Use assistive device(s): front wheeled walker Managing Pain Instruct on pain and instruct on strategies to control pain Problem:Pain Goal:Manage Pain Completed patient instructed on techniques to control pain including Pharmacological measures and Non-Pharmacological measures; rest and positioning/elevation. Opioids- Instruct on high risk medication Problem:High Risk Medications Goal:Patient/caregive r will teach back high risk medication side effect and precaution education Completed patient instructed on the following: Possible side effects of opioid medication including sedation, decreased rate of breathing, and constipation. Instructed on reporting over sedation to prescribing physician, practice deep breathing techniques every hour while awake, and prevention of constipation by increasing water and fiber intake, increase activity as tolerated, and use stool softener as prescribed. Only take opioids as prescribed, do not share your medications, and take proper precautions in storing and properly disposing of opioids once no longer needed. Follow providers guidelines for driving and weaning from prescribed opioid. Physical Therapy Therapeutic Exercises Problem:PT Impaired muscle performance and/or ROM Goal:Improved Muscle Performance and/or ROM Completed patient instructed on strengthening and range of motion exercises including Supine : GS,QS,HS, HIPADD, HIP BD, HEEL SLIDES, SAQ, X 10 supine passive knee ext x 1 min seated knee flex to 86 with verbal cues fortechnique . patient instructed to perform home exercise program twice a day which included hourly ambulation . Physical Therapy Transfer Training Problem:PT Impaired mobility Goal:Improved Transfers Completed Transfer training and instruction to patient on safe transfers to and from bed, chair and couch with supervision and verbal cues for technique . Physical Therapy Bed Mobility Training Problem:PT Impaired mobility Goal:Improved Bed Mobility Completed Bed mobility training and instruction to patient, including supine<>sit with independent and verbal cues for technique . Physical Therapy Gait Training Problem:PT Impaired gait Goal:Improved Gait Completed Gait training and instruction to patient on safe ambulation with rollator walker for 100 feet with supervision, with verbal cues for corrections of gait deviations including development of heel toe pattern . Instruct on orthopedic precautions and weight bearing restrictions Description: Orthopedic precautions including right total knee: no crossing legs, no knee flexed over pillow at rest, no kneeling, no squatting and no twisting. Weight bearing restrictions include: WBAT of involved extremity. Problem:PT Orthopedic Condition Goal:Manage Orthopedic Condition Completed patient instructed on orthopedic precautions and weight bearing restrictions. Instruct on management of edema Problem:PT Orthopedic Condition Goal:Manage Orthopedic Condition Completed Instruct patient on management of edema including elevation of RLE above the level of the heart and ice. Instruct on self-management of post surgical and/or non-surgical orthopedic intervention Problem:PT Orthopedic Condition Goal:Manage Orthopedic Condition Completed patient instructed on managagement of orthopedic condition, signs and symptoms of infection, signs and symptoms of DVT/PE, follow provider guidance for showering and instructed on when to call provider. Instruct and educate on knowledge deficits Problem:PT Learning Assessment Goal:Demonstrate understanding of education Completed patient verbalize and/or demonstrate understanding of physical therapy education including orthopedic condition management, surgical precautions, pain management, fall prevention strategies and home safety. Education methods include: verbal cues. Further education required to improve knowledge and compliance with surgical precautions, pain management, fall prevention strategies, home safety, functional activity and home exercise program. documented in this encounter [facility]'s home Plan of care note* Visit Details Visit Type -PT ROUTINE Discipline -Physical Therapy Problems Problem Description Start Date Status Goals Interve ntions Medication Education Disciplines: Skilled Services 06/04/2022 Active 1 goal linked to scheduled/document ed intervention 1 goal intervention scheduled/document ed in this visit Sepsis Disciplines: Skilled Services 06/04/2022 Active 1 goal linked to scheduled/document ed intervention 1 goal intervention scheduled/document ed in this visit Physician Specific Parameters Disciplines: Skilled Services 06/04/2022 Active 1 goal linked to scheduled/document ed intervention 1 goal intervention scheduled/document ed in this visit Risk for Falls Disciplines: Skilled Services 06/04/2022 Active 1 goal linked to scheduled/document ed intervention 1 goal intervention scheduled/document ed in this visit Pain Disciplines: Skilled Services 06/04/2022 Active 1 goal linked to scheduled/document ed intervention 1 goal intervention scheduled/document ed in this visit High Risk Medications Disciplines: Skilled Services 06/04/2022 Active 1 goal linked to scheduled/document ed intervention 1 goal intervention scheduled/document ed in this visit PT Impaired muscle performance and/or ROM Disciplines: PT 06/04/2022 Active 1 goal linked to scheduled/document ed intervention 1 goal intervention scheduled/document ed in this visit PT Impaired mobility Disciplines: PT 06/04/2022 Active 1 goal linked to scheduled/document ed intervention 1 goal intervention scheduled/document ed in this visit PT Impaired gait Disciplines: PT 06/04/2022 Active 1 goal linked to scheduled/document ed intervention 1 goal intervention scheduled/document ed in this visit PT Orthopedic Condition Disciplines: PT 06/04/2022 Active 1 goal linked to scheduled/document ed intervention 3 goal interventions scheduled/document ed in this visit PT Learning Assessment Disciplines: PT 06/04/2022 Active 1 goal linked to scheduled/document ed intervention 1 goal intervention scheduled/document ed in this visit Goals Goal Associated Problem Outcome Goal Met? Visit Notes Patient/caregiver will demonstrate ability to obtain, store, identify and administer ordered medications, keep accurate medication list in home, and adhere to medication schedule Description: Patient/caregiver will demonstrate ability to obtain, store, identify and administer ordered medications, keep accurate medication list in home, and adhere to medication schedule by 06/21/22. Medication Education No Patient/caregiver will be able to identify and report symptoms of sepsis Description: Patient/caregiver will be able to identify signs/symptoms of sepsis infection and will verbalize actions to take if suspected by 06/21/22. Sepsis No Patient to maintain parameters within physician-specified ranges throughout certification period Physician Specific Parameters No Manage Risk for falls Description: Patient/caregiver will verbalize knowledge of individualized fall prevention strategies by 06/21/22. Risk for Falls No Manage Pain Description: Patient/caregiver will verbalize knowledge and understanding of appropriate techniques to control pain, including non-pharmacological techniques. Patient will verbalize or demonstrate an acceptable level of pain as evidenced by a pain score of 0-2/10 and improvement in ability to perform activities of daily living to be achieved by 06/21/22. Pain No Patient/caregiver will teach back high risk medication side effect and precaution education High Risk Medications No Improved Muscle Performance and/or ROM Description: LTG: Patient will demonstrate improved muscle performance to meet functional goals as evidenced by ability to tolerate 8 mins of standing activity, to be achieved by 06/21/22. LTG: Patient and/or caregiver will verbalize/demonstrate independence with home exercise program, to improve functional mobility, to be achieved by 06/21/22. LTG: Patient will demonstrate improved right knee passive range of motion to 0-100 degrees, to meet functional goals, to be achieved by 06/21/22. PT Impaired muscle performance and/or ROM No Improved Bed Mobility Description: STG: Patient will demonstrate improved ability to position self independently to be achieved by 06/14/22. PT Impaired mobility No Improved Gait Description: LTG: Patient will demonstrate improved gait ability as evidenced by ambulation 200 feet with front wheeled walker independently with AD, to return to safe household ambulation, in order to reach car in the driveway, to be achieved by 06/21/22. PT Impaired gait No Manage Orthopedic Condition Description: Improve patient and/or caregiver understanding of post surgical and/or non-surgical orthopedic intervention management as evidenced by patient and/or caregiver able to verbalize, demonstrate, and teach back instruction, to be achieved by 06/21/22. PT Orthopedic Condition No Demonstrate understanding of education Description: Patient and/or caregiver will understand educational instruction to be achieved by 06/21/22. PT Learning Assessment No Interventions Intervention Associated Problem/Goal Status Variance Visit Notes Medication Education Description: Evaluate/instruct patient/caregiver on obtaining, storing, identifying and administering ordered medications as well as keeping accurate medication list in the home and adhereing to medication schedule Problem:Medication Education Goal:Patient/caregive r will demonstrate ability to obtain, store, identify and administer ordered medications, keep accurate medication list in home, and adhere to medication schedule Completed Patient instructed on importance of keeping accurate medication list in home and adhering to medication schedule. Risk of Sepsis Description: Patient is at risk for sepsis. Monitor closely for s/s of sepsis. Problem:Sepsis Goal:Patient/caregive r will be able to identify and report symptoms of sepsis Completed SPO2 Description: Notify Dr. Watts if pulse ox is <92% at rest. Problem:Physician Specific Parameters Goal:Patient to maintain parameters within physician-specified ranges throughout certification period Completed Instruct on individual fall risk factors and strategies to prevent falls and injuries caused by falls. Problem:Risk for Falls Goal:Manage Risk for falls Completed PT: Patient instructed on Eliminating Environmental Hazards: Keep pathways clear, Keep pets out of pathways, Remove unsafe rugs and Move furniture from pathways Managing Impaired Functional Mobility: Use assistive device(s): front wheeled walker Managing Pain Instruct on pain and instruct on strategies to control pain Problem:Pain Goal:Manage Pain Completed patient instructed on techniques to control pain including Pharmacological measures and Non-Pharmacological measures; rest and positioning/elevation. Opioids- Instruct on high risk medication Problem:High Risk Medications Goal:Patient/caregive r will teach back high risk medication side effect and precaution education Completed patient instructed on the following: Possible side effects of opioid medication including sedation, decreased rate of breathing, and constipation. Instructed on reporting over sedation to prescribing physician, practice deep breathing techniques every hour while awake, and prevention of constipation by increasing water and fiber intake, increase activity as tolerated, and use stool softener as prescribed. Only take opioids as prescribed, do not share your medications, and take proper precautions in storing and properly disposing of opioids once no longer needed. Follow providers guidelines for driving and weaning from prescribed opioid. Physical Therapy Therapeutic Exercises Problem:PT Impaired muscle performance and/or ROM Goal:Improved Muscle Performance and/or ROM Completed patient instructed on strengthening and range of motion exercises including Supine : GS,QS,HS, HIPADD, HIP BD, HEEL SLIDES, SAQ, X 15 SLR with AA x 10 supine passive knee ext x 1 min standing ther ex : heel raises, R knee flexion x 10 res seated knee flex to 90 with verbal cues fortechnique . patient instructed to perform home exercise program twice a day which included hourly ambulation . Physical Therapy Bed Mobility Training Problem:PT Impaired mobility Goal:Improved Bed Mobility Completed SERENA bed mobiity Physical Therapy Gait Training Problem:PT Impaired gait Goal:Improved Gait Completed Gait training and instruction to caregiver on safe ambulation with front wheeled walker for 50' x 4 feet with stand by assist, with verbal cues for corrections of gait deviations including heel toe recip pattern . Instruct on orthopedic precautions and weight bearing restrictions Description: Orthopedic precautions including right total knee: no crossing legs, no knee flexed over pillow at rest, no kneeling, no squatting and no twisting. Weight bearing restrictions include: WBAT of involved extremity. Problem:PT Orthopedic Condition Goal:Manage Orthopedic Condition Completed patient instructed on orthopedic precautions. Instruct on management of edema Problem:PT Orthopedic Condition Goal:Manage Orthopedic Condition Completed Instruct patient on management of edema including elevation of RLE above the level of the heart and ice. Instruct on self-management of post surgical and/or non-surgical orthopedic intervention Problem:PT Orthopedic Condition Goal:Manage Orthopedic Condition Completed patient instructed on managagement of orthopedic condition, signs and symptoms of infection, signs and symptoms of DVT/PE and follow provider guidance for showering . Instruct and educate on knowledge deficits Problem:PT Learning Assessment Goal:Demonstrate understanding of education Completed patient verbalize and/or demonstrate understanding of physical therapy education including orthopedic condition management, surgical precautions and pain management. Education methods include: verbal cues. Further education required to improve knowledge and compliance with orthopedic condition management, surgical precautions, pain management and home exercise program. [facility] Visit Details Visit Type -PT ROUTINE Discipline -Physical Therapy Problems Problem Description Start Date Status Goals Interve ntions Medication Education Disciplines: Skilled Services 06/04/2022 Active 1 goal linked to scheduled/document ed intervention 1 goal intervention scheduled/document ed in this visit Sepsis Disciplines: Skilled Services 06/04/2022 Active 1 goal linked to scheduled/document ed intervention 1 goal intervention scheduled/document ed in this visit Physician Specific Parameters Disciplines: Skilled Services 06/04/2022 Active 1 goal linked to scheduled/document ed intervention 1 goal intervention scheduled/document ed in this visit Risk for Falls Disciplines: Skilled Services 06/04/2022 Active 1 goal linked to scheduled/document ed intervention 1 goal intervention scheduled/document ed in this visit Pain Disciplines: Skilled Services 06/04/2022 Active 1 goal linked to scheduled/document ed intervention 1 goal intervention scheduled/document ed in this visit High Risk Medications Disciplines: Skilled Services 06/04/2022 Active 1 goal linked to scheduled/document ed intervention 1 goal intervention scheduled/document ed in this visit Discharge Disciplines: Skilled Services 06/04/2022 Active 1 goal linked to scheduled/document ed intervention 1 goal intervention scheduled/document ed in this visit PT Impaired muscle performance and/or ROM Disciplines: PT 06/04/2022 Active 1 goal linked to scheduled/document ed intervention 1 goal intervention scheduled/document ed in this visit PT Impaired mobility Disciplines: PT 06/04/2022 Active 2 goals linked to scheduled/document ed interventions 2 goal interventions scheduled/document ed in this visit PT Impaired gait Disciplines: PT 06/04/2022 Active 1 goal linked to scheduled/document ed intervention 1 goal intervention scheduled/document ed in this visit PT Orthopedic Condition Disciplines: PT 06/04/2022 Active 1 goal linked to scheduled/document ed intervention 1 goal intervention scheduled/document ed in this visit PT Learning Assessment Disciplines: PT 06/04/2022 Active 1 goal linked to scheduled/document ed intervention 1 goal intervention scheduled/document ed in this visit Goals Goal Associated Problem Outcome Goal Met? Visit Notes Patient/caregiver will demonstrate ability to obtain, store, identify and administer ordered medications, keep accurate medication list in home, and adhere to medication schedule Description: Patient/caregiver will demonstrate ability to obtain, store, identify and administer ordered medications, keep accurate medication list in home, and adhere to medication schedule by 06/21/22. Medication Education No Patient/caregiver will be able to identify and report symptoms of sepsis Description: Patient/caregiver will be able to identify signs/symptoms of sepsis infection and will verbalize actions to take if suspected by 06/21/22. Sepsis No Patient to maintain parameters within physician-specified ranges throughout certification period Physician Specific Parameters No Manage Risk for falls Description: Patient/caregiver will verbalize knowledge of individualized fall prevention strategies by 06/21/22. Risk for Falls No Manage Pain Description: Patient/caregiver will verbalize knowledge and understanding of appropriate techniques to control pain, including non-pharmacological techniques. Patient will verbalize or demonstrate an acceptable level of pain as evidenced by a pain score of 0-2/10 and improvement in ability to perform activities of daily living to be achieved by 06/21/22. Pain No Patient/caregiver will teach back high risk medication side effect and precaution education High Risk Medications No Manage discharge planning Description: Patient/caregiver will verbalize understanding of ongoing discharge plan provided related to disease management, arrangements for outpatient and/or community services, obtaining medications, supplies, and DME, as needed throughout certification period. Discharge No Improved Muscle Performance and/or ROM Description: LTG: Patient will demonstrate improved muscle performance to meet functional goals as evidenced by ability to tolerate 8 mins of standing activity, to be achieved by 06/21/22. LTG: Patient and/or caregiver will verbalize/demonstrate independence with home exercise program, to improve functional mobility, to be achieved by 06/21/22. LTG: Patient will demonstrate improved right knee passive range of motion to 0-100 degrees, to meet functional goals, to be achieved by 06/21/22. PT Impaired muscle performance and/or ROM No Improved Transfers Description: LTG: Patient will demonstrate safe transfers to/from bed, chair and toilet independently with AD, to be achieved by 06/21/22. PT Impaired mobility No Improved Bed Mobility Description: STG: Patient will demonstrate improved ability to position self independently to be achieved by 06/14/22. PT Impaired mobility No Improved Gait Description: LTG: Patient will demonstrate improved gait ability as evidenced by ambulation 200 feet with front wheeled walker independently with AD, to return to safe household ambulation, in order to reach car in the driveway, to be achieved by 06/21/22. PT Impaired gait No Manage Orthopedic Condition Description: Improve patient and/or caregiver understanding of post surgical and/or non-surgical orthopedic intervention management as evidenced by patient and/or caregiver able to verbalize, demonstrate, and teach back instruction, to be achieved by 06/21/22. PT Orthopedic Condition No Demonstrate understanding of education Description: Patient and/or caregiver will understand educational instruction to be achieved by 06/21/22. PT Learning Assessment No Interventions Intervention Associated Problem/Goal Status Variance Visit Notes Medication Education Description: Evaluate/instruct patient/caregiver on obtaining, storing, identifying and administering ordered medications as well as keeping accurate medication list in the home and adhereing to medication schedule Problem:Medication Education Goal:Patient/caregive r will demonstrate ability to obtain, store, identify and administer ordered medications, keep accurate medication list in home, and adhere to medication schedule Completed Patient instructed on importance of keeping accurate medication list in home and adhering to medication schedule. Risk of Sepsis Description: Patient is at risk for sepsis. Monitor closely for s/s of sepsis. Problem:Sepsis Goal:Patient/caregive r will be able to identify and report symptoms of sepsis Completed SPO2 Description: Notify Dr. Watts if pulse ox is <92% at rest. Problem:Physician Specific Parameters Goal:Patient to maintain parameters within physician-specified ranges throughout certification period Completed Instruct on individual fall risk factors and strategies to prevent falls and injuries caused by falls. Problem:Risk for Falls Goal:Manage Risk for falls Completed PT: Patient instructed on Eliminating Environmental Hazards: Keep pathways clear, Keep pets out of pathways and Remove unsafe rugs Managing Impaired Functional Mobility: Use assistive device(s): mechanical lift and single point cane Managing Pain Instruct on pain and instruct on strategies to control pain Problem:Pain Goal:Manage Pain Completed patient instructed on techniques to control pain including Pharmacological measures and Non-Pharmacological measures; rest, positioning/elevation and use of thermal modalities, apply ice to affected area . Opioids- Instruct on high risk medication Problem:High Risk Medications Goal:Patient/caregive r will teach back high risk medication side effect and precaution education Completed patient instructed on the following: Possible side effects of opioid medication including sedation, decreased rate of breathing, and constipation. Instructed on reporting over sedation to prescribing physician, practice deep breathing techniques every hour while awake, and prevention of constipation by increasing water and fiber intake, increase activity as tolerated, and use stool softener as prescribed. Only take opioids as prescribed, do not share your medications, and take proper precautions in storing and properly disposing of opioids once no longer needed. Follow providers guidelines for driving and weaning from prescribed opioid. Instruct on ongoing discharge plan Problem:Discharge Goal:Manage discharge planning Completed Ongoing Discharge plan: Discharge plan discussed with patient including frequency and duration for home PT and plan for transition to: outpatient therapy. Physical Therapy Therapeutic Exercises Problem:PT Impaired muscle performance and/or ROM Goal:Improved Muscle Performance and/or ROM Completed patient instructed on strengthening and range of motion exercises including Supine : GS,QS,HS, HIPADD, HIP BD, HEEL SLIDES, SAQ, X 20 standing : knee flex, hip flex supine passive knee ext x 1 min seated knee flex to A95 P 100 with verbal cues fortechnique . patient instructed to perform home exercise program twice a day which included hourly ambulation . Physical Therapy Transfer Training Problem:PT Impaired mobility Goal:Improved Transfers Completed SERENA transfers Physical Therapy Bed Mobility Training Problem:PT Impaired mobility Goal:Improved Bed Mobility Completed SERENA bed mobility Physical Therapy Gait Training Problem:PT Impaired gait Goal:Improved Gait Completed Gait training and instruction to patient on safe ambulation with single point cane for 40' x 6 feet with stand by assist, with verbal cues for corrections of gait deviations including heel toe pattern . Instruct on self-management of post surgical and/or non-surgical orthopedic intervention Problem:PT Orthopedic Condition Goal:Manage Orthopedic Condition Completed patient instructed on managagement of orthopedic condition, signs and symptoms of infection and signs and symptoms of DVT/PE. Instruct and educate on knowledge deficits Problem:PT Learning Assessment Goal:Demonstrate understanding of education Completed patient verbalize and/or demonstrate understanding of physical therapy education including orthopedic condition management, surgical precautions, pain management and fall prevention strategies. Education methods include: verbal cues. Further education required to improve knowledge and compliance with home safety, functional activity and home exercise program. [facility]* Visit Details Visit Type -PT AGENCY DC W V SEGUNDOT Discipline -Physical Therapy Problems Problem Description Start Date Status Goals Interve ntions Medication Education Disciplines: Skilled Services 06/04/2022 Resolved on 06/20/2022 1 goal linked to scheduled/document ed intervention 1 goal intervention scheduled/document ed in this visit Sepsis Disciplines: Skilled Services 06/04/2022 Resolved on 06/20/2022 1 goal linked to scheduled/document ed intervention 1 goal intervention scheduled/document ed in this visit Physician Specific Parameters Disciplines: Skilled Services 06/04/2022 Resolved on 06/20/2022 1 goal linked to scheduled/document ed intervention 1 goal intervention scheduled/document ed in this visit Risk for Falls Disciplines: Skilled Services 06/04/2022 Resolved on 06/20/2022 1 goal linked to scheduled/document ed intervention 1 goal intervention scheduled/document ed in this visit Pain Disciplines: Skilled Services 06/04/2022 Resolved on 06/20/2022 1 goal linked to scheduled/document ed intervention 1 goal intervention scheduled/document ed in this visit High Risk Medications Disciplines: Skilled Services 06/04/2022 Resolved on 06/20/2022 1 goal linked to scheduled/document ed intervention 1 goal intervention scheduled/document ed in this visit Discharge Disciplines: Skilled Services 06/04/2022 Resolved on 06/20/2022 1 goal linked to scheduled/document ed intervention 1 goal intervention scheduled/document ed in this visit Advance Directives Disciplines: Skilled Services 06/04/2022 Resolved on 06/20/2022 1 goal linked to scheduled/document ed intervention PT Impaired Aerobic Capacity Disciplines: PT 06/04/2022 Resolved on 06/20/2022 1 goal linked to scheduled/document ed intervention 1 goal intervention scheduled/document ed in this visit PT Impaired muscle performance and/or ROM Disciplines: PT 06/04/2022 Resolved on 06/20/2022 1 goal linked to scheduled/document ed intervention 1 goal intervention scheduled/document ed in this visit PT Impaired mobility Disciplines: PT 06/04/2022 Resolved on 06/20/2022 2 goals linked to scheduled/document ed interventions 2 goal interventions scheduled/document ed in this visit PT Impaired gait Disciplines: PT 06/04/2022 Resolved on 06/20/2022 2 goals linked to scheduled/document ed interventions 2 goal interventions scheduled/document ed in this visit PT Impaired balance Disciplines: PT 06/04/2022 Resolved on 06/20/2022 1 goal linked to scheduled/document ed intervention 1 goal intervention scheduled/document ed in this visit PT Orthopedic Condition Disciplines: PT 06/04/2022 Resolved on 06/20/2022 1 goal linked to scheduled/document ed intervention 3 goal interventions scheduled/document ed in this visit PT Learning Assessment Disciplines: PT 06/04/2022 Resolved on 06/20/2022 1 goal linked to scheduled/document ed intervention 1 goal intervention scheduled/document ed in this visit Goals Goal Associated Problem Outcome Goal Met? Visit Notes Patient/caregiver will demonstrate ability to obtain, store, identify and administer ordered medications, keep accurate medication list in home, and adhere to medication schedule Description: Patient/caregiver will demonstrate ability to obtain, store, identify and administer ordered medications, keep accurate medication list in home, and adhere to medication schedule by 06/21/22. Medication Education Completed Yes Patient/caregiver will be able to identify and report symptoms of sepsis Description: Patient/caregiver will be able to identify signs/symptoms of sepsis infection and will verbalize actions to take if suspected by 06/21/22. Sepsis Completed Yes Patient to maintain parameters within physician-specified ranges throughout certification period Physician Specific Parameters Completed Yes Manage Risk for falls Description: Patient/caregiver will verbalize knowledge of individualized fall prevention strategies by 06/21/22. Risk for Falls Completed Yes Manage Pain Description: Patient/caregiver will verbalize knowledge and understanding of appropriate techniques to control pain, including non-pharmacological techniques. Patient will verbalize or demonstrate an acceptable level of pain as evidenced by a pain score of 0-2/10 and improvement in ability to perform activities of daily living to be achieved by 06/21/22. Pain Completed Yes Patient/caregiver will teach back high risk medication side effect and precaution education High Risk Medications Completed Yes Manage discharge planning Description: Patient/caregiver will verbalize understanding of ongoing discharge plan provided related to disease management, arrangements for outpatient and/or community services, obtaining medications, supplies, and DME, as needed throughout certification period. Discharge Completed Yes Patient/caregiver will make healthcare providers aware of and any changes to Advance Directives throughout certification period Advance Directives Completed Yes Improved Aerobic Capacity Description: LTG: Patient will demonstrate improved aerobic capacity to meet functional goals as evidenced by Rate of Percieved Exertion (RPE) of 0-2/10 during standing activity, to be achieved by 06/21/22. PT Impaired Aerobic Capacity Completed Yes Improved Muscle Performance and/or ROM Description: LTG: Patient will demonstrate improved muscle performance to meet functional goals as evidenced by ability to tolerate 8 mins of standing activity, to be achieved by 06/21/22. LTG: Patient and/or caregiver will verbalize/demonstrate independence with home exercise program, to improve functional mobility, to be achieved by 06/21/22. LTG: Patient will demonstrate improved right knee passive range of motion to 0-100 degrees, to meet functional goals, to be achieved by 06/21/22. PT Impaired muscle performance and/or ROM Completed Yes Improved Transfers Description: LTG: Patient will demonstrate safe transfers to/from bed, chair and toilet independently with AD, to be achieved by 06/21/22. PT Impaired mobility Completed Yes Improved Bed Mobility Description: STG: Patient will demonstrate improved ability to position self independently to be achieved by 06/14/22. PT Impaired mobility Completed Yes Improved Stair Climbing Description: LTG: Patient will demonstrate improved stair negotiation as evidenced by ascend/descend 6 steps without railing independently, to safely exit home, to be achieved by 06/21/22. PT Impaired gait Completed Yes Improved Gait Description: LTG: Patient will demonstrate improved gait ability as evidenced by ambulation 200 feet with front wheeled walker independently with AD, to return to safe household ambulation, in order to reach car in the driveway, to be achieved by 06/21/22. PT Impaired gait Completed Yes Improved Balance Description: LTG: Patient will demonstrate improved standing balance to meet functional goals as evidenced by TUG score of 20 to be achieved by 06/21/22. PT Impaired balance Completed Yes Manage Orthopedic Condition Description: Improve patient and/or caregiver understanding of post surgical and/or non-surgical orthopedic intervention management as evidenced by patient and/or caregiver able to verbalize, demonstrate, and teach back instruction, to be achieved by 06/21/22. PT Orthopedic Condition Completed Yes Demonstrate understanding of education Description: Patient and/or caregiver will understand educational instruction to be achieved by 06/21/22. PT Learning Assessment Completed Yes Interventions Intervention Associated Problem/Goal Status Variance Visit Notes Medication Education Description: Evaluate/instruct patient/caregiver on obtaining, storing, identifying and administering ordered medications as well as keeping accurate medication list in the home and adhereing to medication schedule Problem:Medication Education Goal:Patient/caregive r will demonstrate ability to obtain, store, identify and administer ordered medications, keep accurate medication list in home, and adhere to medication schedule Completed Patient instructed on importance of keeping accurate medication list in home and adhering to medication schedule. Risk of Sepsis Description: Patient is at risk for sepsis. Monitor closely for s/s of sepsis. Problem:Sepsis Goal:Patient/caregive r will be able to identify and report symptoms of sepsis Completed SPO2 Description: Notify Dr. Watts if pulse ox is <92% at rest. Problem:Physician Specific Parameters Goal:Patient to maintain parameters within physician-specified ranges throughout certification period Completed Instruct on individual fall risk factors and strategies to prevent falls and injuries caused by falls. Problem:Risk for Falls Goal:Manage Risk for falls Completed PT: Patient instructed on Eliminating Environmental Hazards: Keep pathways clear, Keep pets out of pathways and Remove unsafe rugs Managing Impaired Functional Mobility: Use assistive device(s): single point cane Instruct on pain and instruct on strategies to control pain Problem:Pain Goal:Manage Pain Completed patient instructed on techniques to control pain including Pharmacological measures and Non-Pharmacological measures; rest and positioning/elevation. Opioids- Instruct on high risk medication Problem:High Risk Medications Goal:Patient/caregive r will teach back high risk medication side effect and precaution education Completed patient instructed on the following: Possible side effects of opioid medication including sedation, decreased rate of breathing, and constipation. Instructed on reporting over sedation to prescribing physician, practice deep breathing techniques every hour while awake, and prevention of constipation by increasing water and fiber intake, increase activity as tolerated, and use stool softener as prescribed. Only take opioids as prescribed, do not share your medications, and take proper precautions in storing and properly disposing of opioids once no longer needed. Follow providers guidelines for driving and weaning from prescribed opioid. Instruct on final discharge plan and deliver discharge instructions Problem:Discharge Goal:Manage discharge planning Completed Delivered Discharge plan: Discharge plan discussed with patient for plan for transition to: outpatient therapy Physical Therapy Aerobic Capacity Training Problem:PT Impaired Aerobic Capacity Goal:Improved Aerobic Capacity Completed patient instructed on utilization of the Rate of Percieved Exertion (RPE) scale, to not exceed 3-6/10 indicating moderate to heavy intensity of activity. Developed, implemented, and instructed patient on physical therapy interventions completing 5 minutes of continuous and paced activity. Physical Therapy Therapeutic Exercises Problem:PT Impaired muscle performance and/or ROM Goal:Improved Muscle Performance and/or ROM Completed patient instructed on strengthening and range of motion exercises including Supine : GS,QS,HS, HIPADD, HIP BD, HEEL SLIDES, SAQ, X 20 standing : knee flex, hip flex supine passive knee ext x 1 min seated knee flex to A95 P 102 with verbal cues fortechnique . patient instructed to perform home exercise program twice a day which included hourly ambulation . Physical Therapy Transfer Training Problem:PT Impaired mobility Goal:Improved Transfers Completed SERENA transfers with safe/proper technique Physical Therapy Bed Mobility Training Problem:PT Impaired mobility Goal:Improved Bed Mobility Completed Serena bed mobility Physical Therapy Stair Training Problem:PT Impaired gait Goal:Improved Stair Climbing Completed Indep up and down with railing and cane with step together sequence Physical Therapy Gait Training Problem:PT Impaired gait Goal:Improved Gait Completed Indep amb with st cane with steady recip pattern x 150' Physical Therapy Balance Training Problem:PT Impaired balance Goal:Improved Balance Completed pt demonstrates improved dynamic standing balance as evidenced by a tug of 16 Instruct on orthopedic precautions and weight bearing restrictions Description: Orthopedic precautions including right total knee: no crossing legs, no knee flexed over pillow at rest, no kneeling, no squatting and no twisting. Weight bearing restrictions include: WBAT of involved extremity. Problem:PT Orthopedic Condition Goal:Manage Orthopedic Condition Completed patient instructed on orthopedic precautions and weight bearing restrictions. Instruct on management of edema Problem:PT Orthopedic Condition Goal:Manage Orthopedic Condition Completed Instruct patient on management of edema including elevation of RLE above the level of the heart and ice. Instruct on self-management of post surgical and/or non-surgical orthopedic intervention Problem:PT Orthopedic Condition Goal:Manage Orthopedic Condition Completed patient instructed on managagement of orthopedic condition, signs and symptoms of infection, follow provider guidance for showering and instructed on when to call provider. Instruct and educate on knowledge deficits Problem:PT Learning Assessment Goal:Demonstrate understanding of education Completed patient verbalize and/or demonstrate understanding of physical therapy education including orthopedic condition management, surgical precautions, pain management, home safety, functional activity and home exercise program. Education methods include: verbal cues. [facility] Diagnostic Procedure Only (Routine) - Closed Specialty Diagnoses / Procedures Referred By Bowen gonzáles Referred To Contact XR IMAGING Diagnoses Other secondary osteoarthritis of right knee Procedures XR KNEE GENERAL 4V AP BOTH/PA BOTH/LAT/MERC BILATERAL RADIOLOGIC EXAM KNEE COMPLETE 4/MORE VIEWS Bri Oconnell DO [address] [place] [id number] Xr Imaging Referral ID Status Reason Start Date Expiration Date V isits Requested Visits Authorized [id number] Closed Auto-Generate d Referral 02/27/2022 03/29/2023 1 1 [facility] for referral (narrative)* Outpatient Procedure (Routine) - Closed Specialty Diagnoses / Procedures Referred By Bowen gonzáles Referred To Contact [facility] Diagnoses Pre-operative examination Procedures ECG COMPLETE ECG ROUTINE ECG W/LEAST 12 LDS W/I&R Laura Juarez APRN.STRIP DEBURRER [address] [place] [address] [facility] [address] [place] [address] Referral ID Status Reason Start Date Expiration Date V isits Requested Visits Authorized [id number] Closed Auto-Generate d Referral 05/19/2022 05/19/2023 1 1 [facility] for referral (narrative)* Diagnostic Procedure Only (Routine) - Pending Review Specialty Diagnoses / Procedures Referred By Contac t Referred To Contact XR IMAGING Diagnoses Right knee pain, unspecified chronicity Procedures XR KNEE POST OP 3V AP/LAT/MERCHANT RIGHT RADIOLOGIC EXAMINATION KNEE 3 VIEWS Raheel Henry APRN.STRIP DEBURRER [address] [place] [address] Xr Imaging Referral ID Status Reason Start Date Expiration Date Visits Requested Visits Authorized [id number] Pending Review Auto-Generat ed Referral 06/06/2022 07/06/2023 1 1 [facility] for referral (narrative)* Diagnostic Procedure Only (Routine) - Closed Specialty Diagnoses / Procedures Referred By Contac t Referred To Contact XR IMAGING Diagnoses Right knee pain, unspecified chronicity Procedures XR KNEE POST OP 3V AP/LAT/MERCHANT RIGHT RADIOLOGIC EXAMINATION KNEE 3 VIEWS Raheel Henry APRN.STRIP DEBURRER [address] [place] [address] Xr Imaging Referral ID Status Reason Start Date Expiration Date V isits Requested Visits Authorized [id number] Closed Auto-Generate d Referral 06/06/2022 07/06/2023 1 1 [facility] for referral (narrative)* Diagnostic Procedure Only (Routine) - Authorized Specialty Diagnoses / Procedures Referred By Contac t Referred To Contact XR IMAGING Diagnoses Right knee pain, unspecified chronicity Procedures XR KNEE POST OP 3V AP/LAT/MERCHANT RIGHT RADIOLOGIC EXAMINATION KNEE 3 VIEWS Raheel Henry APRN.CNP [address] [address] [place] [address] Referral ID Status Reason Start Date Expiration Date Visits Requested Visits Authorized [id number] Authorized Auto-Generat ed Referral 3 09/08/2024 1 1 [facility] for referral (narrative)* Diagnostic Procedure Only (Routine) - Closed Specialty Diagnoses / Procedures Referred By Eusebiaac t Referred To Contact XR IMAGING Diagnoses Other secondary osteoarthritis of right knee Procedures XR KNEE GENERAL 4V AP BOTH/PA BOTH/LAT/MERC BILATERAL RADIOLOGIC EXAM KNEE COMPLETE 4/MORE VIEWS Bri Oconnell DO [address] [place] [address] [place] [address] Referral ID Status Reason Start Date Expiration Date V isits Requested Visits Authorized [id number] Closed Auto-Generate d Referral 02/27/2022 03/29/2023 1 1 [facility] for visit Narrative* Diagnostic Procedure Only (Routine) - Closed Specialty Diagnoses / Procedures Referred By Bowen gonzáles Referred To Contact Radiology / RADIO MRI [facility] Diagnoses Pain in right knee 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 Pain in Right Knee 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 Iliotibial band syndrome, right leg Order in syngo Procedures MRI ANY JT LOWER EXTREM W/O & W/CONTRAST MATRL MRI WO MSK2 B1 [address] [facility] [address] [place] [address] Radio Mri [facility] [address] [place] [address] Referral ID Status Reason Start Date Expiration Date Visits Re quested Visits Authorized [id number] Closed 01/21/2022 02/19/2022 1 1 [facility] N[facility] Diagnostic Procedure Only (Routine) - Closed Specialty Diagnoses / Procedures Referred By Bowen t Referred To Contact XR IMAGING Diagnoses Right knee pain, unspecified chronicity Procedures XR KNEE POST OP 3V AP/LAT/MERCHANT RIGHT RADIOLOGIC EXAMINATION KNEE 3 VIEWS Raheel Henry APRN.STRIP DEBURRER [address] [address] Xr Imaging Referral ID Status Reason Start Date Expiration Date V isits Requested Visits Authorized [id number] Closed Auto-Generate d Referral 06/06/2022 07/06/2023 1 1 [facility] Reason for Referral Specialty Diagnoses / Procedures Referred By Bowen t Referred To Contact CT IMAGING Diagnoses Chronic pain of right knee Procedures CT KNEE WO IVCON RT CT LOWER EXTREMITY W/O CONTRAST MATERIAL Estephania Watts MD [address] [place] [address] [address] Referral ID Status Reason Start Date Expiration Date Visits Requested Visits Authorized [id number] Pending Review Auto-Generat ed Referral 03/27/2022 04/26/2023 1 1 Referral ID Status Reason Start Date Expiration Date V isits Requested Visits Authorized [id number] Closed Auto-Generate d Referral 04/05/2022 05/04/2022 1 1 Specialty Diagnoses / Procedures Referred By Bowen t Referred To Contact [facility] Diagnoses Status post total right knee replacement Stiffness of right knee Procedures CONSULT TO PHYSICAL THERAPY PHYSICAL THERAPY EVALUATION HIGH COMPLEX 45 MINS Raheel Henry APRN.STRIP DEBURRER [address] [address] [facility] [place] [id number] [place] [address] Referral ID Status Reason Start Date Expiration Date Visits Requested Visits Authorized [id number] Pending Review Auto-Generat ed Referral 06/17/2022 06/17/2023 1 1 Specialty Diagnoses / Procedures Referred By Boewn t Referred To Contact [facility] Diagnoses S/P total knee arthroplasty, right Stiffness of knee joint, right Procedures PT REHAB FOLLOW UP ORDER THERAPEUTIC EXERCISES RE, EA 15 MIN. Susie Lim, [facility] [address] [place] [address] Referral ID Status Reason Start Date Expiration Date Visits Requested Visits Authorized [id number] Pending Review PCP Requested Referral Auto-Generate d Referral 06/24/2022 09/22/2022 1 1 Specialty Diagnoses / Procedures Referred By Contac t Referred To Contact [facility] Diagnoses S/P total knee arthroplasty, right Procedures PT REHAB FOLLOW UP ORDER THERAPEUTIC EXERCISES RE, EA 15 MIN. Susie Lim, [facility] [address] [place] [address] Referral ID Status Reason Start Date Expiration Date Visits Requested Visits Authorized [id number] Pending Review PCP Requested Referral Auto-Generate d Referral 10/21/2022 1 1 Advance Directives No Advanced Directives Records FoundLatest Code Status on File Code Status Date Activated Date Inactivated Comments Full Code 06/04/2022 5:17 PM Latest Code Status on File Code Status Date Activated Date Inactivated Comments Full Code 06/04/2022 5:17 PM Latest Code Status on File Code Status Date Activated Date Inactivated Comments Full Code 06/04/2022 5:17 PM 06/12/2022 7:20 AM Latest Code Status on File Code Status Date Activated Date Inactivated Comments Full Code 06/04/2022 5:17 PM 06/12/2022 7:20 AM Latest Code Status on File Code Status Date Activated Date Inactivated Comments Full Code 06/04/2022 5:17 PM 06/12/2022 7:20 AM Latest Code Status on File Code Status Date Activated Date Inactivated Comments Full Code 06/04/2022 5:17 PM 06/12/2022 7:20 AM Health Concerns Infection Onset Date Last Indicated Resolved Time COVID-19 Rule-Out 07/02/2022 07/02/2022 Summary Purpose Family History No Family History Records FoundNo Family History Records Found Additional Source Comments Source Comments (unrecognize d section and content) In the event this informatio n is protected by the Federal Confidentiality of Alcohol and Drug Abuse Patient Records regulations: The Federal rules restrict any use of the information to criminally investigate or prosecute any alcohol or drug abuse patient.[facility] RehabilitationIn the event this information is protected by the Federal Confidentiality of Alcohol and Drug Abuse Patient Records regulations: The Federal rules restrict any use of the information to criminally investigate or prosecute any alcohol or drug abuse patient.[facility] RehabilitationIn the event this information is protected by the Federal Confidentiality of Alcohol and Drug Abuse Patient Records regulations: The Federal rules restrict any use of the information to criminally investigate or prosecute any alcohol or drug abuse patient.[facility] RehabilitationIn the event this information is protected by the Federal Confidentiality of Alcohol and Drug Abuse Patient Records regulations: The Federal rules restrict any use of the information to criminally investigate or prosecute any alcohol or drug abuse patient.[facility] RehabilitationIn the event this information is protected by the Federal Confidentiality of Alcohol and Drug Abuse Patient Records regulations: The Federal rules restrict any use of the information to criminally investigate or prosecute any alcohol or drug abuse patient.[facility] RehabilitationIn the event this information is protected by the Federal Confidentiality of Alcohol and Drug Abuse Patient Records regulations: The Federal rules restrict any use of the information to criminally investigate or prosecute any alcohol or drug abuse patient.[facility] RehabilitationIn the event this information is protected by the Federal Confidentiality of Alcohol and Drug Abuse Patient Records regulations: The Federal rules restrict any use of the information to criminally investigate or prosecute any alcohol or drug abuse patient.[facility] RehabilitationIn the event this information is protected by the Federal Confidentiality of Alcohol and Drug Abuse Patient Records regulations: The Federal rules restrict any use of the information to criminally investigate or prosecute any alcohol or drug abuse patient.[facility] RehabilitationIn the event this information is protected by the Federal Confidentiality of Alcohol and Drug Abuse Patient Records regulations: The Federal rules restrict any use of the information to criminally investigate or prosecute any alcohol or drug abuse patient.[facility] RehabilitationIn the event this information is protected by the Federal Confidentiality of Alcohol and Drug Abuse Patient Records regulations: The Federal rules restrict any use of the information to criminally investigate or prosecute any alcohol or drug abuse patient.[facility] RehabilitationIn the event this information is protected by the Federal Confidentiality of Alcohol and Drug Abuse Patient Records regulations: The Federal rules restrict any use of the information to criminally investigate or prosecute any alcohol or drug abuse patient.[facility] RehabilitationIn the event this information is protected by the Federal Confidentiality of Alcohol and Drug Abuse Patient Records regulations: The Federal rules restrict any use of the information to criminally investigate or prosecute any alcohol or drug abuse patient.[facility] RehabilitationIn the event this information is protected by the Federal Confidentiality of Alcohol and Drug Abuse Patient Records regulations: The Federal rules restrict any use of the information to criminally investigate or prosecute any alcohol or drug abuse patient.[facility] RehabilitationIn the event this information is protected by the Federal Confidentiality of Alcohol and Drug Abuse Patient Records regulations: The Federal rules restrict any use of the information to criminally investigate or prosecute any alcohol or drug abuse patient.[facility] RehabilitationIn the event this information is protected by the Federal Confidentiality of Alcohol and Drug Abuse Patient Records regulations: The Federal rules restrict any use of the information to criminally investigate or prosecute any alcohol or drug abuse patient.[facility] RehabilitationIn the event this information is protected by the Federal Confidentiality of Alcohol and Drug Abuse Patient Records regulations: The Federal rules restrict any use of the information to criminally investigate or prosecute any alcohol or drug abuse patient.[facility] RehabilitationIn the event this information is protected by the Federal Confidentiality of Alcohol and Drug Abuse Patient Records regulations: The Federal rules restrict any use of the information to criminally investigate or prosecute any alcohol or drug abuse patient.[facility] RehabilitationIn the event this information is protected by the Federal Confidentiality of Alcohol and Drug Abuse Patient Records regulations: The Federal rules restrict any use of the information to criminally investigate or prosecute any alcohol or drug abuse patient.[facility] RehabilitationIn the event this information is protected by the Federal Confidentiality of Alcohol and Drug Abuse Patient Records regulations: The Federal rules restrict any use of the information to criminally investigate or prosecute any alcohol or drug abuse patient.[facility] RehabilitationIn the event this information is protected by the Federal Confidentiality of Alcohol and Drug Abuse Patient Records regulations: The Federal rules restrict any use of the information to criminally investigate or prosecute any alcohol or drug abuse patient.[facility] RehabilitationIn the event this information is protected by the Federal Confidentiality of Alcohol and Drug Abuse Patient Records regulations: The Federal rules restrict any use of the information to criminally investigate or prosecute any alcohol or drug abuse patient.[facility] RehabilitationIn the event this information is protected by the Federal Confidentiality of Alcohol and Drug Abuse Patient Records regulations: The Federal rules restrict any use of the information to criminally investigate or prosecute any alcohol or drug abuse patient.[facility] RehabilitationIn the event this information is protected by the Federal Confidentiality of Alcohol and Drug Abuse Patient Records regulations: The Federal rules restrict any use of the information to criminally investigate or prosecute any alcohol or drug abuse patient.[facility] RehabilitationIn the event this information is protected by the Federal Confidentiality of Alcohol and Drug Abuse Patient Records regulations: The Federal rules restrict any use of the information to criminally investigate or prosecute any alcohol or drug abuse patient.[facility] RehabilitationIn the event this information is protected by the Federal Confidentiality of Alcohol and Drug Abuse Patient Records regulations: The Federal rules restrict any use of the information to criminally investigate or prosecute any alcohol or drug abuse patient.[facility] RehabilitationIn the event this information is protected by the Federal Confidentiality of Alcohol and Drug Abuse Patient Records regulations: The Federal rules restrict any use of the information to criminally investigate or prosecute any alcohol or drug abuse patient.[facility] RehabilitationIn the event this information is protected by the Federal Confidentiality of Alcohol and Drug Abuse Patient Records regulations: The Federal rules restrict any use of the information to criminally investigate or prosecute any alcohol or drug abuse patient.[facility] RehabilitationIn the event this information is protected by the Federal Confidentiality of Alcohol and Drug Abuse Patient Records regulations: The Federal rules restrict any use of the information to criminally investigate or prosecute any alcohol or drug abuse patient.[facility] RehabilitationIn the event this information is protected by the Federal Confidentiality of Alcohol and Drug Abuse Patient Records regulations: The Federal rules restrict any use of the information to criminally investigate or prosecute any alcohol or drug abuse patient.[facility] RehabilitationIn the event this information is protected by the Federal Confidentiality of Alcohol and Drug Abuse Patient Records regulations: The Federal rules restrict any use of the information to criminally investigate or prosecute any alcohol or drug abuse patient.[facility] RehabilitationIn the event this information is protected by the Federal Confidentiality of Alcohol and Drug Abuse Patient Records regulations: The Federal rules restrict any use of the information to criminally investigate or prosecute any alcohol or drug abuse patient.[facility] RehabilitationIn the event this information is protected by the Federal Confidentiality of Alcohol and Drug Abuse Patient Records regulations: The Federal rules restrict any use of the information to criminally investigate or prosecute any alcohol or drug abuse patient.[facility] RehabilitationIn the event this information is protected by the Federal Confidentiality of Alcohol and Drug Abuse Patient Records regulations: The Federal rules restrict any use of the information to criminally investigate or prosecute any alcohol or drug abuse patient.[facility] RehabilitationIn the event this information is protected by the Federal Confidentiality of Alcohol and Drug Abuse Patient Records regulations: The Federal rules restrict any use of the information to criminally investigate or prosecute any alcohol or drug abuse patient.[facility] RehabilitationIn the event this information is protected by the Federal Confidentiality of Alcohol and Drug Abuse Patient Records regulations: The Federal rules restrict any use of the information to criminally investigate or prosecute any alcohol or drug abuse patient.[facility] RehabilitationIn the event this information is protected by the Federal Confidentiality of Alcohol and Drug Abuse Patient Records regulations: The Federal rules restrict any use of the information to criminally investigate or prosecute any alcohol or drug abuse patient.[facility] RehabilitationIn the event this information is protected by the Federal Confidentiality of Alcohol and Drug Abuse Patient Records regulations: The Federal rules restrict any use of the information to criminally investigate or prosecute any alcohol or drug abuse patient.[facility] RehabilitationIn the event this information is protected by the Federal Confidentiality of Alcohol and Drug Abuse Patient Records regulations: The Federal rules restrict any use of the information to criminally investigate or prosecute any alcohol or drug abuse patient.[facility] RehabilitationIn the event this information is protected by the Federal Confidentiality of Alcohol and Drug Abuse Patient Records regulations: The Federal rules restrict any use of the information to criminally investigate or prosecute any alcohol or drug abuse patient.[facility] RehabilitationIn the event this information is protected by the Federal Confidentiality of Alcohol and Drug Abuse Patient Records regulations: The Federal rules restrict any use of the information to criminally investigate or prosecute any alcohol or drug abuse patient.[facility] RehabilitationIn the event this information is protected by the Federal Confidentiality of Alcohol and Drug Abuse Patient Records regulations: The Federal rules restrict any use of the information to criminally investigate or prosecute any alcohol or drug abuse patient.[facility] RehabilitationIn the event this information is protected by the Federal Confidentiality of Alcohol and Drug Abuse Patient Records regulations: The Federal rules restrict any use of the information to criminally investigate or prosecute any alcohol or drug abuse patient.[facility] RehabilitationIn the event this information is protected by the Federal Confidentiality of Alcohol and Drug Abuse Patient Records regulations: The Federal rules restrict any use of the information to criminally investigate or prosecute any alcohol or drug abuse patient.[facility] RehabilitationIn the event this information is protected by the Federal Confidentiality of Alcohol and Drug Abuse Patient Records regulations: The Federal rules restrict any use of the information to criminally investigate or prosecute any alcohol or drug abuse patient.[facility] RehabilitationIn the event this information is protected by the Federal Confidentiality of Alcohol and Drug Abuse Patient Records regulations: The Federal rules restrict any use of the information to criminally investigate or prosecute any alcohol or drug abuse patient.[facility] RehabilitationIn the event this information is protected by the Federal Confidentiality of Alcohol and Drug Abuse Patient Records regulations: The Federal rules restrict any use of the information to criminally investigate or prosecute any alcohol or drug abuse patient.[facility] RehabilitationIn the event this information is protected by the Federal Confidentiality of Alcohol and Drug Abuse Patient Records regulations: The Federal rules restrict any use of the information to criminally investigate or prosecute any alcohol or drug abuse patient.[facility] RehabilitationIn the event this information is protected by the Federal Confidentiality of Alcohol and Drug Abuse Patient Records regulations: The Federal rules restrict any use of the information to criminally investigate or prosecute any alcohol or drug abuse patient.[facility] RehabilitationIn the event this information is protected by the Federal Confidentiality of Alcohol and Drug Abuse Patient Records regulations: The Federal rules restrict any use of the information to criminally investigate or prosecute any alcohol or drug abuse patient.[facility] RehabilitationIn the event this information is protected by the Federal Confidentiality of Alcohol and Drug Abuse Patient Records regulations: The Federal rules restrict any use of the information to criminally investigate or prosecute any alcohol or drug abuse patient.[facility] RehabilitationIn the event this information is protected by the Federal Confidentiality of Alcohol and Drug Abuse Patient Records regulations: The Federal rules restrict any use of the information to criminally investigate or prosecute any alcohol or drug abuse patient.[facility] RehabilitationIn the event this information is protected by the Federal Confidentiality of Alcohol and Drug Abuse Patient Records regulations: The Federal rules restrict any use of the information to criminally investigate or prosecute any alcohol or drug abuse patient.[facility] RehabilitationIn the event this information is protected by the Federal Confidentiality of Alcohol and Drug Abuse Patient Records regulations: The Federal rules restrict any use of the information to criminally investigate or prosecute any alcohol or drug abuse patient.[facility] Care Teams (unrecognized sec tion and content) Clinical Social Work Aide Relationship Specialty Start Date End Date Juliette Pollack [address] [facility] [address] [place] [address] PCP - General Family Practice 02/27/22 Clinical Social Work Aide Relationship Specialty Start Date End Date Juliette Pollack [address] [facility] [address] [place] [address] PCP - General Family Practice 02/27/22 Clinical Social Work Aide Relationship Specialty Start Date End Date Juliette Pollack [address] [place] [address] PCP - General Family Practice 02/27/22 Clinical Social Work Aide Relationship Specialty Start Date End Date Juliette Pollack [address] [address] [place] [address] PCP - General Family Practice 02/27/22 Clinical Social Work Aide Relationship Specialty Start Date End Date Juliette Pollack [address] [place] [address] PCP - General Family Practice 02/27/22 Clinical Social Work Aide Relationship Specialty Start Date End Date Juliette Pollack [address] [facility] [address] [place] [address] PCP - General Family Practice 02/27/22 Ha Garcia, [facility] [address] [place] [address] Specialty Double Cut [facility] 04/02/22 06/26/22 Clinical Social Work Aide Relationship Specialty Start Date End Date Juliette Pollack [address] [facility] [address] [place] [address] PCP - General Family Practice 02/27/22 Ha Garcia, [facility] [address] [place] [address] Specialty Double [facility] 04/02/22 06/26/22 Clinical Social Work Aide Relationship Specialty Start Date End Date Juliette Pollack [address] [place] [address] PCP - General Family Practice 02/27/22 Ha Garcia, [facility] [address] [place] [address] Specialty Double [facility] 04/02/22 06/26/22 Clinical Social Work Aide Relationship Specialty Start Date End Date Juliette Pollack [address] [place] [address] PCP - General Family Practice 02/27/22 Ha Garcia, [facility] [address] [place] [address] Specialty [facility] 04/02/22 06/26/22 Clinical Social Work Aide Relationship Specialty Start Date End Date Juliette Pollack [address] [facility] [address] [place] [address] PCP - General Family Practice 02/27/22 Ha Garcia, [facility] [address] [place] [address] Specialty Double [facility] 04/02/22 06/26/22 Estephania Watts MD [address] [address] Home Care Physician Orthopedics 06/03/22 Raheel Henry, NONDESTRUCTIVE TESTER.STRIP DEBURRER [address] [address] Referring Orthopedics 06/03/22 Debra Johnson, PT [address] [place] [address] Building Drafting Officer Post Acute Care 06/03/22 Clinical Social Work Aide Relationship Specialty Start Date End Date Juliette Pollack [address] [facility] [address] [place] [address] PCP - General Family Practice 02/27/22 Ha Garcia, [facility] [address] [place] [address] Specialty Double [facility] 04/02/22 06/26/22 Estephania Watts MD [address] [address] Home Care Physician Orthopedics 06/03/22 Raheel Henry, NONDESTRUCTIVE TESTER.STRIP DEBURRER [address] [address] Referring Orthopedics 06/03/22 Debra Johnson, PT [address] [place] [address] Building Drafting Officer Post Acute Care 06/03/22 Clinical Social Work Aide Relationship Specialty Start Date End Date Juliette Pollack [address] [facility] [address] [place] [address] PCP - General Family Practice 02/27/22 Ha Garcia, [facility] [address] [place] [address] Specialty Double Cut [facility] 04/02/22 06/26/22 Estephania Watts MD [address] [address] Home Care Physician Orthopedics 06/03/22 Raheel Henry, DONY.STRIP DEBURRER [address] [address] Referring Orthopedics 06/03/22 Debra Johnson, PT [address] [place] [address] Building Drafting Officer Post Acute Care 06/03/22 Clinical Social Work Aide Relationship Specialty Start Date End Date Juliette Pollack [address] [facility] [address] [place] [address] PCP - General Family Practice 02/27/22 Ha Garcia, [facility] [address] [place] [address] Specialty Double Cut [facility] 04/02/22 06/26/22 Estephania Watts MD [address] [address] Home Care Physician Orthopedics 06/03/22 Raheel Henry, DONY.STRIP DEBURRER [address] [address] Referring Orthopedics 06/03/22 Debra Johnson, PT [address] [place] [address] Building Drafting Officer Post Acute Care 06/03/22 Clinical Social Work Aide Relationship Specialty Start Date End Date Juliette Pollack [address] [facility] [address] [place], [place] [address] PCP - General Family Practice 02/27/22 Ha Garcia, [facility] [address] [place] [address] Specialty Double [facility] 04/02/22 06/26/22 Estephania Watts MD [address] [address] Home Care Physician Orthopedics 06/03/22 Raheel Henry, NONDESTRUCTIVE TESTER.STRIP DEBURRER [address] [address] Referring Orthopedics 06/03/22 Debra Johnson, PT [address] [place] [address] Building Drafting Officer Post Acute Care 06/03/22 Clinical Social Work Aide Relationship Specialty Start Date End Date Juliette Pollack [address] [facility] [address] [place] [address] PCP - General Family Practice 02/27/22 Ha Garcia, [facility] [address] [place] [address] Specialty Double Cut [facility] 04/02/22 06/26/22 Estephania Watts MD [address] [address] Home Care Physician Orthopedics 06/03/22 Raheel Henry, NONDESTRUCTIVE TESTER.STRIP DEBURRER [address] [address] Referring Orthopedics 06/03/22 Debra Johnson, PT [address] [place] [address] Building Drafting Officer Post Acute Care 06/03/22 Clinical Social Work Aide Relationship Specialty Start Date End Date Juliette Pollack [address] [facility] [address] [place] [address] PCP - General Family Practice 02/27/22 Ha Garcia, [facility] [address] [place] [address] Specialty Double Cut [facility] 04/02/22 06/26/22 Estephania Watts MD [address] [address] Home Care Physician Orthopedics 06/03/22 Raheel Henry, NONDESTRUCTIVE TESTER.STRIP DEBURRER [address] [address] Referring Orthopedics 06/03/22 Debra Johnson, PT [address] [place] [address] Building Drafting Officer Post Acute Care 06/03/22 Clinical Social Work Aide Relationship Specialty Start Date End Date Juliette Pollack [address] [facility] [address] [place] [address] PCP - General Family Practice 02/27/22 Ha Garcia, [facility] [address] [place] [address] Specialty Double Cut Sawyer Orthopedics 04/02/22 06/26/22 Estephania Watts MD [address] [address] Home Care Physician Orthopedics 06/03/22 Raheel Henry, NONDESTRUCTIVE TESTER.STRIP DEBURRER [address] [address] Referring Orthopedics 06/03/22 Debra Johnson, PT [address] [place] [address] Building Drafting Officer Post Acute Care 06/03/22 Clinical Social Work Aide Relationship Specialty Start Date End Date Juliette Pollack [address] [facility] [address] [place] [address] PCP - General Family Practice 02/27/22 Ha Garcia, [facility] [address] [place] [address] Specialty Double Cut Sawyer Orthopedics 04/02/22 06/26/22 Estephania Watts MD [address] [address] Home Care Physician Orthopedics 06/03/22 Raheel Henry, NONDESTRUCTIVE TESTER.STRIP DEBURRER [address] [address] Referring Orthopedics 06/03/22 Debra Johnson, PT [address] [place] [address] Building Drafting Officer Post Acute Care 06/03/22 Clinical Social Work Aide Relationship Specialty Start Date End Date Juliette Pollack [address] [facility] [address] [place] [address] PCP - General Family Practice 02/27/22 Ha Garcia, [facility] [address] [place] [address] Specialty Double Cut Sawyer Orthopedics 04/02/22 06/26/22 Estephania Watts MD [address] [address] Home Care Physician Orthopedics 06/03/22 Raheel Henry, NONDESTRUCTIVE TESTER.STRIP DEBURRER [address] [address] Referring Orthopedics 06/03/22 Debra Johnson, PT [address] [place] [address] Building Drafting Officer Post Acute Care 06/03/22 Clinical Social Work Aide Relationship Specialty Start Date End Date Juliette Pollack [address] [facility] [address] [place] [address] PCP - General Family Practice 02/27/22 Ha Garcia, [facility] [address] [place] [address] Specialty Double Cut Sawyer Orthopedics 04/02/22 06/26/22 Estephania Watts MD [address] [address] Home Care Physician Orthopedics 06/03/22 Raheel Henyr, DONY.STRIP DEBURRER [address] [address] Referring Orthopedics 06/03/22 Debra Johnson, PT [address] [place], [place] [id number] Building Drafting Officer Post Acute Care 06/03/22 Clinical Social Work Aide Relationship Specialty Start Date End Date Juliette Pollack [address] [facility] [address] [place] [address] PCP - General Family Practice 02/27/22 Ha Garcia, [facility] [address] [place] [address] Specialty Double Cut Sawyer Orthopedics 04/02/22 06/26/22 Estephania Watts MD [address] [address] Home Care Physician Orthopedics 06/03/22 Raheel Henry, DONY.STRIP DEBURRER [address] [place] [address] Referring Orthopedics 06/03/22 Debra Johnson, PT [address] [place] [address] Building Drafting Officer Post Acute Care 06/03/22 Clinical Social Work Aide Relationship Specialty Start Date End Date Juliette Pollack [address] [facility] [address] [place] [address] PCP - General Family Practice 02/27/22 Ha Garcia [facility] [address] [place] [address] Specialty Double Cut Sawyer Orthopedics 04/02/22 06/26/22 Estephania Watts MD [address] [address] Home Care Physician Orthopedics 06/03/22 Raheel Henry APRN.STRIP DEBURRER [address] [address] Referring Orthopedics 06/03/22 Debra Johnson, PT [address] [place], [place] [id number] Building Drafting Officer Post Acute Care 06/03/22 Clinical Social Work Aide Relationship Specialty Start Date End Date Juliette Pollack [address] [facility] [address] [place], [place] [id number] PCP - General Family Practice 02/27/22 Ha Garcia, [facility] [address] [place] [address] Specialty Double Cut Sawyer Orthopedics 04/02/22 06/26/22 Estephania Watts MD [address] [address] Home Care Provider Orthopedics 06/03/22 Raheel Henry APRN.STRIP DEBURRER [address] [address] Referring Orthopedics 06/03/22 Debra Johnson, PT [address] [place], [place] [id number] Building Drafting Officer Post Acute Care 06/03/22 Clinical Social Work Aide Relationship Specialty Start Date End Date Juliette Pollack [address] [facility] [address] [place] [address] PCP - General Family Practice 02/27/22 Ha Garcia, [facility] [address] [place] [address] Specialty Double Cut Sawyer Orthopedics 04/02/22 06/26/22 Estephania Watts MD [address] [place] [address] Home Care Provider Orthopedics 06/03/22 Raheel Henry APRN.STRIP DEBURRER [address] [place] [address] Referring Orthopedics 06/03/22 Debra Johnson, PT [address] [facility] [place] [address] Building Drafting Officer Post Acute Care 06/03/22 Clinical Social Work Aide Relationship Specialty Start Date End Date Juliette Pollack [address] [facility] [address] [place] [address] PCP - General Family Practice 02/27/22 Estephania Watts MD [address] [place] [address] Home Care Provider Orthopedics 06/03/22 Raheel Henry APRN.STRIP DEBURRER [address] [place] [address] Referring Orthopedics 06/03/22 Debra Johnson, PT [address] [facility] [place] [address] Building Drafting Officer Post Acute Care 06/03/22 Clinical Social Work Aide Relationship Specialty Start Date End Date Juliette Pollack [address] [facility] [address] [place] [address] PCP - General Family Medicine 02/27/22 Estephania Watts MD [address] [place] [address] Home Care Provider Orthopedics 06/03/22 Raheel Henry APRN.STRIP DEBURRER [address] [address] Referring Orthopedics 06/03/22 Debra Johnson, PT [address] [facility] [place] [address] Building Drafting Officer Post Acute Care 06/03/22 Clinical Social Work Aide Relationship Specialty Start Date End Date Juliette Pollack [address] [facility] [address] [place] [address] PCP - General Family Medicine 02/27/22 Estephania Watts MD [address] [place] [address] Home Care Provider Orthopedics 06/03/22 Raheel Henry APRN.STRIP DEBURRER [address] [place] [address] Referring Orthopedics 06/03/22 Debra Johnson, PT [address] [place] [address] Building Drafting Officer Post Acute Care 06/03/22 Clinical Social Work Aide Relationship Specialty Start Date End Date Juliette Pollack [address] [facility] [address] [place] [address] PCP - General Family Medicine 02/27/22 Estephania Watts MD [address] [place] [address] Home Care Provider Orthopedics 06/03/22 Raheel Henry NONDESTRUCTIVE TESTER.STRIP DEBURRER [address] [address] Referring Orthopedics 06/03/22 Debra Johnson, PT [address] [facility] [address] Building Drafting Officer Post Acute Care 06/03/22 Clinical Social Work Aide Relationship Specialty Start Date End Date Juliette Pollack [address] [facility] [address] [place] [address] PCP - General Family Medicine 02/27/22 Estephania Watts MD [address] [place] [address] Home Care Provider Orthopedics 06/03/22 Raheel Henry APRN.[address] [address] Referring Orthopedics 06/03/22 Debra Johnson, PT [address] [place] [address] Building Drafting Officer Post Acute Care 06/03/22 Clinical Social Work Aide Relationship Specialty Start Date End Date Juliette Pollack [address] [facility] [address] [place] [address] PCP - General Family Medicine 02/27/22 Estephania Watts MD [address] [place] [address] Home Care Provider Orthopedics 06/03/22 Raheel Henry, DONY.STRIP DEBURRER [address] [place] [address] Referring Orthopedics 06/03/22 Debra Johnson, PT [address] [place] [address] Building Drafting Officer Post Acute Care 06/03/22 Clinical Social Work Aide Relationship Specialty Start Date End Date Juliette Pollack [address] [facility] [address] [place] [address] PCP - General Family Medicine 02/27/22 Estephania Watts MD [address] [place] [address] Home Care Provider Orthopedics 06/03/22 Raheel Henry, NONDESTRUCTIVE TESTER.STRIP DEBURRER [address] [place] [address] Referring Orthopedics 06/03/22 Debra oJhnson, PT [address] [place] [address] Building Drafting Officer Post Acute Care 06/03/22 Clinical Social Work Aide Relationship Specialty Start Date End Date Juliette Pollack [address] [facility] [address] [place] [address] PCP - General Family Medicine 02/27/22 Estephania Watts MD [address] [place] [address] Home Care Provider Orthopedics 06/03/22 Raheel Henry, NONDESTRUCTIVE TESTER.STRIP DEBURRER [address] [place] [address] Referring Orthopedics 06/03/22 Debra Johnson, PT [address] [place] [address] Building Drafting Officer Post Acute Care 06/03/22 Clinical Social Work Aide Relationship Specialty Start Date End Date Juliette Pollack [address] [facility] [address] [place] [address] PCP - General Family Medicine 02/27/22 Estephania Watts MD [address] [place] [address] Home Care Provider Orthopedics 06/03/22 Raheel Henry, NONDESTRUCTIVE TESTER.STRIP DEBURRER [address] [place] [address] Referring Orthopedics 06/03/22 Debra Johnson, PT [address] [place] [address] Building Drafting Officer Post Acute Care 06/03/22 Clinical Social Work Aide Relationship Specialty Start Date End Date Juliette Pollack [address] [facility] [address] [facility] [address] [place] [address] PCP - General Family Medicine 02/27/22 Estephania Watts MD [address] [address] Home Care Provider Orthopedics 06/03/22 Raheel Henry, NONDESTRUCTIVE TESTER.STRIP DEBURRER [address] [place] [address] Referring Orthopedics 06/03/22 Debra Johnson, PT [address] [place] [address] Building Drafting Officer Post Acute Care 06/03/22 Clinical Social Work Aide Relationship Specialty Start Date End Date Juliette Pollack [address] [facility] [address] [place] [address] PCP - General Family Medicine 02/27/22 Estephania Watts MD [address] [place] [address] Home Care Provider Orthopedics 06/03/22 Raheel Henry, NONDESTRUCTIVE TESTER.STRIP DEBURRER [address] [place] [address] Referring Orthopedics 06/03/22 Debra Johnson, PT [address] [place] [address] Building Drafting Officer Post Acute Care 06/03/22 Clinical Social Work Aide Relationship Specialty Start Date End Date Juliette Pollack [address] [facility] [facility] [address] [place] [address] PCP - General Family Medicine 02/27/22 Estephania Watts MD [address] [address] Home Care Provider Orthopedics 06/03/22 Raheel Henry APRN.STRIP DEBURRER [address] [place] [address] Referring Orthopedics 06/03/22 Debra Johnson, PT [address] [place] [address] Building Drafting Officer Post Acute Care 06/03/22 Clinical Social Work Aide Relationship Specialty Start Date End Date Juliette Pollack [address] [facility] [address] [place] [address] PCP - General Family Medicine 02/27/22 Estephania Watts MD [address] [place] [address] Home Care Provider Orthopedics 06/03/22 Raheel Henry APRN.STRIP DEBURRER [address] [place] [address] Referring Orthopedics 06/03/22 Debra Johnson, PT [address] [place] [address] Building Drafting Officer Post Acute Care 06/03/22 Clinical Social Work Aide Relationship Specialty Start Date End Date Juliette Pollack [address] [facility] [address] [place] [address] PCP - General Family Medicine 02/27/22 Estephania Watts MD [address] [place] [address] Home Care Provider Orthopedics 06/03/22 Raheel Henry APRN.STRIP DEBURRER [address] [address] Referring Orthopedics 06/03/22 Debra Johnson, PT [address] [facility] [place] [address] Building Drafting Officer Post Acute Care 06/03/22 Clinical Social Work Aide Relationship Specialty Start Date End Date Juliette Pollack MD [address] [facility] [address] [place] [address] PCP - General Family Medicine 02/27/22 Estephania Watts MD [address] [place] [address] Home Care Provider Orthopedics 06/03/22 Raheel Henry APRN.STRIP DEBURRER [address] [place] [address] Referring Orthopedics 06/03/22 Debra Johnson, PT [address] [place] [address] Building Drafting Officer Post Acute Care 06/03/22 Clinical Social Work Aide Relationship Specialty Start Date End Date Juliette Pollack MD [facility] E [address] [address] PCP - General Family Medicine 02/27/22 Estephania Watts MD [address] [place] [address] Home Care Provider Orthopedics 06/03/22 Raheel Henry APRN.STRIP DEBURRER [address] [place] [address] Referring Orthopedics 06/03/22 Debra Johnson, PT [address] [place] [address] Building Drafting Officer Post Acute Care 06/03/22 Clinical Social Work Aide Relationship Specialty Start Date End Date Juliette Pollack MD [address] [facility] [address] [place] [address] PCP - General Family Medicine 02/27/22 Clinical Social Work Aide Relationship Specialty Start Date End Date Juliette Pollack MD [address] [facility] [address] [place] [address] PCP - General Family Medicine 02/27/22 Estephania Watts MD [address] [place] [phone] Home Care Provider Orthopedics 06/03/22 Raheel Henry APRN.STRIP DEBURRER [address] [place] [address] Referring Orthopedics 06/03/22 Debra Johnson, PT [address] [place] [address] Building Drafting Officer Post Acute Care 06/03/22 Reason for Visit (unrecogniz ed section and content) Specialty Diagnoses / Procedures Referred By Bowen gonzáles Referred To Contact Physical Therapy / PHYSICAL THERAPY Diagnoses RT TKR [facility] DISC 06/20 Procedures PHYSICAL THERAPY EVALUATION HIGH COMPLEX 45 MINS THERAPEUTIC EXERCISES RE, EA 15 MIN. NEW RS PT [facility] Estephania Watts MD [address] [address] Susie Lim, PT Referral ID Status Reason Start Date Expiration Date V isits Requested Visits Authorized [id number] Authorized 06/24/2022 10/11/2022 30 30 Reason Comments PT Progress Note Specialty Diagnoses / Procedures Referred By Bowen gonzáles Referred To Contact Physical Therapy / PHYSICAL THERAPY Diagnoses RT TKR [facility] DISC 06/20 Procedures PHYSICAL THERAPY EVALUATION HIGH COMPLEX 45 MINS THERAPEUTIC EXERCISES RE, EA 15 MIN. NEW RS PT [facility] Estephania Watts MD [address] [address] Susie Lim, PT Reason Comments Appointment Reason Comments New Knee Pain Reason Comments Pre-Op Visit Reason Comments Patient Question Specialty Diagnoses / Procedures Referred By Contac t Referred To Contact CT IMAGING Diagnoses Chronic pain of right knee Procedures CT KNEE WO IVCON RT CT LOWER EXTREMITY W/O CONTRAST MATERIAL Estephania Watts MD [address] [address] [address] Imaging Referral ID Status Reason Start Date Expiration Date V isits Requested Visits Authorized [id number] Closed Auto-Generate d Referral 04/05/2022 05/04/2022 1 1 Reason Comments Pre-Op Teaching Reason Comments Consult Reason Comments Home Care Specialty Diagnoses / Procedures Referred By Contac t Referred To Contact [facility] Home Care [address] [place] [address] Referral ID Status Reason Start Date Expiration Date Visits Re quested Visits Authorized [id number] 1 1 Reason Comments Double Cut Sawyer - Hospital Follow Up Reason Comments Patient Update Reason Comments Home Care Missed visit Reason Comments Post Op Knee Replacement Reason Comments Home Care Agency d/c Reason Comments PT Eval Reason Onset Date Comments Refill Request 06/25/2022 Reason Comments Physical Therapy Reason Comments Hives Reason Comments Established Patient Follow Up Incision Check Post Op Reason Comments Post Op Knee Replacement Reason Comments Patch Testing (allergy) Reason Comments Radio Gen RMP Specialty Diagnoses / Procedures Referred By Contac t Referred To Contact XR IMAGING Diagnoses Other secondary osteoarthritis of right knee Procedures XR KNEE GENERAL 4V AP BOTH/PA BOTH/LAT/MERC BILATERAL RADIOLOGIC EXAM KNEE COMPLETE 4/MORE VIEWS Bri Oconnell DO [address] [place] [address] [place] [address] Referral ID Status Reason Start Date Expiration Date V isits Requested Visits Authorized [id number] Closed Auto-Generate d Referral 02/27/2022 03/29/2023 1 1 Reason Comments Follow Up Knee Replacement INFORMATION SOURCE (unrecogn ized section and content) DATE CREATED AUTHOR AUTHOR'S ORGANIZ ATION 09/03/2023 [facility] FOR RECORDS PERTAINING TO PATIENTS WHO ARE OR HAVE BEEN ENROLLED IN A CHEMICAL DEPENDENCY/SUBSTANCEABUSE PROGRAM, SOME INFORMATION MAY BE OMITTED. This clinical summary was aggregated from multiple sources. Caution should be exercised in using it in the provision of clinical care. This summary normalizes information from multiple sources, and as a consequence, information in this document may materially change the coding, format and clinical context of patient data. In addition, data may be omitted in some cases. CLINICAL DECISIONS SHOULD BE BASED ON THE PRIMARY CLINICAL RECORDS. [facility] provides no warranty or guarantee of the accuracy or completeness of information in this document.
[2023-10-19 12:33] LABS: Absolute Lymphocyte Count 4.34 X10^3/uL (0.83-4.51); Absolute Neutrophil Count 2.6 X10^3/uL (2.0-7.7); Basophil# 0.08 X10^3/uL; Eosinophil# 0.06 X10^3/uL; Eosinophils% 0.8 % (0-5); Hematocrit 41.6 % (37-47); Hemoglobin 13.1 g/dL (12.0-15.0); Lymphocyte # 4.34 X10^3/ul (0.83-4.51); Mean Corp Hgb Conc 31.5 g/dL (32-36); Mean Corpuscular Volume 92.2 fL (81-99); Mean Platelet Vol. 10.3 fl (6.2-12.0); Monocyte% 7.7 % (0-10); NRBC Flagged by Analyzer 0 % (0-5); Neutrophil # 2.64 X10^3/uL (2.7-7.7); Neutrophil % 34.1 % (47-70); Platelet Count 316 K/mm3 (150-450); RBC Distribution Width CV 13.3 % (11.6-14.6); RBC Distribution Width SD 45.1 fl (35.1-43.9); Red Blood Count 4.51 M/mm3 (4.2-5.4); White Blood Count 7.8 K/mm3 (4.4-11.0)
[2023-10-19 13:36] LABS: ALB/GLOB Ratio 0.9 RATIO (0.9-2.4); AST(SGOT) 26 U/L (15-37); Alanine Aminotransfer ALT/SGPT 34 U/L (13-56); Albumin, Serum 3.6 g/dL (3.2-5.0); Alkaline Phosphatase 121 U/L (45-117); Anion Gap 7 (5-15); BUN 11 mg/dL (7-18); BUN/Creat Ratio 11.1 RATIO (10-20); Calcium,Total 8.9 mg/dL (8.5-10.1); Chloride 102 mmol/L (98-107); Creatinine, Serum 0.99 mg/dL (0.55-1.02); EST Glomerular Filtration Rate 63 mL/min (>60); Est Glom Filt Rate - Afr Amer 76 mL/min (>60); Globulin 4.1 g/dL (2.2-4.2); Glucose 111 mg/dL (74-106); Potassium 3.7 mmol/L (3.5-5.1); Protein, Total 7.7 g/dL (6.4-8.2); Sodium Level 135 mmol/L (136-145)
[2023-10-21 14:09] LABS: QNTFERON TB Mitogen Value > 10.00 IU/mL (.); QNTFERON TB Nil Value 0.09 IU/mL (.); QNTFERON TB1+ Ag Value 0.08 IU/mL (.); QNTFERON TB2+ Ag Value 0.09 IU/mL (.); QNTIFERON TB Positive Criteria Negative (Negative)
== END | disposition home or self-care (01) ==
PROVIDERS: PCP Family Medicine; Referring Provider Internal Medicine Rheumatology; Visit Provider Internal Medicine Rheumatology
DX: L40.59 Other psoriatic arthropathy (principal); Z79.899 Other long term (current) drug therapy
CPT/HCPCS: 36415; 80053; 85025; 86480

== ENCOUNTER → 2024-02-15 | Outpatient (CLI) | payer BC, SELFPAY ==
[2024-02-15 10:28] LABS: Absolute Lymphocyte Count 1.31 X10^3/uL (0.83-4.51); Absolute Neutrophil Count 4.8 X10^3/uL (2.0-7.7); Basophil# 0.05 X10^3/uL; Basophil% 0.7 % (0-1); Eosinophil# 0.11 X10^3/uL; Eosinophils% 1.6 % (0-5); Hemoglobin 13.3 g/dL (12.0-15.0); Lymphocyte # 1.31 X10^3/ul (0.83-4.51); Lymphocyte % 18.8 % (19-41); Mean Corp Hgb Conc 32.4 g/dL (32-36); Mean Corpuscular Hgb 29.8 pg (27.0-32.0); Mean Corpuscular Volume 91.7 fL (81-99); Mean Platelet Vol. 10.1 fl (6.2-12.0); Monocyte# 0.64 X10^3/uL; Monocyte% 9.2 % (0-10); NRBC Flagged by Analyzer 0 % (0-5); Neutrophil # 4.84 X10^3/uL (2.7-7.7); Neutrophil % 69.3 % (47-70); Platelet Count 313 K/mm3 (150-450); RBC Distribution Width CV 13.9 % (11.6-14.6); RBC Distribution Width SD 46.9 fl (35.1-43.9); Red Blood Count 4.47 M/mm3 (4.2-5.4)
[2024-02-15 11:01] LABS: Vitamin D,25 Hydroxy 29.3 ng/mL
[2024-02-15 11:02] LABS: Hemoglobin A1c 5.5 % (3.8-5.6)
[2024-02-15 11:08] LABS: ALB/GLOB Ratio 0.9 RATIO (0.9-2.4); AST(SGOT) 28 U/L (15-37); Alanine Aminotransfer ALT/SGPT 28 U/L (13-56); Albumin, Serum 3.4 g/dL (3.2-5.0); Alkaline Phosphatase 95 U/L (45-117); Anion Gap 7 (5-15); BUN 15 mg/dL (7-18); BUN/Creat Ratio 14.9 RATIO (10-20); Calcium,Total 8.8 mg/dL (8.5-10.1); Chloride 102 mmol/L (98-107); Cholesterol 262 mg/dL (200); Creatinine, Serum 1.01 mg/dL (0.55-1.02); EST Glomerular Filtration Rate 61 mL/min (>60); Est Glom Filt Rate - Afr Amer 74 mL/min (>60); Globulin 3.8 g/dL (2.2-4.2); Glucose 100 mg/dL (74-106); High Density Lipoprotein 71 mg/dL; Potassium 3.6 mmol/L (3.5-5.1); Protein, Total 7.2 g/dL (6.4-8.2); Sodium Level 136 mmol/L (136-145); Triglycerides 257 mg/dL; Very Low Density Lipoprotein 51 mg/dL (5-40)
== END | disposition home or self-care (01) ==
LOC: MFPLAB 09:09
PROVIDERS: PCP Family Medicine; Visit Provider Family Medicine
DX: I10 Essential (primary) hypertension (principal); R73.02 Impaired glucose tolerance (oral); E55.9 Vitamin D deficiency, unspecified
CPT/HCPCS: 36415; 80053; 80061; 82306; 83036; 85025

== ENCOUNTER → 2024-02-22 | Outpatient (CLI) | payer BC, SELFPAY ==
--- NOTE | 2024-02-22 12:17 | BI_ITS ---
MAMMOGRAPHY - BILATERAL SCREENING REASON FOR EXAM: Female, 53 years old. Routine annual screening examination. PERTINENT HISTORY: Mother with breast cancer. Aunt with breast cancer. TECHNIQUE: Digital bilateral breast humberto (3D mammographic acquisition) in the CC and MLO projections. 2-D mediolateral oblique (MLO) and craniocaudad (CC) views of both breasts were obtained. CAD: Full Field Digital Mammography with Computer Added Detection was performed. COMPARISON: Comparison is made with prior outside examination December 19, 2019 and March 17, 2013. FINDINGS: Breast Composition: The breasts are extremely dense, which lowers the sensitivity of mammography. There are no dominant masses or suspicious calcifications. Stable small benign-appearing bilateral axillary lymph nodes. No other significant abnormalities are identified. There has been no significant change since the prior study. BI/SCRN MAMM (CAD)W/HUMBERTO BILAT IMPRESSION: Stable bilateral screening mammogram. Yearly follow-up mammogram recommended. (A) ASSESSMENT CATEGORY: BIRADS Category 2: Benign. A letter regarding these results will be sent to the patient by the facility within 30 days. Approximately 10% of breast cancers are not detected by mammography. A normal mammogram should not delay biopsy of a clinically suspicious abnormality. [id number] Electronically Signed: Hernandez Hamilton MD at 11:15 EDT ,
== END | disposition home or self-care (01) ==
LOC: OPBI 12:10
PROVIDERS: PCP Family Medicine; Referring Provider Nurse Practitioner Family; Visit Provider Nurse Practitioner Family
DX: Z12.31 Encounter for screening mammogram for malignant neoplasm of breast (principal); Z80.3 Family history of malignant neoplasm of breast
CPT/HCPCS: 77063; 77067

== ENCOUNTER → 2024-03-08 | Outpatient (CLI) | payer BC, SELFPAY ==
--- NOTE | 2024-03-08 18:15 | CT_ITS ---
INDICATION: smoking hx EXAMINATION: CT Low Dose CT Chest for Lung Cancer Screening TECHNIQUE: Helically acquired images were obtained of the chest with sagittal and coronal reconstructed images. Individualized dose optimization techniques were used for this CT. COMPARISON: 08/04/2018 CT. FINDINGS: LUNGS, PLEURA AND LARGE AIRWAYS: No consolidation or edema. Calcified right perihilar pulmonary granuloma. No pleural effusion. No pneumothorax. THYROID: Unremarkable. HEART AND PERICARDIUM: No evidence of coronary artery calcification. No pericardial effusion. MEDIASTINUM AND HANNAH: Calcified right hilar lymph nodes. Esophagus is unremarkable. No hiatal hernia. VESSELS: No thoracic aortic aneurysm. UPPER ABDOMEN: The visualized upper abdomen is unremarkable. BONES: No acute abnormality. CT/Low Dose CT Lung Screening IMPRESSION: No pulmonary nodule. Lung-RADS Category 1 (negative, <1% chance of malignancy). Recommend continuing annual screening with low-dose CT. Electronically Signed: Rishi Kemp DO at 6:45 EDT ,
== END | disposition home or self-care (01) ==
PROVIDERS: PCP Family Medicine; Referring Provider Nurse Practitioner Family; Visit Provider Nurse Practitioner Family
DX: Z87.891 Personal history of nicotine dependence (principal)
CPT/HCPCS: 71271

== ENCOUNTER → 2024-04-04 | Outpatient (CLI) | payer BC, SELFPAY ==
[2024-04-04 15:34] LABS: Absolute Lymphocyte Count 7.71 X10^3/uL (0.83-4.51); Absolute Neutrophil Count 5.2 X10^3/uL (2.0-7.7); Basophil# 0.08 X10^3/uL; Basophil% 0.6 % (0-1); Eosinophil# 0.08 X10^3/uL; Eosinophils% 0.6 % (0-5); Hematocrit 38.2 % (37-47); Hemoglobin 12.2 g/dL (12.0-15.0); Lymphocyte # 7.71 X10^3/ul (0.83-4.51); Lymphocyte % 54.9 % (19-41); Mean Corp Hgb Conc 31.9 g/dL (32-36); Mean Corpuscular Hgb 29.4 pg (27.0-32.0); Monocyte% 6.4 % (0-10); NRBC Flagged by Analyzer 0 % (0-5); Neutrophil # 5.21 X10^3/uL (2.7-7.7); Neutrophil % 37.1 % (47-70); POSITIVE DIFFERENTIAL YES; POSITIVE MORPHOLOGY YES; Platelet Count 416 K/mm3 (150-450); RBC Distribution Width CV 13.1 % (11.6-14.6); RBC Distribution Width SD 44.2 fl (35.1-43.9); Red Blood Count 4.15 M/mm3 (4.2-5.4)
[2024-04-04 16:05] LABS: Reactive Lymphocyte 1+
[2024-04-04 16:09] LABS: Toxic Granulation 1+
[2024-04-04 16:56] LABS: ALB/GLOB Ratio 0.9 RATIO (0.9-2.4); AST(SGOT) 14 U/L (15-37); Alanine Aminotransfer ALT/SGPT 17 U/L (13-56); Albumin, Serum 3.4 g/dL (3.2-5.0); Alkaline Phosphatase 92 U/L (45-117); Anion Gap 7 (5-15); BUN 16 mg/dL (7-18); BUN/Creat Ratio 16.2 RATIO (10-20); Calcium,Total 8.8 mg/dL (8.5-10.1); Chloride 101 mmol/L (98-107); Creatinine, Serum 0.99 mg/dL (0.55-1.02); EST Glomerular Filtration Rate 63 mL/min (>60); Est Glom Filt Rate - Afr Amer 76 mL/min (>60); Globulin 3.6 g/dL (2.2-4.2); Glucose 117 mg/dL (74-106); Potassium 3.2 mmol/L (3.5-5.1); Sodium Level 136 mmol/L (136-145)
[2024-04-05 13:42] LABS: Pathologist Review Reviewed
== END | disposition home or self-care (01) ==
PROVIDERS: PCP Family Medicine; Referring Provider Internal Medicine Rheumatology; Visit Provider Internal Medicine Rheumatology
DX: L40.59 Other psoriatic arthropathy (principal); K51.80 Other ulcerative colitis without complications; L40.8 Other psoriasis; Z79.899 Other long term (current) drug therapy
CPT/HCPCS: 36415; 80053; 85025

== ENCOUNTER → 2024-06-17 | Outpatient (CLI) | payer BC, SELFPAY ==
--- NOTE | 2024-06-17 11:17 | BD_ITS ---
STUDY: DUAL ENERGY X-RAY ABSORPTIOMETRY / DXA REASON FOR EXAM: Female, 53 years old. M810 TECHNIQUE: Bone Mineral Density (BMD) measurements of lumbar spine and bilateral hips were obtained. COMPARISON: None. FINDINGS: Lumbar Spine (L1-L4): g/cm2 (0.925) / T-score (-1.1) / Z-score (-0.3) Findings are suggestive of osteopenia with a low fracture risk. Left Femur Total: g/cm2 (0.986) / T-score (0.4) / Z-score (0.9) Left Femoral Neck: g/cm2 (0.772) / T-score (-0.7) / Z-score (0.2) Right Femur Total: g/cm2 (0.931) / T-score (-0.1) / Z-score (0.4) Right Femoral Neck: g/cm2 (0.719) / T-score (-1.2) / Z-score (-0.3) BD/Dexa Bone Density Study IMPRESSION: The patient is considered osteopenic as outlined below according to World Ryan Organization (WHO) criteria with a low fracture risk. Reference Information: The T-score is the number of standard deviations above or below the standard which is normal for young adults at their peak bone mineral density. The World Health Organization (WHO) interprets the T-scores as follows: Above -1 Normal bone density Between -1 and -2.5 Osteopenia Equal to / or below -2.5 Osteoporosis As a practical clinical guideline, osteopenia may be graded as follows: Mild -1 through -1.5 Moderate -1.6 through -2.0 Severe -2.1 through -2.4 The Z-score is the number of standard deviations above or below age-matched controls. A Z-score of less than -1.5 would be considered abnormal. References: 1. NIH Osteoporosis and Related Bone Diseases www osteo.org 2. International Society for Clinical Densitometry www iscd.org 3. National Osteoporosis Foundation www nof.org Electronically Signed: Hernandez Hamilton MD at 10:26 EDT ,
== END | disposition home or self-care (01) ==
LOC: OPBD 11:08
PROVIDERS: PCP Family Medicine; Referring Provider Podiatrist; Visit Provider Podiatrist
DX: M79.671 Pain in right foot (principal); M81.0 Age-related osteoporosis without current pathological fracture
CPT/HCPCS: 77080

== ENCOUNTER → 2024-09-12 | Outpatient (CLI) | payer BC, SELFPAY ==
[2024-09-12 15:22] LABS: Absolute Lymphocyte Count 4.54 X10^3/uL (0.83-4.51); Absolute Neutrophil Count 5.1 X10^3/uL (2.0-7.7); Basophil# 0.11 X10^3/uL; Eosinophil# 0.23 X10^3/uL; Eosinophils% 2.2 % (0-5); Hematocrit 38.1 % (37-47); Lymphocyte # 4.54 X10^3/ul (0.83-4.51); Lymphocyte % 42.7 % (19-41); Mean Corp Hgb Conc 31.5 g/dL (32-36); Mean Corpuscular Hgb 28.4 pg (27.0-32.0); Mean Corpuscular Volume 90.1 fL (81-99); Monocyte# 0.59 X10^3/uL; Monocyte% 5.6 % (0-10); NRBC Flagged by Analyzer 0 % (0-5); Neutrophil # 5.11 X10^3/uL (2.7-7.7); Neutrophil % 48.1 % (47-70); Platelet Count 379 K/mm3 (150-450); RBC Distribution Width CV 13.4 % (11.6-14.6); Red Blood Count 4.23 M/mm3 (4.2-5.4); White Blood Count 10.6 K/mm3 (4.4-11.0)
[2024-09-12 15:57] LABS: ALB/GLOB Ratio 0.8 RATIO (0.9-2.4); AST(SGOT) 20 U/L (15-37); Alanine Aminotransfer ALT/SGPT 30 U/L (13-56); Albumin, Serum 3.5 g/dL (3.2-5.0); Alkaline Phosphatase 113 U/L (45-117); Anion Gap 7 (5-15); BUN 10 mg/dL (7-18); BUN/Creat Ratio 12.4 RATIO (10-20); Calcium,Total 9.1 mg/dL (8.5-10.1); Chloride 100 mmol/L (98-107); Creatinine, Serum 0.81 mg/dL (0.55-1.02); EST Glomerular Filtration Rate 79 mL/min (>60); Est Glom Filt Rate - Afr Amer 96 mL/min (>60); Globulin 4.4 g/dL (2.2-4.2); Glucose 105 mg/dL (74-106); Potassium 3.8 mmol/L (3.5-5.1); Protein, Total 7.9 g/dL (6.4-8.2); Sodium Level 134 mmol/L (136-145)
== END | disposition home or self-care (01) ==
PROVIDERS: PCP Family Medicine; Referring Provider Internal Medicine Rheumatology; Visit Provider Internal Medicine Rheumatology
DX: L40.59 Other psoriatic arthropathy (principal); Z79.899 Other long term (current) drug therapy; L40.8 Other psoriasis
CPT/HCPCS: 36415; 80053; 85025

== ENCOUNTER 2024-10-17 14:00 | Outpatient (RCR) | payer BC, SELFPAY ==
--- NOTE | 2024-09-21 08:46 | HP.PTEVAL_ITS ---
Patient's Visit Information Visit Information Visit Information: HINA JENKINS is a 54 year old F referred to Physical Therapy by Dr. Bri Oconnell DO with a diagnosis of R biceps tenodesis 09/01/24. Date of Evaluation: 09/21/24 Physical Therapist: Len Ocampo, PT, ATC Visit Plan Frequency: 1x/Week Duration: 2 Weeks Plan: Pt was issued HEP of PROM R shoulder and elbow stretches to perform at this time I at home. Follow up with pt at the 6 week post op pont to issue HEP of R shoulder strengthening and scap stab ex's. Subjective Subjective: DOS: 09/01/24. Pt reports her R biceps dissipated and had to be repaired. Pt reports she is stiff today, but feels like she is doing well. Pt reports she is R hand dominant. Pt notes she is having occasional sleep difficulty at this time secondary to pain. Pt reports she had the same procedure performed on her R shoulder in 2017. Pt has no tingling or numbness in her R UE at this time. Pt reports she works for a [employer]. Pt reports she has been instructed to not use her R UE at this time for 6 weeks. Pt notes difficulty with all IADL's and ADL's at this time secondary to being R hand dominant. 2/10 pain while sitting here at rest, 7/10 at worst. Pain R shoulder: Pain Intensity (Out of 10): 2 Pain Intensity Range: 7 Objective Objective: Neuro: B UE sensation is WNL to light touch. L biceps reflex 2/3 Observation: Incision is healed at this time. No signs of infection. ROM: L shoulder AROM: flex= 170, abd= 170, ER= 80, IR WNL; R shoulder PROM flex= 120, abd= 140 degrees MMT: L shoulder AROM: flex= 15, abd= 22, ER= 16, IR= 18 #F. R shoulder not tested Balance/Special Test Scores Quick DASH Score: 65.9075 Goals Goal 1:: Pt will be I with HEP in 2-3 visits Goal Time Frame: 6-8 Weeks Rehabilitation Potential Physical Therapy Diagnosis: Pt has R shoulder pain, weakness, and limited ROM secondary to R biceps tenodesis Rehabilitation Potential: Good Anticipated Interventions Patient/Client Instruction: Educate patient on: Condition and Plan of Care For the Purpose of:: To improve self management Therapeutic Exercise to Include: Strength training, Endurance training, Flexibilty training and Scapular Strength/Stabilization For the Purpose of:: To decrease pain, To increase ROM and To improve muscle performance and motor function Cryotherapy (ice pack, ice massage): Yes For the Purpose of:: To decrease pain Text: Thank you for the opportunity to evaluate your patient. For Medicare and Medicare HMO plans, please review the plan of care and approve it. It will need to be FAXED BACK to us at [phone] for Medicare purposes. For Medicare only, by signing this I certify the plan of care. Please let me know if there are questions or concerns regarding this plan of care. Physician Signature: Date:
--- NOTE | 2024-12-27 13:40 | HP.PT.NRP ---
Patient Information Patient Information: HINA JENKINS was seen in my office for initial evaluation on 09/21/24. The following Plan of Care was established for this patient: POC Established Initial Frequency: 1x/Week Initial Duration: 2 Weeks Anticipated Interventions Patient/Client Instruction: Educate patient on: Condition and Plan of Care For the Purpose of:: To improve self management Therapeutic Exercise to Include: Strength training, Endurance training, Flexibilty training and Scapular Strength/Stabilization For the Purpose of:: To decrease pain, To increase ROM and To improve muscle performance and motor function Cryotherapy (ice pack, ice massage): Yes For the Purpose of:: To decrease pain Last Seen Last Seen: This patient was last seen in our office . Pertinent comments regarding their Physical therapy will appear below: Pt has not returned to PT in 30 days and is discharged at this time. At this point I will be discontinuing this patient from physical therapy. I would be happy to see this patient again in the future if found appropriate by the physician. Thank you! Len Ocampo, PT, ATC Balance/Gait/Functional tests Balance/Special Test Scores Quick DASH Score: 65.9054
== END 2024-10-17 19:00 | disposition home or self-care (01) ==
LOC: PT 14:00
PROVIDERS: PCP Family Medicine; Referring Provider Orthopaedic Surgery; Visit Provider Orthopaedic Surgery
DX: Z98.890 Other specified postprocedural states (principal)
CPT/HCPCS: 97110; 97161

== ENCOUNTER → 2024-12-26 | Outpatient (CLI) | payer BC, SELFPAY ==
--- NOTE | 2024-12-26 11:10 | RAD_ITS ---
PROCEDURE: HIP, UNI W/ PELVIS 2-3 VIEWS 12/26/2024 REASON FOR EXAM: LEFT HIP PAIN TECHNIQUE: Three-view left hip to include the AP pelvis COMPARISON: Left hip study of 07/02/2020. RAD/HIP, UNI W/ Pelvis 2-3 Views IMPRESSION: Degenerative changes are seen of the visualized lower lumbar spine, particularl y L5-S1. Minimal sacroiliac joint degenerative changes are noted. Minimal degenerative changes of the hip joints are seen, without associated jamilah nt narrowing. No evidence of femoral head osteonecrosis. No acute fracture or dislocation is evident. Reading Location: [id number]
== END | disposition home or self-care (01) ==
LOC: RAD 11:02
PROVIDERS: PCP Family Medicine; Referring Provider Anesthesiology Pain Medicine; Visit Provider Anesthesiology Pain Medicine
DX: M16.12 Unilateral primary osteoarthritis, left hip (principal)
CPT/HCPCS: 73502

== ENCOUNTER → 2025-04-06 | Outpatient (CLI) | payer BC, SELFPAY ==
[2025-04-06 15:26] LABS: Absolute Lymphocyte Count 3.96 X10^3/uL (0.83-4.51); Absolute Neutrophil Count 3.9 X10^3/uL (2.0-7.7); Basophil# 0.09 X10^3/uL; Eosinophils% 1.2 % (0-5); Hematocrit 39.5 % (37-47); Hemoglobin 12.7 g/dL (12.0-15.0); Lymphocyte # 3.96 X10^3/ul (0.83-4.51); Mean Corp Hgb Conc 32.2 g/dL (32-36); Mean Corpuscular Hgb 29.1 pg (27.0-32.0); Mean Corpuscular Volume 90.6 fL (81-99); Monocyte# 0.56 X10^3/uL; Monocyte% 6.5 % (0-10); NRBC Flagged by Analyzer 0 % (0-5); Neutrophil # 3.87 X10^3/uL (2.7-7.7); Neutrophil % 45.1 % (47-70); Platelet Count 405 K/mm3 (150-450); RBC Distribution Width CV 13.6 % (11.6-14.6); RBC Distribution Width SD 45.4 fl (35.1-43.9); Red Blood Count 4.36 M/mm3 (4.2-5.4); White Blood Count 8.6 K/mm3 (4.4-11.0)
[2025-04-06 15:52] LABS: ALB/GLOB Ratio 1.4 RATIO (0.9-2.4); AST(SGOT) 21 U/L (<=31); Alanine Aminotransfer ALT/SGPT 16 U/L (<=34); Albumin, Serum 4.2 g/dL (3.5-5.0); Alkaline Phosphatase 121 U/L (35-104); Anion Gap 12 (5-15); BUN 5 mg/dL (4-19); BUN/Creat Ratio 5.9 RATIO (10-20); Calcium,Total 9.6 mg/dL (7.6-11.0); Carbon Dioxide 26.6 mmol/L (21.0-32.0); Chloride 98 mmol/L (98-108); Creatinine, Serum 0.88 mg/dL (0.70-1.20); EST Glomerular Filtration Rate 79 (>60); Glucose 111 mg/dL (70-99); Potassium 4.3 mmol/L (3.3-5.1); Protein, Total 7.2 g/dL (5.9-8.4); Sodium Level 137 mmol/L (133-145); Total Bilirubin 0.23 mg/dL (0.00-1.30)
== END | disposition home or self-care (01) ==
LOC: MTLAB 12:47
PROVIDERS: PCP Family Medicine; Referring Provider Internal Medicine Rheumatology; Visit Provider Internal Medicine Rheumatology
DX: L40.59 Other psoriatic arthropathy (principal); K51.80 Other ulcerative colitis without complications; Z79.899 Other long term (current) drug therapy; L40.8 Other psoriasis
CPT/HCPCS: 36415; 80053; 85025